=== PATIENT | male | born 1935 | race Caucasian/White ===

== ENCOUNTER → 2019-10-14 09:07 | Outpatient (BNVA) | payer MEDICARE, OTHER, SELFPAY | PROVIDERS: Family Provider Internal Medicine; PCP Internal Medicine; Visit Provider Urology | DX: R97.20 Elevated prostate specific antigen [PSA] (principal) | CPT/HCPCS: 84153 ==

== ENCOUNTER → 2020-02-15 11:38 | Outpatient (BNVA) | payer MEDICARE, OTHER, SELFPAY | PROVIDERS: Family Provider Internal Medicine; PCP Internal Medicine; Visit Provider Urology | DX: R97.20 Elevated prostate specific antigen [PSA] (principal) | CPT/HCPCS: 84153 ==

== ENCOUNTER → 2020-02-16 13:58 | Outpatient (BNVA) | payer MEDICARE, OTHER, SELFPAY | PROVIDERS: Family Provider Internal Medicine; PCP Internal Medicine; Visit Provider Urology | DX: N39.41 Urge incontinence (principal); N40.1 Benign prostatic hyperplasia with lower urinary tract symptoms; R97.20 Elevated prostate specific antigen [PSA]; R39.89 Other symptoms and signs involving the genitourinary system | CPT/HCPCS: 81001 ==

== ENCOUNTER → 2020-09-19 12:44 | Outpatient (BNVA) | payer MEDICARE, OTHER, SELFPAY | PROVIDERS: Family Provider Internal Medicine; PCP Internal Medicine; Visit Provider Urology | DX: R97.20 Elevated prostate specific antigen [PSA] (principal); R39.89 Other symptoms and signs involving the genitourinary system | CPT/HCPCS: 84153 ==

== ENCOUNTER → 2020-09-20 14:10 | Outpatient (BNVA) | payer MEDICARE, OTHER, SELFPAY | PROVIDERS: Family Provider Internal Medicine; PCP Family Medicine; Visit Provider Urology | DX: N39.41 Urge incontinence (principal); N40.1 Benign prostatic hyperplasia with lower urinary tract symptoms; R97.20 Elevated prostate specific antigen [PSA]; R39.9 Unspecified symptoms and signs involving the genitourinary system; R39.89 Other symptoms and signs involving the genitourinary system; C61 Malignant neoplasm of prostate | CPT/HCPCS: 81003 ==

== ENCOUNTER 2020-09-22 08:12 | Outpatient (CLI) | payer MEDICARE, OTHER, SELFPAY ==
--- NOTE | 2020-09-22 08:28 | CT_ITS ---
WS: [id number] CT ABDOMEN PELVIS TECHNIQUE: Noncontrast CT of the abdomen and contrast-enhanced CT of the abdomen and pelvis with buster nal and sagittal reformatted images. CLINICAL INFORMATION: PROSTATE CANCER COMPARISON: None. DLP: 2679.[address] scans at [facility] use at least one of these dose optimization techniques: automat ed exposure control; mA and/or kV adjustment per patient size (includes targeted exams where dose is matched to clinical indication); or iterative reconstruction. FINDINGS:Heterogeneously enhancing nodular prostate with left eccentric nodularity and indentation on the bladder. Prostate measures approximately 4.8 x 5.7 CM. Prostate calcification. Normal perirectal fat. Normal sigmoid colon. No evidence of small or large bowel obstruction. Tiny fat-containing umbi lical hernia. Left pelvic sidewall lymphadenopathy suspicious for metastatic disease with heterogeneous enhancement . Additional enlarged lymph node along the left distal iliac chain. Largest suspicious lymph node roberto sures approximately 2 cm in the left lower pelvis. No upper abdominal lymphadenopathy. No inguinal ly mphadenopathy. Mild diffuse fatty infiltration liver. Normal gallbladder. Normal GE junction. Chronic emphysematous changes in the lung bases. Pleural plaques left lower lobe. Normal spleen. Small splenule. Fatty atro phy of the pancreas. Normal portal vein and splenic vein. Adrenal glands are normal. Normal renal par enchymal enhancement. No hydronephrosis. Small left renal cysts. Bilateral renal cortical atrophy. No rmal caliber abdominal aorta. Moderate aortic calcification. Disc space narrowing L5-S1. CT/CT abdomen pelvis wo/w [id number] IMPRESSION: 1. Heterogeneous enhancing nodular prostate measuring 4.8 x 5.7 cm described a corey. 2. Left pelvic sidewall and left distal iliac lymphadenopathy suspicious for m etastatic disease measuring up to 2.0 CM. 3. No inguinal or periaortic lymphadenopathy. 4. Otherwise normal appearing perirectal fat.
--- NOTE | 2020-09-22 08:30 | NM_ITS ---
WS: [id number] NUCLEAR MEDICINE BONE SCAN Radiopharmaceutical: Tc-99m MDP mCi IV Injection site: Postinjection imaging delay: hr CLINICAL INFORMATION: PROSTATE CANCER COMPARISON: None. FINDINGS: Bone lesions: There are no osseous lesions suspicious for metastatic disease. Soft tissue contours: Normal. Kidneys: Normal. Other findings: Degenerative type uptake involving the left AC joint. Degenerative uptake involving t he left greater than right knees. Small amount of uptake in the upper left costovertebral junction ap proximately T3 likely degenerative or inflammatory. NM/NM bone scan whole body* [id number] IMPRESSION: No evidence of osseous metastatic disease.
[2020-09-22 09:34] LABS: Blood Urea Nitrogen 22 mg/dL (8-23)
[2020-09-22] MEDS: iohexol 300 mg/mL 100 mL Btl IV (09:40)
== END 2020-09-22 08:13 | disposition home or self-care (01) ==
LOC: RAD 08:19
PROVIDERS: PCP Family Medicine; Visit Provider Urology
DX: C61 Malignant neoplasm of prostate (principal)
CPT/HCPCS: 36415; 74178; 78306; 82565; 84520; A9561

== ENCOUNTER → 2020-09-26 15:44 | Outpatient (BNVA) | payer MEDICARE, OTHER, SELFPAY | PROVIDERS: PCP Family Medicine; Visit Provider Urology | DX: C61 Malignant neoplasm of prostate (principal); R97.20 Elevated prostate specific antigen [PSA]; N40.1 Benign prostatic hyperplasia with lower urinary tract symptoms | CPT/HCPCS: 85025 ==

== ENCOUNTER 2020-10-05 13:10 | Outpatient (CLI) | payer MEDICARE, OTHER, SELFPAY ==
--- NOTE | 2020-10-05 17:41 | ONC CON_ITS ---
Dr. Correia New Patient Note Patient: Tremaine Harding Unit #: [id number]: 1935 Dicatated By: Andrea Correia M.D.Date of Visit: Oct 05, 2020 Onc MED New Patient/Consult Referring Physician: Dr. Ko Hines M.D. Chief Complaint: Prostate cancer. History of Present Illness: This is an 85-year-old man with clinical evidence of advanced prostate cancer. He has multiple medical illnesses including hypertension, hyperlipidemia, coronary artery disease, carotid stenosis, peripheral arterial disease, COPD, and obstructive sleep apnea. Back in 2011 I treated him for iron deficiency anemia associated with GI blood loss. He has been followed by Dr. Hines for an elevated PSA level. On his follow-up visit in August 2020 the PSA had increased significantly, to 152.800 ng/mL compared to 47.280 ng/mL in January 2020. Prior to that it had been stable in the range of 20 ng/mL. He had staging evaluation with CT abdomen/pelvis and bone scan on 09/22/2020. The bone scan showed no evidence of metastatic disease. His CT abdomen/pelvis showed heterogeneous enhancing nodular prostate measuring 4.8 x 5.7 cm. There was noted to be left pelvic sidewall and left distal iliac lymphadenopathy measuring up to 2.0 cm, suspicious for metastatic disease. There were no other areas of metastatic involvement noted. At his follow-up visit with Dr. Hines he was noted to have grossly abnormal digital rectal exam. He had indicated that he wished to avoid prostate biopsy if at all possible. He is seen now for further management. He complains that he has been feeling tired a lot, and he thinks that it is getting worse. He has limited activity. His ECOG score is 3. He still has good appetite. He has no fever, night sweats, or hot flashes. He has had decline in vision and apparently has been diagnosed with macular degeneration. He has cough and he has shortness of breath. He is on continuous home oxygen. He does not complain of chest pain. He says he used to have acid reflux, but that is better now. He does complain of having a lot of constipation. He says his bladder function is not right. He reports having urinary frequency and urgency, and he has some associated incontinence. He has pain in his knees and in his right hand. He also reports that his legs are crampy and achy. He does not complain of headache. He does have difficulty with balance. He sometimes has numbness in his hands. Past Medical History: His medical history includes carotid artery stenosis, coronary artery disease, depression, history of iron deficiency anemia due to GI blood loss, history of mild cognitive impairment, hyperlipidemia, hypertension, obstructive sleep apnea, peripheral arterial disease, and prostatic hypertrophy with bladder outlet obstruction. Past Surgical History: His surgical/procedural history includes angioplasty/stent to left leg, cataract removal, coronay angioplasty/stent placement, endarterectomy, femoropopliteal bypass, right wrist surgery, rotator cuff repair, and coronary artery bypass in 2012. Medications: Albuterol Sulfate (sensor) 2 Puff(s) (of 108 (90 base) mcg/act) Aerosol Powder, Breath Activated Inhalation q 4 days, Aspirin 1 (325 mg) Tablet Oral daily, B Complex-C 1 Tablet Oral daily, B-12 1 (1000 mcg) Tablet Oral daily, B-6 1 (200 mg) Tablet Oral daily, Calcium + D 1 (500-1000-40 mg - Units - mcg) Tablet, chewable Oral daily, Co Q 10 1 (10 mg) Capsule Oral daily, Coconut Oil 1 (1000 mg) Capsule Oral daily, Ferrous Sulfate 1 (325 (65 fe) mg) Tablet Oral daily, Finasteride 1 (5 mg) Tablet Oral daily, Fish Oil 1 (1000 mg) Capsule Oral daily, Flax Seed Oil 1 (1000 mg) Capsule Oral daily, Folic Acid 1 (800 mcg) Tablet Oral daily, Ipratropium-Albuterol 1 Inhalation (of 20-100 mcg/act) Aerosol, solution Inhalation daily, Ipratropium-Albuterol 1 Inhalation (of 0.5-2.5 (3) mg/3mL) Solution Inhalation t.i.d., K-Tab 1 (10 meq) Tablet, controlled release Oral daily, Magnesium 1 (200 mg) Tablet, chewable Oral daily, Mucinex Fast-Max 1 (7-59-829-325 mg) Capsule Oral daily, Natural Vitamin E 1 (400 Units) Capsule Oral daily, Oxybutynin Chloride ER 1 (10 mg) Tablet SR 24 HR Oral daily, predniSONE 1 (10 mg) Tablet Oral daily, PreserVision AREDS 1 Tablet Oral daily, Symbicort 1 Inhalation (of 160-4.5 mcg/act) Aerosol Inhalation daily, Tamsulosin HCl 1 (0.4 mg) Capsule Oral daily, Vitamin A 1 (800 Units) Tablet Oral daily Allergies: No Known Allergies. Social History: Mr. Harding is and he is retired. He has a history of smoking up to 4 packs of cigarettes daily. He quit smoking in 2000. He had heavy alcohol use in the past. He quit drinking approximately 20 years ago. Family History: Father with cirrhosis of the liver. Mother lived to age 106. One brother with heart disease. Two brothers had dementia. His sister of meningitis at age 9. Review Of Symptoms: Constitutional - He has been feeling pretty fatigued, this has occurred for quite sometime but it has gradually worsened. He is able to do some very light housework, he is otherwise mainly sedentary. His appetite is good and his weight is stable. No fever, night sweats, or hot flashes. ECOG score is 3, Eyes - He has had a decrease in his vision. He is being evaluated by Dr. Ellis, and he apparently has been diagnosed with macular degeneration, ENMT - He has hearing loss and tinnitus. No sinus congestion/drainage. No mouth sores. No sore throat or difficulty swallowing, Hematologic/Lymphatic - He bruises easily, Respiratory - He gets short of breath with any activity. He wears 4 L continuous oxygen. No cough. No pleuritic pain or hemoptysis, Cardiovascular - No angina pain. No palpitations, Gastrointestinal - No nausea or vomiting. He used to have acid reflux. He has a lot of constipation. No blood in the stool or black stools, Genitourinary (M) - He says his bladder function is not right. He has urinary frequency and urgency and has some associated incontinence, Musculoskeletal - He has pain in his knees he also complains of pain in his right hand, Integumentary - No skin eruption, Neurologic - No headache. He has dizziness. He sometimes has numbness in his hands. No other focal neurologic symptoms, Psychiatric - No anxiety or depression. He does not sleep well. Vital Signs: Performed on Oct 05, 2020 14:06: 6, 28.59, 1.99 sq.m, 68.00 in, 90 % (LOW), 72 /min, 18 /min, 129/59 mm(hg), 98.2 F (LOW), 188 lbs (LOW), and Performed on Apr 10, 2012 13:45: 0. Physical Examination: Constitutional - He appears somewhat weak generally, Eyes - Sclerae nonicteric. Conjunctivae clear, ENMT - No lesions noted in the oral cavity, Hematologic/Lymphatic - No cervical, clavicular, or axillary adenopathy, Respiratory - Lungs sound clear with diminished air movement bilaterally, Cardiovascular - Heart rhythm appears irregular. There is no murmur, gallop, or rub noted, Abdomen - Moderately distended. Liver and spleen are not enlarged. There is no abdominal mass or ascites noted and there is no inguinal adenopathy, Extremities - No edema. There are multiple purpuric lesions on both arms, Integumentary - There are no suspicious skin lesions noted, Neurologic - No focal neurologic deficits noted. Lab/Imaging: His CBC from 09/26/2020 showed hemoglobin 13.8 g, white blood cell count 14,400, and platelet count 205,000. Problem List: 1. Patient with clinical evidence of prostate cancer including significantly elevated PSA level, grossly abnormal BHARAT, and CT evidence of left pelvic sidewall and left distal iliac lymphadenopathy. 2. He has associated symptoms of bladder outlet obstruction. 3. Hypertension. 4. Hyperlipidemia. 5. Coronary artery disease. 6. Carotid stenosis. 7. Peripheral arterial disease. 8. COPD. 9. Obstructive sleep apnea. 10. History of mild cognitive impairment. 11. History of iron deficiency anemia in association with GI blood loss. Problems Addressed with this Encounter and Plan: Patient with clinical evidence of prostate cancer including significantly elevated PSA level, grossly abnormal BHARAT, and CT evidence of left pelvic sidewall and left distal iliac lymphadenopathy. He has associated symptoms of bladder outlet obstruction. He is otherwise not overtly symptomatic, but he has been showing decline in performance status, and that potentially could be related. I reviewed the laboratory and CT findings. He is aware that this is all consistent with advanced prostate cancer. He is interested in pursuing treatment, but he prefers to avoid biopsy if at all possible. Given his underlying medical problems, I think it is reasonable to approach this in a more conservative manner, and I am giving him the option to proceed directly with androgen deprivation therapy. He will now begin bicalutamide 50 mg daily for 14 days, and he will return next week for an initial injection of Zoladex, 10.8 mg. I will then plan to continue Zoladex monotherapy at 3-month intervals. I discussed anticipated side effects which will likely include hot flashes and may also include fatigue, mood changes, among others. Signed By: Andrea Correia M.D. <<Signature on File>>
== END 2020-10-05 13:11 | disposition home or self-care (01) ==
LOC: ONCMED 13:14
PROVIDERS: PCP Family Medicine; Visit Provider Internal Medicine Medical Oncology
DX: C61 Malignant neoplasm of prostate (principal); R35.0 Frequency of micturition; R39.15 Urgency of urination; R59.0 Localized enlarged lymph nodes; N13.8 Other obstructive and reflux uropathy; I10 Essential (primary) hypertension; E78.5 Hyperlipidemia, unspecified; I25.10 Atherosclerotic heart disease of native coronary artery without angina pectoris
CPT/HCPCS: 99205

== ENCOUNTER 2020-10-12 06:23 | Outpatient (CLI) | payer MEDICARE, OTHER, SELFPAY ==
[2020-10-12] MEDS: goserelin acetate 10.8 mg Implant IM (10:30)
[2020-10-12] MEDS: lidocaine 1% INJ 20 mL INJECTION (10:30)
== END 2020-10-12 06:24 | disposition home or self-care (01) ==
PROVIDERS: PCP Family Medicine; Visit Provider Internal Medicine Medical Oncology
DX: C61 Malignant neoplasm of prostate (principal); Z79.818 Long term (current) use of other agents affecting estrogen receptors and estrogen levels
CPT/HCPCS: 96372; 96402; J9202

== ENCOUNTER 2020-10-18 13:21 | Outpatient (CLI) | payer MEDICARE, OTHER, SELFPAY ==
--- NOTE | 2020-10-18 13:30 | USCV_ITS ---
Tremaine Harding Age: 85 Gender: M : 1935 Exam Date: 10/18/2020 13:41 Ordering Phys: Hal Muñoz MD ([email or web address]) Technologist: Exam Location: [facility] [place] Indication: LT ICA OCCUSION Risk Factors: Previous Vascular Surgery: Right Brachial BP: / Left Brachial BP: / Right Left Velocity (cm/s) Spectral Plaque Velocity (cm/s) Spectral Plaque Syst/Diast Broadening Syst/Diast Broadening 54.70/ 12.80 Prox CCA 55.50 / 0.90 53.80/ 8.50 Mid CCA 64.10 / 5.10 61.50/ 7.70 Hetro Distal CCA 79.50 / 6.00 85.40/ 11.80 Hetro Prox ICA / 109.10/17.10 Hetro Mid ICA / 118.30/19.70 Distal ICA / 262.00 ECA 156.90 1.92 ICA/CCA Antegrade Vertebral Antegrade 59.20/ 7.90 cm/s 119.6/ 14.00 cm/s 0 Bi Subclavian Bi 105.2 275.4 0 0 FINDINGS Mild to moderate diffuse plaques in the common carotid arteries bilaterally Moderate heterogeneous plaques of the right bifurcation and internal carotid artery. No Doppler flow signals in the left internal carotid artery. Elevated velocity in the right external carotid artery and left subclavian artery High resistance doppler flow pattern in the right vertebral artery CONCLUSIONS 1. Features of chronic use of the left internal carotid artery. 2. Elevated velocity in the right external carotid and left subclavian arteries suggesting greater than 50% stenosis. 3. Moderate heterogeneous plaques at the right bifurcation and internal carotid artery with the Doppler characteristics suggestive of less than 50% stenosis. 4. Abnormal Doppler flow pattern in the right vertebral artery, may suggest distal occlusion. Compared to the study from 02/08/2019, the bidirectional flow in the left vertebral artery is not visualized at this time Consider CTA of the neck to better evaluate the arch vessels Dr Hal Muñoz MD [facility] (Electronically Signed) Final Date: 25 Oct 2020 07:40 S
== END 2020-10-18 13:22 | disposition home or self-care (01) ==
PROVIDERS: PCP Family Medicine; Visit Provider Internal Medicine Cardiovascular Disease
DX: I65.23 Occlusion and stenosis of bilateral carotid arteries (principal)
CPT/HCPCS: 93880

== ENCOUNTER 2020-11-22 13:57 | Outpatient (CLI) | payer MEDICARE, OTHER, SELFPAY ==
--- NOTE | 2020-11-22 14:07 | CT_ITS ---
WS: [id number] CT ANGIOGRAM CEREBRAL AND CAROTID ARTERIES HISTORY: I65.23 - Occlusion and stenosis of bilateral carotid arteries. TECHNIQUE: CT angiogram is performed of the carotid and cerebral arteries. During arterial injection imaging is obtained from the skull vertex to the aortic arch in 1.25 mm imaging. Coronal and sagittal reformats are submitted. Additional multi planar reformats of the carotid and cerebral arteries are submitted, MIP imaging also reviewed. NASCET criteria utilized. All CT scans at [facility] use at least one of these dose optimization techniques: automated exposure control; mA and/or kV ad justment per patient size (includes targeted exams where dose is matched to clinical indication); or iterative reconstruction. CONTRAST: Omnipaque 350; 95 mL IV. DLP: 2356.56 mGy-cm. COMPARISON: None available. No intracranial hemorrhage. Large MCA territory infarct with encephalomalacia and volume loss. Additi onal chronic microvascular ischemic changes throughout the white matter. Carotid Angiogram: Right carotid: Common carotid artery: Atherosclerotic plaque with no significant stenosis. Internal carotid artery: Multifocal short segment area of stenosis due to calcification and intimal t hickening. Stenosis near 50%. External carotid artery: Patent. Left carotid: Common carotid artery: Arises normally from the aorta. Moderate circumferential intimal plaque. Internal carotid artery: Intimal thickening calcified plaque at the bifurcation. There is complete oc clusion involving the proximal ICA. External carotid artery: Patent. Right vertebral artery: Unremarkable. Left vertebral artery: Unremarkable. Arises normally from the subclavian artery. Subclavian arteries: Mild atherosclerotic plaque. No stenosis identified. Portions of the RIGHT subcl huyen artery obscured by contrast bolus injection. Upper thorax: Severe centrilobular emphysema at the apices. Thyroid gland: Normal. Osseous structures: Advanced spondylitic changes. Sclerotic focus at T4. CEREBRAL ANGIOGRAM: Intracranial vertebral arteries: Normal with no significant atherosclerosis. Basilar artery: No significant stenosis or occlusion. No aneurysm. Intracranial Internal carotid arteries: Atherosclerotic plaque in the RIGHT intracranial carotid antonino ry. Multifocal areas of moderate stenosis approaching 50%. Patient has known occluded in the LEFT ICA . There is reconstitution through an intact diomede of Jones. Middle cerebral arteries: Normal RIGHT MCA. Small caliber LEFT MCA due to limited perfusion to the in tact diomede of Jones. Anterior cerebral arteries and ACOM: Normal. Posterior cerebral arteries and PCOM's: Normal. Dural venous sinuses are normally enhancing. Mastoid air cells: Normal. Paranasal sinuses: Normal. Calvarium: Prior LEFT parietal craniotomy. CT/CT angio headneck* [id number] IMPRESSION: 1. Complete occlusion extracranial LEFT ICA. 2. Multifocal areas of sclerotic plaque in the proximal RIGHT extracranial ICA with stenosis approaching 50%. 3. Reconstitution through an intact diomede of Jones to fill the LEFT MCA. LEF T MCA small caliber but is enhancing. 4. Moderate calcified plaque in the RIGHT intracranial carotid artery. 5. 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 6. Chronic emphysema at the lung apices.
[2020-11-22] MEDS: iohexol 350 mg/mL 100 mL Btl IV (14:50)
[2020-11-22 14:56] LABS: Blood Urea Nitrogen 20 mg/dL (8-23)
== END 2020-11-22 13:58 | disposition home or self-care (01) ==
PROVIDERS: PCP Family Medicine; Visit Provider Internal Medicine Cardiovascular Disease
DX: I65.23 Occlusion and stenosis of bilateral carotid arteries (principal); J43.9 Emphysema, unspecified; I63.9 Cerebral infarction, unspecified
CPT/HCPCS: 70496; 70498; 82565; 84520; Q9967

== ENCOUNTER 2021-01-11 12:33 | Outpatient (CLI) | payer MEDICARE, OTHER, SELFPAY ==
[2021-01-11 13:20] LABS: Basophils # 0.2 10^3/uL (0.0-0.1); Basophils % 1.1 %; Eosinophils # 0.3 10^3/uL (0.0-0.8); Eosinophils % 2.4 %; Hematocrit 42.7 % (42.0-52.0); Hemoglobin 13.3 g/dL (11.7-16.6); Lymphocytes # 1.7 10^3/uL (0.8-4.8); Lymphocytes % 12.2 %; Mean Corpuscular HGB Conc 31.1 g/dL (30.0-36.0); Mean Corpuscular Hemoglobin 30.3 pg (28.0-34.0); Mean Corpuscular Volume 97.3 fL (80-94); Mean Platelet Volume 10.3 fL (7.4-10.4); Monocytes # 1.4 10^3/uL (0.2-0.9); Monocytes % 10.2 %; Neutrophils # 10.22 10^3/uL (1.8-7.7); Neutrophils % 73.7 %; Nucleated Red Blood Cells % 0 %; Platelet Count 180 10^3/cmm (130-400); Red Blood Count 4.39 10^6/uL (4.1-5.3); Red Cell Distribution Width 15.4 % (12.1-15.1); White Blood Count 13.9 10^3/uL (4.0-10.0)
[2021-01-11 14:01] LABS: Testosterone Total 2.5 ng/dL (193-740)
[2021-01-11 14:12] LABS: Alanine Aminotransferase 12 U/L (0-41); Alkaline Phosphatase 66 IU/L (40-130); Anion Gap 13.8 (5-19); Aspartate Amino Transferase 17 U/L (0-40); Blood Urea Nitrogen 20 mg/dL (8-23); Calcium 9.2 mg/dL (8.5-10.5); Carbon Dioxide 30 mmol/L (22-29); Chloride 102 mmol/L (98-107); Globulin 2.8 g/dL (1.3-4.6); Glucose 96 mg/dL (65-115); Osmolality Calculated 294 mOsm/kg (285-295); Potassium 4.8 mmol/L (3.5-5.1); Sodium 141 mmol/L (136-145); Total Bilirubin 0.6 mg/dL (0.15-1.2); Total Protein 6.8 g/dL (6.6-8.7)
[2021-01-11] MEDS: lidocaine 1% INJ 20 mL INJECTION (14:33)
[2021-01-11] MEDS: goserelin acetate 10.8 mg Implant SUBCUT (14:44)
--- NOTE | 2021-01-15 07:03 | ONC FU_ITS ---
Dr. Correia Patient Follow-Up Note Patient: Tremaine Harding Unit #: [id number]: 1935 Dicatated By: Andrea Correia M.D.Date of Visit:Jan 11, 2021 Onc Med Follow-up/Prog Note Chief Complaint: Prostate cancer. History of Present Illness: This is an 85-year-old man with clinical evidence of advanced prostate cancer. He has multiple medical illnesses including hypertension, hyperlipidemia, coronary artery disease, carotid stenosis, peripheral arterial disease, COPD, and obstructive sleep apnea. Back in 2011 I treated him for iron deficiency anemia associated with GI blood loss. He has been followed by Dr. Hines for an elevated PSA level. On his follow-up visit in August 2020 the PSA had increased significantly, to 152.800 ng/mL compared to 47.280 ng/mL in January 2020. Prior to that it had been stable in the range of 20 ng/mL. He had staging evaluation with CT abdomen/pelvis and bone scan on 09/22/2020. The bone scan showed no evidence of metastatic disease. His CT abdomen/pelvis showed heterogeneous enhancing nodular prostate measuring 4.8 x 5.7 cm. There was noted to be left pelvic sidewall and left distal iliac lymphadenopathy measuring up to 2.0 cm, suspicious for metastatic disease. There were no other areas of metastatic involvement noted. At his follow-up visit with Dr. Hines he was noted to have grossly abnormal digital rectal exam. He had indicated that he wished to avoid prostate biopsy if at all possible. I had seen him initially on 10/05/2020. He was given the option to proceed with androgen deprivation therapy. He then began bicalutamide 50 mg daily for 14 days and he received his initial injection of Zoladex 10.8 mg on 10/12/2020. He is seen for a followup visit. He has been feeling pretty good generally. He has limited activity. His ECOG score is 1. He has good appetite. He has no fever, night sweats, or hot flashes. His breathing is OK on oxygen. He has cough, but not that much. He has chest pain at times, which he attributes to muscle spasm. He has no GI complaints other constipation, which is adequately managed. His bladder function is no better. He has joint pain in his hands and knees. He has no other bone pain. He very seldom has headache. He has orthostatic dizziness. He has some numbness in his right hand. Medications: Albuterol Sulfate (sensor) 2 Puff(s) (of 108 (90 base) mcg/act) Aerosol Powder, Breath Activated Inhalation q 4 days, Aspirin 1 (325 mg) Tablet Oral daily, B Complex-C 1 Tablet Oral daily, B-12 1 (1000 mcg) Tablet Oral daily, B-6 1 (200 mg) Tablet Oral daily, Calcium + D 1 (500-1000-40 mg - Units - mcg) Tablet, chewable Oral daily, Co Q 10 1 (10 mg) Capsule Oral daily, Coconut Oil 1 (1000 mg) Capsule Oral daily, Ferrous Sulfate 1 (325 (65 fe) mg) Tablet Oral daily, Finasteride 1 (5 mg) Tablet Oral daily, Fish Oil 1 (1000 mg) Capsule Oral daily, Flax Seed Oil 1 (1000 mg) Capsule Oral daily, Folic Acid 1 (800 mcg) Tablet Oral daily, Ipratropium-Albuterol 1 Inhalation (of 20-100 mcg/act) Aerosol, solution Inhalation daily, Ipratropium-Albuterol 1 Inhalation (of 0.5-2.5 (3) mg/3mL) Solution Inhalation t.i.d., K-Tab 1 (10 meq) Tablet, controlled release Oral daily, Magnesium 1 (200 mg) Tablet, chewable Oral daily, Mucinex Fast-Max 1 (3-71-324-325 mg) Capsule Oral daily, Natural Vitamin E 1 (400 Units) Capsule Oral daily, Oxybutynin Chloride ER 1 (10 mg) Tablet SR 24 HR Oral daily, predniSONE 1 (10 mg) Tablet Oral daily, PreserVision AREDS 1 Tablet Oral daily, Symbicort 1 Inhalation (of 160-4.5 mcg/act) Aerosol Inhalation daily, Tamsulosin HCl 1 (0.4 mg) Capsule Oral daily, Vitamin A 1 (800 Units) Tablet Oral daily Allergies: No Known Allergies. Vital Signs: Performed on Jan 11, 2021 16:07 Height - 68.00 in Weight - 182.8 lbs (LOW) BSA - 1.97 sq.m BMI - 27.79 Temperature - 98.9 F (HIGH) Pulse - 76 /min Respiration - 18 /min BP - 121/65 mm(hg) O2 Sat - 94 % (LOW) Pain - 0 Fatigue - 0 Physical Examination: Constitutional - He appears chronically ill, Eyes - Sclerae nonicteric. Conjunctivae clear, ENMT - No lesions noted in the oral cavity, Hematologic/Lymphatic - No cervical, clavicular, or axillary adenopathy, Respiratory - Lungs sound clear with diminished air movement bilaterally, Cardiovascular - Heart rhythm appears regular. There is no murmur, gallop, or rub noted, Abdomen - Moderately distended. Liver and spleen are not enlarged. There is no abdominal mass or ascites noted and there is no inguinal adenopathy, Extremities - No edema. He has extensive purpura, Neurologic - No focal neurologic deficits noted. Lab/Imaging: Test performed on Jan 11, 2021 12:47 WBC 13.9 10 3/uL RBC 4.39 10 6/uL HGB 13.3 g/dL HCT 42.7 % MCV 97.3 fL MCH 30.3 pg MCHC 31.1 g/dL RDW 15.4 % Platelet Count 180 10 3/cmm MPV 10.3 fL Neutrophils 10.22 10 3/uL Lymphocytes 1.7 10 3/uL Monocytes 1.4 10 3/uL Eosinophils 0.3 10 3/uL Basophils 0.2 10 3/uL Neutrophil % 73.7 % Lymphocyte % 12.2 % Monocyte % 10.2 % Eosinophil % 2.4 % Basophils % 1.1 % NRBC % 0 % Test performed on Jan 11, 2021 12:43 Sodium 141 mmol/L Testosterone, Total 2.5 ng/dL Potassium 4.8 mmol/L Chloride 102 mmol/L CO2 30 mmol/L Anion Gap 13.8 BUN 20 mg/dL Creatinine 0.9 mg/dL Cr Clearance (Est) 71.66 mL/min Glucose 96 mg/dL Osmolality - Calculated 294 mOsm/kg Calcium 9.2 mg/dL Protein, Total 6.8 g/dL Albumin 4.0 g/dL Globulin 2.8 g/dL Bilirubin, Total 0.6 mg/dL ALT (SGPT) 12 U/L AST (SGOT) 17 U/L Alkaline Phosphatase 66 IU/L PSA 30.160 ng/mL Problem List: 1. Patient with clinical evidence of prostate cancer including significantly elevated PSA level, grossly abnormal BHARAT, and CT evidence of left pelvic sidewall and left distal iliac lymphadenopathy. 2. He has associated symptoms of bladder outlet obstruction. 3. Hypertension. 4. Hyperlipidemia. 5. Coronary artery disease. 6. Carotid stenosis. 7. Peripheral arterial disease. 8. COPD. 9. Obstructive sleep apnea. 10. History of mild cognitive impairment. 11. History of iron deficiency anemia in association with GI blood loss. Problems Addressed with this Encounter and Plan: Patient with clinical evidence of prostate cancer including significantly elevated PSA level, grossly abnormal BHARAT, and CT evidence of left pelvic sidewall and left distal iliac lymphadenopathy. He has associated symptoms of bladder outlet obstruction. He was otherwise not overtly symptomatic, but he had been showing decline in performance status. In September 2020 he began androgen deprivation therapy with Zoladex together with bicalutamide 50 mg daily for 14 days. Thus far he has tolerated the treatment with no adverse effects. He does appear to be showing a good response by PSA level. His cilnical status appears stable. He continues treatment with Zoladex 10.8 mg. I will see him again in 3 months. Signed By: Andrae Correia M.D. <<Signature on File>>
== END 2021-01-11 12:34 | disposition home or self-care (01) ==
PROVIDERS: PCP Family Medicine; Visit Provider Internal Medicine Medical Oncology
DX: C61 Malignant neoplasm of prostate (principal); I10 Essential (primary) hypertension; E78.5 Hyperlipidemia, unspecified; I25.10 Atherosclerotic heart disease of native coronary artery without angina pectoris; I65.29 Occlusion and stenosis of unspecified carotid artery; I70.209 Unspecified atherosclerosis of native arteries of extremities, unspecified extremity; J44.9 Chronic obstructive pulmonary disease, unspecified; G47.33 Obstructive sleep apnea (adult) (pediatric); Z79.899 Other long term (current) drug therapy
CPT/HCPCS: 36415; 80053; 84153; 84403; 85025; 96372; 96402; 99214; J9202

== ENCOUNTER 2021-05-29 17:34 | Inpatient (IN) | payer MEDICARE, OTHER, SELFPAY ==
[2021-05-29] VITALS (8 sets, daily range): BP systolic 76–148; BP diastolic 52–72; PULSE 76–147; RESP 16–26; TEMP 36.4; O2SAT 88–100; BMI 27.8
--- NOTE | 2021-05-29 18:35 | CTR_ITS ---
PROCEDURE INFORMATION: Exam: CT Head Without Contrast Exam date and time: 05/29/2021 6:35 PM Age: 85 years old Clinical indication: Injury or trauma; Fall; Blunt trauma (contusions or hematomas); Prior surgery TECHNIQUE: Imaging protocol: Computed tomography of the head without contrast. Radiation optimization: All CT scans at this facility use at least one of these dose optimization techniques: automated exposure control; mA and/or kV adjustment per patient size (includes targeted exams where dose is matched to clinical indication); or iterative reconstruction. COMPARISON: CT angio headneck* [id number] 11/22/2020 2:36 PM RADIATION DOSE METRICS: Total DLP (mGy-cm): 882.91 FINDINGS: Brain: No hemorrhage. Moderate diffuse cerebral atrophy and sequela of chronic small vessel ischemic disease. Encephalomalacic changes in the left frontal lobe. No mass effect. Cerebral ventricles: No ventriculomegaly. Paranasal sinuses: Visualized sinuses are unremarkable. No fluid levels. Mastoid air cells: Visualized mastoid air cells are well aerated. Bones/joints: Left parietal temporal craniotomy changes. No acute fracture. Soft tissues: Unremarkable. CT/CT head wo con* [id number] IMPRESSION: 1. No acute intracranial abnormality. 2. Moderate diffuse cerebral atrophy and sequela of chronic small vessel ischemic disease. Encephalomalacic change in the left frontal lobe.
--- NOTE | 2021-05-29 18:35 | XRR_ITS ---
PROCEDURE INFORMATION: Exam: XR Right Elbow Exam date and time: 05/29/2021 6:35 PM Age: 85 years old Clinical indication: Injury or trauma; Fall; Blunt trauma (contusions or hematomas); Elbow; Right; Additional info: Fall/bruise TECHNIQUE: Imaging protocol: XR Right elbow. Views: 3 or more views. COMPARISON: NM bone scan whole body* [id number] 09/22/2020 8:30 AM FINDINGS: Bones/joints: Osseous structures are intact. No evidence of fracture. Soft tissues: Normal. XR/XR elbow RT min 3V* [id number] IMPRESSION: No acute findings.
--- NOTE | 2021-05-29 18:35 | XRR_ITS ---
PROCEDURE INFORMATION: Exam: XR Chest Exam date and time: 05/29/2021 6:35 PM Age: 85 years old Clinical indication: Shortness of breath; Prior surgery; Additional info: Dyspnea TECHNIQUE: Imaging protocol: XR of the chest. Views: 1 view. COMPARISON: NM bone scan whole body* [id number] 09/22/2020 8:30 AM FINDINGS: Lungs: Ill-defined opacity in the right mid and lower lung. Pleural spaces: Bilateral costophrenic blunting which may relate to trace pleural effusions. No pneumothorax. Heart/Mediastinum: Mild cardiomegaly. Bones/joints: Sternotomy wires noted. Partially visualized rotator cuff anchor in the right humeral head. XR/XR chest 1V portable [id number] IMPRESSION: Ill-defined opacity in the right mid and lower lung.
--- NOTE | 2021-05-29 18:35 | XRR_ITS ---
PROCEDURE INFORMATION: Exam: XR Right Forearm Exam date and time: 05/29/2021 6:35 PM Age: 85 years old Clinical indication: Injury or trauma; Fall; Blunt trauma (contusions or hematomas); Arm, lower; Right; Prior surgery TECHNIQUE: Imaging protocol: XR Right forearm. Views: 2 views. COMPARISON: NM bone scan whole body* [id number] 09/22/2020 8:30 AM FINDINGS: Bones/joints: ORIF hardware noted in the wrist. Radius and ulna appear intact without fracture. Soft tissues: Normal. XR/XR forearm RT 2V [id number] IMPRESSION: No acute findings.
--- NOTE | 2021-05-29 18:35 | XRR_ITS ---
PROCEDURE INFORMATION: Exam: XR Right Hip Exam date and time: 05/29/2021 6:35 PM Age: 85 years old Clinical indication: Injury or trauma; Fall; Blunt trauma (contusions or hematomas); Right; Hip; Additional info: R proximal lateral thigh bruise TECHNIQUE: Imaging protocol: XR Right hip. Views: 1 view hip with pelvis when performed. COMPARISON: CT abdomen pelvis wo/w [id number] 09/22/2020 9:54 AM FINDINGS: Bones/joints: No acute fracture. Moderate degenerative narrowing of the right hip. Soft tissues: Unremarkable. XR/XR hip RT 2-3V wo/w pel* [id number] IMPRESSION: No acute findings.
[2021-05-29 18:52] LABS: Basophils # 0.1 10^3/uL (0.0-0.1); Basophils % 0.8 %; Eosinophils # 0.1 10^3/uL (0.0-0.8); Eosinophils % 0.4 %; Hematocrit 26.7 % (42.0-52.0); Hemoglobin 8.1 g/dL (11.7-16.6); Lymphocytes % 6.4 %; Mean Corpuscular HGB Conc 30.3 g/dL (30.0-36.0); Mean Corpuscular Hemoglobin 27.7 pg (28.0-34.0); Mean Corpuscular Volume 91.4 fl (80-94); Mean Platelet Volume 9.7 fL (7.4-10.4); Monocytes # 1.3 10^3/uL (0.2-0.9); Monocytes % 8.2 %; Neutrophils # 12.68 10^3/uL (1.8-7.7); Neutrophils % 80.6 %; Nucleated Red Blood Cells % 0.1 %; Platelet Count 311 10^3/cmm (130-400); Red Blood Count 2.92 10^6/uL (4.1-5.3); Red Cell Distribution Width 16.5 % (12.1-15.1); White Blood Count 15.7 10^3/uL (4.0-10.0)
--- NOTE | 2021-05-29 18:52 | ED_ITS ---
HPI - General Adult General: Chief complaint: Altered Mental Status Stated complaint: UTI COMPLICATIONS/AMS/FREQUENT FALLS Time Seen by Provider: 05/29/21 18:20 History of Present Illness: HPI narrative: CC: AMS HPI: [85]yo patient w/ hx of CVA x 9, CAD s/p stent x 3, COPD presenting for altered mental status. Per patient's , patient has become increasingly more confused over the last 3 weeks. The last 3 days, patient has had multiple episodes of recurrent fall. At baseline, prior to 3 weeks, patient is able to take care of himself and have conversant conversation. Since 3 weeks ago, patient has been deteriorating gradually. Patient is AAO x1 moderately confused. is concerned that patient may be having urinary tract infection at this time. Patient has no fever, diarrhea, abdominal pain, chest pain, shortness breath, ear pain, focal weakness, any new concerning complaints Onset: Unknown Duration: ongoing, unclear duration Location: home Severity: severe Review of Systems Narrative: REVIEW OF SYSTEMS unable to obtain due to current cognitive status PFSH ED PFSH: Medical History Abnormal prostate exam Abnormal PSA ASHD (arteriosclerotic heart disease) Benign non-nodular prostatic hyperplasia with lower urinary tract symptoms CAD (coronary artery disease) Carotid artery stenosis Chest pain History of hypertension Hx of coronary atherosclerosis Hx of hyperlipidemia Prostate cancer PVD (peripheral vascular disease) SOB (shortness of breath) Urgency incontinence Surgical History H/O wrist surgery RIGHT - History of endarterectomy History of femoropopliteal bypass Hx of coronary artery bypass graft Hx of rotator cuff surgery Family History Father , AT AGE 60 Cirrhosis of liver Mother , AT AGE 106 No problems noted. Family/Other CAD (coronary artery disease) Diabetes Hypertension Social History Smoking and tobacco status: former smoker Alcohol intake: current Alcohol intake frequency: holidays/special occasions only Adopted: No Caregiver/support person: No Lives independently: No Household members: spouse Marital status: Current occupational status: retired History of recent travel: No Current gender identity: Male Physical Exam Narrative: EXAM NARRATIVE: Head: Atraumatic Eyes: PERRL, conjunctiva without injection ENT: Mucous membrane moist NECK: Supple without lymphadenopathy LUNGS: LCTAB CV: RRR ABDOMEN: Soft, nontender EXTREMITY: Normal ROM, no focal areas to palpation over the extremities, unable to assess neurological exam following given altered mental status. SKIN: +bruises of the R elbow/forearm, R glute, and R proximal thigh NEURO: Somnolent but arousable, moving all extremities, GCS of 14 PSYCH: Somnolent unable to fully assess at this time Course Vital Signs: Vital signs: Vital Signs Temperature 97.6 F 05/29/21 17:54 Pulse Rate 76 05/29/21 18:18 Respiratory Rate 16 05/29/21 18:18 Blood Pressure 142/72 05/29/21 18:18 Pulse Oximetry 95 05/29/21 18:18 MDM - General Adult MDM Narrative: Medical decision making narrative: [85]yo patient w/ hx of CAD s/p stents, multiple CVAs in the past presenting for worsening AMS and falls. HDS. + bruises over the R forearm/elbow, R glute and R proximal femur. No tenderness to palpation over the bruise sites. Toxidrome Findings: Negative. No rigidity or clonus of LE ankle/knee reflexes, no diaphoresis, pupils mid-ranged equal and reactive to light, no signs of track leung/body patches, normal bowel sounds, and bladder non-palpable/ non- distended. EKG: EKG: Normal Sinus Rhythm. No overt ischemic findings and no prolongation of QTc or QRS intervals. No signs of hyperkalemia (peaked T waves, QRS widening, and FL prolongation) Workup: CBC, CMP, acetaminophen level, salicylate level, VBG, CK, UA, ECG, UA/UDS, CT brain, XR Chest On reassessment, patient was found to have a white count 15.7 consistent with baseline. Troponin of 201. Patient status post aspirin and Lovenox in the ED. Patient showed possible pneumonia. Patient status post ceftriaxone and azithromycin. CT brain negative for any acute finding. UA negative for any signs of UTI. Hemolgobin of 8.1 consistent with baseline. Disposition: Admission for AMS workup, NSTEMI and PNA Lab Data: Labs: Lab Results 05/29/21 05/29/21 05/29/21 18:40 18:40 18:50 WBC 15.7 10^3/uL H 10 ^3/uL (4.0-10.0) RBC 2.92 10^6/uL L 10 ^6/uL (4.1-5.3) Hgb 8.1 g/dL L g/dL (11.7-16.6) Hct 26.7 % L % (42.0-52.0) MCV 91.4 fl fl (80-94) MCH 27.7 pg L pg (28.0-34.0) MCHC 30.3 g/dL g/dL (30.0-36.0) RDW 16.5 % H % (12.1-15.1) Plt Count 311 10^3/cmm 10^3 /cmm (130-400) MPV 9.7 fL fL (7.4-10.4) Neut % (Auto) 80.6 % % Lymph % (Auto) 6.4 % % Florence % (Auto) 8.2 % % Eos % (Auto) 0.4 % % Baso % (Auto) 0.8 % % Neut # (Auto) 12.68 10^3/uL H 1 0^3/uL (1.8-7.7) Lymph # (Auto) 1.0 10^3/uL 10^3/ uL (0.8-4.8) [place] # (Auto) 1.3 10^3/uL H 10^ 3/uL (0.2-0.9) Eos # (Auto) 0.1 10^3/uL 10^3/ uL (0.0-0.8) Baso # (Auto) 0.1 10^3/uL 10^3/ uL (0.0-0.1) Nucleated RBC % (a uto) 0.1 % % Nucleated RBCs # 0.0 /100WBC /100W BC Sodium 139 mmol/L mmol/L (136-145) Potassium 4.8 mmol/L mmol/L (3.5-5.1) Chloride 98 mmol/L mmol/L (98-107) Carbon Dioxide 30 mmol/L H mmol/ L (22-29) Anion Gap 15.8 (5-19) BUN 20 mg/dL mg/dL (8-23) Creatinine 0.9 mg/dL mg/dL (0.7-1.2) GFR Calculation Not Reportable Glucose 123 mg/dL H mg/dL (65-115) Calculated Osmolal ity 292 mOsm/kg mOsm/ kg (285-295) Calcium 8.8 mg/dL mg/dL (8.5-10.5) Total Bilirubin 0.5 mg/dL mg/dL (0.15-1.2) AST 26 U/L U/L (0-40) ALT 24 U/L U/L (0-41) Alkaline Phosphata se 60 IU/L IU/L (40-130) Troponin T Baselin e 201 ng/L H* ng/L (0-15) Total Protein 6.4 g/dL L g/dL (6.6-8.7) Albumin 3.4 g/dL L g/dL (3.5-5.2) Globulin 3.0 g/dL g/dL (1.3-4.6) Urine Color Urine Appearance Urine pH Ur Specific Gravit y Urine Protein Urine Glucose (UA) Urine Ketones Urine Blood Urine Nitrate Urine Bilirubin Urine Urobilinogen Ur Leukocyte Catherine ase Urine RBC Urine WBC Ur Squamous Epith Cells Amorphous Sediment Urine Bacteria Hyaline Casts Urine Mucus Salicylates 1.2 mg/dL L mg/dL (3-10) Acetaminophen < 5.0 ug/mL L ug/ mL (10-30) 05/29/21 19:10 WBC RBC Hgb Hct MCV MCH MCHC RDW Plt Count MPV Neut % (Auto) Lymph % (Auto) Florence % (Auto) Eos % (Auto) Baso % (Auto) Neut # (Auto) Lymph # (Auto) Florence # (Auto) Eos # (Auto) Baso # (Auto) Nucleated RBC % (a uto) Nucleated RBCs # Sodium Potassium Chloride Carbon Dioxide Anion Gap BUN Creatinine GFR Calculation Glucose Calculated Osmolal ity Calcium Total Bilirubin AST ALT Alkaline Phosphata se Troponin T Baselin e Total Protein Albumin Globulin Urine Color Yellow (Yellow) Urine Appearance Clear (CLEAR) Urine pH 5 (5-7) Ur Specific Gravit y 1.020 (1.005-1.030) Urine Protein Trace (Negative) Urine Glucose (UA) Norm (Normal) Urine Ketones Negative (Negative) Urine Blood Neg (Negative) Urine Nitrate Negative (Negative) Urine Bilirubin Neg (Negative) Urine Urobilinogen 1 mg/dL H mg/dL (Negative) Ur Leukocyte Catherine ase Negative (Negative) Urine RBC 0-4 /hpf H /hpf (0-2) Urine WBC 0-4 /hpf H /hpf (0-5) Ur Squamous Epith Cells 0-4 /hpf H /hpf (0-5) Amorphous Sediment Not Reportable Urine Bacteria Trace /hpf /hpf (NONE) Hyaline Casts 0-4 /lpf H /lpf Urine Mucus Trace /hpf /hpf Salicylates Acetaminophen Imaging Data^: Other Imaging: Radiologist's impression: [employer] [address]EO Scan ReportSigned Patient: Tremaine Harding #: [id number]: 1935cct#:[id number]/Sex: 85 / MADM Date: 05/29/21Loc: ERRoom/Bed:Attending Dr: Ordering Provider/Ordering MD: Tana Gaffney MD Date of Service: 05/29/21 Procedure(s): CT head wo [facility]* [id number] Accession Number(s): [id number] Report Number: [id number] PROCEDURE INFORMATION: Exam: CT Head Without Contrast Exam date and time: 05/29/2021 6:35 PM Age: 85 years old Clinical indication: Injury or trauma; Fall; Blunt trauma (contusions or hematomas); Prior surgery TECHNIQUE: Imaging protocol: Computed tomography of the head without contrast. Radiation optimization: All CT scans at this facility use at least one of these dose optimization techniques: automated exposure control; mA and/or kV adjustment per patient size (includes targeted exams where dose is matched to clinical indication); or iterative reconstruction. COMPARISON: CT angio headneck* [id number] 11/22/2020 2:36 PM RADIATION DOSE METRICS: Total DLP (mGy-cm): 882.91 FINDINGS: Brain: No hemorrhage. Moderate diffuse cerebral atrophy and sequela of chronic small vessel ischemic disease. Encephalomalacic changes in the left frontal lobe. No mass effect. Cerebral ventricles: No ventriculomegaly. Paranasal sinuses: Visualized sinuses are unremarkable. No fluid levels. Mastoid air cells: Visualized mastoid air cells are well aerated. Bones/joints: Left parietal temporal craniotomy changes. No acute fracture. Soft tissues: Unremarkable. CT/CT head wo con* [id number] IMPRESSION: 1. No acute intracranial abnormality. 2. Moderate diffuse cerebral atrophy and sequela of chronic small vessel ischemic disease. Encephalomalacic change in the left frontal lobe. Dictated By:Emmanuel Potts DOSigned By:Emmanuel Potts DOSigned Date/Time:05/29/21/ [address], [place] [address]KRnc ReportSigned Patient: Tremaine Harding #: [id number]: 1935cct#:[id number]/Sex: 85 / MADM Date: 05/29/21Loc: ERRoom/Bed:Attending Dr: Ordering Provider/Ordering MD: Tana Gaffney MD Date of Service: 05/29/21 Procedure(s): XR hip RT 2-3V wo/w pel* [id number] Accession Number(s): [id number] Report Number: [id number] PROCEDURE INFORMATION: Exam: XR Right Hip Exam date and time: 05/29/2021 6:35 PM Age: 85 years old Clinical indication: Injury or trauma; Fall; Blunt trauma (contusions or hematomas); Right; Hip; Additional info: R proximal lateral thigh bruise TECHNIQUE: Imaging protocol: XR Right hip. Views: 1 view hip with pelvis when performed. COMPARISON: CT abdomen pelvis wo/w [id number] 09/22/2020 9:54 AM FINDINGS: Bones/joints: No acute fracture. Moderate degenerative narrowing of the right hip. Soft tissues: Unremarkable. XR/XR hip RT 2-3V wo/w pel* [id number] IMPRESSION: No acute findings. Dictated By:Emmanuel Potts DOSigned By:Emmanuel Potts DOSnat Date/Time:05/29/21/ [address], [place] [address]BKqp ReportSigned Patient: Tremaine Harding #: [id number]: 1935cct#:[id number]/Sex: 85 / MADM Date: 05/29/21Loc: ERRoom/Bed:Attending Dr: Ordering Provider/Ordering MD: Tana Gaffney MD Date of Service: 05/29/21 Procedure(s): XR forearm RT 2V [id number] Accession Number(s): [id number] Report Number: [id number] PROCEDURE INFORMATION: Exam: XR Right Forearm Exam date and time: 05/29/2021 6:35 PM Age: 85 years old Clinical indication: Injury or trauma; Fall; Blunt trauma (contusions or hematomas); Arm, lower; Right; Prior surgery TECHNIQUE: Imaging protocol: XR Right forearm. Views: 2 views. COMPARISON: NM bone scan whole body* [id number] 09/22/2020 8:30 AM FINDINGS: Bones/joints: ORIF hardware noted in the wrist. Radius and ulna appear intact without fracture. Soft tissues: Normal. XR/XR forearm RT 2V [id number] IMPRESSION: No acute findings. Dictated By:Emmanuel Potts DOSigned By:Emmanuel Potts DOSigned Date/Time:05/29/211929DD/ 34 Tremaine Harding 85 M [address] [address]KEds ReportSigned Patient: Tremaine Harding #: [id number]: 1935cct#:[id number]/Sex: MAD Date: 05/29/21Loc: ERRoom/Bed:Attending Dr: Ordering Provider/Ordering MD: Tana Gaffney MD Date of Service: 05/29/21 Procedure(s): XR elbow RT min 3V* [id number] Accession Number(s): [id number] Report Number: [id number] PROCEDURE INFORMATION: Exam: XR Right Elbow Exam date and time: 05/29/2021 6:35 PM Age: 85 years old Clinical indication: Injury or trauma; Fall; Blunt trauma (contusions or hematomas); Elbow; Right; Additional info: Fall/bruise TECHNIQUE: Imaging protocol: XR Right elbow. Views: 3 or more views. COMPARISON: NM bone scan whole body* [id number] 09/22/2020 8:30 AM FINDINGS: Bones/joints: Osseous structures are intact. No evidence of fracture. Soft tissues: Normal. XR/XR elbow RT min 3V* [id number] IMPRESSION: No acute findings. Dictated By:Emmanuel Potts DOSigned By:Emmanuel Potts DOSnat Date/Time:05/29/21/ [address] [address]YGip ReportSigned Patient: Tremaine Harding #: [id number]: 1935cct#:[id number]/Sex: 85 / MADM Date: 05/29/21Loc: ERRoom/Bed:Attending Dr: Ordering Provider/Ordering MD: Tana Gaffney MD Date of Service: 05/29/21 Procedure(s): XR chest 1V portable [id number] Accession Number(s): [id number] Report Number: [id number] PROCEDURE INFORMATION: Exam: XR Chest Exam date and time: 05/29/2021 6:35 PM Age: 85 years old Clinical indication: Shortness of breath; Prior surgery; Additional info: Dyspnea TECHNIQUE: Imaging protocol: XR of the chest. Views: 1 view. COMPARISON: NM bone scan whole body* [id number] 09/22/2020 8:30 AM FINDINGS: Lungs: Ill-defined opacity in the right mid and lower lung. Pleural spaces: Bilateral costophrenic blunting which may relate to trace pleural effusions. No pneumothorax. Heart/Mediastinum: Mild cardiomegaly. Bones/joints: Sternotomy wires noted. Partially visualized rotator cuff anchor in the right humeral head. XR/XR chest 1V portable [id number] IMPRESSION: Ill-defined opacity in the right mid and lower lung. Dictated By:Emmanuel Potts DOSigned By:Emmanuel Potts DOSnat Date/Time:05/29/21/ 34 Discharge Plan Discharge Patient Disposition: Admitted As Inpatient Clinical Impression: Altered mental status, Recurrent falls, Non-ST elevation NE (NSTEMI), Pneumonia Condition: Stable Coding Level of Care Code ED Adapted Physical Education Aide for Sunita Martínez
--- NOTE | 2021-05-29 18:56 | ECG_ITS ---
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 Measurements Intervals [place] Rate: 77 P: 34 OK: 149 QRS: 98 QRSD: 87 T: 81 QT: 360 QTc: 409 Interpretive Statements SINUS RHYTHM BORDERLINE RIGHT AXIS DEVIATION [QRS AXIS > 90] SEPTAL MYOCARDIAL INFARCTION , OF INDETERMINATE AGE [40+ ms Q WAVE IN V1/V2] No previous ECG available for comparison Electronically Signed On 05-30-2021 16:40:42 CARDIAC CATH LAB MANAGER by Manuela Jones M.D. [id number]
[2021-05-29 19:10] LABS: Alanine Aminotransferase 24 U/L (0-41); Albumin Level 3.4 g/dL (3.5-5.2); Alkaline Phosphatase 60 IU/L (40-130); Anion Gap 15.8 (5-19); Aspartate Amino Transferase 26 U/L (0-40); Blood Urea Nitrogen 20 mg/dL (8-23); Calcium 8.8 mg/dL (8.5-10.5); Carbon Dioxide 30 mmol/L (22-29); Chloride 98 mmol/L (98-107); Glucose 123 mg/dL (65-115); Osmolality Calculated 292 mOsm/kg (285-295); Potassium 4.8 mmol/L (3.5-5.1); Salicylate 1.2 mg/dL (3-10); Sodium 139 mmol/L (136-145); Total Bilirubin 0.5 mg/dL (0.15-1.2); Total Protein 6.4 g/dL (6.6-8.7)
[2021-05-29 19:12] LABS: Acetaminophen < 5.0 ug/mL (10-30)
[2021-05-29 19:35] LABS: Troponin(5th) Baseline 201 ng/L (0-15)
[2021-05-29 19:47] LABS: Add Urine Microscopic? YES; Bacteria Urine TRACE /hpf; Bilirubin Urine Neg (Negative); Blood Urine Neg (Negative); Glucose Urine UA Norm (Normal); Hyaline Casts Urine 0-4 /lpf; Ketones Urine Negative (Negative); Leukocyte Esterase Urine Negative (Negative); Mucus Urine TRACE /hpf; Nitrate Urine Negative (Negative); Protein Urine Trace (Negative); RBC Urine 0-4 /hpf (0-2); Squamous Epithelial Cell Urine 0-4 /hpf (0-5); Urine Appearance Clear (CLEAR); Urine Color Yellow (Yellow); Urobilinogen Urine 1 mg/dL (Negative); WBC Urine 0-4 /hpf (0-5); pH Urine 5 (5-7)
[2021-05-29 19:48] LABS: Add Urine Culture? No
--- NOTE | 2021-05-29 20:03 | PC.NURSE ---
pt moved to rm 5 five for continous cardiac monitoring after elevated baseline trop
[2021-05-29] MEDS: cefTRIAXone 1,000 MG in sodium chloride 0.9% (plus) 50 ML 100 MG IV (20:08)
[2021-05-29] MEDS: azithromycin 250 mg Tablet 500 MG PO (20:10)
[2021-05-29] MEDS: enoxaparin 80 mg/0.8 mL Syringe SUBCUT (20:11)
--- NOTE | 2021-05-29 20:56 | ECG_ITS ---
[facility] Test Date: 2021-05-29 Pat Name: Tremaine Harding Department: Room: Gender: Male International Account Executive: : 1935 Requested By: Tana Gaffney Order Number: [id number] Omayra MD: Manuela Jones M.D. Measurements Intervals [place] Rate: 129 P: CA: QRS: 108 QRSD: 97 T: 85 QT: 256 QTc: 376 Interpretive Statements ATRIAL FIBRILLATION WITH RAPID VENTRICULAR RESPONSE RIGHT AXIS DEVIATION [QRS AXIS > 100] ANTEROSEPTAL MYOCARDIAL INFARCTION , OF INDETERMINATE AGE [40+ ms Q WAVE IN V1-V4] ST DEPRESSION, CONSIDER SUBENDOCARDIAL INJURY [0.1+ mV ST DEPRESSION] Compared to ECG 05/29/2021 19:22:40 ST (T wave) deviation now present Sinus rhythm no longer present Myocardial infarct finding still present Electronically Signed On 05-30-2021 16:44:13 POSTAGE MACHINE OPERATOR by Manuela Jones M.D. [id number]
--- NOTE | 2021-05-29 21:09 | P.HP_ITS ---
Providers/Chief Complaint Admitting Physician: Bethanie Macias MD Primary Care Provider: Chanelle Anthony MD Chief Complaint: Trouble breathing/frequent falling History of Present Illness Tremaine Harding is a 85 year old male who presented to the emergency room with chief complaint of gradually worsening difficulty breathing and frequent falls the last few days. He says he has not been feeling well for about a week although at the same time describes a gradual decline over period of months. He has been having increasing shortness of breath with decreasing amounts of exertion. He describes orthopnea. He has had a little bit of swelling but not too much. Is not sure if he has had any weight gain. He has had cough predominantly nonproductive, occasionally productive of yellowish-brown sputum, no blood has been noted. He has a history of COPD for which he is on 5 L of oxygen by nasal cannula at baseline. He also has a history of sleep apnea but has not utilize CPAP at night for about a year or so due to inability to tolerate it and discussion with provider. He reports recent runny nose but no sore throat. Intermittently has had some loss of taste and smell but not pers istently. He is not COVID vaccinated. Denies any history of COVID. Has no known sick contacts. Lives with his who is not ill. Over the last few days has been having intermittent episodes of what he describes as chest pain pointing more to the epigastric area or what he says is the end of his CABG incision scar. Pain is moderate in severity, comes and goes, not necessarily worse with exertion. Occasionally with some palpitations and lightheadedness but has not had any stephanie syncope. He says that he has had some weakness on his right side for about 6 months or so and that at times his right side just gives out on him leading to the falls. He has sustained significant skin tear to the right upper extremity and has lots of bruising on his right arm and scattered along his right flank and right hip. He also hit his face at 1 point in time with some bruising on his nose and cheek. Denies any loss of consciousness in the last 24 to 48 hours but has had at least one episode that he thinks he may have lost consciousness. He has not had any fevers that he can recall. He does have intermittent confusion and some chronic mild memory problems but is able to provide history and answers questions appropriately. He does report increasing urine output particularly nocturia but no dysuria. He is chronically constipated, worsened if he does not take stool softeners. It should be noted that Mr. Harding has a history of prostate cancer for which he follows with Dr. Correia and Dr. Hines. He has been on antiandrogen therapy although in talking with him he missed a scheduled follow-up and associated treatment due to delays after a vacation this fall and does not see Dr. Correia again until June. He also follows chronically with Dr. Muñoz for coronary artery disease, peripheral vascular disease including carotid artery. He has had prior bypass surgery, carotid endarterectomy and femoropopliteal. Unsure when his last cardiac evaluation was. He denies any history of abnormal heart rhythms. In the emergency room patient was felt to have pneumonia and received Rocephin as well as azithromycin. White count was noted to be elevated. At the time of my evaluation, clinically patient had evidence of pulmonary edema and subsequently developed atrial fibrillation with rapid ventricular response while I was in the room examining him and very transient associated hypotension. He received some IV diuresis and was placed on BiPAP therapy with good response fro m blood pressure and oxygenation standpoint though remained in atrial fibrillation which is new for him. Initial EKG demonstrated sinus rhythm. He denies current chest pain. Blood cultures have been ordered. He did have elevated troponin and was given a dose of treatment dose Lovenox by the ER anel ramirez. Hemoglobin back in December of this year was 13. On presentation today hemoglobin is 8.1. Other than the bruising from falls, patient denies any bleeding including no epistaxis, hematemesis, gross hematuria, hematochezia, or melena. Denies being on chronic anticoagulation. Not complaining of abdominal pain apart from the discomfort he has at the lower end of his CABG scar near the epigastric region. He is being admitted for further evaluation and treatment. Review of Systems Const: Reports: fatigue and malaise; Denies: fever(s), chills or body aches Eyes: Denies: change in vision ENMT: Reports: nasal congestion and other (Intermittent change in taste and smell, not persistent); Denies: throat pain Card: Reports: chest pain, palpitations, edema, lightheadedness, dyspnea on exertion and orthopnea; Denies: acrocyanosis Resp: Reports: dyspnea, productive cough and non-productive cough; Denies: hemoptysis GI: Reports: nausea and constipation; Denies: abdominal pain, vomiting, diarrhea, hematochezia or melena : Reports: urinary frequency and nocturia; Denies: hematuria Musc: Reports: extremity pain (Primarily right upper extremity); Denies: back pain Skin/Breast: Reports: other (Skin tear and extensive bruising to the RUE posteriorly, down R side); Denies: rash or pruritus Neuro: Reports: weakness in extremities (Right side more than left present for maybe 6 months), difficulty walking, frequent falls and confusion (Sometimes); Denies: headache(s), numbness in extremities, Slurred speech present or involuntary movements Psych: Reports: memory loss; Denies: anxiety or depression Riccardo/Lymph: Reports: easy bruising; Denies: easy bleeding Medications/Allergies Home Medications Medication Instructions Recorded Confirmed Last Taken Type albuterol sulfate 90 mcg/actuation 2 puff INHALATION Q6H PRN 10/18/19 05/30/21 05/29/21 History aerosol inhaler calcium carbonate-vitamin D3 600 1 tab PO DAILY 10/18/19 05/30/21 05/29/21 History mg(1,500 mg)-400 unit chewable tablet ferrous sulfate 325 mg (65 mg 325 mg PO DAILY 10/18/19 05/30/21 05/29/21 History iron) tablet finasteride 5 mg tablet 5 mg PO DAILY 10/18/19 05/30/21 05/29/21 History magnesium 200 mg tablet 400 mg PO DAILY 10/18/19 05/30/21 05/29/21 History omega-3 fatty acids 1,000 mg 1,000 mg PO DAILY 10/18/19 05/30/21 05/29/21 History capsule polyethylene glycol 3350 17 17 gm PO DAILY 10/18/19 05/30/21 05/29/21 History gram/dose oral powder potassium citrate 10 mEq (1,080 2,160 mg PO BID 10/18/19 05/30/21 05/29/21 History mg) tablet,extended release prednisone 10 mg tablet 10 mg PO DAILY 10/18/19 05/30/21 05/29/21 History vitamin B complex 1 tab PO DAILY 10/18/19 05/30/21 05/29/21 History vitamin E (dl, acetate) 180 mg 400 unit PO DAILY 10/18/19 05/30/21 05/29/21 History (400 unit) capsule tamsulosin 0.4 mg capsule 0.4 mg PO DAILY 02/16/20 05/30/21 05/29/21 History vit 1 cap PO DAILY cap 02/16/20 05/30/21 05/29/21 History C,E,zinc,Es-psjca-0-lutein-zeaxanthin 250 mg-2.5 mg-0.5 mg capsule cholecalciferol (vitamin D3) 1 tab PO DAILY 05/30/21 05/30/21 05/29/21 History docusate sodium 100 mg PO BID 05/30/21 05/30/21 05/29/21 History fluticasone propion-salmeterol 1 puff INHALATION BID 05/30/21 05/30/21 05/29/21 History fluticasone propionate 1 dose NOSTRIL-B DAILY 05/30/21 05/30/21 05/29/21 History pyridoxine (vitamin B6) 1 tab PO DAILY 05/30/21 05/30/21 05/29/21 History sertraline 150 mg PO DAILY 05/30/21 05/30/21 05/29/21 History tiotropium bromide 2 puff INHALATION DAILY 05/30/21 05/30/21 05/29/21 History Allergies Allergy/AdvReac Type Severity Reaction Status Date / Time No Known Allergies Allergy Verified 10/30/20 08:03 Additional Medication Information Gets medications filled through [facility] Acute PFSH: Medical History (Updated 05/30/21 @ 04:40 by Bethanie Macias MD) Abnormal PSA ASHD (arteriosclerotic heart disease) Benign non-nodular prostatic hyperplasia with lower urinary tract symptoms Carotid artery stenosis COPD (chronic obstructive pulmonary disease) Former smoker History of hypertension History of iron deficiency anemia from GI losses History of ischemic left MCA stroke Apparent on imaging studies History of skin cancer Hx of hyperlipidemia Mild cognitive impairment with memory loss Prostate cancer has been treated with androgen deprivation therapy with Zolodex and bicalutamide, follows with Drs. Hines and Masood PVD (peripheral vascular disease) Sleep apnea Not chronically using CPAP anymore Urgency incontinence Surgical History (Updated 05/29/21 @ 21:17 by Bethanie Macias MD) H/O wrist surgery right History of cataract surgery History of endarterectomy History of femoropopliteal bypass History of PTCA Hx of coronary artery bypass graft (~2011) Hx of removal of cyst Hx of rotator cuff surgery Family History (Updated 05/29/21 @ 21:20 by Bethanie Macias MD) Father , at age 60 Cirrhosis of liver Mother , at age 106 No problems noted. Family/Other CAD (coronary artery disease) Diabetes Hypertension Brother Dementia two brothers Social History (Updated 05/29/21 @ 21:18 by Bethanie Macias MD) Smoking and tobacco status: former smoker Alcohol intake: current Alcohol intake frequency: holidays/special occasions only Adopted: No Lives independently: No Household members: spouse Marital status: Current occupational status: retired Current gender identity: Male Vitals/I&O/Wt Last Vital Signs Temp 97.6 F 05/29/21 17:54 Pulse 76 05/29/21 18:18 Resp 16 05/29/21 18:18 BP 142/72 05/29/21 18:18 Pulse Ox 95 05/29/21 18:18 05/29/21 05/29/21 05/29/21 06:59 14:59 22:59 Intake Total 50 / 50 Balance 50 / 50 Weight last 48 hrs Weight 83.007 kg Physical Exam Narrative: EXAM NARRATIVE: Constitutional: Awake and alert, acutely and chronically ill-appearing, oriented to person, place and situation, well able to provide good history, unable to recall some details HEENT: Patient has some bruising noted to his nasal tip primarily but is otherwise normocephalic, left pupil is slightly larger in diameter than right pupil but both are reactive, extraocular movements are intact, nasopharynx with some clear rhinorrhea, oropharynx with moist mucous membranes, dentures noted Neck: Supple, JVD to the angle of the jaw Respiratory: Scattered wheezes and crackles, nonproductive cough with paroxysms of coughing intermittently that are significant, supraclavicular retractions and mild nasal flaring when not coughing, unable to lie flat without increased shortness of breath. Initially able to talk in full sentences and subsequently only able to speak a few words Cardiovascular: Initially regular rhythm and converted to tachycardic irregularly irregular rhythm during the course of my examination at the time of a significant proximal-isms of coughing and has remained irregular since then, 2+ dorsalis pedis pulse bilaterally, 1+ pitting edema bilaterally at the ankles Abdomen: Soft, mild epigastric tenderness that does coincide with the end of CABG scar no rebound or guarding, rotund but not tympanic, small area of soft ti ssue prominence at the site of recent injection in the left side of the abdomen Extremities: Some swelling in the right upper extremity posteriorly in the area of most significant bruising associated with some tenderness, no areas of fluctuance. Lesser degree of tenderness at the right hip and right lower extremity where there are varying degrees of bruising. No calf tenderness Skin: Large area of ecchymoses to the right upper extremity associated with skin tear that is currently dressed, dressing noted to have dried blood. There is ecchymoses in the right flank as high as underneath armpit extending down the right side intermittently, none are to the degree of the bruising of the right upper arm. Bruising extends to the right hip. At the flank and right hip areas of bruising ranged from 3 to 5 inches in diameter. On the right lower extremity both upper and lower areas of bruising are about an inch in diameter and not as prominent. Overall skin is dry. Neuro: Speech clear, face symmetric, handgrip is equal bilaterally, strength of foot pumps is equal bilaterally but gait is not currently assessed, toes are equivocal Psych: Normal affect Data : 05/29/21 18:40 05/29/21 18:40 Other Labs: Laboratory Results WBC 15.7 10^3/uL (4.0-10.0) H 05/29/21 18:40 RBC 2.92 10^6/uL (4.1-5.3) L 05/29/21 18:40 Hgb 8.1 g/dL (11.7-16.6) L 05/29/21 18:40 Hct 26.7 % (42.0-52.0) L 05/29/21 18:40 MCV 91.4 fl (80-94) 05/29/21 18:40 MCH 27.7 pg (28.0-34.0) L 05/29/21 18:40 MCHC 30.3 g/dL (30.0-36.0) 05/29/21 18:40 RDW 16.5 % (12.1-15.1) H 05/29/21 18:40 Plt Count 311 10^3/cmm (130-400) 05/29/21 18:40 MPV 9.7 fL (7.4-10.4) 05/29/21 18:40 Neut % (Auto) 80.6 % 05/29/21 18:40 Lymph % (Auto) 6.4 % 05/29/21 18:40 Mcminn % (Auto) 8.2 % 05/29/21 18:40 Eos % (Auto) 0.4 % 05/29/21 18:40 Baso % (Auto) 0.8 % 05/29/21 18:40 Neut # (Auto) 12.68 10^3/uL (1.8-7.7) H 05/29/21 18:40 Lymph # (Auto) 1.0 10^3/uL (0.8-4.8) 05/29/21 18:40 Mcminn # (Auto) 1.3 10^3/uL (0.2-0.9) H 05/29/21 18:40 Eos # (Auto) 0.1 10^3/uL (0.0-0.8) 05/29/21 18:40 Baso # (Auto) 0.1 10^3/uL (0.0-0.1) 05/29/21 18:40 Nucleated RBC % (auto) 0.1 % 05/29/21 18:40 Nucleated RBCs # 0.0 /100WBC 05/29/21 18:40 Specimen Type Arterial 05/29/21 19:07 Sample Site Radial, right 05/29/21 19:07 ABG pH 7.40 (7.35-7.45) 05/29/21 19:07 ABG pCO2 60.8 mmHg (35-45) H* 05/29/21 19:07 ABG pO2 63.2 mmHg (80.0-100.0) L 05/29/21 19:07 ABG HCO3 37.5 mmol/L (22-26) H 05/29/21 19:07 ABG Base Excess 11.3 mmol/L (-2.0-2.0) H 05/29/21 19:07 Miguel Angel Test Pos 05/29/21 19:07 Hematocrit 24.2 % (42-52) L 05/29/21 19:07 O2 Delivery Device Nc 05/29/21 19:07 O2 Liters/Min 5.0 % 05/29/21 19:07 Edger Operator ID Harini 05/29/21 19:07 Sodium 139 mmol/L (136-145) 05/29/21 18:40 Potassium 4.8 mmol/L (3.5-5.1) 05/29/21 18:40 Chloride 98 mmol/L (98-107) 05/29/21 18:40 Carbon Dioxide 30 mmol/L (22-29) H 05/29/21 18:40 Anion Gap 15.8 (5-19) 05/29/21 18:40 BUN 20 mg/dL (8-23) 05/29/21 18:40 Creatinine 0.9 mg/dL (0.7-1.2) 05/29/21 18:40 GFR Calculation Not Reportable 05/29/21 18:40 Glucose 123 mg/dL (65-115) H 05/29/21 18:40 Calculated Osmolality 292 mOsm/kg (285-295) 05/29/21 18:40 Calcium 8.8 mg/dL (8.5-10.5) 05/29/21 18:40 Total Bilirubin 0.5 mg/dL (0.15-1.2) 05/29/21 18:40 AST 26 U/L (0-40) 05/29/21 18:40 ALT 24 U/L (0-41) 05/29/21 18:40 Alkaline Phosphatase 60 IU/L (40-130) 05/29/21 18:40 Troponin T Baseline 201 ng/L (0-15) H* 05/29/21 18:50 Total Protein 6.4 g/dL (6.6-8.7) L 05/29/21 18:40 Albumin 3.4 g/dL (3.5-5.2) L 05/29/21 18:40 Globulin 3.0 g/dL (1.3-4.6) 05/29/21 18:40 Urine Color Yellow (Yellow) 05/29/21 19:10 Urine Appearance Clear (CLEAR) 05/29/21 19:10 Urine pH 5 (5-7) 05/29/21 19:10 Ur Specific [place] 1.020 (1.005-1.030) 05/29/21 19:10 Urine Protein Trace (Negative) 05/29/21 19:10 Urine Glucose (UA) Norm (Normal) 05/29/21 19:10 Urine Ketones Negative (Negative) 05/29/21 19:10 Urine Blood Neg (Negative) 05/29/21 19:10 Urine Nitrate Negative (Negative) 05/29/21 19:10 Urine Bilirubin Neg (Negative) 05/29/21 19:10 Urine Urobilinogen 1 mg/dL (Negative) H 05/29/21 19:10 Ur Leukocyte Esterase Negative (Negative) 05/29/21 19:10 Urine RBC 0-4 /hpf (0-2) H 05/29/21 19:10 Urine WBC 0-4 /hpf (0-5) H 05/29/21 19:10 Ur Squamous Epith Cells 0-4 /hpf (0-5) H 05/29/21 19:10 Amorphous Sediment Not Reportable 05/29/21 19:10 Urine Bacteria Trace /hpf (NONE) 05/29/21 19:10 Hyaline Casts 0-4 /lpf H 05/29/21 19:10 Urine Mucus Trace /hpf 05/29/21 19:10 Salicylates 1.2 mg/dL (3-10) L 05/29/21 18:40 Acetaminophen < 5.0 ug/mL (10-30) L 05/29/21 18:40 Impressions Chest X-Ray 05/29/21 18:35 IMPRESSION: Ill-defined opacity in the right mid and lower lung. Elbow X-Ray 05/29/21 18:35 IMPRESSION: No acute findings. Forearm X-Ray 05/29/21 18:35 IMPRESSION: No acute findings. Head CT 05/29/21 18:35 IMPRESSION: 1. No acute intracranial abnormality. 2. Moderate diffuse cerebral atrophy and sequela of chronic small vessel ischemic disease. Encephalomalacic change in the left frontal lobe. Hip/Pelvis X-Ray 05/29/21 18:35 IMPRESSION: No acute findings. A&P Assessment and plan (1) CHF (congestive heart failure): Acute exacerbation, type unknown presently as no prior history or recent echocardiogram currently available. Imaging studies show significant cardiomegaly development since last available comparative films from some years ago. Has a known history of coronary artery disease with prior CABG and percutaneous intervention as well as known peripheral vascular disease and carotid disease both requiring intervention. Suspicion is that this may be systolic in nature secondary to this history although with untreated sleep apnea for the last year, COPD on chronic oxygen therapy at 5 L by nasal cannula could also have diastolic component. Status: Acute Qualifiers: Heart failure type: unspecified Heart failure chronicity: acute Qualified Code(s): I50.9 - Heart failure, unspecified (2) Atrial fibrillation with RVR: In a patient without a known history of atrial fibrillation. Most likely secondary to acute pulmonary issues from CHF and COPD plus or minus acute in fection. Also within the differential is acute coronary syndrome, thromboembolic event, metabolic abnormalities among others. Status: Acute (3) Non-ST elevation OR (NSTEMI): Most likely type II process from demand ischemia related to hypoxemia, anemia and possibly other episodes of tachycardia arrhythmia like we have seen this evening. Has been sometime since he has had cardiac evaluation and he does have risk factors for recurrent disease so unable to presently rule out type I process. Status: Acute (4) Pneumonia: Empirically being treated at the time of admission. Has associated leukocytosis, but no report of any fever. Status: Acute Qualifiers: Pneumonia type: due to unspecified organism Laterality: right Lung location: middle lobe of lung Qualified Code(s): J18.9 - Pneumonia, unspecified organism (5) COPD (chronic obstructive pulmonary disease): Chronically on 5 L of oxygen by nasal cannula as well as on chronic steroid therapy, former smoker, acutely exacerbated secondary to above. Looking at ABG her has chronic hypercapnia and hypoxemia. Status: Chronic Qualifiers: COPD type: emphysema Emphysema type: unspecified Qualified Code(s): J43.9 - Emphysema, unspecified (6) Anemia: Given degree of bruising and recurrent falls, suspect blood loss anemia component acutely on chronic anemia from chronic inflammation/chronic illness. That being said, patient is on chronic steroid therapy so chronic blood loss from GI source is also within the differential. Status: Acute Qualifiers: Anemia type: iron deficiency Iron deficiency anemia type: other iron deficiency Qualified Code(s): D50.8 - Other iron deficiency anemias (7) Recurrent falls: Patient reports right-sided weakness with ambulation of approximately 6 months duration. He has had falls intermittently since then that have been more prominent lately. 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 Examination today did not reveal gross abnormality but respiratory status limited extent of exam. Status: Acute (8) Prostate cancer: Following with Dr. Masood Hines, has been on antiandrogen therapy with initial good response from PSA standpoint on review of records although missed treatment at least once this fall Status: Chronic (9) ASHD (arteriosclerotic heart disease): With prior bypass and percutaneous intervention. Status: Chronic Additional A&P Information Inpatient admission Diuretic therapy BiPAP therapy Telemetry monitoring Monitor blood pressure and heart rate for continued improvement post initiation of above Continue serial cardiac enzymes Add aspirin, beta-blockade If blood pressures improve we will add some nitro paste or other form of nitroglycerin Statin therapy, check lipid panel Echocardiogram has been ordered Check TSH Check BNP Check procalcitonin Blood cultures have been ordered Presently we will continue Rocephin and azithromycin Breathing treatments including inhaled steroids Covid testing Continue usual dose of prednisone 10 mg daily; have not increased dose due to epigastric discomfort and GI blood losses though will need to monitor for indication to stress dose steroids PPI Hemoccult of stool Check TIBC Home ferrous sulfate Check PT & INR Monitor for signs of bleeding Hold further anticoagulation until we can repeat H&H and further monitoring for bleeding Check PSA Continue home flomax and finasteride Continue home Sertraline Hold home vitamins presently PT evaluation when medically stable SCDs for DVT prophylaxis currently; re-evaluate for pharmacological DVT prophylaxis in am Supportive care otherwise Findings, concerns and plans were discussed with patient. Able to answer yes that he was agreeable with plan of care as described. Anticipate discharge home with , potentially with some home health follow-up depending on clinical course CODE STATUS was discussed with Mr. Harding and he expressed a desire to be intubated if necessary and have CPR and defibrillation. Full code orders have been written. Attestations Medical Necessity Statement*: Anticipated stay greater than two midnights in gentleman presenting with issues as described above. Plans are as indicated. At high risk of rapid clinical decline up to and including the possibility of without emergent intervention and treatment/monitoring in the inpatient setting. Coding Level of Care Code Acute Parts Counter Sales Person for Sunita Martínez Diagnoses CHF (congestive heart failure) I50.9 Heart failure type: unspecified Heart failure chronicity: acute Atrial fibrillation with RVR I48.91 Non-ST elevation OR (NSTEMI) I21.4 Pneumonia J18.9 Pneumonia type: due to unspecified organism Laterality: right Lung location: middle lobe of lung COPD (chronic obstructive pulmonary disease) J43.9 COPD type: emphysema Emphysema type: unspecified Anemia D50.8 Anemia type: iron deficiency Iron deficiency anemia type: other iron deficiency Recurrent falls R29.6 Prostate cancer C61 ASHD (arteriosclerotic heart disease) I25.10
[2021-05-29 21:11] LABS: Arterial Blood Gas Hematocrit 24.2 % (42-52); Base Excess ABG 11.3 mmol/L (-2.0-2.0); Blood Gas Allen Test Pos; Blood Gas Sample Site Radial, right; Blood Gas Sample Type Arterial; HCO3 ABG 37.5 mmol/L (22-26); Oxygen Device NC; PO2 ABG 63.2 mmHg (80.0-100.0)
[2021-05-29 21:12] LABS: ABG PCO2 60.8 mmHg (35-45)
[2021-05-29 21:35] LABS: Troponin 5 2HR 216.6 ng/L (0-15); Troponin 5 2HR Delta 15.6 ABS# (0-10)
[2021-05-29] MEDS: ipratropium-albuterol 3 mL Neb INHALATION ×3 (21:45)
[2021-05-29 23:06] LABS: NT Pro B Type Natriuretic Pept 13024 pg/mL (0-450); Procalcitonin 0.06 ng/mL (0-0.5)
[2021-05-29] MEDS: FUROsemide 10 mg/mL SDV 2mL 20 MG IVP (23:15)
[2021-05-30] VITALS (15 sets, daily range): BP systolic 95–169; BP diastolic 36–71; PULSE 64–123; RESP 11–24; TEMP 36.4–36.7; O2SAT 88–100
[2021-05-30 00:49] LABS: Hematocrit 26.7 % (42.0-52.0); Hemoglobin 7.9 g/dL (11.7-16.6)
[2021-05-30 00:54] LABS: SARS Covid-2 Antigen Negative (Negative)
--- NOTE | 2021-05-30 00:56 | ECG_ITS ---
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 Measurements Intervals [place] Rate: 86 P: 69 HI: 161 QRS: 99 QRSD: 92 T: 80 QT: 340 QTc: 407 Interpretive Statements SINUS RHYTHM BORDERLINE RIGHT AXIS DEVIATION [QRS AXIS > 90] SEPTAL MYOCARDIAL INFARCTION , OF INDETERMINATE AGE [40+ ms Q WAVE IN V1/V2] Compared to ECG 05/29/2021 19:22:40 No significant changes Electronically Signed On 05-30-2021 16:44:19 SALOON KEEPER by Manuela Jones M.D. [id number]
[2021-05-30 01:12] LABS: Troponin 5 6HR 272.4 ng/L (0-15); Troponin 5 6HR Delta 71.4 ng/L (0-12)
[2021-05-30 01:17] LABS: Iron 21 ug/dL (59-158); Percent Saturation 7.8 % (20-50); Total Iron Binding Capacity 268 mcg/dl; Unsaturated Iron Binding 247 ug/dL (112-347)
[2021-05-30] MEDS: ipratropium-albuterol 3 mL Neb INHALATION ×3 (01:56→20:46)
[2021-05-30] MEDS: iron sucrose 200 MG in sodium chloride 0.9% (100 ml) 100 ML 220 MG IV (04:06)
[2021-05-30 07:25] LABS: INR 1.19 (0.8-1.2)
[2021-05-30 07:26] LABS: Partial Thromboplastin Time 42.2 SECONDS (23.9-36.7)
[2021-05-30 07:32] LABS: Basophils # 0.1 10^3/uL (0.0-0.1); Basophils % 0.9 %; Eosinophils # 0.2 10^3/uL (0.0-0.8); Eosinophils % 1.5 %; Hematocrit 25.3 % (42.0-52.0); Hemoglobin 7.5 g/dL (11.7-16.6); Lymphocytes # 1.4 10^3/uL (0.8-4.8); Lymphocytes % 10.8 %; Mean Corpuscular HGB Conc 29.6 g/dL (30.0-36.0); Mean Corpuscular Hemoglobin 27.7 pg (28.0-34.0); Mean Corpuscular Volume 93.4 fl (80-94); Mean Platelet Volume 9.4 fL (7.4-10.4); Monocytes # 1.3 10^3/uL (0.2-0.9); Neutrophils # 9.85 10^3/uL (1.8-7.7); Neutrophils % 73.8 %; Nucleated Red Blood Cells % 0.1 %; Platelet Count 292 10^3/cmm (130-400); Red Blood Count 2.71 10^6/uL (4.1-5.3); Red Cell Distribution Width 16.8 % (12.1-15.1); White Blood Count 13.3 10^3/uL (4.0-10.0)
[2021-05-30 07:37] LABS: Alanine Aminotransferase 21 U/L (0-41); Albumin Level 3.2 g/dL (3.5-5.2); Alkaline Phosphatase 51 IU/L (40-130); Anion Gap 13.8 (5-19); Aspartate Amino Transferase 23 U/L (0-40); Blood Urea Nitrogen 18 mg/dL (8-23); Calcium 8.2 mg/dL (8.5-10.5); Carbon Dioxide 32 mmol/L (22-29); Chloride 99 mmol/L (98-107); Globulin 2.4 g/dL (1.3-4.6); Glucose 103 mg/dL (65-115); Osmolality Calculated 294 mOsm/kg (285-295); Phosphorus 3.1 mg/dL (2.5-4.5); Potassium 3.8 mmol/L (3.5-5.1); Sodium 141 mmol/L (136-145); Total Bilirubin 0.3 mg/dL (0.15-1.2); Total Protein 5.6 g/dL (6.6-8.7)
[2021-05-30 07:42] LABS: Chol HDL Ratio 2.67 mg/dL (1.0-5.00); Cholesterol 123 mg/dL (0-200); HDL Cholesterol 46 mg/dL (60-100); LDL Cholesterol Calculated 59 mg/dL (50-129); LDL HDL Ratio 1.28 RATIO (0.00-3.22); Thyroid Stimulating Hormone 2.25 uIU/mL (0.27-4.20); Triglycerides 89 mg/dL (0-150)
--- NOTE | 2021-05-30 08:16 | PC.NURSE ---
Recieved report from [employer], rounded on pt and attempted to introduce self, pt appeared to be resting quietly, no needs at this time
[2021-05-30] MEDS: cefTRIAXone 1,000 MG in sodium chloride 0.9% (plus) 50 ML 100 MG IV (08:26)
--- NOTE | 2021-05-30 08:36 | PC.NURSE ---
PT REFUSING TO TAKE ANY ORAL MEDICATION AT THIS TIME, STATES HE DOES NOT WANT IT
--- NOTE | 2021-05-30 08:56 | PC.NURSE ---
Admitting hospitalist advised, no further orders. Pts VS: HR 67, R 17, SATs 92% on BiPap, BP 137/73
[2021-05-30] MEDS: budesonide 0.5 mg/2 mL Neb INHALATION ×2 (09:17→20:46)
--- NOTE | 2021-05-30 10:00 | ECG_ITS ---
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 Measurements Intervals [place] Rate: 83 P: 54 WA: 152 QRS: 97 QRSD: 91 T: 89 QT: 369 QTc: 435 Interpretive Statements SINUS RHYTHM WITH SINUS ARRHYTHMIA BORDERLINE RIGHT AXIS DEVIATION [QRS AXIS > 90] SEPTAL MYOCARDIAL INFARCTION , OF INDETERMINATE AGE [40+ ms Q WAVE IN V1/V2] Compared to ECG 05/29/2021 23:04:17 Atrial fibrillation no longer present ST (T wave) deviation no longer present Myocardial infarct finding still present Electronically Signed On 05-30-2021 16:42:41 CASINO BEVERAGE SERVER by Manuela Jones M.D. [id number]
[2021-05-30] MEDS: aspirin 325 mg EC Tablet PO (11:05)
[2021-05-30] MEDS: sertraline 50 mg Tablet 150 MG PO ×2 (11:07→11:23)
[2021-05-30] MEDS: ferrous sulfate EC 325 mg Tablet PO ×2 (11:21→18:07)
[2021-05-30] MEDS: potassium chloride ER 20 mEq Tablet PO ×2 (11:22→15:07)
[2021-05-30] MEDS: docusate sodium 100 mg Capsule PO ×2 (11:22→18:07)
[2021-05-30] MEDS: pantoprazole DR 40 mg Tablet PO (11:22)
[2021-05-30] MEDS: tamsulosin 0.4 mg Capsule PO (11:23)
[2021-05-30] MEDS: predniSONE 10 mg Tablet PO (11:23)
[2021-05-30] MEDS: metoprolol tartrate 25 mg Tablet PO (11:23)
[2021-05-30] MEDS: finasteride 5 mg Tablet PO (11:23)
[2021-05-30] MEDS: FUROsemide 10 mg/mL SDV 4mL 40 MG IVP ×2 (11:24→15:06)
[2021-05-30] MEDS: azithromycin 500 MG in sodium chloride 0.9% 250 ML 250 MG IV (11:24)
--- NOTE | 2021-05-30 11:32 | P.PN_ITS ---
Subjective Subjective: Interval history: He reports he is feeling better. He is tolerating BiPAP well. Reports he has a BiPAP at home but does not use it. Denies chest pain or pressure. Vitals/I&O/Wt Last Vital Signs Temp 97.6 F 05/29/21 17:54 Pulse 67 05/30/21 09:23 Resp 16 05/30/21 09:23 BP 140/57 05/30/21 02:48 Pulse Ox 94 05/30/21 09:23 05/29/21 05/30/21 05/30/21 22:59 06:59 14:59 Intake Total 50 / 50 110 / 160 50 / 50 Balance 50 / 50 110 / 160 50 / 50 Weight last 48 hrs Weight 83.007 kg Physical Exam Narrative: EXAM NARRATIVE: On BiPAP Const: COMMON NORMALS: no acute distress and patient oriented x3 HENMT: COMMON NORMALS: oropharynx normal Neck/C-Spine: COMMON NORMALS: no JVD Resp: COMMON NORMALS: normal respiratory effort OTHER: Coarse breathing sounds. Cardio: COMMON NORMALS: no JVD, regular rhythm, S1 normal heart sound present, S2 normal heart sound present and No murmurs present (Cardio) RHYTHM: regular rhythm HEART SOUNDS: S1 normal heart sound present and S2 normal heart sound present GI: COMMON NORMALS: Normal to inspection, nondistended, normoactive bowel sounds present, Soft to palpation and non-tender PALPATION: Yes Soft to palp ation Extremity: COMMON NORMALS: no joint enlargement GENERAL: Yes edema (trace) Neuro: COMMON NORMALS: patient oriented x3 and moves all extremities Skin: COMMON NORMALS: no rashes or lesions noted GENERAL SKIN EXAM: no rashes or lesions noted Data : 05/30/21 06:48 05/30/21 06:48 Micro: Microbiology 05/29/21 00:39 Blood Culture - Preliminary Blood SPECIMEN COLLECTED 05/29/21 00:41 Blood Culture - Preliminary Blood SPECIMEN COLLECTED A&P Assessment and plan (1) CHF (congestive heart failure): Reports he is feeling better. Continue Lasix. Follow-up TTE. Denies chest pain or pressure. Troponins are normal, but also with episode of A. fib with RVR. Would benefit from additional risk stratification once respiratory status a bit more optimized. Wean down BiPAP as tolerating. Usually 5 L nasal cannula oxygen. Has a known history of coronary artery disease with prior CABG and percutaneous intervention as well as known peripheral vascular disease and carotid disease both requiring intervention. Status: Acute Qualifiers: Heart failure chronicity: acute Heart failure type: unspecified Qualified Code(s): I50.9 - Heart failure, unspecified (2) Atrial fibrillation with RVR: So far without recurrence. Rate controlled. Continue metoprolol. Aspirin, but monitor blood counts due to anemia, iron deficiency. Not yet candidate for anticoagulation due to worsening anemia. In a patient without a known history of atrial fibrillation. Most likely secondary to acute pulmonary issues from CHF and COPD plus or minus acute infection. Also within the differential is acute coronary syndrome, thromboembolic event, metabolic abnormalities among others. Status: Acute (3) Non-ST elevation ND (NSTEMI): Suspected demand ischemia secondary atrial fibrillation with RVR, hypoxia, although cannot rule out type I event. He does not have any chest pain or pressure. Possible Q waves in V1, V2. Most likely type II process from demand ischemia related to hypoxemia, anemia and possibly other episodes of tachycardia arrhythmia like we have seen this evening. Has been sometime since he has had cardiac evaluation and he does have risk factors for recurrent disease so unable to presently rule out type I process. Currently not a candidate for anticoagulation given acute on chronic iron deficiency. Status: Acute (4) Pneumonia: Continue ceftriaxone, azithromycin. Follow-up COVID-19 PCR. Request sputum culture, urine bacterial antigens. Status: Acute Qualifiers: Laterality: right Lung location: middle lobe of lung Pneumonia type: due to unspecified organism Qualified Code(s): J18.9 - Pneumonia, unspecified organism (5) COPD (chronic obstructive pulmonary disease): Chronically on 5 L of oxygen by nasal cannula as well as on chronic steroid therapy, former smoker, acutely exacerbated secondary to above. Looking at ABG her has chronic hypercapnia and hypoxemia. Status: Chronic Qualifiers: COPD type: emphysema Emphysema type: unspecified Qualified Code(s): J43.9 - Emphysema, unspecified (6) Anemia: Iron deficiency anemia. He has never had colonoscopy or upper endoscopy. Hemoccult requested, follow-up. Atrial fibrillation, but for now only aspirin given acute anemia. However, if further declining hemoglobin, may have to hold aspirin as well. Discussed with him would benefit from endoscopic evaluation once his overall condition improves. Also anemia of chronic disease. Status: Acute Qualifiers: Anemia type: iron deficiency Iron deficiency anemia type: other iron deficiency Qualified Code(s): D50.8 - Other iron deficiency anemias (7) Recurrent falls: Patient reports right-sided weakness with ambulation of approximately 6 months duration. He has had falls intermittently since then that have been more prominent lately. 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 Status: Acute (8) Prostate cancer: Following with Dr. Masood Hines, has been on antiandrogen therapy with initial good response from PSA standpoint on review of records although mis sed treatment at least once this fall Status: Chronic (9) ASHD (arteriosclerotic heart disease): With prior bypass and percutaneous intervention. Status: Chronic Attestations Medical Necessity Statement*: Continue admission for assessment management of CHF, pneumonia, troponin elevation gentleman with underlying CAD, continue diuresis, follow-up on diagnostic studies including TTE. Coding Level of Care Code Acute Baggage Inspector for [facility] Fwd Exam Comprehensive Diagnoses CHF (congestive heart failure) I50.9 Heart failure chronicity: acute Heart failure type: unspecified Atrial fibrillation with RVR I48.91 Non-ST elevation ND (NSTEMI) I21.4 Pneumonia J18.9 Laterality: right Lung location: middle lobe of lung Pneumonia type: due to unspecified organism COPD (chronic obstructive pulmonary disease) J43.9 COPD type: emphysema Emphysema type: unspecified Anemia D50.8 Anemia type: iron deficiency Iron deficiency anemia type: other iron deficiency Recurrent falls R29.6 Prostate cancer C61 ASHD (arteriosclerotic heart disease) I25.10
--- NOTE | 2021-05-30 11:47 | PC.NURSE ---
Pts family calling for update; Son Alvarez [phone]. Neyda, pts ; home [phone]; cell [phone]
--- NOTE | 2021-05-30 12:28 | PC.NURSE ---
Report called to floor, given to CARLA Palma. Will call family to update pts room assignment and advise he is moving to room now.
--- NOTE | 2021-05-30 12:31 | PC.NURSE ---
Neyda called, advised pts room number and who th RN will be on the floor. VS: P 65, R 22, SATs 94% on BiPap, BP 166/70
[2021-05-30 15:04] LABS: Coronavirus Test Green County Not Detected
--- NOTE | 2021-05-30 23:12 | USCV_ITS ---
Tremaine Harding Age: 85 Gender: M : 1935 Exam Date: 05/30/2021 06:28 Ordering Phys: Bethanie Macias MD Technologist: Exam Location: [facility] [place] Indication: NEW CHF BP: 150 / 61 HR: 63 Rhythm: Sinus Technical Quality: Adequate MEASUREMENTS (Male / Female) Normal Values 2D ECHO LV Diastolic Diameter PLAX 6.1 cm 4.2 - 5.9 / 3.9 - 5.3 cm LV Systolic Diameter PLAX 4.1 cm IVS Diastolic Thickness 0.9 cm 0.6 - 1.0 / 0.6 - 0.9 cm IVS Systolic Thickness 1.2 cm LVPW Diastolic Thickness 1.0 cm 0.6 - 1.0 / 0.6 - 0.9 cm LVPW Systolic Thickness 1.1 cm LVOT Diameter 2.0 cm LV Ejection Fraction 2D Teich 56.0 % LV Ejection Fraction MOD 2C 62.0 % LV Ejection Fraction 2C AL 63.6 % LA Diameter 3.3 cm LA Width 5.0 cm LA Height 5.4 cm RA Width 4.3 cm RA Height 5.5 cm Aorta at Sinotubular Diameter 2.6 cm M-MODE MV E Point Septal Separation 2.4 cm DOPPLER AV Peak Velocity 268.5 cm/s LVOT Peak Velocity 88.0 cm/s AV Area Cont Eq vti 1.0 cm squared AV Area Cont Eq pk 1.1 cm squared MV Area PHT 5.0 cm squared Mitral E to A Ratio 1.3 MV E' Velocity 58.5 cm/s Mitral E to MV E' Ratio 9.4 Mitral E to LV E' Lateral Ratio 7.3 Mitral E to LV E' Septal Ratio 13.2 TR Peak Velocity 241.7 cm/s TR Peak Gradient 23.4 mmHg TV Peak E Velocity 106.0 cm/s FINDINGS Left Ventricle Moderately increased left ventricular cavity size. Mild to moderately decreased left ventricular systolic function. Global left ventricular hypokinesis. Left ventricular ejection fraction is estimated at 45 to50 %. Grade II/IV diastolic dysfunction, moderately elevated filling pressures. Right Ventricle The right ventricle is normal in size and function. RVSP could not be calculated due to incomplete tricuspid regurgitation velocity profile. Right Atrium The right atrium is normal in size. Left Atrium Moderately increased left atrial size. Mitral Valve Moderately thickened mitral valve. Moderate mitral annular calcification. No mitral valve stenosis. Mild-moderate mitral valve regurgitation. Aortic Valve Severe aortic valve calcification. Moderate aortic valve stenosis, mean gradient 14.4 mmHg, RENY 1 cm squared.mild aortic valve regurgitation. Tricuspid Valve Structurally normal tricuspid valve without significant stenosis or regurgitation. Pulmonary artery systolic pressure is normal. Pulmonic Valve Structurally normal pulmonic valve without significant stenosis. There is no pulmonic regurgitation. Pericardium Normal pericardium without effusion. Aorta Normal ascending aorta dimension. CONCLUSIONS 1-Moderately increased left ventricular cavity size. Mild to modeately decreased left ventricular systolic function. Global left ventricular hypokinesis. Left ventricular ejection fraction is estimated at 45 to50 %. Grade II/IV diastolic dysfunction, moderately elevated filling pressures. 2-Moderately increased left atrial size. 3-Moderately thickened mitral valve. Moderate mitral annular calcification. No mitral valve stenosis. Mild-moderate mitral valve regurgitation. 4-Severe aortic valve calcification. Moderate aortic valve stenosis, mean gradient 14.4 mmHg, RENY 1 cm squared.mild aortic valve regurgitation. 5-The right ventricle is normal in size and function. RVSP could not be calculated due to incomplete tricuspid regurgitation velocity profile. 6-There is no pericardial effusion. 7-When compared to the prior echocardiogram dated July 05, 2016 there appeared to be moderate to severe aortic valve stenosis now Ting Ruff MD (Electronically Signed) Final Date: 30 May 2021 22:34 S
[2021-05-31] VITALS (13 sets, daily range): BP systolic 101–122; BP diastolic 46–64; PULSE 56–77; RESP 14–24; TEMP 36.4–36.8; O2SAT 90–96
[2021-05-31] MEDS: ipratropium-albuterol 3 mL Neb INHALATION ×3 (03:36→19:51)
[2021-05-31 05:45] LABS: Basophils # 0.1 10^3/uL (0.0-0.1); Basophils % 0.6 %; Eosinophils # 0.3 10^3/uL (0.0-0.8); Eosinophils % 1.9 %; Hematocrit 26.2 % (42.0-52.0); Hemoglobin 7.8 g/dL (11.7-16.6); Lymphocytes # 1.4 10^3/uL (0.8-4.8); Mean Corpuscular HGB Conc 29.8 g/dL (30.0-36.0); Mean Corpuscular Hemoglobin 27.5 pg (28.0-34.0); Mean Corpuscular Volume 92.3 fl (80-94); Mean Platelet Volume 9.7 fL (7.4-10.4); Monocytes # 1.8 10^3/uL (0.2-0.9); Monocytes % 10.1 %; Neutrophils % 75.9 %; Nucleated Red Blood Cells % 0.2 %; Platelet Count 312 10^3/cmm (130-400); Red Blood Count 2.84 10^6/uL (4.1-5.3); Red Cell Distribution Width 17.1 % (12.1-15.1); White Blood Count 17.6 10^3/uL (4.0-10.0)
[2021-05-31 06:12] LABS: Blood Urea Nitrogen 21 mg/dL (8-23); Calcium 8.3 mg/dL (8.5-10.5); Carbon Dioxide 36 mmol/L (22-29); Chloride 99 mmol/L (98-107); Glucose 104 mg/dL (65-115); Osmolality Calculated 295 mOsm/kg (285-295); Sodium 141 mmol/L (136-145)
[2021-05-31] MEDS: ferrous sulfate EC 325 mg Tablet PO ×3 (06:18→17:37)
[2021-05-31] MEDS: cefTRIAXone 1,000 MG in sodium chloride 0.9% (plus) 50 ML 100 MG IV (06:18)
[2021-05-31] MEDS: azithromycin 500 MG in sodium chloride 0.9% 250 ML 250 MG IV (08:39)
[2021-05-31] MEDS: FUROsemide 10 mg/mL SDV 4mL 40 MG IVP ×2 (08:40→12:48)
[2021-05-31] MEDS: potassium chloride ER 20 mEq Tablet PO ×2 (08:40→12:49)
[2021-05-31] MEDS: pantoprazole DR 40 mg Tablet PO (08:40)
[2021-05-31] MEDS: aspirin 325 mg EC Tablet PO (08:40)
[2021-05-31] MEDS: docusate sodium 100 mg Capsule PO ×2 (08:40→17:37)
[2021-05-31] MEDS: finasteride 5 mg Tablet PO (08:40)
[2021-05-31] MEDS: tamsulosin 0.4 mg Capsule PO (08:40)
[2021-05-31] MEDS: sertraline 50 mg Tablet 150 MG PO (08:40)
[2021-05-31] MEDS: metoprolol tartrate 25 mg Tablet PO (08:40)
[2021-05-31] MEDS: predniSONE 10 mg Tablet PO (08:41)
[2021-05-31] MEDS: budesonide 0.5 mg/2 mL Neb INHALATION ×2 (10:26→19:51)
--- NOTE | 2021-05-31 10:37 | PC.CHAP ---
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 [] Patient/Family/Request visit [] Outpatient visit [] Follow-up visit [] Physician referral [] Code/Alert [x] Routine visit [] Staff referral [] Actively dying [] Patient sleeping [] Family support [] [] Out of room [] Palliative care [] [x] Receiving care in room [] Pre-surgical visit [] Trauma [x] Long length of stay [] ICU visit [] Other: Relational/Emotional Strength [] Patient feels connected with others/family/visitors/staff [x] Distress [] Loneliness/isolation [] Abandonment Spirituality of Patient [x] Person of Salome [] Attends Mu-Ism of their Salome [x] Believes in Prayer [] Reads Bible or Hinduism materials [] There are Spiritual issues to be addressed Automotive Technology Instructor Interventions [x] Prayer [x] Active listening [x] Non-anxious presence [x] Spiritual/emotional support [] Crisis/trauma care [x] Spiritual counseling [] Bereavement support [] Provided bereavement packet [] Provided Bible/devotional materials [] Provided toy/stuffed animal, coloring book to patient or family member [] Provided Communion [] Anointing/[place] [] Salvation [x] Completed spiritual assessment [] Other: Impact on Illness or Injury [] Angry [x] Fearful [] Anxious [] Often cries [] Exhaustion [x] Unable to work [] Unable to attend sikh [] Unable to walk/stand [] Unable to read [] Unable to drive [] Unable to eat/drink [] Unable to sleep [] Unable to be with family [] Patient intubated [] Other: Summary has a good attituse lots of health problem Heart / lungs / blood / long time for recover and to what exstent + to help in the decions about his health doesn't when he able to to go home Time spent with patient 10 mins
--- NOTE | 2021-05-31 10:49 | P.PN_ITS ---
Subjective Subjective: Interval history: He is feeling slightly better. He is coughing. Wheezing. Denies chest pain or pressure. Rash in the gluteal cleft. Vitals/I&O/Wt Last Vital Signs Temp 97.5 F L 05/31/21 07:54 Pulse 63 05/31/21 07:54 Resp 14 05/31/21 07:54 BP 122/63 05/31/21 07:54 Pulse Ox 94 05/31/21 07:54 05/30/21 05/31/21 05/31/21 22:59 06:59 14:59 Intake Total 490 / 540 480 / 1020 410 / 410 Output Total 1450 / 1450 400 / 1850 900 / 900 Balance -960 / -910 80 / -830 -490 / -490 Weight last 48 hrs Weight 83.007 kg Physical Exam Narrative: EXAM NARRATIVE: [facility] Const: COMMON NORMALS: no acute distress and patient oriented x3 HENMT: COMMON NORMALS: oropharynx normal Neck/C-Spine: COMMON NORMALS: no JVD Resp: COMMON NORMALS: normal respiratory effort AUSCULTATION: wheezes and diminished lung sounds Cardio: COMMON NORMALS: no JVD, regular rhythm, S1 normal heart sound present, S2 normal heart sound present and No murmurs present (Cardio) RHYTHM: regular rhythm HEART SOUNDS: S1 normal heart sound present and S2 normal heart sound present GI: COMMON NORMALS: Normal to inspection, nondistended, normoactive bowel sounds present, Soft to palpation and non-tender PALPATION: Yes Soft to palpation Extremity: COMMON NORMALS: no joint enlargement GENERAL: Yes edema (trace) Neuro: COMMON NORMALS: patient oriented x3 and moves all extremities Skin: COMMON NORMALS: no rashes or lesions noted GENERAL SKIN EXAM: no rashes or lesions noted Urinary Catheter Management^: Skinner: Cath Placed During This Visit: yes Reason for Continuing Indwelling Catheter: Other Urinary Catheter Date of Insertion: 05/30/21 Urinary Catheter Time of Insertion: 13:50 Data : 05/31/21 04:52 05/31/21 04:52 Micro: Microbiology 05/30/21 14:02 Bacterial Antigens - Final Urine Kidney 05/29/21 00:39 Blood Culture - Preliminary Blood NEGATIVE TO DATE 05/29/21 00:41 Blood Culture - Preliminary Blood NEGATIVE TO DATE 05/30/21 14:02 Legionella Urinary Antigen - Final Urine Catheterized A&P Assessment and plan (1) Pneumonia: Hypoxic respiratory failure, requiring BiPAP support, high flow cannula support, coughing, wheezing, right lower lobe pneumonia on x-ray. Discussed with him and his . She reports that he does cough with food and drink intermittently. Will request speech therapy evaluation, MBS. Change Rocephin to Zosyn, continue azithromycin. Negative COVID-19 PCR. Requested sputum culture, urine bacterial antigens. Status: Acute Qualifiers: Laterality: right Lung location: middle lobe of lung Pneumonia type: due to unspecified organism Qualified Code(s): J18.9 - Pneumonia, unspecified organism (2) CHF (congestive heart failure): Continue Lasix. Discussed findings of echocardiogram with him and his including valvular heart disease. They requested Dr. Muñoz who is his doctor see him, discussed with him, he is not on-call, but may see if possible in consultation. Appreciate recommendations with regards to CHF, valvular heart disease, possible NSTEMI, atrial fibrillation. TTE with global of ventricular hypokinesis, with moderately decreased left irma tricular systolic function, EF 45-50%, grade 2 diastolic dysfunction, moderately increased left atrial size, moderately thickened mitral valve, mild-moderate MVR, severe aortic valve calcification, moderate aortic valve stenosis, mean gradient 14.4, RENY 1 cm, mild AVR. Right ventricle normal size and function. No pericardial effusion. Compared to prior study moderate to severe aortic valve stenosis new. Denies chest pain or pressure. Troponins abnormal, but also with episode of A. fib with RVR. Would benefit from additional risk stratification once respiratory status a bit more optimized. Wean down BiPAP as tolerating. Usually 5 L nasal cannula oxygen. Has a known history of coronary artery disease with prior CABG and percutaneous intervention as well as known peripheral vascular disease and carotid disease both requiring intervention. Status: Acute Qualifiers: Heart failure type: unspecified Heart failure chronicity: acute Qualified Code(s): I50.9 - Heart failure, unspecified (3) Atrial fibrillation with RVR: New A. fib. A. fib with RVR presentation. So far rates have stayed good. Continue metoprolol. Aspirin, but monitor blood counts due to anemia, iron deficiency. Not yet candidate for anticoagulation due to worsening anemia. In a patient without a known history of atrial fibrillation. Most likely secondary to acute pulmonary issues from CHF and COPD plus or minus acute infection. Also within the differential is acute coronary syndrome, thromboembolic event, metabolic abnormalities among others. Status: Acute (4) Non-ST elevation [place] (NSTEMI): Suspected demand ischemia secondary atrial fibrillation with RVR, hypoxia, although cannot rule out type I event. He does not have any chest pain or pressure. Possible Q waves in V1, V2. Discussed with him and his . With worsening echo chronic anemia, hemoglobin 7.8, iron deficiency, unclear when last colonoscopy was, reports recurrent anemia without identified source, risk of bleeding with anticoagulation. Continues on aspirin which she is tolerating so far. Continue beta-ghislaine, sta tin. Appreciate cardiology recommendations regarding additional risk stratification. Cannot entirely rule out type I process, but most likely type II process from demand ischemia related to hypoxemia, anemia and possibly other episodes of tachycardia arrhythmia like we have seen this evening. Has been sometime since he has had cardiac evaluation and he does have risk factors for recurrent disea se so unable to presently rule out type I process. Status: Acute (5) COPD (chronic obstructive pulmonary disease): Chronically on 5 L of oxygen by nasal cannula as well as on chronic steroid therapy, former smoker, acutely exacerbated secondary to above. Looking at ABG her has chronic hypercapnia and hypoxemia. Possible COPD exacerbation now also, with wheezing, decreased air entry. Cough. Dyspnea. Hypoxia. Continue to biotics as above. Collect urine cultures. Continue breathing treatments. Is on low-dose prednisone currently, is concerned regarding any increases in dose, continue for now if possible. Monitor condition. Status: Chronic Qualifiers: COPD type: emphysema Emphysema type: unspecified Qualified Code(s): J43.9 - Emphysema, unspecified (6) Anemia: Iron deficiency anemia. states he has had upper and lower endoscopy previously. Recurrent episodes of anemia, without finding of the cause. Discussed consideration of referral for repeat endoscopy once he is more stable, and if no bleeding source identified, consideration of referral for capsule endoscopy, then possibly deep enteroscopy. Hemoccult requested, follow-up. Atrial fibrillation, but for now only aspirin given acute anemia. However, if further declining hemoglobin, may have to hold aspirin as well. Discussed with him would benefit from endoscopic evaluation once his overall condition improves. Also anemia of chronic disease. Status: Acute Qualifiers: Anemia type: iron deficiency Iron deficiency anemia type: other iron deficiency Qualified Code(s): D50.8 - Other iron deficiency anemias (7) Recurrent falls: Patient reports right-sided weakness with ambulation of approximately 6 months duration. He has had falls intermittently since then that have been more prominent lately. 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 Status: Acute (8) Prostate cancer: Following with Dr. Masood Hines, has been on antiandrogen therapy with initial good response from PSA standpoint on review of records although missed treatment at least once this fall Status: Chronic (9) ASHD (arteriosclerotic heart disease): With prior bypass and percutaneous intervention. Status: Chronic Attestations Medical Necessity Statement*: Continue admission for assessment management of hypoxic respiratory failure, pneumonia, possible CV exacerbation, CHF, possible NSTEMI. Coding Level [facility] Care Code [facility] Pneumonia J18.9 Laterality: right Lung location: middle lobe of lung Pneumonia type: due to unspecified organism CHF (congestive heart failure) I50.9 Heart failure type: unspecified Heart failure chronicity: acute Atrial fibrillation with RVR I48.91 Non-ST elevation [place] (NSTEMI) I21.4 COPD (chronic obstructive pulmonary disease) J43.9 COPD type: emphysema Emphysema type: unspecified Anemia D50.8 Anemia type: iron deficiency Iron deficiency anemia type: other iron deficiency Recurrent falls R29.6 Prostate cancer C61 ASHD (arteriosclerotic heart disease) I25.10
[2021-05-31] MEDS: piperacillin-tazobactam 3.375 GM in sodium chloride 0.9% (plus) 50 ML IV ×2 (12:32→21:04)
--- NOTE | 2021-05-31 17:28 | PM.CONSULT ---
Providers/Reason For Consult Consulting Physician/Specialty*: MARTI Muñoz MD/cardiology Reason for Consult*: Patient with elevated troponin T/hypoxia/congestive heart failure/history of ASHD Attending Physician: Mitch Gipson Primary Care Provider: Chanelle Anthony MD History of Present Illness History of Present Illness Tremaine Harding is a 85 year old male with a history of atherosclerotic heart disease, status post multiple PCI's, severe peripheral artery disease, status post peripheral artery revascularization, is presenting with progressive shortness of breath. Patient was found to be hypoxic and in congestive heart failure. Chest x-ray showed evidence of pneumonia. His troponin was elevated with a significant delta at 2 hours and 6 hours. He also was found to be anemic with hemoglobin around 7. His telemetry shows intermittent atrial fibrillation with a controlled ventricular response rate. His hypoxia is improving. He did not have any significant chest pain. No palpitations or dizziness. He has been having frequent falls lately. Also is complaining of generalized weakness. No fever, chills. Had a dry cough. He has been having upper respiratory tract infection symptoms for 2 to 3 days prior to the hospital admission. He was tested negative for COVID-19. Denies any fever or chills. No abdominal pain or dysuria. It is known to have chronic atypical chest symptoms. Had a myocardial perfusion imaging in 2018 which was unremarkable. Had PCI of the LAD and diagonal artery in 2013 here at [address] [facility]. Has chronic intermittent atrial fibrillation. Not on any oral anticoagulant because of the history of anemia, GI bleed and frequent falls. Has a history of severe peripheral artery disease. Had a percutaneous interventions followed by bypass surgery bilaterally. History of hypertension dyslipidemia. Review of Systems Narrative: CONSTITUTIONAL: No fever or chills. History of generalized weakness/fatigue EYES: No blurring of vision or other visual disturbances lately. ENT: No hoarseness of voice, auditory disturbances or sore throat. CARDIOVASCULAR: As mentioned above. RESPIRATORY: Dry cough and shortness of breath GASTROINTESTINAL: No hematemesis or melena. GENITOURINARY: No dysuria or hematuria. INTEGUMENTARY: No skin rashes or history of skin cancer. NEURO: History of CVA PSYCHIATRIC: No history of psychosis or major depression. HEMATOLOGIC: Chronic anemia ENDOCRINE: No history of polyuria or polydipsia. MUSCULOSKELETAL: No recent joint pain or swelling. ALLERGY/IMMUNOLOGY: As mentioned above. Meds/Allergies Home Medications and Allergies Home Medications Medication Instructions Recorded Confirmed Last Taken Type albuterol sulfate 90 mcg/actuation 2 puff INHALATION Q6H PRN 10/18/19 05/30/21 05/29/21 History aerosol inhaler calcium carbonate-vitamin D3 600 1 tab PO DAILY 10/18/19 05/30/21 05/29/21 History mg(1,500 mg)-400 unit chewable tablet ferrous sulfate 325 mg (65 mg 325 mg PO DAILY 10/18/19 05/30/21 05/29/21 History iron) tablet finasteride 5 mg tablet 5 mg PO DAILY 10/18/19 05/30/21 05/29/21 History magnesium 200 mg tablet 400 mg PO DAILY 10/18/19 05/30/21 05/29/21 History omega-3 fatty acids 1,000 mg 1,000 mg PO DAILY 10/18/19 05/30/21 05/29/21 History capsule polyethylene glycol 3350 17 17 gm PO DAILY 10/18/19 05/30/21 05/29/21 History gram/dose oral powder potassium citrate 10 mEq (1,080 2,160 mg PO BID 10/18/19 05/30/21 05/29/21 History mg) tablet,extended release prednisone 10 mg tablet 10 mg PO DAILY 10/18/19 05/30/21 05/29/21 History vitamin B complex 1 tab PO DAILY 10/18/19 05/30/21 05/29/21 History vitamin E (dl, acetate) 180 mg 400 unit PO DAILY 10/18/19 05/30/21 05/29/21 History (400 unit) capsule tamsulosin 0.4 mg capsule 0.4 mg PO DAILY 02/16/20 05/30/21 05/29/21 History vit 1 cap PO DAILY cap 02/16/20 05/30/21 05/29/21 History C,E,zinc,Wn-uxery-4-lutein-zeaxanthin 250 mg-2.5 mg-0.5 mg capsule cholecalciferol (vitamin D3) 1 tab PO DAILY 05/30/21 05/30/21 05/29/21 History docusate sodium 100 mg PO BID 05/30/21 05/30/21 05/29/21 History fluticasone propion-salmeterol 1 puff INHALATION BID 05/30/21 05/30/21 05/29/21 History fluticasone propionate 1 dose NOSTRIL-B DAILY 05/30/21 05/30/21 05/29/21 History pyridoxine (vitamin B6) 1 tab PO DAILY 05/30/21 05/30/21 05/29/21 History sertraline 150 mg PO DAILY 05/30/21 05/30/21 05/29/21 History tiotropium bromide 2 puff INHALATION DAILY 05/30/21 05/30/21 05/29/21 History Allergies Allergy/AdvReac Type Severity Reaction Status Date / Time No Known Allergies Allergy Verified 10/30/20 08:03 Current Medications Current Medications Generic Name Dose Route Start Last Admin Trade Name Freq PRN Reason Stop Dose Admin Albuterol/Ipratropium 3 ml 05/30/21 03:00 05/31/21 10:27 Ipratropium-Albuterol 3 Ml Neb INHALATION 3 ml Q6H.RESPIRATORY JO Administration Aspirin 325 mg 05/30/21 09:00 05/31/21 08:40 Aspirin 325 Mg Ec Tablet PO 325 mg DAILY JO Administration Atorvastatin Calcium 40 mg 05/30/21 21:00 05/30/21 20:05 Atorvastatin 40 Mg Tablet PO Not Given BEDTIME JO Budesonide 0.5 mg 05/30/21 08:00 05/31/21 10:26 Budesonide 0.5 Mg/2 Ml Neb INHALATION 0.5 mg BID.RESPIRATORY JO Administration Docusate Sodium 100 mg 05/30/21 09:00 05/31/21 08:40 Docusate Sodium 100 Mg Capsule PO 100 mg BID JO Administration Ferrous Sulfate 325 mg 05/30/21 07:00 05/31/21 12:32 Ferrous Sulfate Ec 325 Mg Tablet PO 325 mg TIDAC JO Administration Finasteride 5 mg 05/30/21 09:00 05/31/21 08:40 Finasteride 5 Mg Tablet PO 5 mg DAILY JO Administration Furosemide 40 mg 05/30/21 08:00 05/31/21 12:48 Furosemide 10 Mg/Ml Sdv 4ml IVP 40 mg BID@08,14 JO Administration Azithromycin 500 mg/ Sodium 250 mls @ 250 mls/hr 05/30/21 08:00 05/31/21 09:39 Chloride IV Infused Q24H JO Infusion Protocol Piperacillin Sod/Tazobactam 50 mls @ 12.5 mls/hr 05/31/21 11:00 05/31/21 16:32 Sod 3.375 gm/ Sodium Chloride IV Infused Q8H JO Infusion Protocol Methylprednisolone Sodium Succinate 40 mg 05/31/21 12:00 05/31/21 12:34 Methylprednisolone Sod Succ 40 Mg/Ml Inj IVP 40 mg Q6H JO Administration Metoprolol Tartrate 25 mg 05/30/21 09:00 05/31/21 08:40 Metoprolol Tartrate 25 Mg Tablet PO 25 mg BID@0900,2100 JO Administration Pantoprazole Sodium 40 mg 05/30/21 09:00 05/31/21 08:[address] 40 Mg Tablet PO 40 mg DAILY JO Administration Potassium Chloride 20 meq 05/30/21 08:00 05/31/21 12:49 Potassium Chloride Er 20 Meq Tablet PO 20 meq BID@08,14 JO Administration Prednisone 10 mg 05/30/21 09:00 05/31/21 08:41 Prednisone 10 Mg Tablet PO 10 mg DAILY JO Administration Sertraline HCl 150 mg 05/30/21 10:30 05/31/21 08:40 Sertraline 50 Mg Tablet PO 150 mg DAILY JO Administration Tamsulosin HCl 0.4 mg 05/30/21 09:00 05/31/21 08:40 Tamsulosin 0.4 Mg Capsule PO 0.4 mg DAILY JO Administration PFSH Acute PFSH: Medical History Abnormal PSA ASHD (arteriosclerotic heart disease) Benign non-nodular prostatic hyperplasia with lower urinary tract symptoms Carotid artery stenosis COPD (chronic obstructive pulmonary disease) Former smoker History of hypertension History of iron deficiency anemia from GI losses History of ischemic left MCA stroke Apparent on imaging studies History of skin cancer Hx of hyperlipidemia Mild cognitive impairment with memory loss Prostate cancer has been treated with androgen deprivation therapy with Zolodex and bicalutamide, follows with Drs. Hines and Masood PVD (peripheral vascular disease) Sleep apnea Not chronically using CPAP anymore Urgency incontinence Surgical History H/O wrist surgery right History of cataract surgery History of endarterectomy History of femoropopliteal bypass History of PTCA Hx of coronary artery bypass graft (~2011) Hx of removal of cyst Hx of rotator cuff surgery Family History Father , at age 60 Cirrhosis of liver Mother , at age 106 No problems noted. Family/Other CAD (coronary artery disease) Diabetes Hypertension Brother Dementia two brothers Social History Smoking and tobacco status: former smoker Alcohol intake: current Alcohol intake frequency: holidays/special occasions only Adopted: No Lives independently: No Household members: spouse Marital status: Current occupational status: retired Current gender identity: Male Vitals/I&O/Wt Last Vital Signs Temp 98.2 F 05/31/21 15:36 Pulse 56 L 05/31/21 15:36 Resp 16 05/31/21 15:36 BP 101/46 05/31/21 15:36 Pulse Ox 90 05/31/21 15:36 05/31/21 05/31/21 05/31/21 06:59 14:59 22:59 Intake Total 480 / 1020 660 / 660 50 / 710 Output Total 400 / 1850 900 / 900 Balance 80 / -830 -240 / -240 50 / -190 Weight last 48 hrs Weight 183 lb Physical Exam Narrative: EXAM NARRATIVE: GENERAL: The patient is alert and oriented times three. Not in any acute distress. [] HEENT: No significant pallor, icterus or lymphadenopathy.Oral cavity: There are no mucous membrane lesions. NECK: Trachea appears to be central. No masses noted. No JVD or thyromegaly appreciated. Carotid bruit on the right side. RESPIRATORY: Chest is symmetrical. No intercostals muscle retraction or any accessory muscle activation. There is no chest wall tenderness. Breath sounds are heard bilaterally. No rales or rhonchi heard. No evidence of any consolidation. [] BREASTS: Deferred. [] HEART: The heart sounds are normal. No S3 or S4. Short systolic murmur in the left sternal border. No diastolic murmurs. No pericardial rub ABDOMEN: No vessel pulsations or distention. No tenderness. No organomegaly appreciated. Bowel sounds are normally heard. [] : Deferred. [] RECTAL: Deferred. [] LYMPHATIC: No lymphadenopathy noted in the neck or groin. [] EXTREMITIES: Trace edema with no cyanosis. Peripheral pulses are extremely weak bilaterally MUSCULOSKELETAL: No acute joint deformities or swelling SKIN: There are no significant rashes or ecchymosis NEUROPSYCHIATRIC: The patient is alert and oriented x3. Appears to be in a good mood. No tremors or rigidity noted. [] Urinary Catheter Management^: Skinner: Cath Placed During This Visit: yes Reason for Continuing Indwelling Catheter: Other Urinary Catheter Date of Insertion: 05/30/21 Urinary Catheter Time of Insertion: 13:50 Data Labs: Other Labs: Laboratory Last Values WBC 17.6 10^3/uL (4.0 -10.0) H 05/31/21 04:52 RBC 2.84 10^6/uL (4.1 -5.3) L 05/31/21 04:52 Hgb 7.8 g/dL (11.7-16 .6) L 05/31/21 04:52 Hct 26.2 % (42.0-52.0 ) L 05/31/21 04:52 MCV 92.3 fl (80-94) 05/31/21 04:52 MCH 27.5 pg (28.0-34. 0) L 05/31/21 04:52 MCHC 29.8 g/dL (30.0-3 6.0) L 05/31/21 04:52 RDW 17.1 % (12.1-15.1 ) H 05/31/21 04:52 Plt Count 312 10^3/cmm (130 -400) 05/31/21 04:52 MPV 9.7 fL (7.4-10.4) 05/31/21 04:52 Neut % (Auto) 75.9 % 05/31/21 04:52 Lymph % (Auto) 8.0 % 05/31/21 04:52 [place] % (Auto) 10.1 % 05/31/21 04:52 Eos % (Auto) 1.9 % 05/31/21 04:52 Baso % (Auto) 0.6 % 05/31/21 04:52 Neut # (Auto) 13.40 10^3/uL (1. 8-7.7) H 05/31/21 04:52 Lymph # (Auto) 1.4 10^3/uL (0.8- 4.8) 05/31/21 04:52 [place] # (Auto) 1.8 10^3/uL (0.2- 0.9) H 05/31/21 04:52 Eos # (Auto) 0.3 10^3/uL (0.0- 0.8) 05/31/21 04:52 Baso # (Auto) 0.1 10^3/uL (0.0- 0.1) 05/31/21 04:52 Nucleated RBC % (a uto) 0.2 % 05/31/21 04:52 Nucleated RBCs # 0.0 /100WBC 05/31/21 04:52 PT 15.40 SECONDS (12 .1-14.9) H 05/30/21 06:48 INR 1.19 (0.8-1.2) 05/30/21 06:48 APTT 42.2 SECONDS (23. 9-36.7) H 05/30/21 06:48 Specimen Type Arterial 05/29/21 19:07 Sample Site Radial, right 05/29/21 19:07 ABG pH 7.40 (7.35-7.45) 05/29/21 19:07 ABG pCO2 60.8 mmHg (35-45) H* 05/29/21 19:07 ABG pO2 63.2 mmHg (80.0-1 00.0) L 05/29/21 19:07 ABG HCO3 37.5 mmol/L (22-2 6) H 05/29/21 19:07 ABG Base Excess 11.3 mmol/L (-2.0 -2.0) H 05/29/21 19:07 Miguel Angel Test Pos 05/29/21 19:07 Hematocrit 24.2 % (42-52) L 05/29/21 19:07 O2 Delivery Device Nc 05/29/21 19:07 O2 Liters/Min 5.0 % 05/29/21 19:07 Sound Effects Person ID [email or web address] 05/29/21 19:07 Sodium 141 mmol/L (136-1 45) 05/31/21 04:52 Potassium 4.0 mmol/L (3.5-5 .1) 05/31/21 04:52 Chloride 99 mmol/L (98-107 ) 05/31/21 04:52 Carbon Dioxide 36 mmol/L (22-29) H 05/31/21 04:52 Anion Gap 10.0 (5-19) 05/31/21 04:52 BUN 21 mg/dL (8-23) 05/31/21 04:52 Creatinine 0.8 mg/dL (0.7-1. 2) 05/31/21 04:52 GFR Calculation Not Reportable 05/31/21 04:52 Glucose 104 mg/dL (65-115 ) 05/31/21 04:52 Calculated Osmolal ity 295 mOsm/kg (285- 295) 05/31/21 04:52 Calcium 8.3 mg/dL (8.5-10 .5) L 05/31/21 04:52 Phosphorus 3.1 mg/dL (2.5-4. 5) 05/30/21 06:48 Magnesium 2.0 mg/dL (1.7-2. 3) 05/30/21 06:48 Iron 21 ug/dL (59-158) L 05/30/21 00:41 TIBC 268 mcg/dl 05/30/21 00:41 % Saturation 7.8 % (20-50) L 05/30/21 00:41 Unsat Iron Binding 247 ug/dL (112-34 7) 05/30/21 00:41 Total Bilirubin 0.3 mg/dL (0.15-1 .2) 05/30/21 06:48 AST 23 U/L (0-40) 05/30/21 06:48 ALT 21 U/L (0-41) 05/30/21 06:48 Alkaline Phosphata se 51 IU/L (40-130) 05/30/21 06:48 Troponin T Baselin e 201 ng/L (0-15) H* 05/29/21 18:50 Troponin T 120 Min yajaira 216.6 ng/L (0-15) H 05/29/21 20:46 Delta Troponin T 15.6 ABS# (0-10) H* 05/29/21 20:46 Troponin T Hi Sens 6Hr 272.4 ng/L (0-15) H 05/30/21 00:41 Troponin T Hi Sens 6Hr Delta 71.4 ng/L (0-12) H* 05/30/21 00:41 NT-Pro-B Natriuret Pep 12576 pg/mL (0-45 0) H 05/29/21 20:46 Total Protein 5.6 g/dL (6.6-8.7 ) L 05/30/21 06:48 Albumin 3.2 g/dL (3.5-5.2 ) L 05/30/21 06:48 Globulin 2.4 g/dL (1.3-4.6 ) 05/30/21 06:48 Triglycerides 89 mg/dL (0-150) 05/30/21 06:48 Cholesterol 123 mg/dL (0-200) 05/30/21 06:48 LDL Cholesterol, C alc 59 mg/dL (50-129) 05/30/21 06:48 HDL Cholesterol 46 mg/dL (60-100) L 05/30/21 06:48 LDL/HDL Ratio 1.28 RATIO (0.00- 3.22) 05/30/21 06:48 Cholesterol/HDL Ra jesus 2.67 mg/dL (1.0-5 .00) 05/30/21 06:48 Prostate Specific Ag 67.710 ng/mL (0-4 ) H 05/30/21 00:41 Procalcitonin 0.06 ng/mL (0-0.5 ) 05/29/21 20:46 TSH 2.25 uIU/mL (0.27 -4.20) 05/30/21 06:48 Urine Color Yellow (Yellow) 05/29/21 19:10 Urine Appearance Clear (CLEAR) 05/29/21 19:10 Urine pH 5 (5-7) 05/29/21 19:10 Ur Specific Gravit y 1.020 (1.005-1.0 30) 05/29/21 19:10 Urine Protein Trace (Negative) 05/29/21 19:10 Urine Glucose (UA) Norm (Normal) 05/29/21 19:10 Urine Ketones Negative (Negati ve) 05/29/21 19:10 Urine Blood Neg (Negative) 05/29/21 19:10 Urine Nitrate Negative (Negati ve) 05/29/21 19:10 Urine Bilirubin Neg (Negative) 05/29/21 19:10 Urine Urobilinogen 1 mg/dL (Negative ) H 05/29/21 19:10 Ur Leukocyte Catherine ase Negative (Negati ve) 05/29/21 19:10 Urine RBC 0-4 /hpf (0-2) H 05/29/21 19:10 Urine WBC 0-4 /hpf (0-5) H 05/29/21 19:10 Ur Squamous Epith Cells 0-4 /hpf (0-5) H 05/29/21 19:10 Amorphous Sediment Not Reportable 05/29/21 19:10 Urine Bacteria Trace /hpf (NONE) 05/29/21 19:10 Hyaline Casts 0-4 /lpf H 05/29/21 19:10 Urine Mucus Trace /hpf 05/29/21 19:10 Salicylates 1.2 mg/dL (3-10) L 05/29/21 18:40 Acetaminophen < 5.0 ug/mL (10-3 0) L 05/29/21 18:40 Nasal/Oral COVID-1 9 PCR Not detected 05/30/21 00:10 SARS-CoV-2 Ag (Rap id) Negative (Negati ve) 05/30/21 00:15 Micro: Micro: Microbiology 05/30/21 14:02 Bacterial Antigens - Final Urine Kidney 05/29/21 00:39 Blood Culture - Pr eliminary Blood NEGATIVE TO YOMAIRA E 05/29/21 00:41 Blood Culture - Pr eliminary Blood NEGATIVE TO YOMAIRA E 05/30/21 14:02 Legionella Urinary Antigen - Final Urine Catheterize d Imaging^: Echo: My impression: Echocardiogram on 05/30/2021 revealed 1-Moderately increased left ventricular cavity size. Mild to modeately decreased left ventricular systolic function. Global left ventricular hypokinesis. Left ventricular ejection fraction is estimated at 45 to50 %. Grade II/IV diastolic dysfunction, moderately elevated filling pressures. 2-Moderately increased left atrial size. 3-Moderately thickened mitral valve. Moderate mitral annular calcification. No mitral valve stenosis. Mild-moderate mitral valve regurgitation. 4-Severe aortic valve calcification. Moderate aortic valve stenosis, mean gradient 14.4 mmHg, RENY 1 cm squared.mild aortic valve regurgitation. 5-The right ventricle is normal in size and function. RVSP could not be calculated due to incomplete tricuspid regurgitation velocity profile. 6-There is no pericardial effusion. 7-When compared to the prior echocardiogram dated July 05, 2016 there appeared to be moderate to severe aortic valve stenosis now CTA of the neck: Radiologist's impression: 1. Complete occlusion extracranial LEFT ICA. 2. Multifocal areas of sclerotic plaque in the proximal RIGHT extracranial ICA with stenosis approaching 50%. 3. Reconstitution through an intact [place] of [place] to fill the LEFT MCA. LEFT MCA small caliber but is enhancing. 4. Moderate calcified plaque in the RIGHT intracranial carotid artery. 5. 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 6. Chronic emphysema at the lung apices. EKG^: EKG 1: My Interpretation: The EKG showed a sinus rhythm with poor R wave progression. Possible old septal AK. Some nonspecific T wave changes. Nonspecific ST changes in the lateral leads. A&P Assessment and plan (1) Elevated troponin: The elevated troponin T with a significant delta at the 2 and 6-hour timeframe could be related to type I myocardial infarction. However in view of the atrial fibrillation, severe anemia, heart failure and pneumonia, a type II AK also is a consideration. Hemodynamically seems to be stable. He is currently asymptomatic. For further evaluation of the coronary status, a myocardial perfusion imaging would be appropriate. However there is no urgency on this. The patient is not able to make a decision on this. I will be discussing this with his and then decide on further work-up. Status: Acute (2) Atrial fibrillation with RVR: Currently the heart rate is under control. Patient may continue on the current medications. Because of the anemia and the frequent fall, patient is not on any oral anticoagulation. Status: Acute (3) CHF (congestive heart failure): The heart failure seems to be getting compensated. Careful diuresis would be appropriate. Status: Acute Qualifiers: Heart failure chronicity: acute Heart failure type: unspecified Qualified Code(s): I50.9 - Heart failure, unspecified (4) Anemia: The etiology is not clear. Patient has history of GI bleed. Advanced Ca of the prostate could be a contributing factor. Patient may benefit from blood transfusion to keep the hemoglobin between 9 and 10. Status: Acute Qualifiers: Anemia type: iron deficiency Iron deficiency anemia type: other iron deficiency Qualified Code(s): D50.8 - Other iron deficiency anemias (5) PVD (peripheral vascular disease): The patient currently has no specific symptoms. May continue on the current measures. Status: Chronic (6) Carotid artery stenosis: Patient has chronic occlusion of the left ICA. No significant stenosis in the right side. 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 Correia Status: Acute (8) Atherosclerosis of coronary artery of [place] heart without angina pectoris: Patient is currently status seems to be stable. He is not complaining of any significant chest pain. Work-up as mentioned above Status: Acute Consult Attestations Medical Necessity Statement: Based on the patient's clinical progress, further recommendations will be made. 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
--- NOTE | 2021-05-31 18:55 | PC.NURSE ---
Report To Jenni Tolentino LPN at this time.
[2021-05-31] MEDS: atorvastatin 40 mg Tablet PO (21:05)
[2021-06-01] VITALS (14 sets, daily range): BP systolic 103–138; BP diastolic 49–76; PULSE 54–73; RESP 14–26; TEMP 36.3–37; O2SAT 89–98
[2021-06-01] MEDS: ipratropium-albuterol 3 mL Neb INHALATION ×5 (02:29→19:54)
[2021-06-01 03:50] LABS: Basophils # 0.1 10^3/uL (0.0-0.1); Basophils % 0.3 %; Hematocrit 27.2 % (42.0-52.0); Lymphocytes # 0.7 10^3/uL (0.8-4.8); Lymphocytes % 4.1 %; Mean Corpuscular HGB Conc 29.4 g/dL (30.0-36.0); Mean Corpuscular Volume 91.9 fl (80-94); Mean Platelet Volume 9.8 fL (7.4-10.4); Monocytes # 0.7 10^3/uL (0.2-0.9); Neutrophils # 15.91 10^3/uL (1.8-7.7); Neutrophils % 88.6 %; Nucleated Red Blood Cells % 0.1 %; Platelet Count 345 10^3/cmm (130-400); Red Blood Count 2.96 10^6/uL (4.1-5.3)
[2021-06-01] MEDS: piperacillin-tazobactam 3.375 GM in sodium chloride 0.9% (plus) 50 ML IV ×3 (03:58→20:41)
[2021-06-01 04:11] LABS: Anion Gap 8.1 (5-19); Blood Urea Nitrogen 24 mg/dL (8-23); Calcium 8.6 mg/dL (8.5-10.5); Carbon Dioxide 38 mmol/L (22-29); Chloride 97 mmol/L (98-107); Glucose 152 mg/dL (65-115); Osmolality Calculated 295 mOsm/kg (285-295); Potassium 4.1 mmol/L (3.5-5.1); Sodium 139 mmol/L (136-145)
[2021-06-01] MEDS: ferrous sulfate EC 325 mg Tablet PO ×3 (06:00→17:50)
[2021-06-01] MEDS: FUROsemide 10 mg/mL SDV 4mL 40 MG IVP ×2 (09:13→13:00)
[2021-06-01] MEDS: budesonide 0.5 mg/2 mL Neb INHALATION ×2 (10:04→19:52)
[2021-06-01] MEDS: azithromycin 500 MG in sodium chloride 0.9% 250 ML 250 MG IV (10:18)
[2021-06-01] MEDS: sertraline 50 mg Tablet 150 MG PO (10:19)
[2021-06-01] MEDS: metoprolol tartrate 25 mg Tablet PO (10:19)
[2021-06-01] MEDS: potassium chloride ER 20 mEq Tablet PO ×2 (10:19→15:52)
[2021-06-01] MEDS: pantoprazole DR 40 mg Tablet PO (10:19)
[2021-06-01] MEDS: finasteride 5 mg Tablet PO (10:19)
[2021-06-01] MEDS: tamsulosin 0.4 mg Capsule PO (10:19)
[2021-06-01] MEDS: aspirin 325 mg EC Tablet PO (10:19)
[2021-06-01] MEDS: docusate sodium 100 mg Capsule PO ×2 (10:20→17:50)
--- NOTE | 2021-06-01 12:06 | PM.PN ---
Subjective Subjective: Interval history: Patient had an episode of respiratory distress this morning. After coughing up some sputum, the oxygenation seems to be improving. Denies any chest pain or chest tightness. No fever or chills. No other specific complaints. Medications: Reviewed: Yes Medication Review Details: Current Medications Acetaminophen (Acetaminophen 325 Mg Tablet) 650 mg PO Q6H PRN PRN Reason: Mild/Mod Pain Or Temp >/= 101 Albuterol/Ipratropium (Ipratropium-Albuterol 3 Ml Neb) 3 ml INHALATION Q6H.RESPIRATORY JO Last Admin: 06/01/21 10:04 Dose: 3 ml Documented by: Albuterol/Ipratropium (Ipratropium-Albuterol 3 Ml Neb) 3 ml INHALATION Q4H PRN PRN Reason: SHORTNESS OF BREATH Last Admin: 06/01/21 07:54 Dose: 3 ml Documented by: Aspirin (Aspirin 325 Mg Ec Tablet) 325 mg PO DAILY JO Last Admin: 06/01/21 10:19 Dose: 325 mg Documented by: Atorvastatin Calcium (Atorvastatin 40 Mg Tablet) 40 mg PO BEDTIME JO Last Admin: 05/31/21 21:05 Dose: 40 mg Documented by: Bisacodyl (Bisacodyl 5 Mg Tablet) 10 mg PO DAILY PRN; Protocol PRN Reason: Constipation (see protocol) Budesonide (Budesonide 0.5 Mg/2 Ml Neb) 0.5 mg INHALATION BID.RESPIRATORY JO Last Admin: 06/01/21 10:04 Dose: 0.5 mg Documented by: Docusate Sodium (Docusate Sodium 100 Mg Capsule) 100 mg PO BID JO Last Admin: 06/01/21 10:20 Dose: 100 mg Documented by: Ferrous Sulfate (Ferrous Sulfate Ec 325 Mg Tablet) 325 mg PO TIDAC JO Last Admin: 06/01/21 12:00 Dose: 325 mg Documented by: Finasteride (Finasteride 5 Mg Tablet) 5 mg PO DAILY JO Last Admin: 06/01/21 10:19 Dose: 5 mg Documented by: Furosemide (Furosemide 10 Mg/Ml Sdv 4ml) 40 mg IVP BID@08,14 JO Last Admin: 06/01/21 09:13 Dose: 40 mg Documented by: Azithromycin 500 mg/ Sodium (Chloride) 250 mls @ 250 mls/hr IV Q24H JO; Protocol Last Admin: 06/01/21 10:18 Dose: 250 mls/hr Documented by: Piperacillin Sod/Tazobactam (Sod 3.375 gm/ Sodium Chloride) 50 mls @ 12.5 mls/hr IV Q8H [facility]; Protocol Last Admin: 06/01/21 12:00 Dose: 12.5 mls/hr Documented by: Methylprednisolone Sodium Succinate (Methylprednisolone Sod Succ 40 Mg/Ml Inj) 40 mg IVP Q6H [facility] Last Admin: 06/01/21 07:07 Dose: 40 mg Documented by: Metoprolol Tartrate (Metoprolol Tartrate 25 Mg Tablet) 25 mg PO BID@0900,2100 [facility] Last Admin: 06/01/21 10:19 Dose: 25 mg Documented by: Nystatin (Nystatin Cream 30 Gm) 1 applic TOPICAL BID [facility] Last Admin: 06/01/21 10:21 Dose: Not Given Documented by: Ondansetron HCl (Ondansetron 2 Mg/Ml Sdv 2 Ml) 4 mg IVP Q8H PRN PRN Reason: vomiting, or N/V if npo Pantoprazole Sodium (Pantoprazole Dr 40 Mg Tablet) 40 mg PO DAILY [facility] Last Admin: 06/01/21 10:19 Dose: 40 mg Documented by: Potassium Chloride (Potassium Chloride Er 20 Meq Tablet) 20 meq PO BID@08,14 [facility] Last Admin: 06/01/21 10:19 Dose: 20 meq Documented by: Prednisone (Prednisone 10 Mg Tablet) 10 mg PO DAILY [facility] Last Admin: 05/31/21 08:41 Dose: 10 mg Documented by: Sertraline HCl (Sertraline 50 Mg Tablet) 150 mg PO DAILY [facility] Last Admin: 06/01/21 10:19 Dose: 150 mg Documented by: Tamsulosin HCl (Tamsulosin 0.4 Mg Capsule) 0.4 mg PO DAILY [facility] Last Admin: 06/01/21 10:19 Dose: 0.4 mg Documented by: Vitals/I&O/Wt Last Vital Signs Temp 97.4 F L 06/01/21 11:31 Pulse 65 06/01/21 11:31 Resp 18 06/01/21 11:31 BP 138/57 06/01/21 11:31 Pulse Ox 91 06/01/21 11:31 12/09/21 12/10/21 12/10/21 22:59 06:59 14:59 Intake Total 470 / 1130 250 / 1380 50 / 50 Output Total 900 / 1800 400 / 2200 Balance -430 / -670 -150 / -820 50 / 50 Weight last 48 hrs Weight 179 lb 3.2 oz Physical Exam Narrative: EXAM NARRATIVE: GENERAL: The patient is alert and oriented times three. Not in any acute distress. HEENT: Moderate pallor. No icterus or lymphadenopathy.Oral cavity: There are no mucous membrane lesions. NECK: Trachea appears to be central. No masses noted. No JVD or thyromegaly appreciated. Carotid bruit on the right side. RESPIRATORY: Chest is symmetrical. No intercostals muscle retraction or any accessory muscle activation. There is no chest wall tenderness. Breath sounds are heard bilaterally. Occasional coarse crackles. No evidence of any consolidation. The breath sounds are diminished in the bases BREASTS: Deferred. HEART: The heart sounds are normal. No S3 or S4. Short systolic murmur in the left sternal border. No diastolic murmurs. No pericardial rub ABDOMEN: No vessel pulsations or distention. No tenderness. No organomegaly appreciated. Bowel sounds are normally heard. : Deferred. RECTAL: Deferred. LYMPHATIC: No lymphadenopathy noted in the neck or groin. EXTREMITIES: Trace edema with no cyanosis. MUSCULOSKELETAL: No acute joint deformities or swelling SKIN: There are no significant rashes or ecchymosis NEUROPSYCHIATRIC: The patient is alert and oriented x3. Appears to be in a good mood. No tremors or rigidity noted. Urinary Catheter Management^: Skinner: Cath Placed During This Visit: yes Reason for Continuing Indwelling Catheter: Other Urinary Catheter Date of Insertion: 05/30/21 Urinary Catheter Time of Insertion: 13:50 Data : 06/01/21 02:40 06/01/21 02:40 Other Labs: Laboratory Last Values WBC 18.0 10^3/uL (4.0-10.0) H 06/01/21 02:40 RBC 2.96 10^6/uL (4.1-5.3) L 06/01/21 02:40 Hgb 8.0 g/dL (11.7-16.6) L 06/01/21 02:40 Hct 27.2 % (42.0-52.0) L 06/01/21 02:40 MCV 91.9 fl (80-94) 06/01/21 02:40 MCH 27.0 pg (28.0-34.0) L 06/01/21 02:40 MCHC 29.4 g/dL (30.0-36.0) L 06/01/21 02:40 RDW 17.0 % (12.1-15.1) H 06/01/21 02:40 Plt Count 345 10^3/cmm (130-400) 06/01/21 02:40 MPV 9.8 fL (7.4-10.4) 06/01/21 02:40 Neut % (Auto) 88.6 % 06/01/21 02:40 Lymph % (Auto) 4.1 % 06/01/21 02:40 [place] % (Auto) 4.0 % 06/01/21 02:40 Eos % (Auto) 0.0 % 06/01/21 02:40 Baso % (Auto) 0.3 % 06/01/21 02:40 Neut # (Auto) 15.91 10^3/uL (1.8-7.7) H 06/01/21 02:40 Lymph # (Auto) 0.7 10^3/uL (0.8-4.8) L 06/01/21 02:40 [place] # (Auto) 0.7 10^3/uL (0.2-0.9) 06/01/21 02:40 Eos # (Auto) 0.0 10^3/uL (0.0-0.8) 06/01/21 02:40 Baso # (Auto) 0.1 10^3/uL (0.0-0.1) 06/01/21 02:40 Nucleated RBC % (auto) 0.1 % 06/01/21 02:40 Nucleated RBCs # 0.0 /100WBC 06/01/21 02:40 PT 15.40 SECONDS (12.1-14.9) H 05/30/21 06:48 INR 1.19 (0.8-1.2) 05/30/21 06:48 APTT 42.2 SECONDS (23.9-36.7) H 05/30/21 06:48 Specimen Type Arterial 05/29/21 19:07 Sample Site Radial, right 05/29/21 19:07 ABG pH 7.40 (7.35-7.45) 05/29/21 19:07 ABG pCO2 60.8 mmHg (35-45) H* 05/29/21 19:07 ABG pO2 63.2 mmHg (80.0-100.0) L 05/29/21 19:07 ABG HCO3 37.5 mmol/L (22-26) H 05/29/21 19:07 ABG Base Excess 11.3 mmol/L (-2.0-2.0) H 05/29/21 19:07 Miguel Angel Test Pos 05/29/21 19:07 Hematocrit 24.2 % (42-52) L 05/29/21 19:07 O2 Delivery Device Nc 05/29/21 19:07 O2 Liters/Min 5.0 % 05/29/21 19:07 Supervisor Tumblers ID [email or web address] 05/29/21 19:07 Sodium 139 mmol/L (136-145) 06/01/21 02:40 Potassium 4.1 mmol/L (3.5-5.1) 06/01/21 02:40 Chloride 97 mmol/L (98-107) L 06/01/21 02:40 Carbon Dioxide 38 mmol/L (22-29) H 06/01/21 02:40 Anion Gap 8.1 (5-19) 06/01/21 02:40 BUN 24 mg/dL (8-23) H 06/01/21 02:40 Creatinine 0.9 mg/dL (0.7-1.2) 06/01/21 02:40 GFR Calculation Not Reportable 06/01/21 02:40 Glucose 152 mg/dL (65-115) H 06/01/21 02:40 Calculated Osmolality 295 mOsm/kg (285-295) 06/01/21 02:40 Calcium 8.6 mg/dL (8.5-10.5) 06/01/21 02:40 Phosphorus 3.1 mg/dL (2.5-4.5) 05/30/21 06:48 Magnesium 2.0 mg/dL (1.7-2.3) 05/30/21 06:48 Iron 21 ug/dL (59-158) L 05/30/21 00:41 TIBC 268 mcg/dl 05/30/21 00:41 % Saturation 7.8 % (20-50) L 05/30/21 00:41 Unsat Iron Binding 247 ug/dL (112-347) 05/30/21 00:41 Total Bilirubin 0.3 mg/dL (0.15-1.2) 05/30/21 06:48 AST 23 U/L (0-40) 05/30/21 06:48 ALT 21 U/L (0-41) 05/30/21 06:48 Alkaline Phosphatase 51 IU/L (40-130) 05/30/21 06:48 Troponin T Baseline 201 ng/L (0-15) H* 05/29/21 18:50 Troponin T 120 Minute 216.6 ng/L (0-15) H 05/29/21 20:46 Delta Troponin T 15.6 ABS# (0-10) H* 05/29/21 20:46 Troponin T Hi Sens 6Hr 272.4 ng/L (0-15) H 05/30/21 00:41 Troponin T Hi Sens 6Hr Delta 71.4 ng/L (0-12) H* 05/30/21 00:41 NT-Pro-B Natriuret Pep 69820 pg/mL (0-450) H 05/29/21 20:46 Total Protein 5.6 g/dL (6.6-8.7) L 05/30/21 06:48 Albumin 3.2 g/dL (3.5-5.2) L 05/30/21 06:48 Globulin 2.4 g/dL (1.3-4.6) 05/30/21 06:48 Triglycerides 89 mg/dL (0-150) 05/30/21 06:48 Cholesterol 123 mg/dL (0-200) 05/30/21 06:48 LDL Cholesterol, Calc 59 mg/dL (50-129) 05/30/21 06:48 HDL Cholesterol 46 mg/dL (60-100) L 05/30/21 06:48 LDL/HDL Ratio 1.28 RATIO (0.00-3.22) 05/30/21 06:48 Cholesterol/HDL Ratio 2.67 mg/dL (1.0-5.00) 05/30/21 06:48 Prostate Specific Ag 67.710 ng/mL (0-4) H 05/30/21 00:41 Procalcitonin 0.06 ng/mL (0-0.5) 05/29/21 20:46 TSH 2.25 uIU/mL (0.27-4.20) 05/30/21 06:48 Urine Color Yellow (Yellow) 05/29/21 19:10 Urine Appearance Clear (CLEAR) 05/29/21 19:10 Urine pH 5 (5-7) 05/29/21 19:10 Ur Specific [place] 1.020 (1.005-1.030) 05/29/21 19:10 Urine Protein Trace (Negative) 05/29/21 19:10 Urine Glucose (UA) Norm (Normal) 05/29/21 19:10 Urine Ketones Negative (Negative) 05/29/21 19:10 Urine Blood Neg (Negative) 05/29/21 19:10 Urine Nitrate Negative (Negative) 05/29/21 19:10 Urine Bilirubin Neg (Negative) 05/29/21 19:10 Urine Urobilinogen 1 mg/dL (Negative) H 05/29/21 19:10 Ur Leukocyte Esterase Negative (Negative) 05/29/21 19:10 Urine RBC 0-4 /hpf (0-2) H 05/29/21 19:10 Urine WBC 0-4 /hpf (0-5) H 05/29/21 19:10 Ur Squamous Epith Cells 0-4 /hpf (0-5) H 05/29/21 19:10 Amorphous Sediment Not Reportable 05/29/21 19:10 Urine Bacteria Trace /hpf (NONE) 05/29/21 19:10 Hyaline Casts 0-4 /lpf H 05/29/21 19:10 Urine Mucus Trace /hpf 05/29/21 19:10 Salicylates 1.2 mg/dL (3-10) L 05/29/21 18:40 Acetaminophen < 5.0 ug/mL (10-30) L 05/29/21 18:40 Nasal/Oral COVID-19 PCR Not detected 05/30/21 00:10 SARS-CoV-2 Ag (Rapid) Negative (Negative) 05/30/21 00:15 Micro: Microbiology 05/30/21 14:02 Bacterial Antigens - Final Urine Kidney A&P Assessment and plan (1) Elevated troponin: The elevated troponin T with a significant delta at the 2 and 6-hour timeframe could be related to type I myocardial infarction. However in view of the atrial fibrillation, severe anemia, heart failure and pneumonia, a type II SC also is a consideration. Hemodynamically seems to be stable. He is currently asymptomatic. For further evaluation of the coronary status, a myocardial perfusion imaging would be appropriate. However there is no urgency on this. I discussed with the patient's about his cardiovascular status and treatment options. Since the patient's respiratory status and the overall status is still somewhat unstable, it was decided to hold off on the stress testing for the time being. If the patient is still going to be in the hospital, we might consider this next week. In the meanwhile, he may continue on the current medications. 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 He is not complaining of any significant chest pain. Work-up as mentioned above Status: Acute Qualifiers: Coronary Disease-Associated Artery/Lesion type: marshall artery Qualified Code(s): I25.10 - Atherosclerotic heart disease of marshall coronary artery without angina pectoris (3) Atrial fibrillation with RVR: Currently the heart rate is under control. Patient may continue on the current medications. Because of the anemia and the frequent fall, patient is not on any oral anticoagulation. May continue on the aspirin. Status: Acute (4) CHF (congestive heart failure): The heart failure seems to be getting compensated. Careful diuresis would be appropriate. Patient is still on IV Lasix. It may be changed to p.o. Lasix 40 mg twice daily Status: Acute Qualifiers: Heart failure type: unspecified Heart failure chronicity: acute Qualified Code(s): I50.9 - Heart failure, unspecified (5) Anemia: The etiology is not clear. Patient has history of GI bleed. Advanced Ca of the prostate could be a contributing factor. Patient may benefit from blood transfusion to keep the hemoglobin between 9 and 10. Discussed with the Dr. Gipson on this. Also may need a work-up for the anemia Status: Acute Qualifiers: Anemia type: iron deficiency Iron deficiency anemia type: other iron deficiency Qualified Code(s): D50.8 - Other iron deficiency anemias (6) PVD (peripheral vascular disease): The patient currently has no specific symptoms. May continue on the current measures. 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 No significant stenosis in the right side. 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
--- NOTE | 2021-06-01 16:46 | PM.PN ---
Subjective Subjective: Interval history: This morning hypoxia, was able to cough up some phlegm with flutter valve working with RT. Subsequently not so successful with flutter valve again, had to be placed on BiPAP support. Overall feels a little better. Denies pain or discomfort. Vitals/I&O/Wt Last Vital Signs Temp 98.6 F 06/01/21 16:00 Pulse 67 06/01/21 16:00 Resp 18 06/01/21 16:00 BP 114/64 06/01/21 16:00 Pulse Ox 90 06/01/21 16:00 06/01/21 06/01/21 06/01/21 06:59 14:59 22:59 Intake Total 250 / 1380 300 / 300 50 / 350 Output Total 400 / 2200 1300 / 1300 750 / 2050 Balance -150 / -820 -1000 / -1000 -700 / -1700 Weight last 48 hrs Weight 81.284 kg Physical Exam Const: COMMON NORMALS: no acute distress, patient oriented x3 and alert GENERAL APPEARANCE: cooperative ORIENTATION/CONSCIOUSNESS: Yes awake HENMT: COMMON NORMALS: oropharynx normal Neck/C-Spine: COMMON NORMALS: no JVD Resp: COMMON NORMALS: normal respiratory effort AUSCULTATION: diminished lung sounds OTHER: Coarse breathing sounds. Cardio: COMMON NORMALS: no JVD, regular rhythm, S1 normal heart sound present, S2 normal heart sound present and No murmurs present (Cardio) RHYTHM: regular rhythm HEART SOUNDS: S1 normal heart sound present and S2 normal heart sound present GI: COMMON NORMALS: Normal to inspection, nondistended, normoactive bowel sounds present, Soft to palpation and non-tender PALPATION: Yes Soft to palpation Extremity: COMMON NORMALS: no joint enlargement GENERAL: Yes edema (trace) Neuro: COMMON NORMALS: patient oriented x3 and moves all extremities SENSORIUM/ORIENTATION: Yes alert Skin: COMMON NORMALS: no rashes or lesions noted GENERAL SKIN EXAM: no rashes or lesions noted Urinary Catheter Management^: Skinner: Cath Placed During This Visit: yes Reason for Continuing Indwelling Catheter: Other Urinary Catheter Date of Insertion: 05/30/21 Urinary Catheter Time of Insertion: 13:50 Data : 06/01/21 02:40 06/01/21 02:40 A&P Assessment and plan (1) Acute respiratory failure with hypoxia: Acute on chronic hypoxic respiratory failure. Multifactorial secondary to pneumonia, COPD exacerbation, CHF, valvular heart disease. Oxygen support, BiPAP as needed. Continue Zosyn, azithromycin. Will broaden with vancomycin. Check MRSA PCR. Possible microaspiration with reported cough with food and drink. N.p.o. for now until can be more reliably assessed by speech therapy, MBS. Repeat chest x-ray. Continue flutter valve. Continue Lasix. RV normal size and function. Would not doubt hemodynamically significant PE. Check D-dimer, although this may also be elevated secondary to atrial fibrillation. Status: Acute (2) Pneumonia: As above. Pending additional assessment for possible aspiration. Negative COVID-19 PCR. Requested sputum culture, urine bacterial antigens. Status: Acute Qualifiers: Laterality: right Lung location: middle lobe of lung Pneumonia type: due to unspecified organism Qualified Code(s): J18.9 - Pneumonia, unspecified organism (3) CHF (congestive heart failure): Continue Lasix. TTE with global of ventricular hypokinesis, with moderately decreased left ventricular systolic function, EF 45-50%, grade 2 diastolic dysfunction, moderately increased left atrial size, moderately thickened mitral valve, mild-moderate MVR, severe aortic valve calcification, moderate aortic valve stenosis, mean gradient 14.4, RENY 1 cm, mild AVR. Right ventricle normal size and function. No pericardial effusion. Compared to prior study moderate to severe aortic valve stenosis new. Denies chest pain or pressure. Troponins abnormal, but also with episode of A. fib with RVR. Stress test when respiratory condition improves. Has a known history of coronary artery disease with prior CABG and percutaneous intervention as well as known peripheral vascular disease and carotid disease both requiring intervention. Status: Acute Qualifiers: Heart failure chronicity: acute Heart failure type: unspecified Qualified Code(s): I50.9 - Heart failure, unspecified (4) Atrial fibrillation with RVR: New A. fib. A. fib with RVR presentation. So far rates have stayed good. Continue metoprolol. Aspirin, but monitor blood counts due to anemia, iron deficiency. Not yet candidate for anticoagulation due to worsening anemia. In a patient without a known history of atrial fibrillation. Most likely secondary to acute pulmonary issues from CHF and COPD plus or minus acute infection. Also within the differential is acute coronary syndrome, thromboembolic event, metabolic abnormalities among others. Status: Acute (5) Non-ST elevation [place] (NSTEMI): Suspected demand ischemia secondary atrial fibrillation with RVR, hypoxia, although cannot rule out type I event. He does not have any chest pain or pressure. Possible Q waves in V1, V2. We will benefit from stress test once respiratory status improves. Discussed with him and his . With worsening echo chronic anemia, hemoglobin 7.8, iron deficiency, unclear when last colonoscopy was, reports recurrent anemia without identified source, risk of bleeding with anticoagulation. Continues on aspirin which she is tolerating so far. Continue beta-ghislaine, statin. Appreciate cardiology recommendations regarding additional risk stratification. Cannot entirely rule out type I process, but most likely type II process from demand ischemia related to hypoxemia, anemia and possibly other episodes of tachycardia arrhythmia like we have seen this evening. Has been sometime since he has had cardiac evaluation and he does have risk factors for recurrent disease so unable to presently rule out type I process. Status: Acute (6) COPD (chronic obstructive pulmonary disease): COPD exacerbation: Diminished air entry on exam. Antibiotics as above compounded by vancomycin. Was transitioned to IV steroids, continue. Breathing treatments. Collect cultures if possible. Chronically on 5 L of oxygen by nasal cannula as well as on chronic steroid therapy, former smoker, acutely exacerbated secondary to above. Looking at ABG her has chronic hypercapnia and hypoxemia. Possible COPD exacerbation now also, with wheezing, decreased air entry. Cough. Dyspnea. Hypoxia. Continue to biotics as above. Collect urine cultures. Continue breathing treatments. Is on low-dose prednisone currently, is concerned regarding any increases in dose, continue for now if possible. Monitor condition. Status: Chronic Qualifiers: COPD type: emphysema Emphysema type: unspecified Qualified Code(s): J43.9 - Emphysema, unspecified (7) Anemia: Iron deficiency anemia. states he has had upper and lower endoscopy previously. Recurrent episodes of anemia, without finding of the cause. Discussed consideration of referral for repeat endoscopy once he is more stable, and if no bleeding source identified, consideration of referral for capsule endoscopy, then possibly deep enteroscopy. Hemoccult requested, follow-up. Atrial fibrillation, but for now only aspirin given acute anemia. However, if further declining hemoglobin, may have to hold aspirin as well. Discussed with him would benefit from endoscopic evaluation once his overall condition improves. Also anemia of chronic disease. Status: Acute Qualifiers: Anemia type: iron deficiency Iron deficiency anemia type: other iron deficiency Qualified Code(s): D50.8 - Other iron deficiency anemias (8) Recurrent falls: Patient reports right-sided weakness with ambulation of approximately 6 months duration. He has had falls intermittently since then that have been more prominent lately. 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 Status: Acute (9) Prostate cancer: Following with Dr. Masood Hines, has been on antiandrogen therapy with initial good response from PSA standpoint on review of records although missed treatment at least once this fall Status: Chronic (10) ASHD (arteriosclerotic heart disease): With prior bypass and percutaneous intervention. Status: Chronic Attestations Medical Necessity Statement*: Continue admission for assessment management of multifactorial multifactorial acute on chronic hypoxic respiratory failure. 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 [facility] Fwd Exam Comprehensive Diagnoses Acute respiratory failure with hypoxia J96.01 Pneumonia J18.9 Laterality: right Lung location: middle lobe of lung Pneumonia type: due to unspecified organism CHF (congestive heart failure) I50.9 Heart failure chronicity: acute Heart failure type: unspecified Atrial fibrillation with RVR I48.91 Non-ST elevation FL (NSTEMI) I21.4 COPD (chronic obstructive pulmonary disease) J43.9 COPD type: emphysema Emphysema type: unspecified Anemia D50.8 Anemia type: iron deficiency Iron deficiency anemia type: other iron deficiency Recurrent falls R29.6 Prostate cancer C61 ASHD (arteriosclerotic heart disease) I25.10
[2021-06-01] MEDS: vancomycin 500 MG in sodium chloride 0.9% (plus) 100 ML 200 MG IV (18:19)
[2021-06-01 18:20] LABS: D Dimer 0.91 ug/mIFEU (0-0.59)
[2021-06-01] MEDS: nystatin cream 30 gm 1 APPLIC TOPICAL (18:22)
[2021-06-01] MEDS: atorvastatin 40 mg Tablet PO (20:40)
[2021-06-02] VITALS (18 sets, daily range): BP systolic 125–156; BP diastolic 54–68; PULSE 62–78; RESP 16–20; TEMP 36.6–36.9; O2SAT 90–98
[2021-06-02] MEDS: ipratropium-albuterol 3 mL Neb INHALATION ×4 (02:29→20:18)
[2021-06-02 03:36] LABS: Basophils % 0.2 %; Hemoglobin 8.5 g/dL (11.7-16.6); Lymphocytes # 0.8 10^3/uL (0.8-4.8); Lymphocytes % 3.3 %; Mean Corpuscular HGB Conc 29.3 g/dL (30.0-36.0); Mean Corpuscular Hemoglobin 27.2 pg (28.0-34.0); Mean Corpuscular Volume 92.9 fl (80-94); Mean Platelet Volume 9.6 fL (7.4-10.4); Monocytes # 1.2 10^3/uL (0.2-0.9); Monocytes % 4.9 %; Neutrophils # 20.73 10^3/uL (1.8-7.7); Neutrophils % 88.6 %; Nucleated Red Blood Cells % 0.1 %; Platelet Count 375 10^3/cmm (130-400); Red Blood Count 3.12 10^6/uL (4.1-5.3); Red Cell Distribution Width 17.4 % (12.1-15.1); White Blood Count 23.4 10^3/uL (4.0-10.0)
[2021-06-02] MEDS: piperacillin-tazobactam 3.375 GM in sodium chloride 0.9% (plus) 50 ML IV ×3 (03:47→22:21)
[2021-06-02 03:57] LABS: Anion Gap 17.3 (5-19); Blood Urea Nitrogen 30 mg/dL (8-23); Calcium 8.9 mg/dL (8.5-10.5); Carbon Dioxide 31 mmol/L (22-29); Chloride 94 mmol/L (98-107); Glucose 145 mg/dL (65-115); Osmolality Calculated 295 mOsm/kg (285-295); Potassium 4.3 mmol/L (3.5-5.1); Sodium 138 mmol/L (136-145)
--- NOTE | 2021-06-02 06:00 | XRR_ITS ---
PROCEDURE INFORMATION: Exam: XR Chest Exam date and time: 06/02/2021 6:00 AM Age: 85 years old Clinical indication: Shortness of breath; Prior surgery; Additional info: Hypoxia TECHNIQUE: Imaging protocol: XR of the chest. Views: 1 view. COMPARISON: CR (CHEST, ) 05/29/2021 6:40 PM FINDINGS: Lungs/pleural spaces: Moderate layering right pleural effusion, probably similar to prior when accounting for differences in positioning. This limits evaluation of the right lung base. Mild hazy left basilar opacity may reflect small effusion. No consolidation appreciated. No visible pneumothorax. Underlying emphysema. Heart/Mediastinum: Mild cardiomegaly. Evidence of CABG. Bones/joints: Median sternotomy wires. Right humeral head tendon anchor. XR/XR chest 1V portable [id number] IMPRESSION: Moderate layering right pleural effusion probably unchanged from prior. Suspect small left effusion. Emphysema and basilar atelectasis. No focal consolidation appreciated.
[2021-06-02] MEDS: ferrous sulfate EC 325 mg Tablet PO ×3 (06:19→17:07)
[2021-06-02] MEDS: vancomycin 500 MG in sodium chloride 0.9% (plus) 100 ML 200 MG IV ×2 (06:20→17:07)
--- NOTE | 2021-06-02 08:59 | PC.SOCIAL ---
IMM update IMM updated with patient. Verbalized understanding. Copy Pg 2 provided. Initialled, dated, timed, and placed in chart.
[2021-06-02] MEDS: FUROsemide 10 mg/mL SDV 4mL 40 MG IVP ×2 (09:03→15:46)
[2021-06-02] MEDS: finasteride 5 mg Tablet PO (09:03)
[2021-06-02] MEDS: aspirin 325 mg EC Tablet PO (09:03)
[2021-06-02] MEDS: docusate sodium 100 mg Capsule PO ×2 (09:03→17:07)
[2021-06-02] MEDS: sertraline 50 mg Tablet 150 MG PO (09:03)
[2021-06-02] MEDS: pantoprazole DR 40 mg Tablet PO (09:04)
[2021-06-02] MEDS: potassium chloride ER 20 mEq Tablet PO ×2 (09:04→15:46)
[2021-06-02] MEDS: tamsulosin 0.4 mg Capsule PO (09:04)
[2021-06-02] MEDS: metoprolol tartrate 25 mg Tablet PO ×2 (09:07→22:22)
[2021-06-02] MEDS: azithromycin 500 MG in sodium chloride 0.9% 250 ML 250 MG IV (09:09)
[2021-06-02] MEDS: nystatin cream 30 gm 1 APPLIC TOPICAL ×2 (09:19→22:23)
[2021-06-02] MEDS: budesonide 0.5 mg/2 mL Neb INHALATION ×2 (09:42→20:18)
--- NOTE | 2021-06-02 13:47 | P.PN_ITS ---
Subjective Subjective: Interval history: The patient is feeling okay. His oxygenation is much better. Currently the oxygen saturations 94% on 10 L of oxygen. No fever or chills. No significant cough. Medications: Reviewed: Yes Medication Review Details: Current Medications Acetaminophen (Acetaminophen 325 Mg Tablet) 650 mg PO Q6H PRN PRN Reason: Mild/Mod Pain Or Temp >/= 101 Albuterol/Ipratropium (Ipratropium-Albuterol 3 Ml Neb) 3 ml INHALATION Q6H.RESPIRATORY JO Last Admin: 06/02/21 09:41 Dose: 3 ml Documented by: Albuterol/Ipratropium (Ipratropium-Albuterol 3 Ml Neb) 3 ml INHALATION Q4H PRN PRN Reason: SHORTNESS OF BREATH Last Admin: 06/01/21 19:54 Dose: 3 ml Documented by: Aspirin (Aspirin 325 Mg Ec Tablet) 325 mg PO DAILY JO Last Admin: 06/02/21 09:03 Dose: 325 mg Documented by: Atorvastatin Calcium (Atorvastatin 40 Mg Tablet) 40 mg PO BEDTIME JO Last Admin: 06/01/21 20:40 Dose: 40 mg Documented by: Bisacodyl (Bisacodyl 5 Mg Tablet) 10 mg PO DAILY PRN; Protocol PRN Reason: Constipation (see protocol) Budesonide (Budesonide 0.5 Mg/2 Ml Neb) 0.5 mg INHALATION BID.RESPIRATORY JO Last Admin: 06/02/21 09:42 Dose: 0.5 mg Documented by: Docusate Sodium (Docusate Sodium 100 Mg Capsule) 100 mg PO BID JO Last Admin: 06/02/21 09:03 Dose: 100 mg Documented by: Ferrous Sulfate (Ferrous Sulfate Ec 325 Mg Tablet) 325 mg PO TIDAC JO Last Admin: 06/02/21 12:27 Dose: 325 mg Documented by: Finasteride (Finasteride 5 Mg Tablet) 5 mg PO DAILY JO Last Admin: 06/02/21 09:03 Dose: 5 mg Documented by: Furosemide (Furosemide 10 Mg/Ml Sdv 4ml) 40 mg IVP BID@08,14 JO Last Admin: 06/02/21 09:03 Dose: 40 mg Documented by: Azithromycin 500 mg/ Sodium (Chloride) 250 mls @ 250 mls/hr IV Q24H JO; Protocol Last Infusion: 06/02/21 11:34 Dose: Infused Documented by: Piperacillin Sod/Tazobactam (Sod 3.375 gm/ Sodium Chloride) 50 mls @ 12.5 mls/hr IV Q8H [facility]; Protocol Last Admin: 06/02/21 12:27 Dose: 12.5 mls/hr Documented by: Vancomycin HCl 500 mg/ Sodium (Chloride) 100 mls @ 200 mls/hr IV Q12H [facility] Last Infusion: 06/02/21 07:34 Dose: Infused Documented by: Methylprednisolone Sodium Succinate (Methylprednisolone Sod Succ 40 Mg/Ml Inj) 40 mg IVP Q6H [facility] Last Admin: 06/02/21 12:27 Dose: 40 mg Documented by: Metoprolol Tartrate (Metoprolol Tartrate 25 Mg Tablet) 25 mg PO BID@0900,2100 [facility] Last Admin: 06/02/21 09:07 Dose: 25 mg Documented by: Nystatin (Nystatin Cream 30 Gm) 1 applic TOPICAL BID [facility] Last Admin: 06/02/21 09:19 Dose: 1 applic Documented by: Ondansetron HCl (Ondansetron 2 Mg/Ml Sdv 2 Ml) 4 mg IVP Q8H PRN PRN Reason: vomiting, or N/V if npo Pantoprazole Sodium (Pantoprazole Dr 40 Mg Tablet) 40 mg PO DAILY [facility] Last Admin: 06/02/21 09:04 Dose: 40 mg Documented by: Potassium Chloride (Potassium Chloride Er 20 Meq Tablet) 20 meq PO BID@08,14 [facility] Last Admin: 06/02/21 09:04 Dose: 20 meq Documented by: Prednisone (Prednisone 10 Mg Tablet) 10 mg PO DAILY [facility] Last Admin: 05/31/21 08:41 Dose: 10 mg Documented by: Sertraline HCl (Sertraline 50 Mg Tablet) 150 mg PO DAILY [facility] Last Admin: 06/02/21 09:03 Dose: 150 mg Documented by: Tamsulosin HCl (Tamsulosin 0.4 Mg Capsule) 0.4 mg PO DAILY [facility] Last Admin: 06/02/21 09:04 Dose: 0.4 mg Documented by: Vitals/I&O/Wt Last Vital Signs Temp 97.8 F 06/02/21 11:36 Pulse 78 06/02/21 11:36 Resp 18 06/02/21 11:36 BP 143/62 06/02/21 11:36 Pulse Ox 90 06/02/21 11:36 06/01/21 06/02/21 06/02/21 22:59 06:59 14:59 Intake Total 870 / 1170 580 / 1750 830 / 830 Output Total 750 / 2050 800 / 2850 1750 / 1750 Balance 120 / -880 -220 / -1100 -920 / -920 Weight last 48 hrs Weight 179 lb 3.2 oz Physical Exam Narrative: EXAM NARRATIVE: GENERAL: The patient is alert and oriented times three. Not in any acute distress. HEENT: Moderate pallor. No icterus or lymphadenopathy.Oral cavity: There are no mucous membrane lesions. NECK: Trachea appears to be central. No masses noted. No JVD or thyromegaly appreciated. Carotid bruit on the right side. RESPIRATORY: Chest is symmetrical. No intercostals muscle retraction or any accessory muscle activation. There is no chest wall tenderness. Breath sounds are heard bilaterally. No rales or rhonchi. The intensity of the breath sounds are somewhat diminished in the bases BREASTS: Deferred. HEART: The heart sounds are normal. No S3 or S4. Short systolic murmur in the left sternal border. No diastolic murmurs. No pericardial rub ABDOMEN: No vessel pulsations or distention. No tenderness. No organomegaly appreciated. Bowel sounds are normally heard. : Deferred. RECTAL: Deferred. LYMPHATIC: No lymphadenopathy noted in the neck or groin. EXTREMITIES: Trace edema with no cyanosis. MUSCULOSKELETAL: No acute joint deformities or swelling SKIN: There are no significant rashes or ecchymosis NEUROPSYCHIATRIC: The patient is alert and oriented x3. Appears to be in a good mood. No tremors or rigidity noted. Urinary Catheter Management^: Skinner: Cath Placed During This Visit: yes Reason for Continuing Indwelling Catheter: Other Urinary Catheter Date of Insertion: 05/30/21 Urinary Catheter Time of Insertion: 13:50 Data : 06/03/21 04:20 06/03/21 04:20 Other Labs: Laboratory Last Values WBC 23.4 10^3/uL (4.0-10.0) H 06/02/21 02:52 RBC 3.12 10^6/uL (4.1-5.3) L 06/02/21 02:52 Hgb 8.5 g/dL (11.7-16.6) L 06/02/21 02:52 Hct 29.0 % (42.0-52.0) L 06/02/21 02:52 MCV 92.9 fl (80-94) 06/02/21 02:52 MCH 27.2 pg (28.0-34.0) L 06/02/21 02:52 MCHC 29.3 g/dL (30.0-36.0) L 06/02/21 02:52 RDW 17.4 % (12.1-15.1) H 06/02/21 02:52 Plt Count 375 10^3/cmm (130-400) 06/02/21 02:52 MPV 9.6 fL (7.4-10.4) 06/02/21 02:52 Neut % (Auto) 88.6 % 06/02/21 02:52 Lymph % (Auto) 3.3 % 06/02/21 02:52 [place] % (Auto) 4.9 % 06/02/21 02:52 Eos % (Auto) 0.0 % 06/02/21 02:52 Baso % (Auto) 0.2 % 06/02/21 02:52 Neut # (Auto) 20.73 10^3/uL (1.8-7.7) H 06/02/21 02:52 Lymph # (Auto) 0.8 10^3/uL (0.8-4.8) 06/02/21 02:52 [place] # (Auto) 1.2 10^3/uL (0.2-0.9) H 06/02/21 02:52 Eos # (Auto) 0.0 10^3/uL (0.0-0.8) 06/02/21 02:52 Baso # (Auto) 0.0 10^3/uL (0.0-0.1) 06/02/21 02:52 Nucleated RBC % (auto) 0.1 % 06/02/21 02:52 Nucleated RBCs # 0.0 /100WBC 06/02/21 02:52 PT 15.40 SECONDS (12.1-14.9) H 05/30/21 06:48 INR 1.19 (0.8-1.2) 05/30/21 06:48 APTT 42.2 SECONDS (23.9-36.7) H 05/30/21 06:48 D-Dimer 0.91 ug/mIFEU (0-0.59) H 06/01/21 18:00 Specimen Type Arterial 05/29/21 19:07 Sample Site Radial, right 05/29/21 19:07 ABG pH 7.40 (7.35-7.45) 05/29/21 19:07 ABG pCO2 60.8 mmHg (35-45) H* 05/29/21 19:07 ABG pO2 63.2 mmHg (80.0-100.0) L 05/29/21 19:07 ABG HCO3 37.5 mmol/L (22-26) H 05/29/21 19:07 ABG Base Excess 11.3 mmol/L (-2.0-2.0) H 05/29/21 19:07 Miguel Angel Test Pos 05/29/21 19:07 Hematocrit 24.2 % (42-52) L 05/29/21 19:07 O2 Delivery Device Nc 05/29/21 19:07 O2 Liters/Min 5.0 % 05/29/21 19:07 Tongue Trimmer ID [email or web address] 05/29/21 19:07 Sodium 138 mmol/L (136-145) 06/02/21 02:52 Potassium 4.3 mmol/L (3.5-5.1) 06/02/21 02:52 Chloride 94 mmol/L (98-107) L 06/02/21 02:52 Carbon Dioxide 31 mmol/L (22-29) H 06/02/21 02:52 Anion Gap 17.3 (5-19) 06/02/21 02:52 BUN 30 mg/dL (8-23) H 06/02/21 02:52 Creatinine 0.8 mg/dL (0.7-1.2) 06/02/21 02:52 GFR Calculation Not Reportable 06/02/21 02:52 Glucose 145 mg/dL (65-115) H 06/02/21 02:52 Calculated Osmolality 295 mOsm/kg (285-295) 06/02/21 02:52 Calcium 8.9 mg/dL (8.5-10.5) 06/02/21 02:52 Phosphorus 3.1 mg/dL (2.5-4.5) 05/30/21 06:48 Magnesium 2.0 mg/dL (1.7-2.3) 05/30/21 06:48 Iron 21 ug/dL (59-158) L 05/30/21 00:41 TIBC 268 mcg/dl 05/30/21 00:41 % Saturation 7.8 % (20-50) L 05/30/21 00:41 Unsat Iron Binding 247 ug/dL (112-347) 05/30/21 00:41 Total Bilirubin 0.3 mg/dL (0.15-1.2) 05/30/21 06:48 AST 23 U/L (0-40) 05/30/21 06:48 ALT 21 U/L (0-41) 05/30/21 06:48 Alkaline Phosphatase 51 IU/L (40-130) 05/30/21 06:48 Troponin T Baseline 201 ng/L (0-15) H* 05/29/21 18:50 Troponin T 120 Minute 216.6 ng/L (0-15) H 05/29/21 20:46 Delta Troponin T 15.6 ABS# (0-10) H* 05/29/21 20:46 Troponin T Hi Sens 6Hr 272.4 ng/L (0-15) H 05/30/21 00:41 Troponin T Hi Sens 6Hr Delta 71.4 ng/L (0-12) H* 05/30/21 00:41 NT-Pro-B Natriuret Pep 58357 pg/mL (0-450) H 05/29/21 20:46 Total Protein 5.6 g/dL (6.6-8.7) L 05/30/21 06:48 Albumin 3.2 g/dL (3.5-5.2) L 05/30/21 06:48 Globulin 2.4 g/dL (1.3-4.6) 05/30/21 06:48 Triglycerides 89 mg/dL (0-150) 05/30/21 06:48 Cholesterol 123 mg/dL (0-200) 05/30/21 06:48 LDL Cholesterol, Calc 59 mg/dL (50-129) 05/30/21 06:48 HDL Cholesterol 46 mg/dL (60-100) L 05/30/21 06:48 LDL/HDL Ratio 1.28 RATIO (0.00-3.22) 05/30/21 06:48 Cholesterol/HDL Ratio 2.67 mg/dL (1.0-5.00) 05/30/21 06:48 Prostate Specific Ag 67.710 ng/mL (0-4) H 05/30/21 00:41 Procalcitonin 0.06 ng/mL (0-0.5) 05/29/21 20:46 TSH 2.25 uIU/mL (0.27-4.20) 05/30/21 06:48 Urine Color Yellow (Yellow) 05/29/21 19:10 Urine Appearance Clear (CLEAR) 05/29/21 19:10 Urine pH 5 (5-7) 05/29/21 19:10 Ur Specific [place] 1.020 (1.005-1.030) 05/29/21 19:10 Urine Protein Trace (Negative) 05/29/21 19:10 Urine Glucose (UA) Norm (Normal) 05/29/21 19:10 Urine Ketones Negative (Negative) 05/29/21 19:10 Urine Blood Neg (Negative) 05/29/21 19:10 Urine Nitrate Negative (Negative) 05/29/21 19:10 Urine Bilirubin Neg (Negative) 05/29/21 19:10 Urine Urobilinogen 1 mg/dL (Negative) H 05/29/21 19:10 Ur Leukocyte Esterase Negative (Negative) 05/29/21 19:10 Urine RBC 0-4 /hpf (0-2) H 05/29/21 19:10 Urine WBC 0-4 /hpf (0-5) H 05/29/21 19:10 Ur Squamous Epith Cells 0-4 /hpf (0-5) H 05/29/21 19:10 Amorphous Sediment Not Reportable 05/29/21 19:10 Urine Bacteria Trace /hpf (NONE) 05/29/21 19:10 Hyaline Casts 0-4 /lpf H 05/29/21 19:10 Urine Mucus Trace /hpf 05/29/21 19:10 Salicylates 1.2 mg/dL (3-10) L 05/29/21 18:40 Acetaminophen < 5.0 ug/mL (10-30) L 05/29/21 18:40 Nasal/Oral COVID-19 PCR Not detected 05/30/21 00:10 SARS-CoV-2 Ag (Rapid) Negative (Negative) 05/30/21 00:15 Blood Type A Positive 06/01/21 12:39 Rho(D) Type Positive 06/01/21 12:39 Antibody Screen Negative 06/01/21 12:39 Crossmatch See Detail 06/01/21 12:39 Micro: Microbiology 06/01/21 18:47 MRSA Culture - Final Nose A&P Assessment and plan (1) Elevated troponin: No discharges during the respiratory status is better stabilized. Te elevated troponin T with a significant delta at the 2 and 6-hour timeframe could be related to type I myocardial infarction. However in view of the atrial fibrillation, severe anemia, heart failure and pneumonia, a type II NH also is a consideration. Hemodynamically seems to be stable. He is currently asymptom atic. For further evaluation of the coronary status, a myocardial perfusion imaging would be appropriate. Discussed with the patient and his . It was decided to wait till his respiratory status is little more stabilized. Status: Acute (2) Atherosclerosis of coronary artery of [place] heart without angina pectoris: Patient is currently status seems to be stable. He is not complaining of any significant chest pain. Work-up as mentioned above Status: Acute Qualifiers: Coronary Disease-Associated Artery/Lesion type: [place] artery Qualified Code(s): I25.10 - Atherosclerotic heart disease of [place] coronary artery without angina pectoris (3) Atrial fibrillation with RVR: Currently the heart rate is under control. Patient may continue on the current medications. Because of the anemia and the frequent fall, patient is not on any oral anticoagulation. Status: Acute (4) CHF (congestive heart failure): The heart failure seems to be getting compensated. Careful diuresis would be appropriate. Status: Acute Qualifiers: Heart failure chronicity: acute Heart failure type: unspecified Qualified Code(s): I50.9 - Heart failure, unspecified (5) Anemia: The etiology is not clear. Patient has history of GI bleed. Advanced Ca of the prostate could be a contributing factor. Patient may benefit from blood transfusion to keep the hemoglobin between 9 and 10. Status: Acute Qualifiers: Anemia type: iron deficiency Iron deficiency anemia type: other iron deficiency Qualified Code(s): D50.8 - Other iron deficiency anemias (6) PVD (peripheral vascular disease): The patient currently has no specific symptoms. May continue on the current measures. 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 No significant stenosis in the right side. 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 Correia Status: Acute Additional A&P Information We may consider doing the myocardial perfusion imaging on Friday. May continue on the current medication for the time being Attestations Medical Necessity Statement*: Disposition as per the primary care provider. Coding Level of Care Code Acute Laboratory Operations Coordinator for [facility] Fwd History Detailed Exam Detailed Medical Decision Making Moderate Complexity Diagnoses Elevated troponin R77.8 Atherosclerosis of coronary artery of [place] heart without angina pectoris I25.10 Coronary Disease-Associated Artery/Lesion type: [place] artery Atrial fibrillation with RVR I48.91 CHF (congestive heart failure) I50.9 Heart failure chronicity: acute Heart failure type: unspecified Anemia D50.8 Anemia type: iron deficiency Iron deficiency anemia type: other iron deficiency PVD (peripheral vascular disease) I73.9 Carotid artery stenosis I65.21 Laterality: right 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
--- NOTE | 2021-06-02 17:24 | PM.PN ---
Subjective Subjective: Interval history: He states he feels little bit better. Denies chest pain or pressure. Transition to high flow cannula. Comfortable. Vitals/I&O/Wt Last Vital Signs Temp 97.9 F 06/02/21 16:00 Pulse 63 06/02/21 16:00 Resp 18 06/02/21 16:00 BP 125/54 06/02/21 16:00 Pulse Ox 97 06/02/21 16:00 06/02/21 06/02/21 06/02/21 06:59 14:59 22:59 Intake Total 580 / 1750 830 / 830 50 / 880 Output Total 800 / 2850 1750 / 1750 Balance -220 / -1100 -920 / -920 50 / -870 Weight last 48 hrs Weight 81.284 kg Physical Exam Narrative: EXAM NARRATIVE: [facility] Const: COMMON NORMALS: no acute distress, patient oriented x3 and alert GENERAL APPEARANCE: cooperative ORIENTATION/CONSCIOUSNESS: Yes awake HENMT: COMMON NORMALS: oropharynx normal Neck/C-Spine: COMMON NORMALS: no JVD Resp: COMMON NORMALS: normal respiratory effort AUSCULTATION: diminished lung sounds (Improving) Cardio: COMMON NORMALS: no JVD, regular rhythm, S1 normal heart sound present, S2 normal heart sound present and No murmurs present (Cardio) RHYTHM: regular rhythm HEART SOUNDS: S1 normal heart sound present and S2 normal heart sound present GI: COMMON NORMALS: Normal to inspection, nondistended, normoactive bowel sounds present, Soft to palpation and non-tender PALPATION: Yes Soft to palpation Extremity: COMMON NORMALS: no joint enlargement and no pedal edema Neuro: COMMON NORMALS: patient oriented x3 and moves all extremities SENSORIUM/ORIENTATION: Yes alert Skin: COMMON NORMALS: no rashes or lesions noted GENERAL SKIN EXAM: no rashes or lesions noted Urinary Catheter Management^: Skinner: Cath Placed During This Visit: yes Reason for Continuing Indwelling Catheter: Accurate Measurement of Urinary Output in Critically Ill Patients Urinary Catheter Date of Insertion: 05/30/21 Urinary Catheter Time of Insertion: 13:50 Data : 06/02/21 02:52 06/02/21 02:52 Micro: Microbiology 06/01/21 18:47 MRSA Culture - Final Nose A&P Assessment and plan (1) Acute respiratory failure with hypoxia: Little bit better today. Weaned off NIV to high flow cannula. Feels more comfortable. Will start dysphagia diet for now. Re-request speech therapy evaluation. Continue empiric antibiotics at this time with Zosyn, vancomycin, azithromycin. MRSA PCR negative. Acute on chronic hypoxic respiratory failure. Multifactorial secondary to pneumonia, COPD exacerbation, CHF, valvular heart disease. Oxygen support, BiPAP as needed. Possible microaspiration with reported cough with food and drink. N.p.o. for now until can be more reliably assessed by speech therapy, MBS. Continue flutter valve. Continue Lasix. RV normal size and function. Would not doubt hemodynamically significant PE. Check D-dimer, although this may also be elevated secondary to atrial fibrillation. D-dimer minimally abnormal at 0.91. Suspect likely due to A. fib. Status: Acute (2) Pneumonia: As above. Pending additional assessment for possible aspiration. Negative COVID-19 PCR. Requested sputum culture, urine bacterial antigens. Status: Acute Qualifiers: Laterality: right Lung location: middle lobe of lung Pneumonia type: due to unspecified organism Qualified Code(s): J18.9 - Pneumonia, unspecified organism (3) CHF (congestive heart failure): Continue IV Lasix. Monitor I&O. TTE with global of ventricular hypokinesis, with moderately decreased left ventricular systolic function, EF 45-50%, grade 2 diastolic dysfunction, moderately increased left atrial size, moderately thickened mitral valve, mild-moderate MVR, severe aortic valve calcification, moderate aortic valve stenosis, mean gradient 14.4, RENY 1 cm, mild AVR. Right ventricle normal size and function. No pericardial effusion. Compared to prior study moderate to severe aortic valve stenosis new. Denies chest pain or pressure. Troponins abnormal, but also with episode of A. fib with RVR. Stress test when respiratory condition improves. Has a known history of coronary artery disease with prior CABG and percutaneous intervention as well as known peripheral vascular disease and carotid disease both requiring intervention. Status: Acute Qualifiers: Heart failure chronicity: acute Heart failure type: unspecified Qualified Code(s): I50.9 - Heart failure, unspecified (4) Atrial fibrillation with RVR: New A. fib. A. fib with RVR presentation. So far rates have stayed good. Continue metoprolol. Aspirin, but monitor blood counts due to anemia, iron deficiency. Not yet candidate for anticoagulation due to worsening anemia. In a patient without a known history of atrial fibrillation. Most likely secondary to acute pulmonary issues from CHF and COPD plus or minus acute infection. Also within the differential is acute coronary syndrome, thromboembolic event, metabolic abnormalities among others. Status: Acute (5) Non-ST elevation [place] (NSTEMI): Suspected demand ischemia secondary atrial fibrillation with RVR, hypoxia, although cannot rule out type I event. He does not have any chest pain or pressure. Possible Q waves in V1, V2. We will benefit from stress test once respiratory status improves. Discussed with him and his . With worsening echo chronic anemia, hemoglobin 7.8, iron deficiency, unclear when last colonoscopy was, reports recurrent anemia without identified source, risk of bleeding with anticoagulation. Continues on aspirin which she is tolerating so far. Continue beta-ghislaine, statin. Appreciate cardiology recommendations regarding additional risk stratification. Cannot entirely rule out type I process, but most likely type II process from demand ischemia related to hypoxemia, anemia and possibly other episodes of tachycardia arrhythmia like we have seen this evening. Has been sometime since he has had cardiac evaluation and he does have risk factors for recurrent disease so unable to presently rule out type I process. Status: Acute (6) COPD (chronic obstructive pulmonary disease): COPD exacerbation: Improving. Slightly better air entry. No wheezing. Weaned off NIV. Antibiotics as above. At this time continue IV steroid. Breathing treatments. Sputum cultures if possible. Chronically on 5 L of oxygen by nasal cannula as well as on chronic steroid therapy, former smoker, acutely exacerbated secondary to above. Looking at ABG her has chronic hypercapnia and hypoxemia. Status: Chronic Qualifiers: COPD type: emphysema Emphysema type: unspecified Qualified Code(s): J43.9 - Emphysema, unspecified (7) Anemia: Iron deficiency anemia. Discussed with cardiology yesterday, given 1 unit PBC transfusion given concern for underlying cardiac disease and anemia. states he has had upper and lower endoscopy previously. Recurrent episodes of anemia, without finding of the cause. Discussed consideration of referral for repeat endoscopy once he is more stable, and if no bleeding source identified, consideration of referral for capsule endoscopy, then possibly deep enteroscopy. Hemoccult requested, follow-up. Atrial fibrillation, but for now only aspirin given acute anemia. However, if further declining hemoglobin, may have to hold aspirin as well. Discussed with him would benefit from endoscopic evaluation once his overall condition improves. Also anemia of chronic disease. Status: Acute Qualifiers: Anemia type: iron deficiency Iron deficiency anemia type: other iron deficiency Qualified Code(s): D50.8 - Other iron deficiency anemias (8) Recurrent falls: Patient reports right-sided weakness with ambulation of approximately 6 months duration. He has had falls intermittently since then that have been more prominent lately. 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 Status: Acute (9) Prostate cancer: Following with Dr. Masood Hines, has been on antiandrogen therapy with initial good response from PSA standpoint on review of records although missed treatment at least once this fall Status: Chronic (10) ASHD (arteriosclerotic heart disease): With prior bypass and percutaneous intervention. Status: Chronic Attestations Medical Necessity Statement*: Continue admission for assessment management of hypoxic respiratory failure. Coding Level of Care Code Acute Pattern Filer for [facility] Fwd Exam Comprehensive Diagnoses Acute respiratory failure with hypoxia J96.01 Pneumonia J18.9 Laterality: right Lung location: middle lobe of lung Pneumonia type: due to unspecified organism CHF (congestive heart failure) I50.9 Heart failure chronicity: acute Heart failure type: unspecified Atrial fibrillation with RVR I48.91 Non-ST elevation [place] (NSTEMI) I21.4 COPD (chronic obstructive pulmonary disease) J43.9 COPD type: emphysema Emphysema type: unspecified Anemia D50.8 Anemia type: iron deficiency Iron deficiency anemia type: other iron deficiency Recurrent falls R29.6 Prostate cancer C61 ASHD (arteriosclerotic heart disease) I25.10
[2021-06-02] MEDS: atorvastatin 40 mg Tablet PO (22:22)
[2021-06-03] VITALS (19 sets, daily range): BP systolic 103–126; BP diastolic 52–78; PULSE 55–68; RESP 14–22; TEMP 36.3–36.6; O2SAT 90–98
[2021-06-03] MEDS: ipratropium-albuterol 3 mL Neb INHALATION ×4 (02:16→20:08)
[2021-06-03 04:55] LABS: Basophils % 0.2 %; Eosinophils % 0.2 %; Hematocrit 29.2 % (42.0-52.0); Hemoglobin 8.6 g/dL (11.7-16.6); Lymphocytes # 0.7 10^3/uL (0.8-4.8); Lymphocytes % 3.5 %; Mean Corpuscular HGB Conc 29.5 g/dL (30.0-36.0); Mean Corpuscular Hemoglobin 27.2 pg (28.0-34.0); Mean Corpuscular Volume 92.4 fl (80-94); Mean Platelet Volume 9.6 fL (7.4-10.4); Monocytes % 4.6 %; Neutrophils # 18.49 10^3/uL (1.8-7.7); Neutrophils % 88.3 %; Nucleated Red Blood Cells % 0 %; Platelet Count 371 10^3/cmm (130-400); Red Blood Count 3.16 10^6/uL (4.1-5.3); Red Cell Distribution Width 17.4 % (12.1-15.1); White Blood Count 20.9 10^3/uL (4.0-10.0)
[2021-06-03 05:09] LABS: Anion Gap 12.2 (5-19); Blood Urea Nitrogen 35 mg/dL (8-23); Calcium 8.7 mg/dL (8.5-10.5); Carbon Dioxide 38 mmol/L (22-29); Chloride 91 mmol/L (98-107); Glucose 137 mg/dL (65-115); Osmolality Calculated 294 mOsm/kg (285-295); Potassium 4.2 mmol/L (3.5-5.1); Sodium 137 mmol/L (136-145)
[2021-06-03 05:11] LABS: Vancomycin Trough 8.5 ug/mL (10-15)
[2021-06-03] MEDS: vancomycin 750 MG in sodium chloride 0.9% 250 ML 250 MG IV ×2 (05:30→17:22)
--- NOTE | 2021-06-03 05:33 | PC.PHAR ---
Vancomycin trough level on dosage of 500mg IVPB every 12 hours is 8.5. Dosage is increased to 750mg IVPB every 12 hours with another trough to be obtained before the fourth dose at this regime.
[2021-06-03] MEDS: piperacillin-tazobactam 3.375 GM in sodium chloride 0.9% (plus) 50 ML IV ×3 (07:01→23:47)
[2021-06-03] MEDS: ferrous sulfate EC 325 mg Tablet PO ×3 (07:01→17:22)
[2021-06-03] MEDS: budesonide 0.5 mg/2 mL Neb INHALATION ×2 (08:24→20:08)
[2021-06-03] MEDS: finasteride 5 mg Tablet PO (09:47)
[2021-06-03] MEDS: FUROsemide 10 mg/mL SDV 4mL 40 MG IVP ×2 (09:47→15:30)
[2021-06-03] MEDS: docusate sodium 100 mg Capsule PO ×2 (09:47→17:22)
[2021-06-03] MEDS: tamsulosin 0.4 mg Capsule PO (09:47)
[2021-06-03] MEDS: potassium chloride ER 20 mEq Tablet PO ×2 (09:47→15:30)
[2021-06-03] MEDS: pantoprazole DR 40 mg Tablet PO (09:47)
[2021-06-03] MEDS: sertraline 50 mg Tablet 150 MG PO (09:47)
[2021-06-03] MEDS: metoprolol tartrate 25 mg Tablet PO ×2 (09:50→20:39)
[2021-06-03] MEDS: azithromycin 500 MG in sodium chloride 0.9% 250 ML 250 MG IV (11:54)
[2021-06-03] MEDS: nystatin cream 30 gm 1 APPLIC TOPICAL ×2 (13:37→17:36)
--- NOTE | 2021-06-03 13:47 | PM.PN ---
Subjective Subjective: Interval history: She is doing slightly better today. Coughing, coughing up some sputum occasionally. No chest pain. Weaned off BiPAP, doing okay on high flow cannula. Spending time with his daughter who is a nurse. Vitals/I&O/Wt Last Vital Signs Temp 97.4 F L 06/03/21 12:00 Pulse 64 06/03/21 12:00 Resp 20 H 06/03/21 12:00 BP 125/55 06/03/21 12:00 Pulse Ox 92 06/03/21 12:00 06/02/21 06/03/21 06/03/21 22:59 06:59 14:59 Intake Total 390 / 1220 300 / 1520 410 / 410 Output Total 1400 / 3150 250 / 3400 650 / 650 Balance -1010 / -1930 50 / -1880 -240 / -240 Physical Exam Narrative: EXAM NARRATIVE: [facility] Const: COMMON NORMALS: no acute distress, patient oriented x3 and alert GENERAL APPEARANCE: cooperative ORIENTATION/CONSCIOUSNESS: Yes awake HENMT: COMMON NORMALS: oropharynx normal Neck/C-Spine: COMMON NORMALS: no JVD Resp: COMMON NORMALS: normal respiratory effort AUSCULTATION: diminished lung sounds (Improving) OTHER: Coarse breathing sounds. Cardio: COMMON NORMALS: no JVD, regular rhythm, S1 normal heart sound present, S2 normal heart sound present and No murmurs present (Cardio) RHYTHM: regular rhythm HEART SOUNDS: S1 normal heart sound present and S2 normal heart sound present GI: COMMON NORMALS: Normal to inspection, nondistended, normoactive bowel sounds present, Soft to palpation and non-tender PALPATION: Yes Soft to palpation Extremity: COMMON NORMALS: no joint enlargement and no pedal edema GENERAL: Yes edema (trace) Neuro: COMMON NORMALS: patient oriented x3 and moves all extremities SENSORIUM/ORIENTATION: Yes alert Skin: COMMON NORMALS: no rashes or lesions noted GENERAL SKIN EXAM: no rashes or lesions noted Urinary Catheter Management^: Skinner: Cath Placed During This Visit: yes Reason for Continuing Indwelling Catheter: Other Urinary Catheter Date of Insertion: 05/30/21 Urinary Catheter Time of Insertion: 13:50 Data : 06/03/21 04:20 06/03/21 04:20 Micro: Microbiology 06/01/21 18:47 MRSA Culture - Final Nose A&P Assessment and plan (1) Acute respiratory failure with hypoxia: Reviewed images with pulmonology, appreciate input. Atelectatic collapse of right lower lobe. Concern possibly aspiration related. Initiate chest PT. 3.5% saline nebulization. Chest vest. Flutter valve. If not improving, consideration may need to be given to bronchoscopy. Continue empiric antibiotics at this time with Zosyn, vancomycin, stop azithromycin. MRSA PCR negative. Acute on chronic hypoxic respiratory failure. Multifactorial secondary to pneumonia, COPD exacerbation, CHF, valvular heart disease. Oxygen support, BiPAP as needed. Possible microaspiration with reported cough with food and drink. Speech therapy, MBS. RV normal size and function. Would not doubt hemodynamically significant PE. Check D-dimer, although this may also be elevated secondary to atrial fibrillation. D-dimer minimally abnormal at 0.91. Suspect likely due to A. fib. Status: Acute (2) Pneumonia: As above. Pending additional assessment for aspiration. Negative COVID-19 PCR. Requested sputum culture, negative urine bacterial antigens. Status: Acute Qualifiers: Laterality: right Lung location: middle lobe of lung Pneumonia type: due to unspecified organism Qualified Code(s): J18.9 - Pneumonia, unspecified organism (3) CHF (congestive heart failure): Continue IV Lasix. Monitor I&O. In negative balance. TTE with global of ventricular hypokinesis, with moderately decreased left ventricular systolic function, EF 45-50%, grade 2 diastolic dysfunction, moderately increased left atrial size, moderately thickened mitral valve, mild-moderate MVR, severe aortic valve calcification, moderate aortic valve stenosis, mean gradient 14.4, RENY 1 cm, mild AVR. Right ventricle normal size and function. No pericardial effusion. Compared to prior study moderate to severe aortic valve stenosis new. Denies chest pain or pressure. Troponins abnormal, but also with episode of A. fib with RVR. Stress test when respiratory condition improves. Has a known history of coronary artery disease with prior CABG and percutaneous intervention as well as known peripheral vascular disease and carotid disease both requiring intervention. Status: Acute Qualifiers: Heart failure chronicity: acute Heart failure type: unspecified Qualified Code(s): I50.9 - Heart failure, unspecified (4) Atrial fibrillation with RVR: New A. fib. A. fib with RVR presentation. So far rates have stayed good. Continue metoprolol. Aspirin, but monitor blood counts due to anemia, iron deficiency. Not yet candidate for anticoagulation due to worsening anemia. In a patient without a known history of atrial fibrillation. Most likely secondary to acute pulmonary issues from CHF and COPD plus or minus acute infection. Also within the differential is acute coronary syndrome, thromboembolic event, metabolic abnormalities among others. Status: Acute (5) Non-ST elevation [place] (NSTEMI): Suspected demand ischemia secondary atrial fibrillation with RVR, hypoxia, although cannot rule out type I event. He does not have any chest pain or pressure. Possible Q waves in V1, V2. We will benefit from stress test once respiratory status improves. Discussed with him and his . With worsening echo chronic anemia, hemoglobin 7.8, iron deficiency, unclear when last colonoscopy was, reports recurrent anemia without identified source, risk of bleeding with anticoagulation. Continues on aspirin which she is tolerating so far. Continue beta-ghislaine, statin. Appreciate cardiology recommendations regarding additional risk stratification. Cannot entirely rule out type I process, but most likely type II process from demand ischemia related to hypoxemia, anemia and possibly other episodes of tachycardia arrhythmia like we have seen this evening. Has been sometime since he has had cardiac evaluation and he does have risk factors for recurrent disease so unable to presently rule out type I process. Status: Acute (6) COPD (chronic obstructive pulmonary disease): COPD exacerbation: Improving. Decrease IV steroid dose. Slightly better air entry. No wheezing. Weaned off NIV. Antibiotics as above. Breathing treatments. Sputum cultures if possible. Chronically on 5 L of oxygen by nasal cannula as well as on chronic steroid therapy, former smoker, acutely exacerbated secondary to above. Looking at ABG her has chronic hypercapnia and hypoxemia. Status: Chronic Qualifiers: COPD type: emphysema Emphysema type: unspecified Qualified Code(s): J43.9 - Emphysema, unspecified (7) Anemia: Iron deficiency anemia. Received 1 unit PBC transfusion given concern for underlying cardiac disease and anemia. states he has had upper and lower endoscopy previously. Recurrent episodes of anemia, without finding of the cause. Discussed consideration of referral for repeat endoscopy once he is more stable, and if no bleeding source identified, consideration of referral for capsule endoscopy, then possibly deep enteroscopy. Hemoccult requested, follow-up. Atrial fibrillation, but for now only aspirin given acute anemia. However, if further declining hemoglobin, may have to hold aspirin as well. Discussed with him would benefit from endoscopic evaluation once his overall condition improves. Also anemia of chronic disease. Status: Acute Qualifiers: Anemia type: iron deficiency Iron deficiency anemia type: other iron deficiency Qualified Code(s): D50.8 - Other iron deficiency anemias (8) Recurrent falls: Patient reports right-sided weakness with ambulation of approximately 6 months duration. He has had falls intermittently since then that have been more prominent lately. 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 Status: Acute (9) Prostate cancer: Following with Dr. Masood Hines, has been on antiandrogen therapy with initial good response from PSA standpoint on review of records although missed treatment at least once this fall Status: Chronic (10) ASHD (arteriosclerotic heart disease): With prior bypass and percutaneous intervention. Status: Chronic Additional A&P Information Attestations Medical Necessity Statement*: Continue admission for assessment management of acute on chronic hypoxic respiratory failure, pneumonia, aspiration, CHF with valvular heart disease, atrial fibrillation. Coding Level of Care Code Acute [employer] Repairer Supervisor for [facility] Fwd Exam Comprehensive Diagnoses Acute respiratory failure with hypoxia J96.01 Pneumonia J18.9 Laterality: right Lung location: middle lobe of lung Pneumonia type: due to unspecified organism CHF (congestive heart failure) I50.9 Heart failure chronicity: acute Heart failure type: unspecified Atrial fibrillation with RVR I48.91 Non-ST elevation [place] (NSTEMI) I21.4 COPD (chronic obstructive pulmonary disease) J43.9 COPD type: emphysema Emphysema type: unspecified Anemia D50.8 Anemia type: iron deficiency Iron deficiency anemia type: other iron deficiency Recurrent falls R29.6 Prostate cancer C61 ASHD (arteriosclerotic heart disease) I25.10
[2021-06-03] MEDS: sodium chloride 3.5% neb 4 mL Neb INHALATION (15:08)
--- NOTE | 2021-06-03 18:44 | PM.PN ---
Subjective Subjective: Interval history: Patient is feeling okay. His oxygen requirement is coming down. Currently he is on 8 L of oxygen by nasal cannula. Denies any chest pain or chest tightness. No shortness of breath. Vital signs are stable. No new symptoms Medications: Reviewed: Yes Medication Review Details: Current Medications Acetaminophen (Acetaminophen 325 Mg Tablet) 650 mg PO Q6H PRN PRN Reason: Mild/Mod Pain Or Temp >/= 101 Albuterol/Ipratropium (Ipratropium-Albuterol 3 Ml Neb) 3 ml INHALATION Q6H.RESPIRATORY JO Last Admin: 06/03/21 15:08 Dose: 3 ml Documented by: Albuterol/Ipratropium (Ipratropium-Albuterol 3 Ml Neb) 3 ml INHALATION Q4H PRN PRN Reason: SHORTNESS OF BREATH Last Admin: 06/01/21 19:54 Dose: 3 ml Documented by: Aspirin (Aspirin 325 Mg Ec Tablet) 325 mg PO DAILY JO Last Admin: 06/02/21 09:03 Dose: 325 mg Documented by: Atorvastatin Calcium (Atorvastatin 40 Mg Tablet) 40 mg PO BEDTIME JO Last Admin: 06/02/21 22:22 Dose: 40 mg Documented by: Bisacodyl (Bisacodyl 5 Mg Tablet) 10 mg PO DAILY PRN; Protocol PRN Reason: Constipation (see protocol) Budesonide (Budesonide 0.5 Mg/2 Ml Neb) 0.5 mg INHALATION BID.RESPIRATORY JO Last Admin: 06/03/21 08:24 Dose: 0.5 mg Documented by: Docusate Sodium (Docusate Sodium 100 Mg Capsule) 100 mg PO BID JO Last Admin: 06/03/21 17:22 Dose: 100 mg Documented by: Ferrous Sulfate (Ferrous Sulfate Ec 325 Mg Tablet) 325 mg PO TIDAC JO Last Admin: 06/03/21 17:22 Dose: 325 mg Documented by: Finasteride (Finasteride 5 Mg Tablet) 5 mg PO DAILY JO Last Admin: 06/03/21 09:47 Dose: 5 mg Documented by: Furosemide (Furosemide 10 Mg/Ml Sdv 4ml) 40 mg IVP BID@08,14 JO Last Admin: 06/03/21 15:30 Dose: 40 mg Documented by: Piperacillin Sod/Tazobactam (Sod 3.375 gm/ Sodium Chloride) 50 mls @ 12.5 mls/hr IV Q8H [facility]; Protocol Last Admin: 06/03/21 15:27 Dose: 12.5 mls/hr Documented by: Vancomycin HCl 750 mg/ Sodium (Chloride) 250 mls @ 250 mls/hr IV Q12H [facility] Last Infusion: 06/03/21 18:43 Dose: Infused Documented by: Methylprednisolone Sodium Succinate (Methylprednisolone Sod Succ 40 Mg/Ml Inj) 20 mg IVP Q6H [facility] Last Admin: 06/03/21 17:22 Dose: 20 mg Documented by: Metoprolol Tartrate (Metoprolol Tartrate 25 Mg Tablet) 25 mg PO BID@0900,2100 [facility] Last Admin: 06/03/21 09:50 Dose: 25 mg Documented by: Nystatin (Nystatin Cream 30 Gm) 1 applic TOPICAL BID [facility] Last Admin: 06/03/21 17:36 Dose: 1 applic Documented by: Ondansetron HCl (Ondansetron 2 Mg/Ml Sdv 2 Ml) 4 mg IVP Q8H PRN PRN Reason: vomiting, or N/V if npo Pantoprazole Sodium (Pantoprazole Dr 40 Mg Tablet) 40 mg PO DAILY [facility] Last Admin: 06/03/21 09:47 Dose: 40 mg Documented by: Potassium Chloride (Potassium Chloride Er 20 Meq Tablet) 20 meq PO BID@08,14 [facility] Last Admin: 06/03/21 15:30 Dose: 20 meq Documented by: Prednisone (Prednisone 10 Mg Tablet) 10 mg PO DAILY [facility] Last Admin: 05/31/21 08:41 Dose: 10 mg Documented by: Sertraline HCl (Sertraline 50 Mg Tablet) 150 mg PO DAILY [facility] Last Admin: 06/03/21 09:47 Dose: 150 mg Documented by: Sodium Chloride (Sodium Chloride 3.5% Neb 4 Ml Neb) 4 ml INHALATION BID.RESPIRATORY [facility] Last Admin: 06/03/21 15:08 Dose: 4 ml Documented by: Tamsulosin HCl (Tamsulosin 0.4 Mg Capsule) 0.4 mg PO DAILY [facility] Last Admin: 06/03/21 09:47 Dose: 0.4 mg Documented by: Vitals/I&O/Wt Last Vital Signs Temp 97.5 F L 06/03/21 16:00 Pulse 62 06/03/21 16:00 Resp 18 06/03/21 16:00 BP 123/69 06/03/21 16:00 Pulse Ox 90 06/03/21 16:00 06/03/21 06/03/21 06/03/21 06:59 14:59 22:59 Intake Total 300 / 1520 660 / 660 490 / 1150 Output Total 250 / 3400 650 / 650 Balance 50 / -1880 490 / 500 Physical Exam Narrative: EXAM NARRATIVE: GENERAL: The patient is alert and oriented times three. Not in any acute distress. HEENT: Moderate pallor. No icterus or lymphadenopathy.Oral cavity: There are no mucous membrane lesions. NECK: Trachea appears to be central. No masses noted. No JVD or thyromegaly appreciated. Carotid bruit on the right side. RESPIRATORY: Chest is symmetrical. No intercostals muscle retraction or any accessory muscle activation. There is no chest wall tenderness. Breath sounds are heard bilaterally. No rales or rhonchi. The intensity of the breath sounds are somewhat diminished in the bases BREASTS: Deferred. HEART: The heart sounds are normal. No S3 or S4. Short systolic murmur in the left sternal border. No diastolic murmurs. No pericardial rub ABDOMEN: No vessel pulsations or distention. No tenderness. No organomegaly appreciated. Bowel sounds are normally heard. : Deferred. RECTAL: Deferred. LYMPHATIC: No lymphadenopathy noted in the neck or groin. EXTREMITIES: Trace edema with no cyanosis. MUSCULOSKELETAL: No acute joint deformities or swelling SKIN: There are no significant rashes or ecchymosis NEUROPSYCHIATRIC: The patient is alert and oriented x3. Appears to be in a good mood. No tremors or rigidity noted. Urinary Catheter Management^: Skinner: Cath Placed During This Visit: yes Reason for Continuing Indwelling Catheter: Other Urinary Catheter Date of Insertion: 05/30/21 Urinary Catheter Time of Insertion: 13:50 Data : 06/03/21 04:20 06/03/21 04:20 A&P Assessment and plan (1) Elevated troponin: No discharges during the respiratory status is better stabilized. Te elevated troponin T with a significant delta at the 2 and 6-hour timeframe could be related to type I myocardial infarction. However in view of the atrial fibrillation, severe anemia, heart failure and pneumonia, a type II HI also is a consideration. Hemodynamically seems to be stable. He is currently asymptomatic. For further evaluation of the coronary status, a myocardial perfusion imaging would be appropriate. Discussed with the patient and his . It was decided to wait till his respiratory status is little more stabilized. Status: Acute (2) Atherosclerosis of coronary artery of [place] heart without angina pectoris: Patient is currently status seems to be stable. He is not complaining of any significant chest pain. Work-up as mentioned above Status: Acute Qualifiers: Coronary Disease-Associated Artery/Lesion type: [place] artery Qualified Code(s): I25.10 - Atherosclerotic heart disease of [place] coronary artery without angina pectoris (3) Atrial fibrillation with RVR: Currently the heart rate is under control. Patient may continue on the current medications. Because of the anemia and the frequent fall, patient is not on any oral anticoagulation. Status: Acute (4) CHF (congestive heart failure): The heart failure seems to be getting compensated. Careful diuresis would be appropriate. Status: Acute Qualifiers: Heart failure type: unspecified Heart failure chronicity: acute Qualified Code(s): I50.9 - Heart failure, unspecified (5) Anemia: The etiology is not clear. Patient has history of GI bleed. Advanced Ca of the prostate could be a contributing factor. Patient may benefit from blood transfusion to keep the hemoglobin between 9 and 10. Status: Acute Qualifiers: Anemia type: iron deficiency Iron deficiency anemia type: other iron deficiency Qualified Code(s): D50.8 - Other iron deficiency anemias (6) PVD (peripheral vascular disease): The patient currently has no specific symptoms. May continue on the current measures. 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 No significant stenosis in the right side. 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 Correia Status: Acute Additional A&P Information Since that he is still hypoxic, we may hold off on the stress test for the time being Attestations Medical Necessity Statement*: Patient requires continued hospital stay for close monitoring and further management Coding Level of Care Code Acute Telemedicine Physician for Chg Fwd History Detailed Exam Detailed Medical Decision Making Moderate Complexity Diagnoses Elevated troponin R77.8 Atherosclerosis of coronary artery of [place] heart without angina pectoris I25.10 Coronary Disease-Associated Artery/Lesion type: [place] artery Atrial fibrillation with RVR I48.91 CHF (congestive heart failure) I50.9 Heart failure type: unspecified Heart failure chronicity: acute Anemia D50.8 Anemia type: iron deficiency Iron deficiency anemia type: other iron deficiency PVD (peripheral vascular disease) I73.9 Carotid artery stenosis I65.21 Laterality: right 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
[2021-06-03] MEDS: atorvastatin 40 mg Tablet PO (20:39)
[2021-06-04] VITALS (17 sets, daily range): BP systolic 108–128; BP diastolic 49–68; PULSE 60–81; RESP 14–20; TEMP 36.5–36.9; O2SAT 9–94
[2021-06-04] MEDS: ipratropium-albuterol 3 mL Neb INHALATION ×4 (02:17→20:28)
[2021-06-04 04:27] LABS: Basophils % 0.2 %; Hematocrit 29.5 % (42.0-52.0); Hemoglobin 8.7 g/dL (11.7-16.6); Lymphocytes % 4.8 %; Mean Corpuscular HGB Conc 29.5 g/dL (30.0-36.0); Mean Corpuscular Hemoglobin 27.2 pg (28.0-34.0); Mean Corpuscular Volume 92.2 fl (80-94); Mean Platelet Volume 9.5 fL (7.4-10.4); Monocytes # 1.4 10^3/uL (0.2-0.9); Monocytes % 6.8 %; Neutrophils # 17.72 10^3/uL (1.8-7.7); Nucleated Red Blood Cells % 0 %; Platelet Count 346 10^3/cmm (130-400); Red Cell Distribution Width 17.3 % (12.1-15.1); White Blood Count 21.1 10^3/uL (4.0-10.0)
[2021-06-04] MEDS: vancomycin 750 MG in sodium chloride 0.9% 250 ML 250 MG IV (04:37)
[2021-06-04 04:45] LABS: Anion Gap 11.2 (5-19); Blood Urea Nitrogen 34 mg/dL (8-23); Calcium 8.6 mg/dL (8.5-10.5); Carbon Dioxide 39 mmol/L (22-29); Chloride 93 mmol/L (98-107); Glucose 141 mg/dL (65-115); Osmolality Calculated 298 mOsm/kg (285-295); Potassium 4.2 mmol/L (3.5-5.1); Sodium 139 mmol/L (136-145)
[2021-06-04] MEDS: ferrous sulfate EC 325 mg Tablet PO ×3 (06:43→17:13)
[2021-06-04] MEDS: piperacillin-tazobactam 3.375 GM in sodium chloride 0.9% (plus) 50 ML IV (06:44)
[2021-06-04] MEDS: docusate sodium 100 mg Capsule PO ×2 (07:50→17:13)
[2021-06-04] MEDS: sertraline 50 mg Tablet 150 MG PO (07:50)
[2021-06-04] MEDS: finasteride 5 mg Tablet PO (07:50)
[2021-06-04] MEDS: metoprolol tartrate 25 mg Tablet PO ×2 (07:51→20:59)
[2021-06-04] MEDS: pantoprazole DR 40 mg Tablet PO (07:51)
[2021-06-04] MEDS: potassium chloride ER 20 mEq Tablet PO ×2 (07:51→16:32)
[2021-06-04] MEDS: tamsulosin 0.4 mg Capsule PO (07:51)
[2021-06-04] MEDS: budesonide 0.5 mg/2 mL Neb INHALATION ×2 (08:04→20:28)
[2021-06-04] MEDS: FUROsemide 10 mg/mL SDV 4mL 40 MG IVP ×2 (08:36→16:44)
--- NOTE | 2021-06-04 08:49 | XR_ITS ---
WS: [id number] XR chest 1V portable [id number] REASON FOR EXAM: Right lower lobe atelectasis FINDINGS: Previous coronary artery bypass surgery and coronary stents. No significant cardiomegaly for age. Increased opacity in the lower right hemithorax which appears to be due to atelectasis of the right l ower lung and probable effusion. Relatively unchanged compared to 06/02/2021. Infiltrative density in the left lower lung with some improvement in the atelectasis in the left lowe r lung compared to previous examination 06/02/2021. Interval development of distended bowel in the right upper abdomen. No other significant interval change or new finding. XR/XR chest 1V portable [id number] IMPRESSION: Improved atelectasis in the left lower lung. Increasing bowel distention in the right upper abdomen.
--- NOTE | 2021-06-04 09:14 | PM.PN ---
Subjective Subjective: Interval history: Patient apparently had an episode of seizure this morning. The oxygen saturation around 93% on 9 L of oxygen by nasal cannula. Denies any chest pain or chest tightness. No new arrhythmias on the monitor. Medications: Reviewed: Yes Medication Review Details: Current Medications Acetaminophen (Acetaminophen 325 Mg Tablet) 650 mg PO Q6H PRN PRN Reason: Mild/Mod Pain Or Temp >/= 101 Albuterol/Ipratropium (Ipratropium-Albuterol 3 Ml Neb) 3 ml INHALATION Q6H.RESPIRATORY JO Last Admin: 06/04/21 08:04 Dose: 3 ml Documented by: Albuterol/Ipratropium (Ipratropium-Albuterol 3 Ml Neb) 3 ml INHALATION Q4H PRN PRN Reason: SHORTNESS OF BREATH Last Admin: 06/01/21 19:54 Dose: 3 ml Documented by: Aspirin (Aspirin 325 Mg Ec Tablet) 325 mg PO DAILY JO Last Admin: 06/02/21 09:03 Dose: 325 mg Documented by: Atorvastatin Calcium (Atorvastatin 40 Mg Tablet) 40 mg PO BEDTIME JO Last Admin: 06/03/21 20:39 Dose: 40 mg Documented by: Bisacodyl (Bisacodyl 5 Mg Tablet) 10 mg PO DAILY PRN; Protocol PRN Reason: Constipation (see protocol) Budesonide (Budesonide 0.5 Mg/2 Ml Neb) 0.5 mg INHALATION BID.RESPIRATORY JO Last Admin: 06/04/21 08:04 Dose: 0.5 mg Documented by: Docusate Sodium (Docusate Sodium 100 Mg Capsule) 100 mg PO BID JO Last Admin: 06/04/21 07:50 Dose: 100 mg Documented by: Ferrous Sulfate (Ferrous Sulfate Ec 325 Mg Tablet) 325 mg PO TIDAC JO Last Admin: 06/04/21 06:43 Dose: 325 mg Documented by: Finasteride (Finasteride 5 Mg Tablet) 5 mg PO DAILY JO Last Admin: 06/04/21 07:50 Dose: 5 mg Documented by: Furosemide (Furosemide 10 Mg/Ml Sdv 4ml) 40 mg IVP BID@08,14 JO Last Admin: 06/04/21 08:36 Dose: 40 mg Documented by: Piperacillin Sod/Tazobactam (Sod 3.375 gm/ Sodium Chloride) 50 mls @ 12.5 mls/hr IV Q8H JO; Protocol Last Admin: 06/04/21 06:44 Dose: 12.5 mls/hr Documented by: Vancomycin HCl 750 mg/ Sodium (Chloride) 250 mls @ 250 mls/hr IV Q12H [facility] Last Infusion: 06/04/21 06:06 Dose: Infused Documented by: Methylprednisolone Sodium Succinate (Methylprednisolone Sod Succ 40 Mg/Ml Inj) 20 mg IVP Q6H JO Last Admin: 06/04/21 06:43 Dose: 20 mg Documented by: Metoprolol Tartrate (Metoprolol Tartrate 25 Mg Tablet) 25 mg PO BID@0900,2100 [facility] Last Admin: 06/04/21 07:51 Dose: 25 mg Documented by: Nystatin (Nystatin Cream 30 Gm) 1 applic TOPICAL BID [facility] Last Admin: 06/03/21 17:36 Dose: 1 applic Documented by: Ondansetron HCl (Ondansetron 2 Mg/Ml Sdv 2 Ml) 4 mg IVP Q8H PRN PRN Reason: vomiting, or N/V if npo Pantoprazole Sodium (Pantoprazole Dr 40 Mg Tablet) 40 mg PO DAILY [facility] Last Admin: 06/04/21 07:51 Dose: 40 mg Documented by: Potassium Chloride (Potassium Chloride Er 20 Meq Tablet) 20 meq PO BID@08,14 [facility] Last Admin: 06/04/21 07:51 Dose: 20 meq Documented by: Prednisone (Prednisone 10 Mg Tablet) 10 mg PO DAILY [facility] Last Admin: 05/31/21 08:41 Dose: 10 mg Documented by: Sertraline HCl (Sertraline 50 Mg Tablet) 150 mg PO DAILY [facility] Last Admin: 06/04/21 07:50 Dose: 150 mg Documented by: Sodium Chloride (Sodium Chloride 3.5% Neb 4 Ml Neb) 4 ml INHALATION BID.RESPIRATORY [facility] Last Admin: 06/03/21 15:08 Dose: 4 ml Documented by: Tamsulosin HCl (Tamsulosin 0.4 Mg Capsule) 0.4 mg PO DAILY [facility] Last Admin: 06/04/21 07:51 Dose: 0.4 mg Documented by: Vitals/I&O/Wt Last Vital Signs Temp 97.7 F 06/04/21 07:46 Pulse 64 06/04/21 08:12 Resp 18 06/04/21 08:08 BP 108/49 06/04/21 07:46 Pulse Ox 91 06/04/21 08:08 06/03/21 06/04/21 06/04/21 22:59 06:59 14:59 Intake Total 1020 / 1680 300 / 1980 Output Total 1545 / 2195 Balance 1020 / 1030 -1245 / -215 Physical Exam Narrative: EXAM NARRATIVE: GENERAL: The patient is alert and oriented times three. Not in any acute distress. HEENT: Moderate pallor. No icterus or lymphadenopathy.Oral cavity: There are no mucous membrane lesions. NECK: Trachea appears to be central. No masses noted. No JVD or thyromegaly appreciated. Carotid bruit on the right side. RESPIRATORY: Chest is symmetrical. No intercostals muscle retraction or any accessory muscle activation. There is no chest wall tenderness. Breath sounds are heard bilaterally. No rales or rhonchi. The intensity of the breath sounds are somewhat diminished in the bases BREASTS: Deferred. HEART: The heart sounds are normal. No S3 or S4. Short systolic murmur in the left sternal border. No diastolic murmurs. No pericardial rub ABDOMEN: No vessel pulsations or distention. No tenderness. No organomegaly appreciated. Bowel sounds are normally heard. : Deferred. RECTAL: Deferred. LYMPHATIC: No lymphadenopathy noted in the neck or groin. EXTREMITIES: Trace edema with no cyanosis. MUSCULOSKELETAL: No acute joint deformities or swelling SKIN: There are no significant rashes or ecchymosis NEUROPSYCHIATRIC: The patient is alert and oriented x3. Appears to be in a good mood. No tremors or rigidity noted. Urinary Catheter Management^: Skinner: Cath Placed During This Visit: yes Reason for Continuing Indwelling Catheter: Acute Urinary Retention or Obstruction Urinary Catheter Date of Insertion: 05/30/21 Urinary Catheter Time of Insertion: 13:50 Data : 06/04/21 04:12 06/04/21 04:12 Micro: Microbiology 05/29/21 00:41 Blood Culture - Final Blood NO GROWTH AFTER 5 DAYS 05/29/21 00:39 Blood Culture - Final Blood NO GROWTH AFTER 5 DAYS A&P Assessment and plan (1) Elevated troponin: No discharges during the respiratory status is better stabilized. Te elevated troponin T with a significant delta at the 2 and 6-hour timeframe could be related to type I myocardial infarction. However in view of the atrial fibrillation, severe anemia, heart failure and pneumonia, a type II ID also is a consideration. Hemodynamically seems to be stable. He is currently asymptomatic. For further evaluation of the coronary status, a myocardial perfusion imaging would be appropriate. Because of his oxygenation status, we may hold off on this for a while. Status: Acute (2) Atherosclerosis of coronary artery of [place] heart without angina pectoris: Patient is currently status seems to be stable. He is not complaining of any significant chest pain. Work-up as mentioned above. Status: Acute Qualifiers: Coronary Disease-Associated Artery/Lesion type: [place] artery Qualified Code(s): I25.10 - Atherosclerotic heart disease of [place] coronary artery without angina pectoris (3) Atrial fibrillation with RVR: Currently the heart rate is under control. Patient may continue on the current medications. Because of the anemia and the frequent fall, patient is not on any oral anticoagulation. Status: Acute (4) CHF (congestive heart failure): The heart failure seems to be getting compensated. Careful diuresis would be appropriate. Status: Acute Qualifiers: Heart failure chronicity: acute Heart failure type: unspecified Qualified Code(s): I50.9 - Heart failure, unspecified (5) Anemia: The etiology is not clear. Patient has history of GI bleed. Advanced Ca of the prostate could be a contributing factor. Patient may benefit from blood transfusion to keep the hemoglobin between 9 and 10. Status: Acute Qualifiers: Anemia type: iron deficiency Iron deficiency anemia type: other iron deficiency Qualified Code(s): D50.8 - Other iron deficiency anemias (6) PVD (peripheral vascular disease): The patient currently has no specific symptoms. May continue on the current measures. 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 No significant stenosis in the right side. 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 [facility] Diagnoses Elevated troponin R77.8 Atherosclerosis of coronary artery of [place] heart without angina pectoris I25.10 Coronary Disease-Associated Artery/Lesion type: [place] artery Atrial fibrillation with RVR I48.91 CHF (congestive heart failure) I50.9 Heart failure chronicity: acute Heart failure type: unspecified Anemia D50.8 Anemia type: iron deficiency Iron deficiency anemia type: other iron deficiency PVD (peripheral vascular disease) I73.9 Carotid artery stenosis I65.21 Laterality: right 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
--- NOTE | 2021-06-04 11:25 | PC.NURSE ---
At around 10 am, nurse heard family screaming for help. Nurses and aids went in to find the family holding the patient up. Nurses helped lower him to the floor and then helped get him back to bed. During this time, patient was unable to speak or follow commands. Once patient got back in bed, he was able to speak and follow commands. Notified Dr. Dewey. He states to keep patient on bed rest for now.
[2021-06-04] MEDS: nystatin cream 30 gm 1 APPLIC TOPICAL ×2 (11:39→17:13)
[2021-06-04] MEDS: aspirin 325 mg EC Tablet PO (11:46)
--- NOTE | 2021-06-04 11:46 | PC.SOCIAL ---
IMM Update pg 2 of IMM updated and reviewed w/ patient and patients family. Copy provided.
[2021-06-04 12:56] LABS: NT Pro B Type Natriuretic Pept 2018 pg/mL (0-450); Procalcitonin 0.04 ng/mL (0-0.5)
--- NOTE | 2021-06-04 12:56 | MR_ITS ---
WS: [id number] MRI HEAD WITH CONTRAST TECHNIQUE: Sagittal T1, T2 axial, T2 axial FLAIR, axial susceptibility weighted imaging, axial diffus ion weighted images, and coronal T2 images were obtained. Pre and post-T1 axial and post T1 coronal i mages. ADC and FSPGR images. CLINICAL INFORMATION: Possible stroke COMPARISON: CT May 29, 2021 and CTA 11/22/2020 FINDINGS: No evidence of restricted diffusion to suggest acute ischemia. Small amount of T2 shine through in th e right periventricular frontal white matter with a small incidental benign venous angioma in this ar ea. No evidence of acute ischemia. Advanced small vessel changes with moderate parenchymal volume loss. Chronic infarct in the left fron padmini and parietal lobes with encephalomalacia and gliosis. Normal posterior fossa. Poorly visualized l eft ICA flow void. Normal right ICA flow void. Mild mucosal thickening right mastoid air cells. Mild mucosal thickening in the paranasal sinuses. No hemosiderin on susceptibly weighted images. Normal optic chiasm and pituitary infundibulum. Modera te to advanced symmetric atrophy temporal lobes and hippocampal formations. No abnormal gadolinium en hancement. Normal visualized dural venous sinuses. MR/MR head wo/w con [id number] IMPRESSION: 1. No evidence of restricted diffusion to suggest acute ischemia. 2. Poor left ICA flow void at the skull base with history of left ICA occlusio n 3. Moderate to advanced small vessel changes with moderate parenchymal volume loss. 4. Chronic infarct with encephalomalacia and gliosis in the left frontal and p arietal lobes MCA territory. 5. Incidental venous angioma in the right periventricular frontal white matter . 6. Evidence of prior left frontoparietal craniotomy.
--- NOTE | 2021-06-04 12:56 | MR_ITS ---
WS: [id number] MRA CAROTID WITHOUT AND WITH GADOLINIUM ENHANCEMENT TECHNIQUE: Axial 2-D TOF and gadolinium bolus images obtained with axial images and axial, sagittal, and coronal 2-D reformatted images. CLINICAL INFORMATION: Possible stroke COMPARISON: CTA November 22, 2020 FINDINGS: Right: Right common carotid artery is patent. Mild right ICA stenosis measuring approximately 40-45%. ICA is patent to the skull base. Left: Left common carotid artery is patent. Left ICA is occluded at the origin and remains occluded t o the skull base unchanged since the prior CTA neck. Codominant and patent vertebral arteries bilaterally. Normal branching aortic arch anatomy. Proximal visualized iliamna of [place] appears normal. MR/MR angio neck w con* [id number] IMPRESSION: 1. Chronic occlusion of the left ICA unchanged since the prior CTA 12/11. 2. Mild right ICA stenosis measuring approximately 40-45%. Right ICA is patent to the skull base. 3. Codominant and patent vertebral arteries bilaterally.
[2021-06-04 13:07] LABS: Iron 36 ug/dL (59-158); Percent Saturation 11.6 % (20-50); Total Iron Binding Capacity 310 mcg/dl; Unsaturated Iron Binding 274 ug/dL (112-347)
[2021-06-04 13:56] LABS: ABG PCO2 52.5 mmHg (35-45); Arterial Blood Gas Hematocrit 29.6 % (42-52); Base Excess ABG 15.6 mmol/L (-2.0-2.0); Blood Gas Allen Test Pos; Blood Gas Operator Identificat BROMA; Blood Gas Sample Site Radial, left; Blood Gas Sample Type Arterial; Carboxyhemoglobin 1.3 %THgb (0.4-20.1); HCO3 ABG 40.8 mmol/L (22-26); HGB O2 Sat 93.3 % (95-100); Ionized Calcium Level - ABG 1.2 mmol/L (1.1-1.4); Methemoglobin 0.1 % (0.4-1.5); Oxygen Device NC; Oxygen Saturation ABG 94.6; PO2 ABG 63.6 mmHg (80.0-100.0); Potassium Level - ABG 3.8 mmol/L (3.5-5.0); Total Hemoglobin 9.7 g/dL (14-18)
--- NOTE | 2021-06-04 16:25 | PC.NURSE ---
Patient left room at 1415 for MRI
[2021-06-04] MEDS: gadobenate dimeglumine 20 mL vial IV (16:27)
[2021-06-04] MEDS: levoFLOXacin 500 mg Tablet PO (16:32)
--- NOTE | 2021-06-04 17:02 | P.PN_ITS ---
Subjective Subjective: Interval history: Hospital course, labs appreciated. Family at bedside. Today morning as per the family patient had jerky movement of right arm. Just after that when he stood up he had an episode of collapsing to the floor. Patient did not hit his head. After that patient was transferred back to the bed. Examination patient lying comfortably in bed, AO x3, denies any nausea, vomiting, diarrhea. States breathing is better. Requiring up to 9 L of high flow nasal cannula saturating 92%. States at baseline he requires 4 L oxygen supplementation. Vitals/I&O/Wt Last Vital Signs Temp 98.4 F 06/04/21 11:05 Pulse 64 06/04/21 14:14 Resp 20 H 06/04/21 14:09 BP 116/59 06/04/21 14:19 Pulse Ox 92 06/04/21 14:09 06/04/21 06/04/21 06/04/21 06:59 14:59 22:59 Intake Total 300 / 1980 550 / 550 Output Total 1545 / 2195 Balance -1245 / -215 550 / 550 Weight last 48 hrs Weight 81.284 kg Physical Exam Narrative: EXAM NARRATIVE: [facility] Const: COMMON NORMALS: no acute distress, patient oriented x3 and alert GENERAL APPEARANCE: cooperative ORIENTATION/CONSCIOUSNESS: Yes awake HENMT: COMMON NORMALS: oropharynx normal Neck/C-Spine: COMMON NORMALS: no JVD Resp: COMMON NORMALS: normal respiratory effort AUSCULTATION: diminished lung sounds (Improving) OTHER: Coarse breathing sounds. Cardio: COMMON NORMALS: no JVD, regular rhythm, S1 normal heart sound present, S2 normal heart sound present and No murmurs present (Cardio) RHYTHM: regular rhythm HEART SOUNDS: S1 normal heart sound present and S2 normal heart sound present GI: COMMON NORMALS: Normal to inspection, nondistended, normoactive bowel sounds present, Soft to palpation and non-tender PALPATION: Yes Soft to palpation Extremity: COMMON NORMALS: no joint enlargement and no pedal edema GENERAL: Yes edema (trace) Neuro: COMMON NORMALS: patient oriented x3 and moves all extremities SENSORIUM/ORIENTATION: Yes alert Skin: COMMON NORMALS: no rashes or lesions noted GENERAL SKIN EXAM: no rashes or lesions noted Urinary Catheter Management^: Skinner: Cath Placed During This Visit: yes Reason for Continuing Indwelling Catheter: Acute Urinary Retention or Obstruction Urinary Catheter Date of Insertion: 05/30/21 Urinary Catheter Time of Insertion: 13:50 Data : 06/04/21 04:12 06/04/21 04:12 Micro: Microbiology 05/29/21 00:41 Blood Culture - Final Blood NO GROWTH AFTER 5 DAYS 05/29/21 00:39 Blood Culture - Final Blood NO GROWTH AFTER 5 DAYS A&P Assessment and plan (1) Acute respiratory failure with hypoxia: Most likely a combination of congestive heart failure along with right lower lobe pneumonia causing COPD exacerbation. Chronically on 4 L oxygen supplementation Cannot rule out chronic aspiration. Incentive spirometry, flutter valve, chest PT. Aggressive pulmonary toilet. If not improving will consider consulting pulmonology for possible bronchoscopy. Check procalcitonin. Check sputum culture. Check ABG. Check proBNP. Oxygen supplementation keeping saturation over 88%. MRSA swab negative, urine Legionella, bacterial antigen negative. Stop vancomycin, Zosyn. Given persistent leukocytosis, high oxygen requirement for now switch to imipenem. For 5-day course. Modified barium swallow, swallow evaluation. Will change diet accordingly. Status: Acute (2) Pneumonia: As above. Pending additional assessment for aspiration. Negative COVID-19 PCR. Requested sputum culture, negative urine bacterial antigens. Status: Acute Qualifiers: Laterality: right Lung location: middle lobe of lung Pneumonia type: due to unspecified organism Qualified Code(s): J18.9 - Pneumonia, unspecified organism (3) CHF (congestive heart failure): Continue IV Lasix. Monitor I&O. Fluid restriction up to 1500 cc. Echocardiogram results appreciated with global of ventricular hypokinesis, with moderately decreased left ventricular systolic function, EF 45-50%, grade 2 diastolic dysfunction, moderately increased left atrial size, moderately thickened mitral valve, mild-moderate MVR, severe aortic valve calcification, moderate aortic valve stenosis, mean gradient 14.4, RENY 1 cm, mild AVR. Right ventricle normal size and function. No pericardial effusion. Compared to prior study moderate to severe aortic valve stenosis new. Denies chest pain or pressure. Troponins abnormal, but also with episode of A. fib with RVR. Stress test when respiratory condition improves. Has a known history of coronary artery disease with prior CABG and percutaneous intervention as well as known peripheral vascular disease and carotid disease both requiring intervention. Status: Acute Qualifiers: Heart failure type: unspecified Heart failure chronicity: acute Qualified Code(s): I50.9 - Heart failure, unspecified (4) Atrial fibrillation with RVR: New A. fib. A. fib with RVR presentation. So far rates have stayed good. Continue metoprolol. Aspirin, but monitor blood counts due to anemia, iron deficiency. Not yet candidate for anticoagulation due to worsening anemia. In a patient without a known history of atrial fibrillation. Most likely secondary to acute pulmonary issues from CHF and COPD plus or minus acute infection. Also within the differential is acute coronary syndrome, thromboembolic event, metabolic abnormalities among others. Status: Acute (5) COPD (chronic obstructive pulmonary disease): COPD exacerbation: Improving. Decrease IV steroid dose. Slightly better air entry. No wheezing. Weaned off NIV. Antibiotics as above. Breathing treatments. Sputum cultures if possible. Chronically on 5 L of oxygen by nasal cannula as well as on chronic steroid therapy, former smoker, acutely exacerbated secondary to above. Looking at ABG her has chronic hypercapnia and hypoxemia. Status: Chronic Qualifiers: COPD type: emphysema Emphysema type: unspecified Qualified Code(s): J43.9 - Emphysema, unspecified (6) Fall: Most likely vasovagal. Given jerking movements cannot rule out seizure. Patient does have history of seizures in the past along with strokes. Check MRI head and neck with and without contrast. We will monitor for seizure if needed will load with [employer]. For now monitor. Status: Acute (7) Recurrent falls: Patient reports right-sided weakness with ambulation of approximately 6 months duration. He has had falls intermittently since then that have been more prominent lately. 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 Status: Acute (8) Prostate cancer: Following with Dr. Masood Hines, has been on antiandrogen therapy with initial good response from PSA standpoint on review of records although missed treatment at least once this fall Status: Chronic (9) ASHD (arteriosclerotic heart disease): With prior bypass and percutaneous intervention. Status: Chronic (10) Non-ST elevation CT (NSTEMI): Suspected demand ischemia secondary atrial fibrillation with RVR, hypoxia, although cannot rule out type I event. He does not have any chest pain or pressure. Possible Q waves in V1, V2. We will benefit from stress test once respiratory status improves. Discussed with him and his . With worsening echo chronic anemia, hemoglobin 7.8, iron deficiency, unclear when last colonoscopy was, reports recurrent anemia without identified source, risk of bleeding with anticoagulation. Continues on aspirin which she is tolerating so far. Continue beta-ghislaine, statin. Appreciate cardiology recommendations regarding additional risk stratification. Cannot entirely rule out type I process, but most likely type II process from demand ischemia related to hypoxemia, anemia and possibly other episodes of tachycardia arrhythmia like we have seen this evening. Has been sometime since he has had cardiac evaluation and he does have risk factors for recurrent disease so unable to presently rule out type I process. Status: Acute (11) Anemia: Iron deficiency anemia. Received 1 unit PBC transfusion given concern for underlying cardiac disease and anemia. states he has had upper and lower endoscopy previously. Recurrent episodes of anemia, without finding of the cause. Discussed consideration of referral for repeat endoscopy once he is more stable, and if no bleeding source id entified, consideration of referral for capsule endoscopy, then possibly deep enteroscopy. Hemoccult requested, follow-up. Atrial fibrillation, but for now only aspirin given acute anemia. However, if further declining hemoglobin, may have to hold aspirin as well. Discussed with him would benefit from endoscopic evaluation once his overall condition improves. Also anemia of chronic disease. Status: Acute Qualifiers: Anemia type: iron deficiency Iron deficiency anemia type: other iron deficiency Qualified Code(s): D50.8 - Other iron deficiency anemias Additional A&P Information Plan for day: Switch antibiotics to imipenem. Stop vancomycin. Start Levaquin. Oxygen supplementation keeping saturation over 88%. Check MRI head and neck given fall today, history of recurrent strokes in the past. Swallow evaluation. Continue with aggressive chest PT. Continue with IV Lasix. Wean steroids to 20 mg twice daily. Full code. Protonix for PUD prophylaxis. Heparin for DVT prophylaxis. Attestations Medical Necessity Statement*: Requires further hospitalization for hypoxic respiratory failure secondary to COPD exacerbation, pneumonia, congestive heart failure Time Spent in Patient Care: Greater than 35 minutes (>than 50% of time spent in counselling and/or direct pt care on unit) . 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 [employer] Diagnoses Acute respiratory failure with hypoxia J96.01 Pneumonia J18.9 Laterality: right Lung location: middle lobe of lung Pneumonia type: due to unspecified organism CHF (congestive heart failure) I50.9 Heart failure type: unspecified Heart failure chronicity: acute Atrial fibrillation with RVR I48.91 COPD (chronic obstructive pulmonary disease) J43.9 COPD type: emphysema Emphysema type: unspecified Fall W19.XXXA Recurrent falls R29.6 Prostate cancer C61 ASHD (arteriosclerotic heart disease) I25.10 Non-ST elevation CT (NSTEMI) I21.4 Anemia D50.8 Anemia type: iron deficiency Iron deficiency anemia type: other iron deficiency
[2021-06-04] MEDS: heparin 5,000 unit/mL INJ 1 mL 5000 UNIT SUBCUT (17:58)
[2021-06-04] MEDS: atorvastatin 40 mg Tablet PO (21:00)
[2021-06-05] VITALS (17 sets, daily range): BP systolic 94–131; BP diastolic 46–65; PULSE 60–73; RESP 16–28; TEMP 36.7–36.8; O2SAT 84–96
[2021-06-05] MEDS: ipratropium-albuterol 3 mL Neb INHALATION ×4 (03:02→20:28)
[2021-06-05] MEDS: levoFLOXacin 500 mg Tablet PO (06:11)
[2021-06-05] MEDS: heparin 5,000 unit/mL INJ 1 mL 5000 UNIT SUBCUT ×2 (06:12→18:21)
[2021-06-05] MEDS: ferrous sulfate EC 325 mg Tablet PO ×3 (06:14→18:21)
[2021-06-05 06:50] LABS: Basophils # 0.1 10^3/uL (0.0-0.1); Basophils % 0.4 %; Eosinophils # 0.3 10^3/uL (0.0-0.8); Eosinophils % 1.3 %; Hematocrit 33.9 % (42.0-52.0); Hemoglobin 9.7 g/dL (11.7-16.6); Lymphocytes # 1.7 10^3/uL (0.8-4.8); Lymphocytes % 8.1 %; Mean Corpuscular HGB Conc 28.6 g/dL (30.0-36.0); Mean Corpuscular Hemoglobin 26.7 pg (28.0-34.0); Mean Corpuscular Volume 93.4 fl (80-94); Mean Platelet Volume 9.8 fL (7.4-10.4); Monocytes # 1.5 10^3/uL (0.2-0.9); Monocytes % 7.1 %; Neutrophils # 16.49 10^3/uL (1.8-7.7); Neutrophils % 78.3 %; Nucleated Red Blood Cells % 0 %; Platelet Count 373 10^3/cmm (130-400); Red Blood Count 3.63 10^6/uL (4.1-5.3); Red Cell Distribution Width 17.3 % (12.1-15.1); White Blood Count 21.1 10^3/uL (4.0-10.0)
[2021-06-05 07:06] LABS: Alanine Aminotransferase 19 U/L (0-41); Albumin Level 3.6 g/dL (3.5-5.2); Alkaline Phosphatase 63 IU/L (40-130); Anion Gap 14.7 (5-19); Aspartate Amino Transferase 14 U/L (0-40); Blood Urea Nitrogen 35 mg/dL (8-23); Carbon Dioxide 35 mmol/L (22-29); Chloride 94 mmol/L (98-107); Globulin 2.9 g/dL (1.3-4.6); Glucose 84 mg/dL (65-115); Osmolality Calculated 297 mOsm/kg (285-295); Potassium 3.7 mmol/L (3.5-5.1); Sodium 140 mmol/L (136-145); Total Bilirubin 0.3 mg/dL (0.15-1.2); Total Protein 6.5 g/dL (6.6-8.7)
[2021-06-05] MEDS: finasteride 5 mg Tablet PO (08:31)
[2021-06-05] MEDS: tamsulosin 0.4 mg Capsule PO (08:31)
[2021-06-05] MEDS: metoprolol tartrate 25 mg Tablet PO (08:31)
[2021-06-05] MEDS: pantoprazole DR 40 mg Tablet PO (08:31)
[2021-06-05] MEDS: sertraline 50 mg Tablet 150 MG PO (08:31)
[2021-06-05] MEDS: potassium chloride ER 20 mEq Tablet PO ×2 (08:31→16:11)
[2021-06-05] MEDS: docusate sodium 100 mg Capsule PO ×2 (08:31→18:21)
[2021-06-05] MEDS: aspirin 325 mg EC Tablet PO (08:31)
[2021-06-05] MEDS: nystatin cream 30 gm 1 APPLIC TOPICAL ×2 (08:32→18:22)
--- NOTE | 2021-06-05 08:45 | PC.NURSE ---
Nurse and CAP MACHINE OPERATOR walked into patient's room. CAP MACHINE OPERATOR was taking vitals and reported that patient's O2 was 54%. Nurse notified RT, Oumou. Noticed that patient's nasal cannula was not plugged into the wall and the oxygen was not turned on. Nurse turned on the oxygen and the patient's O2 got up to 90%. RT came and checked on him. Reported incident to Charge nurse and to nurse manager meeting.
[2021-06-05] MEDS: FUROsemide 10 mg/mL SDV 4mL 40 MG IVP ×2 (09:21→15:41)
--- NOTE | 2021-06-05 09:35 | PC.CHAP ---
Pastoral Care Encounter/Spiritual Assessment Type of Contact [] Declined church communications administrator visit [] Patient/Family/Request visit [] Outpatient visit [] Follow-up visit [] Physician referral [] Code/Alert [x] Routine visit [] Staff referral [] Actively dying [] Patient sleeping [] Family support [] [] Out of room [] Palliative care [] [] Receiving care in room [] Pre-surgical visit [] Trauma [] Long length of stay [] ICU visit [] Other: Relational/Emotional Strength [x] Patient feels connected with others/family/visitors/staff [] Distress [] Loneliness/isolation [] Abandonment Spirituality of Patient [x] Person of Salome [] Attends Methodist of their Salome [x] Believes in Prayer [] Reads Bible or Confucianism materials [] There are Spiritual issues to be addressed Electronics Processing Supervisor Interventions [x] Prayer [x] Active listening [x] Non-anxious presence [x] Spiritual/emotional support [] Crisis/trauma care [] Spiritual counseling [] Bereavement support [] Provided bereavement packet [] Provided Bible/devotional materials [] Provided toy/stuffed animal, coloring book to patient or family member [] Provided Communion [] Anointing/[place] [] Salvation [x] Completed spiritual assessment [] Other: Impact on Illness or Injury [] Angry [] Fearful [] Anxious [] Often cries [] Exhaustion [] Unable to work [] Unable to attend pentecostalism [] Unable to walk/stand [] Unable to read [] Unable to drive [] Unable to eat/drink [] Unable to sleep [] Unable to be with family [] Patient intubated [] Other: Summary Pt looking good and stated he feels pretty well. He is expecting his to arrive soon. She has been with him daily from 9 to 7:30 coming from outside the replaced by [facility]. He has a total of 8 children from two marriages and many grand children and great grandchildren. Some live close and others live out of state. He is retired from the [employer] spending 32 years in the [place]. He attends a small judaism in his community and welcomed the shane of prayer. Time spent with patient
[2021-06-05] MEDS: budesonide 0.5 mg/2 mL Neb INHALATION ×2 (09:44→20:28)
[2021-06-05] MEDS: sodium chloride 3.5% neb 4 mL Neb INHALATION ×2 (09:44→20:29)
--- NOTE | 2021-06-05 09:56 | FL_ITS ---
WS: [id number] MODIFIED BARIUM SWALLOW TECHNIQUE: Modified barium swallow with speech therapy using multiple consistencies. FLUOROSCOPY TIME: 2.6 minutes. CLINICAL INFORMATION: Oropharyngeal dysphagia COMPARISON: None. FINDINGS: Multiple consistencies utilized. No difficulties with barium tablet. Small amount of penetration and aspiration with thin liquids. Delayed oropharyngeal phase. FL/FL barium swallow modifd 60988 IMPRESSION: Small amount of penetration and aspiration with thin liquids with cup drinking.
[2021-06-05] MEDS: magnesium hydroxide 30 mL UDC PO (16:11)
--- NOTE | 2021-06-05 16:35 | P.PN_ITS ---
Subjective Subjective: Interval history: No events overnight. Today morning patient was found to be having a saturation of 60% but was found to be not hooked to oxygen. On putting back on appropriate oxygen level recovered within a few minutes to high 80s. Patient was asymptomatic. While working with physical therapy once his saturations were better later in the day he did have an episode of jerky movements of all four limbs. As per the nursing staff and physical therapist present during the event patient did not lose consciousness or did not have any bowel or bladder incontinence or confusion post episode along with no frothing from the mouth. Patient has remained hemodynamically stable and afebrile. Medications: Reviewed: Yes Vitals/I&O/Wt Last Vital Signs Temp 98.3 F 06/05/21 12:00 Pulse 71 06/05/21 15:45 Resp 18 06/05/21 15:45 BP 131/61 06/05/21 13:38 Pulse Ox 88 L 06/05/21 15:45 06/05/21 06/05/21 06/05/21 06:59 14:59 22:59 Intake Total 580 / 1450 750 / 750 Output Total 1500 / 1500 Balance -920 / -50 750 / 750 Weight last 48 hrs Weight 81.284 kg Physical Exam Narrative: EXAM NARRATIVE: [facility] Const: COMMON NORMALS: no acute distress, patient oriented x3 and alert GENERAL APPEARANCE: cooperative ORIENTATION/CONSCIOUSNESS: Yes awake HENMT: COMMON NORMALS: oropharynx normal Neck/C-Spine: COMMON NORMALS: no JVD Resp: COMMON NORMALS: normal respiratory effort AUSCULTATION: diminished lung sounds (Improving) OTHER: Coarse breathing sounds. Cardio: COMMON NORMALS: no JVD, regular rhythm, S1 normal heart sound present, S2 normal heart sound present and No murmurs present (Cardio) RHYTHM: regular rhythm HEART SOUNDS: S1 normal heart sound present and S2 normal heart sound present GI: COMMON NORMALS: Normal to inspection, nondistended, normoactive bowel sounds present, Soft to palpation and non-tender PALPATION: Yes Soft to palpation Extremity: COMMON NORMALS: no joint enlargement and no pedal edema GENERAL: Yes edema (trace) Neuro: COMMON NORMALS: patient oriented x3 and moves all extremities SENS ORIUM/ORIENTATION: Yes alert Skin: COMMON NORMALS: no rashes or lesions noted GENERAL SKIN EXAM: no rashes or lesions noted Urinary Catheter Management^: Skinner: Cath Placed During This Visit: yes Reason for Continuing Indwelling Catheter: Other Urinary Catheter Date of Insertion: 05/30/21 Urinary Catheter Time of Insertion: 13:50 Data : 06/05/21 05:36 06/05/21 05:36 A&P Assessment and plan (1) Acute respiratory failure with hypoxia: Most likely a combination of congestive heart failure along with right lower lobe pneumonia causing COPD exacerbation. Chronically on 4 L oxygen supplementation Cannot rule out chronic aspiration. Incentive spirometry, flutter valve, chest PT. Aggressive pulmonary toilet. If not improving will consider consulting pulmonology for possible bronchoscopy. Continue Levaquin and imipenem. Last dose of Levaquin on 06/09. Last dose of imipenem on 06/06. Patient has been on broad-spectrum antibiotic coverage since admission for last 6 days now. Check modified barium swallow. Concerns for aspiration on bedside swallow evaluation. For now continue with mechanical soft diet. Will change diet accordingly. Status: Acute (2) Pneumonia: As above. Pending additional assessment for aspiration. Negative COVID-19 PCR. Requested sputum culture, negative urine bacterial antigens. Status: Acute Qualifiers: Laterality: right Lung location: middle lobe of lung Pneumonia type: due to unspecified organism Qualified Code(s): J18.9 - Pneumonia, unspecified organism (3) CHF (congestive heart failure): Continue IV Lasix 40 mg 3 times daily. Monitor I&O. Fluid restriction up to 1500 cc. Add one dose of metolazone 5 mg once. Echocardiogram results appreciated with global of ventricular hypokinesis, with moderately decreased left ventricular systolic function, EF 45-50%, grade 2 diastolic dysfunction, moderately increased left atrial size, moderately thickened mitral valve, mild-moderate MVR, severe aortic valve calcification, moderate aortic valve stenosis, mean gradient 14.4, RENY 1 cm, mild AVR. Right ventricle normal size and function. No pericardial effusion. Compared to prior study moderate to severe aortic valve stenosis new. Denies chest pain or pressure. Troponins abnormal, but also with episode of A. fib with RVR. Stress test when respiratory condition improves. Has a known history of coronary artery disease with prior CABG and percutaneous intervention as well as known peripheral vascular disease and carotid disease both requiring intervention. Status: Acute Qualifiers: Heart failure type: unspecified Heart failure chronicity: acute Qualified Code(s): I50.9 - Heart failure, unspecified (4) Atrial fibrillation with RVR: New A. fib. A. fib with RVR presentation. So far rates have stayed good. Continue metoprolol. Aspirin, but monitor blood counts due to anemia, iron deficiency. Not yet candidate for anticoagulation due to worsening anemia. In a patient without a known history of atrial fibrillation. Most likely s econdary to acute pulmonary issues from CHF and COPD plus or minus acute infection. Also within the differential is acute coronary syndrome, thromboembolic event, metabolic abnormalities among others. Status: Acute (5) COPD (chronic obstructive pulmonary disease): COPD exacerbation: Improving. Decrease IV steroid dose. Slightly better air entry. No wheezing. Weaned off NIV. Antibiotics as above. Breathing treatments. Sputum cultures if possible. Chronically on 5 L of oxygen by nasal cannula as well as on chronic steroid therapy, former smoker, acutely exacerbated secondary to above. Looking at ABG her has chronic hypercapnia and hypoxemia. Status: Chronic Qualifiers: COPD type: emphysema Emphysema type: unspecified Qualified Code(s): J43.9 - Emphysema, unspecified (6) Fall: Event less likely seizures. 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 Check orthostatics. Compression stockings. Physical therapy evaluation. Status: Acute (7) Recurrent falls: Patient reports right-sided weakness with ambulation of approximately 6 months duration. He has had falls intermittently since then that have been more prominent lately. 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 Status: Acute (8) Prostate cancer: Following with Dr. Masood Hines, has been on antiandrogen therapy with initial good response from PSA standpoint on review of records although missed treatment at least once this fall Status: Chronic (9) ASHD (arteriosclerotic heart disease): With prior bypass and percutaneous intervention. Status: Chronic (10) Non-ST elevation PA (NSTEMI): Suspected demand ischemia secondary atrial fibrillation with RVR, hypoxia, although cannot rule out type I event. He does not have any chest pain or pressure. Possible Q waves in V1, V2. We will benefit from stress test once respiratory status improves. Discussed with him and his . With worsening echo chronic anemia, hemoglobin 7.8, iron deficiency, unclear when last colonoscopy was, reports recurrent anemia without identified source, risk of bleeding with anticoagulation. Continues on aspirin which she is tolerating so far. Continue beta-ghislaine, statin. Appreciate cardiology recommendations regarding additional risk stratification. Cannot entirely rule out type I process, but most likely type II process from demand ischemia related to hypoxemia, anemia and possibly other episodes of tachycardia arrhythmia like we have seen this evening. Has been sometime since he has had cardiac evaluation and he does have risk factors for recurrent disease so unable to presently rule out type I process. Status: Acute (11) Anemia: Iron deficiency anemia. Received 1 unit PBC transfusion given concern for underlying cardiac disease and anemia. states he has had upper and lower endoscopy previously. Recurrent episodes of anemia, without finding of the cause. Discussed consideration of referral for repeat endoscopy once he is more stable, and if no bleeding source identified, consideration of referral for capsule endoscopy, then possibly deep enteroscopy. Hemoccult requested, follow-up. Atrial fibrillation, but for now only aspirin given acute anemia. However, if further declining hemoglobin, may have to hold aspirin as well. Discussed with him would benefit from endoscopic evaluation once his overall condition improves. Also anemia of chronic disease. Status: Acute Qualifiers: Anemia type: iron deficiency Iron deficiency anemia type: other iron deficiency Qualified Code(s): D50.8 - Other iron deficiency anemias Additional A&P Information Plan for day: Continue with imipenem and Levaquin. Last dose of meropenem tomorrow. Check orthostatics. Modified barium swallow. Change diet accordingly. Continue with IV Lasix. One dose of metolazone. Target 1 L neg ative. Oxygen supplementation keeping saturation in high 80s. Continue with aggressive chest PT. Continue with Solu-Medrol 20 mg twice daily. Out of bed to chair. . Full code. Protonix for PUD prophylaxis. Heparin for DVT prophylaxis. Attestations Medical Necessity Statement*: Requires further hospitalization for management of severe hypoxia secondary to a combination of congestive heart failure and COPD exacerbation in setting of aspiration pneumonia, recurrent falls in setting of history of stroke Time Spent in Patient Care: Greater than 35 minutes (>than 50% of time spent in counselling and/or direct pt care on unit) . Coding Level of Care Code Acute Card Hand for Sunita Martínez Diagnoses Acute respiratory failure with hypoxia J96.01 Pneumonia J18.9 Laterality: right Lung location: middle lobe of lung Pneumonia type: due to unspecified organism CHF (congestive heart failure) I50.9 Heart failure type: unspecified Heart failure chronicity: acute Atrial fibrillation with RVR I48.91 COPD (chronic obstructive pulmonary disease) J43.9 COPD type: emphysema Emphysema type: unspecified Fall W19.XXXA Recurrent falls R29.6 Prostate cancer C61 ASHD (arteriosclerotic heart disease) I25.10 Non-ST elevation PA (NSTEMI) I21.4 Anemia D50.8 Anemia type: iron deficiency Iron deficiency anemia type: other iron deficiency
[2021-06-05] MEDS: metOLazone 5 MG Tablet PO (18:21)
--- NOTE | 2021-06-05 18:58 | P.PN_ITS ---
Subjective Subjective: Interval history: Patient had another episode of seizure-like activity today as he was getting up to do the physical therapy. The oxygen saturation is around 86% on 6-1/2 L of oxygen by nasal cannula. He has some sharp chest pains lasting for few seconds on the right side of the chest. He has been having similar pains off and on. Medications: Reviewed: Yes Medication Review Details: Current Medications Acetaminophen (Acetaminophen 325 Mg Tablet) 650 mg PO Q6H PRN PRN Reason: Mild/Mod Pain Or Temp >/= 101 Albuterol/Ipratropium (Ipratropium-Albuterol 3 Ml Neb) 3 ml INHALATION Q6H.RESPIRATORY JO Last Admin: 06/05/21 15:53 Dose: 3 ml Documented by: Albuterol/Ipratropium (Ipratropium-Albuterol 3 Ml Neb) 3 ml INHALATION Q4H PRN PRN Reason: SHORTNESS OF BREATH Last Admin: 06/01/21 19:54 Dose: 3 ml Documented by: Aspirin (Aspirin 325 Mg Ec Tablet) 325 mg PO DAILY JO Last Admin: 06/05/21 08:31 Dose: 325 mg Documented by: Atorvastatin Calcium (Atorvastatin 40 Mg Tablet) 40 mg PO BEDTIME JO Last Admin: 06/04/21 21:00 Dose: 40 mg Documented by: Bisacodyl (Bisacodyl 5 Mg Tablet) 10 mg PO DAILY PRN; Protocol PRN Reason: Constipation (see protocol) Budesonide (Budesonide 0.5 Mg/2 Ml Neb) 0.5 mg INHALATION BID.RESPIRATORY JO Last Admin: 06/05/21 09:44 Dose: 0.5 mg Documented by: Docusate Sodium (Docusate Sodium 100 Mg Capsule) 100 mg PO BID JO Last Admin: 06/05/21 18:21 Dose: 100 mg Documented by: Ferrous Sulfate (Ferrous Sulfate Ec 325 Mg Tablet) 325 mg PO TIDAC JO Last Admin: 06/05/21 18:21 Dose: 325 mg Documented by: Finasteride (Finasteride 5 Mg Tablet) 5 mg PO DAILY JO Last Admin: 06/05/21 08:31 Dose: 5 mg Documented by: Furosemide (Furosemide 10 Mg/Ml Sdv 4ml) 40 mg IVP BID@ JO Last Admin: 06/05/21 15:41 Dose: 40 mg Documented by: Heparin Sodium (Porcine) (Heparin 5,000 Unit/Ml Inj 1 Ml) 5,000 unit SUBCUT Q12H [facility] Last Admin: 06/05/21 18:21 Dose: 5,000 unit Documented by: Imipenem/Cilastatin Sodium 500 (mg/ Sodium Chloride) 100 mls @ 200 mls/hr IV Q8H [facility]; Protocol Stop: 06/06/21 23:59 Last Infusion: 06/05/21 18:31 Dose: Infused Documented by: Levofloxacin (Levofloxacin 500 Mg Tablet) 500 mg PO DAILY@0600 [facility]; Protocol Stop: 06/09/21 12:09 Last Admin: 06/05/21 06:11 Dose: 500 mg Documented by: Methylprednisolone Sodium Succinate (Methylprednisolone Sod Succ 40 Mg/Ml Inj) 20 mg IVP Q12H [facility] Last Admin: 06/05/21 18:37 Dose: 20 mg Documented by: Metoprolol Tartrate (Metoprolol Tartrate 25 Mg Tablet) 25 mg PO BID@0900,2100 [facility] Last Admin: 06/05/21 08:31 Dose: 25 mg Documented by: Nystatin (Nystatin Cream 30 Gm) 1 applic TOPICAL BID [facility] Last Admin: 06/05/21 18:22 Dose: 1 applic Documented by: Ondansetron HCl (Ondansetron 2 Mg/Ml Sdv 2 Ml) 4 mg IVP Q8H PRN PRN Reason: vomiting, or N/V if npo Pantoprazole Sodium (Pantoprazole Dr 40 Mg Tablet) 40 mg PO DAILY [facility] Last Admin: 06/05/21 08:31 Dose: 40 mg Documented by: Potassium Chloride (Potassium Chloride Er 20 Meq Tablet) 20 meq PO BID@14 [facility] Last Admin: 06/05/21 16:11 Dose: 20 meq Documented by: Sertraline HCl (Sertraline 50 Mg Tablet) 150 mg PO DAILY [facility] Last Admin: 06/05/21 08:31 Dose: 150 mg Documented by: Sodium Chloride (Sodium Chloride 3.5% Neb 4 Ml Neb) 4 ml INHALATION BID.RESPIRATORY [facility] Last Admin: 06/05/21 09:44 Dose: 4 ml Documented by: Tamsulosin HCl (Tamsulosin 0.4 Mg Capsule) 0.4 mg PO DAILY [facility] Last Admin: 06/05/21 08:31 Dose: 0.4 mg Documented by: Vitals/I&O/Wt Last Vital Signs Temp 98.1 F 06/05/21 16:00 Pulse 65 06/05/21 16:00 Resp 28 H 06/05/21 16:00 BP 118/64 06/05/21 16:00 Pulse Ox 84 L 06/05/21 16:00 06/05/21 06/05/21 06/05/21 06:59 14:59 22:59 Intake Total 580 / 1450 750 / 750 100 / 850 Output Total 1500 / 1500 300 / 300 Balance -920 / -50 750 / 750 -200 / 550 Weight last 48 hrs Weight 179 lb 3.2 oz Physical Exam Narrative: EXAM NARRATIVE: GENERAL: The patient is alert and oriented times three. Not in any acute distress. HEENT: Moderate pallor. No icterus or lymphadenopathy.Oral cavity: There are no mucous membrane lesions. NECK: Trachea appears to be central. No masses noted. No JVD or thyromegaly appreciated. Carotid bruit on the right side. RESPIRATORY: Chest is symmetrical. No intercostals muscle retraction or any accessory muscle activation. There is no chest wall tenderness. Breath sounds are heard bilaterally. No rales or rhonchi. The intensity of the breath sounds are somewhat diminished in the bases BREASTS: Deferred. HEART: The heart sounds are normal. No S3 or S4. Short systolic murmur in the left sternal border. No diastolic murmurs. No pericardial rub ABDOMEN: No vessel pulsations or distention. No tenderness. No organomegaly appreciated. Bowel sounds are normally heard. : Deferred. RECTAL: Deferred. LYMPHATIC: No lymphadenopathy noted in the neck or groin. EXTREMITIES: Trace edema with no cyanosis. MUSCULOSKELETAL: No acute joint deformities or swelling SKIN: There are no significant rashes or ecchymosis NEUROPSYCHIATRIC: The patient is alert and oriented x3. Appears to be in a good mood. No tremors or rigidity noted. Urinary Catheter Management^: [place]: Cath Placed During This Visit: yes, but has since been removed by the nurse Reason for Continuing Indwelling Catheter: Acute Urinary Retention or Obstruction Urinary Catheter Date of Insertion: 05/30/21 Urinary Catheter Time of Insertion: 13:50 Date Urinary Catheter Removed: 06/05/21 Time Urinary Catheter Discontinued: 18:16 Data : 06/05/21 05:36 06/05/21 05:36 Other Labs: Laboratory Last Values WBC 21.1 10^3/uL (4.0-10.0) H 06/05/21 05:36 RBC 3.63 10^6/uL (4.1-5.3) L 06/05/21 05:36 Hgb 9.7 g/dL (11.7-16.6) L 06/05/21 05:36 Hct 33.9 % (42.0-52.0) L 06/05/21 05:36 MCV 93.4 fl (80-94) 06/05/21 05:36 MCH 26.7 pg (28.0-34.0) L 06/05/21 05:36 MCHC 28.6 g/dL (30.0-36.0) L 06/05/21 05:36 RDW 17.3 % (12.1-15.1) H 06/05/21 05:36 Plt Count 373 10^3/cmm (130-400) 06/05/21 05:36 MPV 9.8 fL (7.4-10.4) 06/05/21 05:36 Neut % (Auto) 78.3 % 06/05/21 05:36 Lymph % (Auto) 8.1 % 06/05/21 05:36 [place] % (Auto) 7.1 % 06/05/21 05:36 Eos % (Auto) 1.3 % 06/05/21 05:36 Baso % (Auto) 0.4 % 06/05/21 05:36 Neut # (Auto) 16.49 10^3/uL (1.8-7.7) H 06/05/21 05:36 Lymph # (Auto) 1.7 10^3/uL (0.8-4.8) 06/05/21 05:36 [place] # (Auto) 1.5 10^3/uL (0.2-0.9) H 06/05/21 05:36 Eos # (Auto) 0.3 10^3/uL (0.0-0.8) 06/05/21 05:36 Baso # (Auto) 0.1 10^3/uL (0.0-0.1) 06/05/21 05:36 Nucleated RBC % (auto) 0 % 06/05/21 05:36 Nucleated RBCs # 0.0 /100WBC 06/05/21 05:36 PT 15.40 SECONDS (12.1-14.9) H 05/30/21 06:48 INR 1.19 (0.8-1.2) 05/30/21 06:48 APTT 42.2 SECONDS (23.9-36.7) H 05/30/21 06:48 D-Dimer 0.91 ug/mIFEU (0-0.59) H 06/01/21 18:00 Specimen Type Arterial 06/04/21 13:35 Sample Site Radial, left 06/04/21 13:35 ABG pH 7.50 (7.35-7.45) H 06/04/21 13:35 ABG pCO2 52.5 mmHg (35-45) H 06/04/21 13:35 ABG pO2 63.6 mmHg (80.0-100.0) L 06/04/21 13:35 ABG HCO3 40.8 mmol/L (22-26) H 06/04/21 13:35 ABG O2 Saturation 94.6 06/04/21 13:35 ABG Base Excess 15.6 mmol/L (-2.0-2.0) H 06/04/21 13:35 Miguel Angel Test Pos 06/04/21 13:35 A-a O2 Gradient 3.0 mmHg (5-10) L 06/04/21 13:35 Hematocrit 29.6 % (42-52) L 06/04/21 13:35 Hgb O2 Saturation 93.3 % (95-100) L 06/04/21 13:35 Carboxyhemoglobin 1.3 %THgb (0.4-20.1) 06/04/21 13:35 Methemoglobin 0.1 % (0.4-1.5) L 06/04/21 13:35 Total Hemoglobin 9.7 g/dL (14-18) L 06/04/21 13:35 Sodium 142.0 mmol/L (131-143) 06/04/21 13:35 Potassium 3.8 mmol/L (3.5-5.0) 06/04/21 13:35 Glucose 120.0 mg/dL (70-115) H 06/04/21 13:35 Ionized Calcium 1.2 mmol/L (1.1-1.4) 06/04/21 13:35 O2 Delivery Device Nc 06/04/21 13:35 O2 Liters/Min 9.0 % 06/04/21 13:35 Industrial Welder ID Kelly 06/04/21 13:35 Sodium 140 mmol/L (136-145) 06/05/21 05:36 Potassium 3.7 mmol/L (3.5-5.1) 06/05/21 05:36 Chloride 94 mmol/L (98-107) L 06/05/21 05:36 Carbon Dioxide 35 mmol/L (22-29) H 06/05/21 05:36 Anion Gap 14.7 (5-19) 06/05/21 05:36 BUN 35 mg/dL (8-23) H 06/05/21 05:36 Creatinine 0.9 mg/dL (0.7-1.2) 06/05/21 05:36 GFR Calculation Not Reportable 06/05/21 05:36 Glucose 84 mg/dL (65-115) 06/05/21 05:36 Calculated Osmolality 297 mOsm/kg (285-295) H 06/05/21 05:36 Calcium 9.0 mg/dL (8.5-10.5) 06/05/21 05:36 Phosphorus 3.1 mg/dL (2.5-4.5) 05/30/21 06:48 Magnesium 2.0 mg/dL (1.7-2.3) 05/30/21 06:48 Iron 36 ug/dL (59-158) L 06/04/21 04:12 TIBC 310 mcg/dl 06/04/21 04:12 % Saturation 11.6 % (20-50) L 06/04/21 04:12 Unsat Iron Binding 274 ug/dL (112-347) 06/04/21 04:12 Total Bilirubin 0.3 mg/dL (0.15-1.2) 06/05/21 05:36 AST 14 U/L (0-40) 06/05/21 05:36 ALT 19 U/L (0-41) 06/05/21 05:36 Alkaline Phosphatase 63 IU/L (40-130) 06/05/21 05:36 Troponin T Baseline 201 ng/L (0-15) H* 05/29/21 18:50 Troponin T 120 Minute 216.6 ng/L (0-15) H 05/29/21 20:46 Delta Troponin T 15.6 ABS# (0-10) H* 05/29/21 20:46 Troponin T Hi Sens 6Hr 272.4 ng/L (0-15) H 05/30/21 00:41 Troponin T Hi Sens 6Hr Delta 71.4 ng/L (0-12) H* 05/30/21 00:41 NT-Pro-B Natriuret Pep 2018 pg/mL (0-450) H 06/04/21 04:12 Total Protein 6.5 g/dL (6.6-8.7) L 06/05/21 05:36 Albumin 3.6 g/dL (3.5-5.2) 06/05/21 05:36 Globulin 2.9 g/dL (1.3-4.6) 06/05/21 05:36 Triglycerides 89 mg/dL (0-150) 05/30/21 06:48 Cholesterol 123 mg/dL (0-200) 05/30/21 06:48 LDL Cholesterol, Calc 59 mg/dL (50-129) 05/30/21 06:48 HDL Cholesterol 46 mg/dL (60-100) L 05/30/21 06:48 LDL/HDL Ratio 1.28 RATIO (0.00-3.22) 05/30/21 06:48 Cholesterol/HDL Ratio 2.67 mg/dL (1.0-5.00) 05/30/21 06:48 Prostate Specific Ag 67.710 ng/mL (0-4) H 05/30/21 00:41 Procalcitonin 0.04 ng/mL (0-0.5) 06/04/21 04:12 TSH 2.25 uIU/mL (0.27-4.20) 05/30/21 06:48 Urine Color Yellow (Yellow) 05/29/21 19:10 Urine Appearance Clear (CLEAR) 05/29/21 19:10 Urine pH 5 (5-7) 05/29/21 19:10 Ur Specific [place] 1.020 (1.005-1.030) 05/29/21 19:10 Urine Protein Trace (Negative) 05/29/21 19:10 Urine Glucose (UA) Norm (Normal) 05/29/21 19:10 Urine Ketones Negative (Negative) 05/29/21 19:10 Urine Blood Neg (Negative) 05/29/21 19:10 Urine Nitrate Negative (Negative) 05/29/21 19:10 Urine Bilirubin Neg (Negative) 05/29/21 19:10 Urine Urobilinogen 1 mg/dL (Negative) H 05/29/21 19:10 Ur Leukocyte Esterase Negative (Negative) 05/29/21 19:10 Urine RBC 0-4 /hpf (0-2) H 05/29/21 19:10 Urine WBC 0-4 /hpf (0-5) H 05/29/21 19:10 Ur Squamous Epith Cells 0-4 /hpf (0-5) H 05/29/21 19:10 Amorphous Sediment Not Reportable 05/29/21 19:10 Urine Bacteria Trace /hpf (NONE) 05/29/21 19:10 Hyaline Casts 0-4 /lpf H 05/29/21 19:10 Urine Mucus Trace /hpf 05/29/21 19:10 Vancomycin Trough 8.5 ug/mL (10-15) L 06/03/21 04:20 Salicylates 1.2 mg/dL (3-10) L 05/29/21 18:40 Acetaminophen < 5.0 ug/mL (10-30) L 05/29/21 18:40 Nasal/Oral COVID-19 PCR Not detected 05/30/21 00:10 SARS-CoV-2 Ag (Rapid) Negative (Negative) 05/30/21 00:15 Blood Type A Positive 06/01/21 12:39 Rho(D) Type Positive 06/01/21 12:39 Antibody Screen Negative 06/01/21 12:39 Crossmatch See Detail 06/01/21 12:39 A&P Assessment and plan (1) Elevated troponin: No discharges during the respiratory status is better stabilized. Te elevated troponin T with a significant delta at the 2 and 6-hour timeframe could be related to type I myocardial infarction. However in view of the atrial fibrillation, severe anemia, heart failure and pneumonia, a type II ID also is a consideration. Hemodynamically seems to be stable. He is currently asymptomatic. For further evaluation of the coronary status, a myocardial perfusion imaging would be appropriate. Because of his oxygenation status, we may hold off on this for a while. Status: Acute (2) Atherosclerosis of coronary artery of [place] heart without angina pectoris: Patient is currently status seems to be stable. He is not complaining of any significant chest pain. Work-up as mentioned above. I will be discussing with the Dr. Otero, about the timing of the stress test Status: Acute Qualifiers: Coronary Disease-Associated Artery/Lesion type: [place] artery Qualified Code(s): I25.10 - Atherosclerotic heart disease of [place] coronary artery without angina pectoris (3) Atrial fibrillation with RVR: Currently the heart rate is under control. Patient may continue on the current medications. Because of the anemia and the frequent fall, patient is not on any oral anticoagulation. Status: Acute (4) CHF (congestive heart failure): The heart failure seems to be getting compensated. Careful diuresis would be appropriate. Status: Acute Qualifiers: Heart failure chronicity: acute Heart failure type: unspecified Qualified Code(s): I50.9 - Heart failure, unspecified (5) Anemia: The etiology is not clear. Patient has history of GI bleed. Advanced Ca of the prostate could be a contributing factor. Patient may benefit from blood transfusion to keep the hemoglobin between 9 and 10. Status: Acute Qualifiers: Anemia type: iron deficiency Iron deficiency anemia type: other iron deficiency Qualified Code(s): D50.8 - Other iron deficiency anemias (6) PVD (peripheral vascular disease): The patient currently has no specific symptoms. May continue on the current measures. 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 No significant stenosis in the right side. 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 Correia Status: Acute (9) Acute respiratory failure with hypoxia: The hypoxia is slowly improving Status: Acute Additional A&P Information Other problems are Seizure disorder Dementia Pneumonia Attestations Medical Necessity Statement*: Disposition as per the primary Coding Level of Care Code Acute Delivery Manager for g Fwd Diagnoses Elevated troponin R77.8 Atherosclerosis of coronary artery of [place] heart without angina pectoris I25.10 Coronary Disease-Associated Artery/Lesion type: [place] artery Atrial fibrillation with RVR I48.91 CHF (congestive heart failure) I50.9 Heart failure chronicity: acute Heart failure type: unspecified Anemia D50.8 Anemia type: iron deficiency Iron deficiency anemia type: other iron deficiency PVD (peripheral vascular disease) I73.9 Carotid artery stenosis I65.21 Laterality: right 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
--- NOTE | 2021-06-05 19:58 | PC.NURSE ---
i reported low o2 85 to nurse she said doctor was ok with it
[2021-06-05] MEDS: atorvastatin 40 mg Tablet PO (20:35)
[2021-06-06] VITALS (16 sets, daily range): BP systolic 105–131; BP diastolic 47–80; PULSE 62–80; RESP 16–23; TEMP 36.6–37.1; O2SAT 85–95
--- NOTE | 2021-06-06 01:08 | PC.NURSE ---
i reported low 02 to nurse 87
[2021-06-06] MEDS: ipratropium-albuterol 3 mL Neb INHALATION ×3 (02:54→20:28)
--- NOTE | 2021-06-06 04:31 | PC.NURSE ---
i reported to nurse low o2 88
[2021-06-06] MEDS: heparin 5,000 unit/mL INJ 1 mL 5000 UNIT SUBCUT ×2 (06:06→17:35)
[2021-06-06] MEDS: ferrous sulfate EC 325 mg Tablet PO ×3 (06:06→17:35)
[2021-06-06] MEDS: levoFLOXacin 500 mg Tablet PO (06:06)
[2021-06-06 06:08] LABS: Hematocrit 31.7 % (42.0-52.0); Hemoglobin 9.3 g/dL (11.7-16.6); Mean Corpuscular HGB Conc 29.3 g/dL (30.0-36.0); Mean Corpuscular Hemoglobin 26.7 pg (28.0-34.0); Mean Corpuscular Volume 91.1 fl (80-94); Mean Platelet Volume 9.2 fL (7.4-10.4); Platelet Count 302 10^3/cmm (130-400); Red Blood Count 3.48 10^6/uL (4.1-5.3); Red Cell Distribution Width 17.2 % (12.1-15.1); White Blood Count 19.7 10^3/uL (4.0-10.0)
[2021-06-06 06:32] LABS: Alanine Aminotransferase 16 U/L (0-41); Albumin Level 3.4 g/dL (3.5-5.2); Alkaline Phosphatase 54 IU/L (40-130); Anion Gap 17.7 (5-19); Aspartate Amino Transferase 13 U/L (0-40); Blood Urea Nitrogen 31 mg/dL (8-23); Calcium 8.4 mg/dL (8.5-10.5); Carbon Dioxide 33 mmol/L (22-29); Chloride 91 mmol/L (98-107); Globulin 2.6 g/dL (1.3-4.6); Glucose 90 mg/dL (65-115); Osmolality Calculated 292 mOsm/kg (285-295); Potassium 3.7 mmol/L (3.5-5.1); Sodium 138 mmol/L (136-145); Total Bilirubin 0.3 mg/dL (0.15-1.2)
[2021-06-06 07:23] LABS: Slide Review Slide Review Perform
[2021-06-06 07:26] LABS: Absolute Eosinophils 0.3 10^3/cmm (0.0-0.7); Absolute Segmented Neutrophil 9.7 10/cmm (1.6-7.1); Band Neutrophils Absolute 5.1 10^3/cmm (0.0-1.2); Eosinophils 2 %; Lymphocytes 14 %; Monocytes Absolute 0.2 10^3/cmm (0.1-0.6); Segmented Neutrophils 49 %; Total Cells Counted 100 (0-100)
[2021-06-06 07:27] LABS: Absolute Neutrophil 14.8 10^3/cmm (1.4-6.5); Platelet Estimate Normal (Normal)
--- NOTE | 2021-06-06 08:33 | PM.PN ---
Subjective Subjective: Interval history: Patient denies any chest pain. Vital signs remained stable. Currently is on 9 L of oxygen by nasal cannula. No fever or chills. Medications: Reviewed: Yes Medication Review Details: Current Medications Acetaminophen (Acetaminophen 325 Mg Tablet) 650 mg PO Q6H PRN PRN Reason: Mild/Mod Pain Or Temp >/= 101 Albuterol/Ipratropium (Ipratropium-Albuterol 3 Ml Neb) 3 ml INHALATION Q6H.RESPIRATORY JO Last Admin: 06/06/21 02:54 Dose: 3 ml Documented by: Albuterol/Ipratropium (Ipratropium-Albuterol 3 Ml Neb) 3 ml INHALATION Q4H PRN PRN Reason: SHORTNESS OF BREATH Last Admin: 06/01/21 19:54 Dose: 3 ml Documented by: Aspirin (Aspirin 325 Mg Ec Tablet) 325 mg PO DAILY JO Last Admin: 06/05/21 08:31 Dose: 325 mg Documented by: Atorvastatin Calcium (Atorvastatin 40 Mg Tablet) 40 mg PO BEDTIME JO Last Admin: 06/05/21 20:35 Dose: 40 mg Documented by: Bisacodyl (Bisacodyl 5 Mg Tablet) 10 mg PO DAILY PRN; Protocol PRN Reason: Constipation (see protocol) Budesonide (Budesonide 0.5 Mg/2 Ml Neb) 0.5 mg INHALATION BID.RESPIRATORY JO Last Admin: 06/05/21 20:28 Dose: 0.5 mg Documented by: Docusate Sodium (Docusate Sodium 100 Mg Capsule) 100 mg PO BID JO Last Admin: 06/05/21 18:21 Dose: 100 mg Documented by: Ferrous Sulfate (Ferrous Sulfate Ec 325 Mg Tablet) 325 mg PO TIDAC JO Last Admin: 06/06/21 06:06 Dose: 325 mg Documented by: Finasteride (Finasteride 5 Mg Tablet) 5 mg PO DAILY JO Last Admin: 06/05/21 08:31 Dose: 5 mg Documented by: Furosemide (Furosemide 10 Mg/Ml Sdv 4ml) 40 mg IVP BID@14 [facility] Last Admin: 06/06/21 07:48 Dose: Not Given Documented by: Heparin Sodium (Porcine) (Heparin 5,000 Unit/Ml Inj 1 Ml) 5,000 unit SUBCUT Q12H JO Last Admin: 06/06/21 06:06 Dose: 5,000 unit Documented by: Imipenem/Cilastatin Sodium 500 (mg/ Sodium Chloride) 100 mls @ 200 mls/hr IV Q8H [facility]; Protocol Stop: 06/06/21 23:59 Last Infusion: 06/06/21 00:15 Dose: Infused Documented by: Levofloxacin (Levofloxacin 500 Mg Tablet) 500 mg PO DAILY@0600 [facility]; Protocol Stop: 06/09/21 12:09 Last Admin: 06/06/21 06:06 Dose: 500 mg Documented by: Methylprednisolone Sodium Succinate (Methylprednisolone Sod Succ 40 Mg/Ml Inj) 20 mg IVP Q12H [facility] Last Admin: 06/06/21 05:45 Dose: 20 mg Documented by: Metoprolol Tartrate (Metoprolol Tartrate 25 Mg Tablet) 25 mg PO BID@0900,2100 [facility] Last Admin: 06/05/21 20:35 Dose: Not Given Documented by: Nystatin (Nystatin Cream 30 Gm) 1 applic TOPICAL BID [facility] Last Admin: 06/05/21 18:22 Dose: 1 applic Documented by: Ondansetron HCl (Ondansetron 2 Mg/Ml Sdv 2 Ml) 4 mg IVP Q8H PRN PRN Reason: vomiting, or N/V if npo Pantoprazole Sodium (Pantoprazole Dr 40 Mg Tablet) 40 mg PO DAILY [facility] Last Admin: 06/05/21 08:31 Dose: 40 mg Documented by: Potassium Chloride (Potassium Chloride Er 20 Meq Tablet) 20 meq PO BID@08,14 [facility] Last Admin: 06/05/21 16:11 Dose: 20 meq Documented by: Sertraline HCl (Sertraline 50 Mg Tablet) 150 mg PO DAILY [facility] Last Admin: 06/05/21 08:31 Dose: 150 mg Documented by: Sodium Chloride (Sodium Chloride 3.5% Neb 4 Ml Neb) 4 ml INHALATION BID.RESPIRATORY [facility] Last Admin: 06/05/21 20:29 Dose: 4 ml Documented by: Tamsulosin HCl (Tamsulosin 0.4 Mg Capsule) 0.4 mg PO DAILY [facility] Last Admin: 06/05/21 08:31 Dose: 0.4 mg Documented by: Vitals/I&O/Wt Last Vital Signs Temp 98.6 F 06/06/21 07:34 Pulse 80 06/06/21 07:34 Resp 16 06/06/21 07:34 BP 114/55 06/06/21 07:34 Pulse Ox 91 06/06/21 07:34 06/05/21 06/06/21 06/06/21 22:59 06:59 14:59 Intake Total 250 / 1000 580 / 1580 Output Total 620 / 620 1065 / 1685 Balance -370 / 380 -485 / -105 Weight last 48 hrs Weight 179 lb 3.2 oz Physical Exam Narrative: EXAM NARRATIVE: GENERAL: The patient is alert and oriented times three. Not in any acute distress. HEENT: Moderate pallor. No icterus or lymphadenopathy.Oral cavity: There are no mucous membrane lesions. NECK: Trachea appears to be central. No masses noted. No JVD or thyromegaly appreciated. Carotid bruit on the right side. RESPIRATORY: Chest is symmetrical. No intercostals muscle retraction or any accessory muscle activation. There is no chest wall tenderness. Breath sounds are heard bilaterally. Scattered coarse crackles the intensity of the breath sounds are somewhat diminished in the bases BREASTS: Deferred. HEART: The heart sounds are normal. No S3 or S4. Short systolic murmur in the left sternal border. No diastolic murmurs. No pericardial rub ABDOMEN: No vessel pulsations or distention. No tenderness. No organomegaly appreciated. Bowel sounds are normally heard. : Deferred. RECTAL: Deferred. LYMPHATIC: No lymphadenopathy noted in the neck or groin. EXTREMITIES: Trace edema with no cyanosis. MUSCULOSKELETAL: No acute joint deformities or swelling SKIN: There are no significant rashes or ecchymosis NEUROPSYCHIATRIC: The patient is alert and oriented x3. Appears to be in a good mood. No tremors or rigidity noted. Urinary Catheter Management^: Skinner: Cath Placed During This Visit: yes, but has since been removed by the nurse Reason for Continuing Indwelling Catheter: Acute Urinary Retention or Obstruction Urinary Catheter Date of Insertion: 05/30/21 Urinary Catheter Time of Insertion: 13:50 Date Urinary Catheter Removed: 06/05/21 Time Urinary Catheter Discontinued: 18:16 Data : 06/06/21 05:44 06/06/21 05:44 Other Labs: Laboratory Last Values WBC 19.7 10^3/uL (4.0-10.0) H 06/06/21 05:44 RBC 3.48 10^6/uL (4.1-5.3) L 06/06/21 05:44 Hgb 9.3 g/dL (11.7-16.6) L 06/06/21 05:44 Hct 31.7 % (42.0-52.0) L 06/06/21 05:44 MCV 91.1 fl (80-94) 06/06/21 05:44 MCH 26.7 pg (28.0-34.0) L 06/06/21 05:44 MCHC 29.3 g/dL (30.0-36.0) L 06/06/21 05:44 RDW 17.2 % (12.1-15.1) H 06/06/21 05:44 Plt Count 302 10^3/cmm (130-400) 06/06/21 05:44 MPV 9.2 fL (7.4-10.4) 06/06/21 05:44 Neut % (Auto) 78.3 % 06/05/21 05:36 Lymph % (Auto) Not Reportable 06/06/21 05:44 [place] % (Auto) Not Reportable 06/06/21 05:44 Eos % (Auto) 1.3 % 06/05/21 05:36 Baso % (Auto) 0.4 % 06/05/21 05:36 Neut # (Auto) 16.49 10^3/uL (1.8-7.7) H 06/05/21 05:36 Lymph # (Auto) Not Reportable 06/06/21 05:44 [place] # (Auto) Not Reportable 06/06/21 05:44 Eos # (Auto) 0.3 10^3/uL (0.0-0.8) 06/05/21 05:36 Baso # (Auto) 0.1 10^3/uL (0.0-0.1) 06/05/21 05:36 Nucleated RBC % (auto) 0 % 06/05/21 05:36 Total Counted 100 (0-100) 06/06/21 05:44 Atypical Lymphs % 1.0 % (0-5) 06/06/21 05:44 Absolute Neutrophils 14.8 10^3/cmm (1.4-6.5) H 06/06/21 05:44 Segmented Neutrophils 49 % 06/06/21 05:44 Abs Segm Neuts (Man) 9.7 10/cmm (1.6-7.1) H 06/06/21 05:44 Band Neutrophils 26.0 % 06/06/21 05:44 Abs Band Neuts (Man) 5.1 10^3/cmm (0.0-1.2) H 06/06/21 05:44 Absolute Lymphocytes 3.0 10^3/cmm (1.2-3.4) 06/06/21 05:44 Lymphocytes (Manual) 14 % 06/06/21 05:44 Monocytes (Manual) 1.0 % 06/06/21 05:44 Absolute Monocytes 0.2 10^3/cmm (0.1-0.6) 06/06/21 05:44 Eosinophils (Manual) 2 % 06/06/21 05:44 Absolute Eosinophils 0.3 10^3/cmm (0.0-0.7) 06/06/21 05:44 Basophils (Manual) 0.0 % 06/06/21 05:44 Absolute Basophils 0.0 10^3/cmm (0.0-0.2) 06/06/21 05:44 Metamyelocytes 2.0 % 06/06/21 05:44 Myelocytes 5.0 % 06/06/21 05:44 Nucleated RBCs # 0.0 /100WBC 06/05/21 05:36 Platelet Estimate Normal (Normal) 06/06/21 05:44 PT 15.40 SECONDS (12.1-14.9) H 05/30/21 06:48 INR 1.19 (0.8-1.2) 05/30/21 06:48 APTT 42.2 SECONDS (23.9-36.7) H 05/30/21 06:48 D-Dimer 0.91 ug/mIFEU (0-0.59) H 06/01/21 18:00 Specimen Type Arterial 06/04/21 13:35 Sample Site Radial, left 06/04/21 13:35 ABG pH 7.50 (7.35-7.45) H 06/04/21 13:35 ABG pCO2 52.5 mmHg (35-45) H 06/04/21 13:35 ABG pO2 63.6 mmHg (80.0-100.0) L 06/04/21 13:35 ABG HCO3 40.8 mmol/L (22-26) H 06/04/21 13:35 ABG O2 Saturation 94.6 06/04/21 13:35 ABG Base Excess 15.6 mmol/L (-2.0-2.0) H 06/04/21 13:35 Miguel Angel Test Pos 06/04/21 13:35 A-a O2 Gradient 3.0 mmHg (5-10) L 06/04/21 13:35 Hematocrit 29.6 % (42-52) L 06/04/21 13:35 Hgb O2 Saturation 93.3 % (95-100) L 06/04/21 13:35 Carboxyhemoglobin 1.3 %THgb (0.4-20.1) 06/04/21 13:35 Methemoglobin 0.1 % (0.4-1.5) L 06/04/21 13:35 Total Hemoglobin 9.7 g/dL (14-18) L 06/04/21 13:35 Sodium 142.0 mmol/L (131-143) 06/04/21 13:35 Potassium 3.8 mmol/L (3.5-5.0) 06/04/21 13:35 Glucose 120.0 mg/dL (70-115) H 06/04/21 13:35 Ionized Calcium 1.2 mmol/L (1.1-1.4) 06/04/21 13:35 O2 Delivery Device Nc 06/04/21 13:35 O2 Liters/Min 9.0 % 06/04/21 13:35 Corporate Legal Manager ID [place] 06/04/21 13:35 Sodium 138 mmol/L (136-145) 06/06/21 05:44 Potassium 3.7 mmol/L (3.5-5.1) 06/06/21 05:44 Chloride 91 mmol/L (98-107) L 06/06/21 05:44 Carbon Dioxide 33 mmol/L (22-29) H 06/06/21 05:44 Anion Gap 17.7 (5-19) 06/06/21 05:44 BUN 31 mg/dL (8-23) H 06/06/21 05:44 Creatinine 0.9 mg/dL (0.7-1.2) 06/06/21 05:44 GFR Calculation Not Reportable 06/06/21 05:44 Glucose 90 mg/dL (65-115) 06/06/21 05:44 Calculated Osmolality 292 mOsm/kg (285-295) 06/06/21 05:44 Calcium 8.4 mg/dL (8.5-10.5) L 06/06/21 05:44 Phosphorus 3.1 mg/dL (2.5-4.5) 05/30/21 06:48 Magnesium 2.0 mg/dL (1.7-2.3) 05/30/21 06:48 Iron 36 ug/dL (59-158) L 06/04/21 04:12 TIBC 310 mcg/dl 06/04/21 04:12 % Saturation 11.6 % (20-50) L 06/04/21 04:12 Unsat Iron Binding 274 ug/dL (112-347) 06/04/21 04:12 Total Bilirubin 0.3 mg/dL (0.15-1.2) 06/06/21 05:44 AST 13 U/L (0-40) 06/06/21 05:44 ALT 16 U/L (0-41) 06/06/21 05:44 Alkaline Phosphatase 54 IU/L (40-130) 06/06/21 05:44 Troponin T Baseline 201 ng/L (0-15) H* 05/29/21 18:50 Troponin T 120 Minute 216.6 ng/L (0-15) H 05/29/21 20:46 Delta Troponin T 15.6 ABS# (0-10) H* 05/29/21 20:46 Troponin T Hi Sens 6Hr 272.4 ng/L (0-15) H 05/30/21 00:41 Troponin T Hi Sens 6Hr Delta 71.4 ng/L (0-12) H* 05/30/21 00:41 NT-Pro-B Natriuret Pep 2018 pg/mL (0-450) H 06/04/21 04:12 Total Protein 6.0 g/dL (6.6-8.7) L 06/06/21 05:44 Albumin 3.4 g/dL (3.5-5.2) L 06/06/21 05:44 Globulin 2.6 g/dL (1.3-4.6) 06/06/21 05:44 Triglycerides 89 mg/dL (0-150) 05/30/21 06:48 Cholesterol 123 mg/dL (0-200) 05/30/21 06:48 LDL Cholesterol, Calc 59 mg/dL (50-129) 05/30/21 06:48 HDL Cholesterol 46 mg/dL (60-100) L 05/30/21 06:48 LDL/HDL Ratio 1.28 RATIO (0.00-3.22) 05/30/21 06:48 Cholesterol/HDL Ratio 2.67 mg/dL (1.0-5.00) 05/30/21 06:48 Prostate Specific Ag 67.710 ng/mL (0-4) H 05/30/21 00:41 Procalcitonin 0.04 ng/mL (0-0.5) 06/04/21 04:12 TSH 2.25 uIU/mL (0.27-4.20) 05/30/21 06:48 Urine Color Yellow (Yellow) 05/29/21 19:10 Urine Appearance Clear (CLEAR) 05/29/21 19:10 Urine pH 5 (5-7) 05/29/21 19:10 Ur Specific [place] 1.020 (1.005-1.030) 05/29/21 19:10 Urine Protein Trace (Negative) 05/29/21 19:10 Urine Glucose (UA) Norm (Normal) 05/29/21 19:10 Urine Ketones Negative (Negative) 05/29/21 19:10 Urine Blood Neg (Negative) 05/29/21 19:10 Urine Nitrate Negative (Negative) 05/29/21 19:10 Urine Bilirubin Neg (Negative) 05/29/21 19:10 Urine Urobilinogen 1 mg/dL (Negative) H 05/29/21 19:10 Ur Leukocyte Esterase Negative (Negative) 05/29/21 19:10 Urine RBC 0-4 /hpf (0-2) H 05/29/21 19:10 Urine WBC 0-4 /hpf (0-5) H 05/29/21 19:10 Ur Squamous Epith Cells 0-4 /hpf (0-5) H 05/29/21 19:10 Amorphous Sediment Not Reportable 05/29/21 19:10 Urine Bacteria Trace /hpf (NONE) 05/29/21 19:10 Hyaline Casts 0-4 /lpf H 05/29/21 19:10 Urine Mucus Trace /hpf 05/29/21 19:10 Vancomycin Trough 8.5 ug/mL (10-15) L 06/03/21 04:20 Salicylates 1.2 mg/dL (3-10) L 05/29/21 18:40 Acetaminophen < 5.0 ug/mL (10-30) L 05/29/21 18:40 Nasal/Oral COVID-19 PCR Not detected 05/30/21 00:10 SARS-CoV-2 Ag (Rapid) Negative (Negative) 05/30/21 00:15 Blood Type A Positive 06/01/21 12:39 Rho(D) Type Positive 06/01/21 12:39 Antibody Screen Negative 06/01/21 12:39 Crossmatch See Detail 06/01/21 12:39 A&P Assessment and plan (1) Elevated troponin: No discharges during the respiratory status is better stabilized. Te elevated troponin T with a significant delta at the 2 and 6-hour timeframe could be related to type I myocardial infarction. However in view of the atrial fibrillation, severe anemia, heart failure and pneumonia, a type II [place] also is a consideration. Hemodynamically seems to be stable. He is currently asymptomatic. For further evaluation of the coronary status, a myocardial perfusion imaging would be appropriate. Because of his oxygenation status, we may hold off on this for a while. Status: Acute (2) Atherosclerosis of coronary artery of [place] heart without angina pectoris: Patient is currently status seems to be stable. He is not complaining of any significant chest pain. Work-up as mentioned above. I will be discussing with the Dr. Otero, about the timing of the stress test Status: Acute Qualifiers: Coronary Disease-Associated Artery/Lesion type: [place] artery Qualified Code(s): I25.10 - Atherosclerotic heart disease of [place] coronary artery without angina pectoris (3) Atrial fibrillation with RVR: Currently the heart rate is under control. Patient may continue on the current medications. Because of the anemia and the frequent fall, patient is not on any oral anticoagulation. Status: Acute (4) CHF (congestive heart failure): The heart failure seems to be getting compensated. I may switch the IV Lasix to p.o. Lasix 40 mg twice daily Status: Acute Qualifiers: Heart failure chronicity: acute Heart failure type: unspecified Qualified Code(s): I50.9 - Heart failure, unspecified (5) Anemia: The etiology is not clear. Patient has history of GI bleed. Advanced Ca of the prostate could be a contributing factor. Hemoglobin is 9.3 today. Status: Acute Qualifiers: Anemia type: iron deficiency Iron deficiency anemia type: other iron deficiency Qualified Code(s): D50.8 - Other iron deficiency anemias (6) PVD (peripheral vascular disease): The patient currently has no specific symptoms. May continue on the current measures. 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 No significant stenosis in the right side. 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 Correia Status: Acute (9) Acute respiratory failure with hypoxia: The oxygenation status seems to be fluctuating. 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
[2021-06-06] MEDS: sodium chloride 3.5% neb 4 mL Neb INHALATION ×2 (08:42→20:28)
[2021-06-06] MEDS: budesonide 0.5 mg/2 mL Neb INHALATION ×2 (08:43→20:28)
[2021-06-06] MEDS: finasteride 5 mg Tablet PO (09:05)
[2021-06-06] MEDS: sertraline 50 mg Tablet 150 MG PO (09:05)
[2021-06-06] MEDS: potassium chloride ER 20 mEq Tablet PO ×2 (09:05→15:26)
[2021-06-06] MEDS: aspirin 325 mg EC Tablet PO (09:06)
[2021-06-06] MEDS: metoprolol tartrate 25 mg Tablet PO ×2 (09:06→21:46)
[2021-06-06] MEDS: docusate sodium 100 mg Capsule PO ×2 (09:06→17:35)
[2021-06-06] MEDS: pantoprazole DR 40 mg Tablet PO (09:06)
[2021-06-06] MEDS: tamsulosin 0.4 mg Capsule PO (09:06)
[2021-06-06] MEDS: nystatin cream 30 gm 1 APPLIC TOPICAL ×2 (09:10→17:36)
--- NOTE | 2021-06-06 12:04 | PC.SOCIAL ---
IMM Update pg 2 of IMM updated and reviewed w/ patient and his . Copy provided.
[2021-06-06] MEDS: FUROsemide 40 mg Tablet PO (15:28)
--- NOTE | 2021-06-06 16:15 | PM.CONSULT ---
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 Post admission patient developed A. fib RVR with pulmonary edema. He was treated with diuretics and placed on BiPAP. Echocardiogram 05/30/2021 showed mild to moderately decreased LV systolic function with global LV hypokinesis and ejection fraction 45 to 50%. Grade 2/4 diastolic dysfunction. There is severe aortic valve calcification with moderate aortic valve stenosis 14.4 RENY 1 cm?. There was also significant of elevated troponin suggestive of type I myocardial infarction. But with atrial fibrillation, severe anemia, history of heart failure and possible pneumonia type II DE was also considered. reported that patient coughs with food and drink intermittently. Covid PCR 19 -. Currently patient is requiring 9 L oxygen and his baseline was 4 L. Patient has low procalcitonin, MRSA swab negative, urine Legionella, bacterial antigen negative, vancomycin discontinued and switched to Zosyn to imipenem and started Levaquin as patient has persistent leukocytosis and high oxygen requirement. He also has a history of sleep apnea but has not utilize CPAP at night for about a year or so due to inability to tolerate it . Pulmonary consulted for increasing requirement of supplemental oxygen in patient with baseline oxygen 5 L. Review of Systems General: Reports: 10 or more systems reviewed and unremarkable except in HPI and below Meds/Allergies Home Medications and Allergies Home Medications Medication Instructions Recorded Confirmed Last Taken Type albuterol sulfate 90 mcg/actuation 2 puff INHALATION Q6H PRN 10/18/19 05/30/21 05/29/21 History aerosol inhaler calcium carbonate-vitamin D3 600 1 tab PO DAILY 10/18/19 05/30/21 05/29/21 History mg(1,500 mg)-400 unit chewable tablet ferrous sulfate 325 mg (65 mg 325 mg PO DAILY 0405/30/21 05/29/21 History iron) tablet finasteride 5 mg tablet 5 mg PO DAILY 10/18/19 05/30/21 05/29/21 History magnesium 200 mg tablet 400 mg PO DAILY 10/18/19 05/30/21 05/29/21 History omega-3 fatty acids 1,000 mg 1,000 mg PO DAILY 10/18/19 05/30/21 05/29/21 History capsule polyethylene glycol 3350 17 17 gm PO DAILY 10/18/19 05/30/21 05/29/21 History gram/dose oral powder potassium citrate 10 mEq (1,080 2,160 mg PO BID 10/18/19 05/30/21 05/29/21 History mg) tablet,extended release prednisone 10 mg tablet 10 mg PO DAILY 10/18/19 05/30/21 05/29/21 History vitamin B complex 1 tab PO DAILY 10/18/19 05/30/21 05/29/21 History vitamin E (dl, acetate) 180 mg 400 unit PO DAILY 10/18/19 05/30/21 05/29/21 History (400 unit) capsule tamsulosin 0.4 mg capsule 0.4 mg PO DAILY 02/16/20 05/30/21 05/29/21 History vit 1 cap PO DAILY cap 02/16/20 05/30/21 05/29/21 History C,E,zinc,Qg-duuzt-8-lutein-zeaxanthin 250 mg-2.5 mg-0.5 mg capsule cholecalciferol (vitamin D3) 1 tab PO DAILY 05/30/21 05/30/21 05/29/21 History docusate sodium 100 mg PO BID 05/30/21 05/30/21 05/29/21 History fluticasone propion-salmeterol 1 puff INHALATION BID 05/30/21 05/30/21 05/29/21 History fluticasone propionate 1 dose NOSTRIL-B DAILY 05/30/21 05/30/21 05/29/21 History pyridoxine (vitamin B6) 1 tab PO DAILY 05/30/21 05/30/21 05/29/21 History sertraline 150 mg PO DAILY 05/30/21 05/30/21 05/29/21 History tiotropium bromide 2 puff INHALATION DAILY 05/30/21 05/30/21 05/29/21 History prednisone PRN 06/05/21 06/05/21 Unknown History Allergies Allergy/AdvReac Type Severity Reaction Status Date / Time No Known Allergies Allergy Verified 10/30/20 08:03 Current Medications Current Medications Generic Name Dose Route Start Last Admin Trade Name Freq PRN Reason Stop Dose Admin Albuterol/Ipratropium 3 ml 05/30/21 03:00 06/06/21 08:43 Ipratropium-Albuterol 3 Ml Neb INHALATION 3 ml Q6H.RESPIRATORY JO Administration Albuterol/Ipratropium 3 ml 05/29/21 23:10 06/01/21 19:54 Ipratropium-Albuterol 3 Ml Neb INHALATION 3 ml Q4H PRN Administration SHORTNESS OF BREATH Aspirin 325 mg 05/30/21 09:00 06/06/21 09:06 Aspirin 325 Mg Ec Tablet PO 325 mg DAILY JO Administration Atorvastatin Calcium 40 mg 05/30/21 21:00 06/05/21 20:35 Atorvastatin 40 Mg Tablet PO 40 mg BEDTIME JO Administration Budesonide 0.5 mg 05/30/21 08:00 06/06/21 08:43 Budesonide 0.5 Mg/2 Ml Neb INHALATION 0.5 mg BID.RESPIRATORY JO Administration Docusate Sodium 100 mg 05/30/21 09:00 06/06/21 09:06 Docusate Sodium 100 Mg Capsule PO 100 mg BID JO Administration Ferrous Sulfate 325 mg 05/30/21 07:00 06/06/21 12:53 Ferrous Sulfate Ec 325 Mg Tablet PO 325 mg TIDAC JO Administration Finasteride 5 mg 05/30/21 09:00 06/06/21 09:05 Finasteride 5 Mg Tablet PO 5 mg DAILY JO Administration Furosemide 40 mg 06/06/21 16:00 06/06/21 15:28 Furosemide 40 Mg Tablet PO 40 mg BID@08,16 JO Administration Heparin Sodium (Porcine) 5,000 unit 06/04/21 17:30 06/06/21 06:06 Heparin 5,000 Unit/Ml Inj 1 Ml SUBCUT 5,000 unit Q12H JO Administration Imipenem/Cilastatin Sodium 500 100 mls @ 200 mls/hr 06/04/21 13:00 06/06/21 15:28 mg/ Sodium Chloride IV 06/06/21 23:59 200 mls/hr Q8H JO Administration Protocol Levofloxacin 500 mg 06/04/21 12:10 06/06/21 06:06 Levofloxacin 500 Mg Tablet PO 06/09/21 12:09 500 mg DAILY@0600 JO Administration Protocol Methylprednisolone Sodium Succinate 20 mg 06/04/21 18:00 06/06/21 05:45 Methylprednisolone Sod Succ 40 Mg/Ml Inj IVP 20 mg Q12H JO Administration Metoprolol Tartrate 25 mg 05/30/21 09:00 06/06/21 09:06 Metoprolol Tartrate 25 Mg Tablet PO 25 mg BID@0900,2100 JO Administration Nystatin 1 applic 05/31/21 18:00 06/06/21 09:10 Nystatin Cream 30 Gm TOPICAL 1 applic BID JO Administration Pantoprazole Sodium 40 mg 05/30/21 09:00 06/06/21 09:[address] 40 Mg Tablet PO 40 mg DAILY JO Administration Potassium Chloride 20 meq 05/30/21 08:00 06/06/21 15:26 Potassium Chloride Er 20 Meq Tablet PO 20 meq BID@08,14 JO Administration Sertraline HCl 150 mg 05/30/21 10:30 06/06/21 09:05 Sertraline 50 Mg Tablet PO 150 mg DAILY JO Administration Sodium Chloride 4 ml 06/03/21 13:46 06/06/21 08:42 Sodium Chloride 3.5% Neb 4 Ml Neb INHALATION 4 ml BID.RESPIRATORY JO Administration Tamsulosin HCl 0.4 mg 05/30/21 09:00 06/06/21 09:06 Tamsulosin 0.4 Mg Capsule PO 0.4 mg DAILY JO Administration PFSH Acute PFSH: Medical History Abnormal PSA ASHD (arteriosclerotic heart disease) Benign non-nodular prostatic hyperplasia with lower urinary tract symptoms Carotid artery stenosis COPD (chronic obstructive pulmonary disease) Former smoker History of hypertension History of iron deficiency anemia from GI losses History of ischemic left MCA stroke Apparent on imaging studies History of skin cancer Hx of hyperlipidemia Mild cognitive impairment with memory loss Prostate cancer has been treated with androgen deprivation therapy with Zolodex and bicalutamide, follows with Drs. Hines and Masood PVD (peripheral vascular disease) Sleep apnea Not chronically using CPAP anymore Urgency incontinence Surgical History H/O wrist surgery right History of cataract surgery History of endarterectomy History of femoropopliteal bypass History of PTCA Hx of coronary artery bypass graft (~2011) Hx of removal of cyst Hx of rotator cuff surgery Family History Father , at age 60 Cirrhosis of liver Mother , at age 106 No problems noted. Family/Other CAD (coronary artery disease) Diabetes Hypertension Brother Dementia two brothers Social History Smoking and tobacco status: former smoker Alcohol intake: current Alcohol intake frequency: holidays/special occasions only Adopted: No Lives independently: No Household members: spouse Marital status: Current occupational status: retired Current gender identity: Male Vitals/I&O/Wt Last Vital Signs Temp 97.9 F 06/06/21 15:40 Pulse 69 06/06/21 15:40 Resp 16 06/06/21 15:40 BP 106/47 06/06/21 15:40 Pulse Ox 89 L 06/06/21 15:48 06/06/21 06/06/21 06/06/21 06:59 14:59 22:59 Intake Total 580 / 1580 460 / 460 Output Total 1065 / 1685 125 / 125 150 / 275 Balance -485 / -105 335 / 335 -150 / 185 Physical Exam Narrative: EXAM NARRATIVE: General: alert, NAD HEENT: conj clear, EOMI, PERRL, mmm, Neck: supple, no meningismus Heme: no cervical LAP Pulmonary: CTAB, no wheezing, rhonchi, crackles Cardiovascular: rrr, nl s1s2, no mrg Abdomen: soft, nt, nd, no r/g, bs+ Extremities: pulses +, no edema, no c/c : no CVA tenderness Skin: intact, no rash MSK: no back or neck pain Neurologic: grossly intact Urinary Catheter Management^: Skinner: Cath Placed During This Visit: yes, but has since been removed by the nurse Reason for Continuing Indwelling Catheter: Acute Urinary Retention or Obstruction Urinary Catheter Date of Insertion: 05/30/21 Urinary Catheter Time of Insertion: 13:50 Date Urinary Catheter Removed: 06/05/21 Time Urinary Catheter Discontinued: 18:16 Data Labs: Other Labs: Laboratory Results WBC 19.7 10^3/uL (4.0 -10.0) H 06/06/21 05:44 RBC 3.48 10^6/uL (4.1 -5.3) L 06/06/21 05:44 Hgb 9.3 g/dL (11.7-16 .6) L 06/06/21 05:44 Hct 31.7 % (42.0-52.0 ) L 06/06/21 05:44 MCV 91.1 fl (80-94) 06/06/21 05:44 MCH 26.7 pg (28.0-34. 0) L 06/06/21 05:44 MCHC 29.3 g/dL (30.0-3 6.0) L 06/06/21 05:44 RDW 17.2 % (12.1-15.1 ) H 06/06/21 05:44 Plt Count 302 10^3/cmm (130 -400) 06/06/21 05:44 MPV 9.2 fL (7.4-10.4) 06/06/21 05:44 Neut % (Auto) 78.3 % 06/05/21 05:36 Lymph % (Auto) Not Reportable 06/06/21 05:44 Vance % (Auto) Not Reportable 06/06/21 05:44 Eos % (Auto) 1.3 % 06/05/21 05:36 Baso % (Auto) 0.4 % 06/05/21 05:36 Neut # (Auto) 16.49 10^3/uL (1. 8-7.7) H 06/05/21 05:36 Lymph # (Auto) Not Reportable 06/06/21 05:44 Vance # (Auto) Not Reportable 06/06/21 05:44 Eos # (Auto) 0.3 10^3/uL (0.0- 0.8) 06/05/21 05:36 Baso # (Auto) 0.1 10^3/uL (0.0- 0.1) 06/05/21 05:36 Nucleated RBC % (a uto) 0 % 06/05/21 05:36 Total Counted 100 (0-100) 06/06/21 05:44 Atypical Lymphs % 1.0 % (0-5) 06/06/21 05:44 Absolute Neutrophi ls 14.8 10^3/cmm (1. 4-6.5) H 06/06/21 05:44 Segmented Neutroph ils 49 % 06/06/21 05:44 Abs Segm Neuts (Ma n) 9.7 10/cmm (1.6-7 .1) H 06/06/21 05:44 Band Neutrophils 26.0 % 06/06/21 05:44 Abs Band Neuts (Ma n) 5.1 10^3/cmm (0.0 -1.2) H 06/06/21 05:44 Absolute Lymphocyt es 3.0 10^3/cmm (1.2 -3.4) 06/06/21 05:44 Lymphocytes (Manua l) 14 % 06/06/21 05:44 Monocytes (Manual) 1.0 % 06/06/21 05:44 Absolute Monocytes 0.2 10^3/cmm (0.1 -0.6) 06/06/21 05:44 Eosinophils (Manua l) 2 % 06/06/21 05:44 Absolute Eosinophi ls 0.3 10^3/cmm (0.0 -0.7) 06/06/21 05:44 Basophils (Manual) 0.0 % 06/06/21 05:44 Absolute Basophils 0.0 10^3/cmm (0.0 -0.2) 06/06/21 05:44 Metamyelocytes 2.0 % 06/06/21 05:44 Myelocytes 5.0 % 06/06/21 05:44 Nucleated RBCs # 0.0 /100WBC 06/05/21 05:36 Platelet Estimate Normal (Normal) 06/06/21 05:44 PT 15.40 SECONDS (12 .1-14.9) H 05/30/21 06:48 INR 1.19 (0.8-1.2) 05/30/21 06:48 APTT 42.2 SECONDS (23. 9-36.7) H 05/30/21 06:48 D-Dimer 0.91 ug/mIFEU (0- 0.59) H 06/01/21 18:00 Specimen Type Arterial 06/04/21 13:35 Sample Site Radial, left 06/04/21 13:35 ABG pH 7.50 (7.35-7.45) H 06/04/21 13:35 ABG pCO2 52.5 mmHg (35-45) H 06/04/21 13:35 ABG pO2 63.6 mmHg (80.0-1 00.0) L 06/04/21 13:35 ABG HCO3 40.8 mmol/L (22-2 6) H 06/04/21 13:35 ABG O2 Saturation 94.6 06/04/21 13:35 ABG Base Excess 15.6 mmol/L (-2.0 -2.0) H 06/04/21 13:35 Miguel Angel Test Pos 06/04/21 13:35 A-a O2 Gradient 3.0 mmHg (5-10) L 06/04/21 13:35 Hematocrit 29.6 % (42-52) L 06/04/21 13:35 Hgb O2 Saturation 93.3 % (95-100) L 06/04/21 13:35 Carboxyhemoglobin 1.3 %THgb (0.4-20 .1) 06/04/21 13:35 Methemoglobin 0.1 % (0.4-1.5) L 06/04/21 13:35 Total Hemoglobin 9.7 g/dL (14-18) L 06/04/21 13:35 Sodium 142.0 mmol/L (131 -143) 06/04/21 13:35 Potassium 3.8 mmol/L (3.5-5 .0) 06/04/21 13:35 Glucose 120.0 mg/dL (70-1 15) H 06/04/21 13:35 Ionized Calcium 1.2 mmol/L (1.1-1 .4) 06/04/21 13:35 O2 Delivery Device Nc 06/04/21 13:35 O2 Liters/Min 9.0 % 06/04/21 13:35 [employer] Broma 06/04/21 13:35 Sodium 138 mmol/L (136-1 45) 06/06/21 05:44 Potassium 3.7 mmol/L (3.5-5 .1) 06/06/21 05:44 Chloride 91 mmol/L (98-107 ) L 06/06/21 05:44 Carbon Dioxide 33 mmol/L (22-29) H 06/06/21 05:44 Anion Gap 17.7 (5-19) 06/06/21 05:44 BUN 31 mg/dL (8-23) H 06/06/21 05:44 Creatinine 0.9 mg/dL (0.7-1. 2) 06/06/21 05:44 GFR Calculation Not Reportable 06/06/21 05:44 Glucose 90 mg/dL (65-115) 06/06/21 05:44 Calculated Osmolal ity 292 mOsm/kg (285- 295) 06/06/21 05:44 Calcium 8.4 mg/dL (8.5-10 .5) L 06/06/21 05:44 Phosphorus 3.1 mg/dL (2.5-4. 5) 05/30/21 06:48 Magnesium 2.0 mg/dL (1.7-2. 3) 05/30/21 06:48 Iron 36 ug/dL (59-158) L 06/04/21 04:12 TIBC 310 mcg/dl 06/04/21 04:12 % Saturation 11.6 % (20-50) L 06/04/21 04:12 Unsat Iron Binding 274 ug/dL (112-34 7) 06/04/21 04:12 Total Bilirubin 0.3 mg/dL (0.15-1 .2) 06/06/21 05:44 AST 13 U/L (0-40) 06/06/21 05:44 ALT 16 U/L (0-41) 06/06/21 05:44 Alkaline Phosphata se 54 IU/L (40-130) 06/06/21 05:44 Troponin T Baselin e 201 ng/L (0-15) H* 05/29/21 18:50 Troponin T 120 Min nez perce 216.6 ng/L (0-15) H 05/29/21 20:46 Delta Troponin T 15.6 ABS# (0-10) H* 05/29/21 20:46 Troponin T Hi Sens 6Hr 272.4 ng/L (0-15) H 05/30/21 00:41 Troponin T Hi Sens 6Hr Delta 71.4 ng/L (0-12) H* 05/30/21 00:41 NT-Pro-B Natriuret Pep 2018 pg/mL (0-450 ) H 06/04/21 04:12 Total Protein 6.0 g/dL (6.6-8.7 ) L 06/06/21 05:44 Albumin 3.4 g/dL (3.5-5.2 ) L 06/06/21 05:44 Globulin 2.6 g/dL (1.3-4.6 ) 06/06/21 05:44 Triglycerides 89 mg/dL (0-150) 05/30/21 06:48 Cholesterol 123 mg/dL (0-200) 05/30/21 06:48 LDL Cholesterol, C alc 59 mg/dL (50-129) 05/30/21 06:48 HDL Cholesterol 46 mg/dL (60-100) L 05/30/21 06:48 LDL/HDL Ratio 1.28 RATIO (0.00- 3.22) 05/30/21 06:48 Cholesterol/HDL Ra jseus 2.67 mg/dL (1.0-5 .00) 05/30/21 06:48 Prostate Specific Ag 67.710 ng/mL (0-4 ) H 05/30/21 00:41 Procalcitonin 0.04 ng/mL (0-0.5 ) 06/04/21 04:12 TSH 2.25 uIU/mL (0.27 -4.20) 05/30/21 06:48 Urine Color Yellow (Yellow) 05/29/21 19:10 Urine Appearance Clear (CLEAR) 05/29/21 19:10 Urine pH 5 (5-7) 05/29/21 19:10 Ur Specific Gravit y 1.020 (1.005-1.0 30) 05/29/21 19:10 Urine Protein Trace (Negative) 05/29/21 19:10 Urine Glucose (UA) Norm (Normal) 05/29/21 19:10 Urine Ketones Negative (Negati ve) 05/29/21 19:10 Urine Blood Neg (Negative) 05/29/21 19:10 Urine Nitrate Negative (Negati ve) 05/29/21 19:10 Urine Bilirubin Neg (Negative) 05/29/21 19:10 Urine Urobilinogen 1 mg/dL (Negative ) H 05/29/21 19:10 Ur Leukocyte Catherine ase Negative (Negati ve) 05/29/21 19:10 Urine RBC 0-4 /hpf (0-2) H 05/29/21 19:10 Urine WBC 0-4 /hpf (0-5) H 05/29/21 19:10 Ur Squamous Epith Cells 0-4 /hpf (0-5) H 05/29/21 19:10 Amorphous Sediment Not Reportable 05/29/21 19:10 Urine Bacteria Trace /hpf (NONE) 05/29/21 19:10 Hyaline Casts 0-4 /lpf H 05/29/21 19:10 Urine Mucus Trace /hpf 05/29/21 19:10 Vancomycin Trough 8.5 ug/mL (10-15) L 06/03/21 04:20 Salicylates 1.2 mg/dL (3-10) L 05/29/21 18:40 Acetaminophen < 5.0 ug/mL (10-3 0) L 05/29/21 18:40 Nasal/Oral COVID-1 9 PCR Not detected 05/30/21 00:10 SARS-CoV-2 Ag (Rap id) Negative (Negati ve) 05/30/21 00:15 Blood Type A Positive 06/01/21 12:39 Rho(D) Type Positive 06/01/21 12:39 Antibody Screen Negative 06/01/21 12:39 Crossmatch See Detail 06/01/21 12:39 Impressions Elbow X-Ray 05/29/21 18:35 IMPRESSION: No acute findings. Forearm X-Ray 05/29/21 18:35 IMPRESSION: No acute findings. Head CT 05/29/21 18:35 IMPRESSION: 1. No acute intracranial abnormality. 2. Moderate diffuse cerebral atrophy and sequela of chronic small vessel ischemic disease. Encephalomalacic change in the left frontal lobe. Hip/Pelvis X-Ray 05/29/21 18:35 IMPRESSION: No acute findings. Chest X-Ray 06/04/21 08:49 IMPRESSION: Improved atelectasis in the left lower lung. Increasing bowel distention in the right upper abdomen. Head MRI 06/04/21 12:56 IMPRESSION: 1. No evidence of restricted diffusion to suggest acute ischemia. 2. Poor left ICA flow void at the skull base with history of left ICA occlusion 3. Moderate to advanced small vessel changes with moderate parenchymal volume loss. 4. Chronic infarct with encephalomalacia and gliosis in the left frontal and parietal lobes MCA territory. 5. Incidental venous angioma in the right periventricular frontal white matter. 6. Evidence of prior left frontoparietal craniotomy. Neck MRA 06/04/21 12:56 IMPRESSION: 1. Chronic occlusion of the left ICA unchanged since the prior CTA 12/11. 2. Mild right ICA stenosis measuring approximately 40-45%. Right ICA is patent to the skull base. 3. Codominant and patent vertebral arteries bilaterally. Modified Barium Swallow 06/05/21 09:56 IMPRESSION: Small amount of penetration and aspiration with thin liquids with cup drinking. A&P Assessment and plan (1) Acute respiratory failure with hypoxia: Status: Acute (2) Atherosclerosis of coronary artery of [place] heart without angina pectoris: Status: Acute Qualifiers: Coronary Disease-Associated Artery/Lesion type: [place] artery Qualified Code(s): I25.10 - Atherosclerotic heart disease of [place] coronary artery without angina pectoris (3) COPD (chronic obstructive pulmonary disease): Status: Chronic Qualifiers: COPD type: emphysema Emphysema type: unspecified Qualified Code(s): J43.9 - Emphysema, unspecified (4) Atrial fibrillation with RVR: Status: Acute (5) CHF (congestive heart failure): Status: Acute Qualifiers: Heart failure type: unspecified Heart failure chronicity: acute Qualified Code(s): I50.9 - Heart failure, unspecified (6) On home oxygen therapy: Status: Acute (7) Recurrent falls: Status: Acute (8) Prostate cancer: Status: Chronic (9) SOB (shortness of breath): Status: Chronic (10) Anemia: Status: Acute Qualifiers: Anemia type: iron deficiency Iron deficiency anemia type: other iron deficiency Qualified Code(s): D50.8 - Other iron deficiency anemias #Acute hypoxic respiratory failure in patient with history of COPD/CHF/A. fib RVR/anemia-possible COPD exacerbation with new baseline requiring 7 L oxygen -Baseline home oxygen 5 L-currently requiring 7 L nasal cannula -On admission had an episode of A. fib RVR with pulmonary edema-currently managed with Lasix, rate controlled with metoprolol -Patient has history of COPD currently scheduled nebulizations with DuoNeb and Pulmicort and IV Solu-Medrol 20 mg every 12 -Cardiology planning to do cardiac stress test -Patient was treated with vancomycin for 6 days, MRSA negative-discontinue -Patient had microaspiration with thin liquids on barium swallow-at risk for recurrent aspiration pneumonia-initially treated with Zosyn-later changed to imipenem -can discontinue after completing total 7 days of treatment -For atypical coverage he was initially on azithromycin-later changed to Levaquin-complete 5 days -So far work-up for infection has been negative including urine Legionella, bacterial antigens, sputum culture -Although it is prudent to do CTA/lower extremity Doppler to rule out PE/DVT (in this patient with all the risk factors for immobilization and prostate cancer) as possible cause of worsening hypoxia-however given his history of anemia requiring blood transfusions and frequent falls-he is considered a high risk for bleeding and thus anticoagulation is considered contraindication-which is the same reason he is not on AC for A. fib; patient and his understands the rationale for holding further investigations to rule out PE/DVT at this point of time as we are not going to treat even if it is positive and understands the risks of anticoagulation in this patient with high risk of bleeding. As patient O2 requirement came down from 9 L to 7 L today-there is no urgency to do CTA/venous Doppler at this point of time. -During admission patient has right middle lobe and lower lobe atelectasis secondary to mucous plugging-encourage physical therapy/pulmonary toileting with hypertonic saline nebulization/incentive spirometry and flutter valve to clear secretions - Patient would benefit from pulmonary rehabilitation after discharge -He will benefit from oxygen pendulum -Discharge patient with ICS/LABA/LAMA-Trelegy 1 puff daily and follow-up in pulmonary clinic for PFTs and pulmonary rehabilitation referral Medical condition, labs, investigations, medications, counseling regarding medication compliance, side effects, importance of follow-up appointments, and plan of care-everything explained in detail to the patient and his at bedside. They verbalized understanding and agreed with the plan of care. \ Reviewed old medical records and summarized as above Reviewed medications in detail and reconciled as necessary Reviewed the labs in detail with the patient Recommendations conveyed to hospitalist taking care of the patient Consult Attestations Medical Necessity Statement: defer to hospitalist Time Spent in Patient Care: Greater than 35 minutes (>than 50% of time spent in counselling and/or direct pt care on unit). Critical Care Time: Critical Care Time (min): 45 Coding Level of Care Code Established Pt Acute Bulk Fluids Handler for Reannag Fwd Patient Type Established History Comprehensive Exam Comprehensive Medical Decision Making High Complexity Diagnoses Acute respiratory failure with hypoxia J96.01 Atherosclerosis of coronary artery of [place] heart without angina pectoris I25.10 Coronary Disease-Associated Artery/Lesion type: [place] artery COPD (chronic obstructive pulmonary disease) J43.9 COPD type: emphysema Emphysema type: unspecified Atrial fibrillation with RVR I48.91 CHF (congestive heart failure) I50.9 Heart failure type: unspecified Heart failure chronicity: acute On home oxygen therapy Z99.81 Recurrent falls R29.6 Prostate cancer C61 SOB (shortness of breath) R06.02 Anemia D50.8 Anemia type: iron deficiency Iron deficiency anemia type: other iron deficiency Time Spent (min) 45
--- NOTE | 2021-06-06 16:46 | PM.PN ---
Subjective Subjective: Interval history: No events overnight. Patient sitting up in chair on examination have improved today. Overnight has remained on 6 L with saturation mostly in high 80s. Today morning when sitting up with physical therapy patient desaturated and was turned up to 9 L heated high flow again. Being titrated down again. Denies any nausea, vomiting, headache. Patient did not have any more episode of jerkiness. Vitals/I&O/Wt Last Vital Signs Temp 97.9 F 06/06/21 15:40 Pulse 69 06/06/21 15:40 Resp 16 06/06/21 15:40 BP 106/47 06/06/21 15:40 Pulse Ox 89 L 06/06/21 15:48 06/06/21 06/06/21 06/06/21 06:59 14:59 22:59 Intake Total 580 / 1580 460 / 460 100 / 560 Output Total 1065 / 1685 125 / 125 150 / 275 Balance -485 / -105 335 / 335 -50 / 285 Physical Exam Narrative: EXAM NARRATIVE: [facility] Const: COMMON NORMALS: no acute distress, patient oriented x3 and alert GENERAL APPEARANCE: cooperative ORIENTATION/CONSCIOUSNESS: Yes awake HENMT: COMMON NORMALS: oropharynx normal Neck/C-Spine: COMMON NORMALS: no JVD Resp: COMMON NORMALS: normal respiratory effort AUSCULTATION: diminished lung sounds (Improving) OTHER: Coarse breathing sounds. Cardio: COMMON NORMALS: no JVD, regular rhythm, S1 normal heart sound present, S2 normal heart sound present and No murmurs present (Cardio) RHYTHM: regular rhythm HEART SOUNDS: S1 normal heart sound present and S2 normal heart sound present GI: COMMON NORMALS: Normal to inspection, nondistended, normoactive bowel sounds present, Soft to palpation and non-tender PALPATION: Yes Soft to palpation Extremity: COMMON NORMALS: no joint enlargement and no pedal edema GENERAL: Yes edema (trace) Neuro: COMMON NORMALS: patient oriented x3 and moves all extremities SENSORIUM/ORIENTATION: Yes alert Skin: COMMON NORMALS: no rashes or lesions noted GENERAL SKIN EXAM: no rashes or lesions noted Urinary Catheter Management^: Skinner: Cath Placed During This Visit: yes, but has since been removed by the nurse Reason for Continuing Indwelling Catheter: Acute Urinary Retention or Obstruction Urinary Catheter Date of Insertion: 05/30/21 Urinary Catheter Time of Insertion: 13:50 Date Urinary Catheter Removed: 12/14/21 Time Urinary Catheter Discontinued: 18:16 Data : 06/06/21 05:44 06/06/21 05:44 A&P Assessment and plan (1) Acute respiratory failure with hypoxia: Most likely a combination of COPD exacerbation and congestive heart failure in setting of right lower lobe pneumonia. Chronically on 4 L oxygen supplementation. Cannot rule out higher baseline oxygen requirement now given new pneumonia. Cannot rule out chronic aspiration. Incentive spirometry, flutter valve, chest PT. Aggressive pulmonary toilet. If not improving will consider consulting pulmonology for possible bronchoscopy. Continue Levaquin and imipenem. Last dose of Levaquin on 06/09. Last dose of imipenem on 06/06. Patient has been on broad-spectrum antibiotic coverage since admission for last 6 days now. Check modified barium swallow. Concerns for aspiration on bedside swallow evaluation. For now continue with mechanical soft diet. Will change diet accordingly. We will consult pulmonology for further recommendations to see if anything else can be done to improve hypoxia. Status: Acute (2) Pneumonia: As above. Pending additional assessment for aspiration. Negative COVID-19 PCR. Requested sputum culture, negative urine bacterial antigens. Status: Acute Qualifiers: Laterality: right Lung location: middle lobe of lung Pneumonia type: due to unspecified organism Qualified Code(s): J18.9 - Pneumonia, unspecified organism (3) CHF (congestive heart failure): Reaching euvolemia. 4.5 L negative overall. Switch to oral Lasix 40 mg twice daily. Monitor I&O. Fluid restriction up to 1500 cc. Echocardiogram results appreciated with global of ventricular hypokinesis, with moderately decreased left ventricular systolic function, EF 45-50%, grade 2 diastolic dysfunction, moderately increased left atrial size, moderately thickened mitral valve, mild-moderate MVR, severe aortic valve calcification, moderate aortic valve stenosis, mean gradient 14.4, RENY 1 cm, mild AVR. Right ventricle normal size and function. No pericardial effusion. Compared to prior study moderate to severe aortic valve stenosis new. Denies chest pain or pressure. Troponins abnormal, but also with episode of A. fib with RVR. Stress test when respiratory condition improves. Has a known history of coronary artery disease with prior CABG and percutaneous intervention as well as known peripheral vascular disease and carotid disease both requiring intervention. Status: Acute Qualifiers: Heart failure type: unspecified Heart failure chronicity: acute Qualified Code(s): I50.9 - Heart failure, unspecified (4) Atrial fibrillation with RVR: New A. fib. A. fib with RVR presentation. So far rates have stayed good. Continue metoprolol. Aspirin, but monitor blood counts due to anemia, iron deficiency. Not yet candidate for anticoagulation due to worsening anemia. In a patient without a known history of atrial fibrillation. Most likely secondary to acute pulmonary issues from CHF and COPD plus or minus acute infection. Also within the differential is acute coronary syndrome, thromboembolic event, metabolic abnormalities among others. Status: Acute (5) COPD (chronic obstructive pulmonary disease): COPD exacerbation: Improving. Decrease IV steroid dose. Slightly better air entry. No wheezing. Weaned off NIV. Antibiotics as above. Breathing treatments. Sputum cultures if possible. Chronically on 5 L of oxygen by nasal cannula as well as on chronic steroid therapy, former smoker, acutely exacerbated secondary to above. Looking at ABG her has chronic hypercapnia and hypoxemia. Status: Chronic Qualifiers: COPD type: emphysema Emphysema type: unspecified Qualified Code(s): J43.9 - Emphysema, unspecified (6) Fall: Event less likely seizures. 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 Check orthostatics. Compression stockings. Physical therapy evaluation. Status: Acute (7) Recurrent falls: Patient reports right-sided weakness with ambulation of approximately 6 months duration. He has had falls intermittently since then that have been more prominent lately. 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 Status: Acute (8) Prostate cancer: Following with Dr. Masood Hines, has been on antiandrogen therapy with initial good response from PSA standpoint on review of records although missed treatment at least once this fall Status: Chronic (9) ASHD (arteriosclerotic heart disease): With prior bypass and percutaneous intervention. Status: Chronic (10) Non-ST elevation [place] (NSTEMI): Suspected demand ischemia secondary atrial fibrillation with RVR, hypoxia, although cannot rule out type I event. He does not have any chest pain or pressure. Possible Q waves in V1, V2. We will benefit from stress test once respiratory status improves. Discussed with him and his . With worsening echo chronic anemia, hemoglobin 7.8, iron deficiency, unclear when last colonoscopy was, reports recurrent anemia without identified source, risk of bleeding with anticoagulation. Continues on aspirin which she is tolerating so far. Continue beta-ghislaine, statin. Appreciate cardiology recommendations regarding additional risk stratification. Cannot entirely rule out type I process, but most likely type II process from demand ischemia related to hypoxemia, anemia and possibly other episodes of tachycardia arrhythmia like we have seen this evening. Has been sometime since he has had cardiac evaluation and he does have risk factors for recurrent disease so unable to presently rule out type I process. Status: Acute (11) Anemia: Iron deficiency anemia. Received 1 unit PBC transfusion given concern for underlying cardiac disease and anemia. states he has had upper and lower endoscopy previously. Recurrent episodes of anemia, without finding of the cause. Discussed consideration of referral for repeat endoscopy once he is more stable, and if no bleeding source identified, consideration of referral for capsule endoscopy, then possibly deep enteroscopy. Hemoccult requested, follow-up. Atrial fibrillation, but for now only aspirin given acute anemia. However, if further declining hemoglobin, may have to hold aspirin as well. Discussed with him would benefit from endoscopic evaluation once his overall condition improves. Also anemia of chronic disease. Status: Acute Qualifiers: Anemia type: iron deficiency Iron deficiency anemia type: other iron deficiency Qualified Code(s): D50.8 - Other iron deficiency anemias Additional A&P Information Plan for day: Continue with imipenem and Levaquin. Wean down oxygen supplementation keeping saturation in high 80s. Continue with Solu-Medrol 20 mg twice daily. Will titrate down tomorrow. Switch from IV to oral Lasix. Pulmonology consultation. Aggressive chest therapy. Continue physical therapy. Full code. Protonix for PUD prophylaxis. Heparin for DVT prophylaxis. Attestations Medical Necessity Statement*: Requires further hospitalization for management of acute on chronic hypoxia secondary to COPD exacerbation, congestive heart failure in setting of aspiration pneumonia Time Spent in Patient Care: Greater than 35 minutes (>than 50% of time spent in counselling and/or direct pt care on unit). 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[facility] Diagnoses Acute respiratory failure with hypoxia J96.01 Pneumonia J18.9 Laterality: right Lung location: middle lobe of lung Pneumonia type: due to unspecified organism CHF (congestive heart failure) I50.9 Heart failure type: unspecified Heart failure chronicity: acute Atrial fibrillation with RVR I48.91 COPD (chronic obstructive pulmonary disease) J43.9 COPD type: emphysema Emphysema type: unspecified Fall W19.XXXA Recurrent falls R29.6 Prostate cancer C61 ASHD (arteriosclerotic heart disease) I25.10 Non-ST elevation [place] (NSTEMI) I21.4 Anemia D50.8 Anemia type: iron deficiency Iron deficiency anemia type: other iron deficiency
[2021-06-06] MEDS: atorvastatin 40 mg Tablet PO (21:46)
[2021-06-07] VITALS (16 sets, daily range): BP systolic 91–144; BP diastolic 48–76; PULSE 52–102; RESP 16–25; TEMP 36.4–36.9; O2SAT 81–97
[2021-06-07] MEDS: ipratropium-albuterol 3 mL Neb INHALATION ×4 (02:28→20:07)
--- NOTE | 2021-06-07 04:52 | PC.NURSE ---
i reported to nurse low o2 85
[2021-06-07 05:51] LABS: Basophils # 0.1 10^3/uL (0.0-0.1); Basophils % 0.5 %; Eosinophils # 0.2 10^3/uL (0.0-0.8); Hematocrit 33.3 % (42.0-52.0); Hemoglobin 10.2 g/dL (11.7-16.6); Lymphocytes # 1.6 10^3/uL (0.8-4.8); Lymphocytes % 7.2 %; Mean Corpuscular HGB Conc 30.6 g/dL (30.0-36.0); Mean Corpuscular Hemoglobin 27.8 pg (28.0-34.0); Mean Corpuscular Volume 90.7 fl (80-94); Mean Platelet Volume 10.2 fL (7.4-10.4); Monocytes # 1.5 10^3/uL (0.2-0.9); Monocytes % 7.1 %; Neutrophils # 17.03 10^3/uL (1.8-7.7); Neutrophils % 78.4 %; Nucleated Red Blood Cells % 0.1 %; Platelet Count 282 10^3/cmm (130-400); Red Blood Count 3.67 10^6/uL (4.1-5.3); Red Cell Distribution Width 17.5 % (12.1-15.1); White Blood Count 21.7 10^3/uL (4.0-10.0)
[2021-06-07] MEDS: heparin 5,000 unit/mL INJ 1 mL 5000 UNIT SUBCUT ×2 (05:57→17:21)
[2021-06-07] MEDS: levoFLOXacin 500 mg Tablet PO (05:58)
[2021-06-07] MEDS: ferrous sulfate EC 325 mg Tablet PO ×3 (06:00→17:22)
[2021-06-07 06:17] LABS: Alanine Aminotransferase 21 U/L (0-41); Albumin Level 3.5 g/dL (3.5-5.2); Alkaline Phosphatase 60 IU/L (40-130); Aspartate Amino Transferase 25 U/L (0-40); Blood Urea Nitrogen 32 mg/dL (8-23); Calcium 8.9 mg/dL (8.5-10.5); Carbon Dioxide 31 mmol/L (22-29); Chloride 90 mmol/L (98-107); Glucose 93 mg/dL (65-115); Osmolality Calculated 295 mOsm/kg (285-295); Sodium 139 mmol/L (136-145); Total Bilirubin 0.4 mg/dL (0.15-1.2); Total Protein 6.5 g/dL (6.6-8.7)
[2021-06-07 06:21] LABS: Anion Gap 21.7 (5-19); Potassium 3.7 mmol/L (3.5-5.1)
--- NOTE | 2021-06-07 07:36 | PC.NURSE ---
I reported the02 to the nurse 87%
[2021-06-07 07:48] LABS: Slide Review Slide Review Perform
[2021-06-07] MEDS: finasteride 5 mg Tablet PO (08:49)
[2021-06-07] MEDS: docusate sodium 100 mg Capsule PO ×2 (08:49→17:21)
[2021-06-07] MEDS: sertraline 50 mg Tablet 150 MG PO (08:49)
[2021-06-07] MEDS: FUROsemide 40 mg Tablet PO ×2 (08:49→17:22)
[2021-06-07] MEDS: aspirin 325 mg EC Tablet PO (08:49)
[2021-06-07] MEDS: nystatin cream 30 gm 1 APPLIC TOPICAL ×2 (08:50→18:13)
[2021-06-07] MEDS: metoprolol tartrate 25 mg Tablet PO (08:50)
[2021-06-07] MEDS: potassium chloride ER 20 mEq Tablet PO ×2 (08:50→14:04)
[2021-06-07] MEDS: tamsulosin 0.4 mg Capsule PO (08:50)
[2021-06-07] MEDS: pantoprazole DR 40 mg Tablet PO (08:55)
[2021-06-07] MEDS: budesonide 0.5 mg/2 mL Neb INHALATION ×2 (09:12→20:07)
[2021-06-07] MEDS: sodium chloride 3.5% neb 4 mL Neb INHALATION (09:16)
--- NOTE | 2021-06-07 16:12 | PM.PN ---
Subjective Subjective: Interval history: Today morning on examination at bedside. Patient working with physical therapy. Did have 1 more episode today morning on changing position when he had jerky movement of his upper limbs with possible slurred speech episode. During that time patient was loaded with Keppra. Discussed in detail with patient's and he is agreeable to continue with for now. Has been turned down to 7 L high flow nasal cannula. Medications: Reviewed: Yes Vitals/I&O/Wt Last Vital Signs Temp 97.8 F 06/07/21 15:34 Pulse 81 06/07/21 15:34 Resp 16 06/07/21 15:34 BP 91/48 06/07/21 15:34 Pulse Ox 81 L 06/07/21 15:34 06/07/21 06/07/21 06/07/21 06:59 14:59 22:59 Intake Total 480 / 1480 110 / 110 Output Total 635 / 2660 350 / 350 Balance -155 / -1180 -240 / -240 Physical Exam Narrative: EXAM NARRATIVE: [facility] Const: COMMON NORMALS: no acute distress, patient oriented x3 and alert GENERAL APPEARANCE: cooperative ORIENTATION/CONSCIOUSNESS: Yes awake HENMT: COMMON NORMALS: oropharynx normal Neck/C-Spine: COMMON NORMALS: no JVD Resp: COMMON NORMALS: normal respiratory effort AUSCULTATION: diminished lung sounds (Improving) OTHER: Coarse breathing sounds. Cardio: COMMON NORMALS: no JVD, regular rhythm, S1 normal heart sound present, S2 normal heart sound present and No murmurs present (Cardio) RHYTHM: regular rhythm HEART SOUNDS: S1 normal heart sound present and S2 normal heart sound present GI: COMMON NORMALS: Normal to inspection, nondistended, normoactive bowel sounds present, Soft to palpation and non-tender PALPATION: Yes Soft to palpation Extremity: COMMON NORMALS: no joint enlargement and no pedal edema GENERAL: Yes edema (trace) Neuro: COMMON NORMALS: patient oriented x3 and moves all extremities SENSORIUM/ORIENTATION: Yes alert Skin: COMMON NORMALS: no rashes or lesions noted GENERAL SKIN EXAM: no rashes or lesions noted Urinary Catheter Management^: Skinner: Cath Placed During This Visit: yes, but has since been removed by the nurse Reason for Continuing Indwelling Catheter: Acute Urinary Retention or Obstruction Urinary Catheter Date of Insertion: 05/30/21 Urinary Catheter Time of Insertion: 13:50 Date Urinary Catheter Removed: 06/05/21 Time Urinary Catheter Discontinued: 18:16 Data : 06/07/21 05:11 06/07/21 05:11 A&P Assessment and plan (1) Acute respiratory failure with hypoxia: Most likely a combination of COPD exacerbation and congestive heart failure in setting of right lower lobe pneumonia. Chronically on 4 L oxygen supplementation. Cannot rule out higher baseline oxygen requirement now given worsening due to pneumonia. Cannot rule out chronic aspiration. Incentive spirometry, flutter valve, chest PT. Aggressive pulmonary toilet. Appreciate pulmonology recommendations. Continue Levaquin last dose on 06/09. Has finished a course of imipenem on 06/06. Patient has been on broad-spectrum antibiotic coverage since admission for last 6 days now. Patient modified barium swallow results. For now continue with mechanical soft diet. Will change diet accordingly. Could be secondary to possible PE given mildly elevated D-dimer. Discussed with patient's . Unfortunately given his anemia, recurrent falls patient is not a good candidate for anticoagulation even though if he has pulmonary embolism. For now plan is to hold off on CTA given no relevance as even if patient has pulmonary embolism it is not safe for him to be on anticoagulation. Status: Acute (2) Pneumonia: As above. Pending additional assessment for aspiration. Negative COVID-19 PCR. Requested sputum culture, negative urine bacterial antigens. Status: Acute Qualifiers: Laterality: right Lung location: middle lobe of lung Pneumonia type: due to unspecified organism Qualified Code(s): J18.9 - Pneumonia, unspecified organism (3) CHF (congestive heart failure): Reaching euvolemia. 4.5 L negative overall. Switch to oral Lasix 40 mg twice daily. Monitor I&O. Fluid restriction up to 1500 cc. Echocardiogram results appreciated with global of ventricular hypokinesis, with moderately decreased left ventricular systolic function, EF 45-50%, grade 2 diastolic dysfunction, moderately increased left atrial size, moderately thickened mitral valve, mild-moderate MVR, severe aortic valve calcification, moderate aortic valve stenosis, mean gradient 14.4, RENY 1 cm, mild AVR. Right ventricle normal size and function. No pericardial effusion. Compared to prior study moderate to severe aortic valve stenosis new. Denies chest pain or pressure. Troponins abnormal, but also with episode of A. fib with RVR. Stress test when respiratory condition improves. Has a known history of coronary artery disease with prior CABG and percutaneous intervention as well as known peripheral vascular disease and carotid disease both requiring intervention. Status: Acute Qualifiers: Heart failure type: unspecified Heart failure chronicity: acute Qualified Code(s): I50.9 - Heart failure, unspecified (4) Atrial fibrillation with RVR: New A. fib. A. fib with RVR presentation. Continue oral metoprolol. Not on anticoagulation because of recurrent falls and severe anemia. Status: Acute (5) COPD (chronic obstructive pulmonary disease): COPD exacerbation: Improving. Decrease IV steroid dose. Slightly better air entry. No wheezing. Weaned off NIV. Antibiotics as above. Breathing treatments. Sputum cultures if possible. Chronically on 5 L of oxygen by nasal cannula as well as on chronic steroid therapy, former smoker, acutely exacerbated secondary to above. Looking at ABG her has chronic hypercapnia and hypoxemia. Status: Chronic Qualifiers: COPD type: emphysema Emphysema type: unspecified Qualified Code(s): J43.9 - Emphysema, unspecified (6) Fall: Event less likely seizures. 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 Check orthostatics. Compression stockings. Physical therapy evaluation. Status: Acute (7) Recurrent falls: Patient reports right-sided weakness with ambulation of approximately 6 months duration. He has had falls intermittently since then that have been more prominent lately. 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 Status: Acute (8) Prostate cancer: Following with Dr. Masood Hines, has been on antiandrogen therapy with initial good response from PSA standpoint on review of records although missed treatment at least once this fall Status: Chronic (9) ASHD (arteriosclerotic heart disease): With prior bypass and percutaneous intervention. Status: Chronic (10) Non-ST elevation [place] (NSTEMI): Suspected demand ischemia secondary atrial fibrillation with RVR, hypoxia, although cannot rule out type I event. He does not have any chest pain or pressure. Possible Q waves in V1, V2. We will benefit from stress test once respiratory status improves. Discussed with him and his . With worsening echo chronic anemia, hemoglobin 7.8, iron deficiency, unclear when last colonoscopy was, reports recurrent anemia without identified source, risk of bleeding with anticoagulation. Continues on aspirin which she is tolerating so far. Continue beta-ghislaine, statin. Appreciate cardiology recommendations regarding additional risk stratification. Cannot entirely rule out type I process, but most likely type II process from demand ischemia related to hypoxemia, anemia and possibly other episodes of tachycardia arrhythmia like we have seen this evening. Has been sometime since he has had cardiac evaluation and he does have risk factors for recurrent disease so unable to presently rule out type I process. Status: Acute (11) Anemia: Iron deficiency anemia. Received 1 unit PBC transfusion given concern for underlying cardiac disease and anemia. states he has had upper and lower endoscopy previously. Recurrent episodes of anemia, without finding of the cause. Discussed consideration of referral for repeat endoscopy once he is more stable, and if no bleeding source identified, consideration of referral for capsule endoscopy, then possibly deep enteroscopy. Hemoccult requested, follow-up. Atrial fibrillation, but for now only aspirin given acute anemia. However, if further declining hemoglobin, may have to hold aspirin as well. Discussed with him would benefit from endoscopic evaluation once his overall condition improves. Also anemia of chronic disease. Status: Acute Qualifiers: Anemia type: iron deficiency Iron deficiency anemia type: other iron deficiency Qualified Code(s): D50.8 - Other iron deficiency anemias (12) Seizure: Status: Acute Additional A&P Information Plan for day: continue with Levaquin. Aggressive pulmonary rehab, physical therapy. Start on Keppra 500 mg twice daily. Full code. Protonix for PUD prophylaxis. Heparin for DVT prophylaxis. Attestations Medical Necessity Statement*: Requires further hospitalization for management of hypoxia in setting of COPD exacerbation, CHF, atrial fibrillation, aspiration pneumonia Time Spent in Patient Care: Greater than 35 minutes (>than 50% of time spent in counselling and/or direct pt care on unit). Coding Level of Care Code Acute Public Health Advisor for [facility] Fwd Diagnoses Acute respiratory failure with hypoxia J96.01 Pneumonia J18.9 Laterality: right Lung location: middle lobe of lung Pneumonia type: due to unspecified organism CHF (congestive heart failure) I50.9 Heart failure type: unspecified Heart failure chronicity: acute Atrial fibrillation with RVR I48.91 COPD (chronic obstructive pulmonary disease) J43.9 COPD type: emphysema Emphysema type: unspecified Fall W19.XXXA Recurrent falls R29.6 Prostate cancer C61 ASHD (arteriosclerotic heart disease) I25.10 Non-ST elevation [place] (NSTEMI) I21.4 Anemia D50.8 Anemia type: iron deficiency Iron deficiency anemia type: other iron deficiency Seizure R56.9
--- NOTE | 2021-06-07 17:07 | P.PN_ITS ---
Subjective Subjective: Interval history: Patient was on oxygen 5 L/min by nasal cannula for a while. Apparently his oxygen saturation dropped into the 70s. He had some mental status changes. Medications: Reviewed: Yes Medication Review Details: Current Medications Acetaminophen (Acetaminophen 325 Mg Tablet) 650 mg PO Q6H PRN PRN Reason: Mild/Mod Pain Or Temp >/= 101 Albuterol/Ipratropium (Ipratropium-Albuterol 3 Ml Neb) 3 ml INHALATION Q6H.RESPIRATORY JO Last Admin: 06/07/21 15:18 Dose: 3 ml Documented by: Albuterol/Ipratropium (Ipratropium-Albuterol 3 Ml Neb) 3 ml INHALATION Q4H PRN PRN Reason: SHORTNESS OF BREATH Last Admin: 06/01/21 19:54 Dose: 3 ml Documented by: Aspirin (Aspirin 325 Mg Ec Tablet) 325 mg PO DAILY JO Last Admin: 06/07/21 08:49 Dose: 325 mg Documented by: Atorvastatin Calcium (Atorvastatin 40 Mg Tablet) 40 mg PO BEDTIME JO Last Admin: 06/06/21 21:46 Dose: 40 mg Documented by: Bisacodyl (Bisacodyl 5 Mg Tablet) 10 mg PO DAILY PRN; Protocol PRN Reason: Constipation (see protocol) Budesonide (Budesonide 0.5 Mg/2 Ml Neb) 0.5 mg INHALATION BID.RESPIRATORY JO Last Admin: 06/07/21 09:12 Dose: 0.5 mg Documented by: Docusate Sodium (Docusate Sodium 100 Mg Capsule) 100 mg PO BID JO Last Admin: 06/07/21 08:49 Dose: 100 mg Documented by: Ferrous Sulfate (Ferrous Sulfate Ec 325 Mg Tablet) 325 mg PO TIDAC JO Last Admin: 06/07/21 10:53 Dose: 325 mg Documented by: Finasteride (Finasteride 5 Mg Tablet) 5 mg PO DAILY JO Last Admin: 06/07/21 08:49 Dose: 5 mg Documented by: Furosemide (Furosemide 40 Mg Tablet) 40 mg PO BID@ JO Last Admin: 06/07/21 08:49 Dose: 40 mg Documented by: Heparin Sodium (Porcine) (Heparin 5,000 Unit/Ml Inj 1 Ml) 5,000 unit SUBCUT Q12H JO Last Admin: 06/07/21 05:57 Dose: 5,000 unit Documented by: Levetiracetam (Levetiracetam 500 Mg Tablet) 500 mg PO BID [facility] Levofloxacin (Levofloxacin 500 Mg Tablet) 500 mg PO DAILY@0600 [facility]; Protocol Stop: 06/09/21 12:09 Last Admin: 06/07/21 05:58 Dose: 500 mg Documented by: Methylprednisolone Sodium Succinate (Methylprednisolone Sod Succ 40 Mg/Ml Inj) 20 mg IVP DAILY [facility] Metoprolol Tartrate (Metoprolol Tartrate 25 Mg Tablet) 25 mg PO BID@0900,2100 [facility] Last Admin: 06/07/21 08:50 Dose: 25 mg Documented by: Nystatin (Nystatin Cream 30 Gm) 1 applic TOPICAL BID [facility] Last Admin: 06/07/21 08:50 Dose: 1 applic Documented by: Ondansetron HCl (Ondansetron 2 Mg/Ml Sdv 2 Ml) 4 mg IVP Q8H PRN PRN Reason: vomiting, or N/V if npo Pantoprazole Sodium (Pantoprazole Dr 40 Mg Tablet) 40 mg PO DAILY [facility] Last Admin: 06/07/21 08:55 Dose: 40 mg Documented by: Potassium Chloride (Potassium Chloride Er 20 Meq Tablet) 20 meq PO BID@08,14 [facility] Last Admin: 06/07/21 14:04 Dose: 20 meq Documented by: Sertraline HCl (Sertraline 50 Mg Tablet) 150 mg PO DAILY [facility] Last Admin: 06/07/21 08:49 Dose: 150 mg Documented by: Sodium Chloride (Sodium Chloride 3.5% Neb 4 Ml Neb) 4 ml INHALATION BID.RESPIRATORY [facility] Last Admin: 06/07/21 09:16 Dose: 4 ml Documented by: Tamsulosin HCl (Tamsulosin 0.4 Mg Capsule) 0.4 mg PO DAILY [facility] Last Admin: 06/07/21 08:50 Dose: 0.4 mg Documented by: Vitals/I&O/Wt Last Vital Signs Temp 97.8 F 06/07/21 15:34 Pulse 81 06/07/21 15:34 Resp 16 06/07/21 15:34 BP 91/48 06/07/21 15:34 Pulse Ox 81 L 06/07/21 15:34 Laboratory Last Values WBC 21.7 10^3/uL (4.0-10.0) H 06/07/21 05:11 RBC 3.67 10^6/uL (4.1-5.3) L 06/07/21 05:11 Hgb 10.2 g/dL (11.7-16.6) L 06/07/21 05:11 Hct 33.3 % (42.0-52.0) L 06/07/21 05:11 MCV 90.7 fl (80-94) 06/07/21 05:11 MCH 27.8 pg (28.0-34.0) L 06/07/21 05:11 MCHC 30.6 g/dL (30.0-36.0) 06/07/21 05:11 RDW 17.5 % (12.1-15.1) H 06/07/21 05:11 Plt Count 282 10^3/cmm (130-400) 06/07/21 05:11 MPV 10.2 fL (7.4-10.4) 06/07/21 05:11 Neut % (Auto) 78.4 % 06/07/21 05:11 Lymph % (Auto) 7.2 % 06/07/21 05:11 [place] % (Auto) 7.1 % 06/07/21 05:11 Eos % (Auto) 1.0 % 06/07/21 05:11 Baso % (Auto) 0.5 % 06/07/21 05:11 Neut # (Auto) 17.03 10^3/uL (1.8-7.7) H 06/07/21 05:11 Lymph # (Auto) 1.6 10^3/uL (0.8-4.8) 06/07/21 05:11 [place] # (Auto) 1.5 10^3/uL (0.2-0.9) H 06/07/21 05:11 Eos # (Auto) 0.2 10^3/uL (0.0-0.8) 06/07/21 05:11 Baso # (Auto) 0.1 10^3/uL (0.0-0.1) 06/07/21 05:11 Nucleated RBC % (auto) 0.1 % 06/07/21 05:11 Total Counted 100 (0-100) 06/06/21 05:44 Atypical Lymphs % 1.0 % (0-5) 06/06/21 05:44 Absolute Neutrophils 14.8 10^3/cmm (1.4-6.5) H 06/06/21 05:44 Segmented Neutrophils 49 % 06/06/21 05:44 Abs Segm Neuts (Man) 9.7 10/cmm (1.6-7.1) H 06/06/21 05:44 Band Neutrophils 26.0 % 06/06/21 05:44 Abs Band Neuts (Man) 5.1 10^3/cmm (0.0-1.2) H 06/06/21 05:44 Absolute Lymphocytes 3.0 10^3/cmm (1.2-3.4) 06/06/21 05:44 Lymphocytes (Manual) 14 % 06/06/21 05:44 Monocytes (Manual) 1.0 % 06/06/21 05:44 Absolute Monocytes 0.2 10^3/cmm (0.1-0.6) 06/06/21 05:44 Eosinophils (Manual) 2 % 06/06/21 05:44 Absolute Eosinophils 0.3 10^3/cmm (0.0-0.7) 06/06/21 05:44 Basophils (Manual) 0.0 % 06/06/21 05:44 Absolute Basophils 0.0 10^3/cmm (0.0-0.2) 06/06/21 05:44 Metamyelocytes 2.0 % 06/06/21 05:44 Myelocytes 5.0 % 06/06/21 05:44 Nucleated RBCs # 0.0 /100WBC 06/07/21 05:11 Platelet Estimate Normal (Normal) 06/06/21 05:44 PT 15.40 SECONDS (12.1-14.9) H 05/30/21 06:48 INR 1.19 (0.8-1.2) 05/30/21 06:48 APTT 42.2 SECONDS (23.9-36.7) H 05/30/21 06:48 D-Dimer 0.91 ug/mIFEU (0-0.59) H 06/01/21 18:00 Specimen Type Arterial 06/04/21 13:35 Sample Site Radial, left 06/04/21 13:35 ABG pH 7.50 (7.35-7.45) H 06/04/21 13:35 ABG pCO2 52.5 mmHg (35-45) H 06/04/21 13:35 ABG pO2 63.6 mmHg (80.0-100.0) L 06/04/21 13:35 ABG HCO3 40.8 mmol/L (22-26) H 06/04/21 13:35 ABG O2 Saturation 94.6 06/04/21 13:35 ABG Base Excess 15.6 mmol/L (-2.0-2.0) H 06/04/21 13:35 Miguel Angel Test Pos 06/04/21 13:35 A-a O2 Gradient 3.0 mmHg (5-10) L 06/04/21 13:35 Hematocrit 29.6 % (42-52) L 06/04/21 13:35 Hgb O2 Saturation 93.3 % (95-100) L 06/04/21 13:35 Carboxyhemoglobin 1.3 %THgb (0.4-20.1) 06/04/21 13:35 Methemoglobin 0.1 % (0.4-1.5) L 06/04/21 13:35 Total Hemoglobin 9.7 g/dL (14-18) L 06/04/21 13:35 Sodium 142.0 mmol/L (131-143) 06/04/21 13:35 Potassium 3.8 mmol/L (3.5-5.0) 06/04/21 13:35 Glucose 120.0 mg/dL (70-115) H 06/04/21 13:35 Ionized Calcium 1.2 mmol/L (1.1-1.4) 06/04/21 13:35 O2 Delivery Device Nc 06/04/21 13:35 O2 Liters/Min 9.0 % 06/04/21 13:35 Production Packager ID Broma 06/04/21 13:35 Sodium 139 mmol/L (136-145) 06/07/21 05:11 Potassium 3.7 mmol/L (3.5-5.1) 06/07/21 05:11 Chloride 90 mmol/L (98-107) L 06/07/21 05:11 Carbon Dioxide 31 mmol/L (22-29) H 06/07/21 05:11 Anion Gap 21.7 (5-19) H 06/07/21 05:11 BUN 32 mg/dL (8-23) H 06/07/21 05:11 Creatinine 0.9 mg/dL (0.7-1.2) 06/07/21 05:11 GFR Calculation Not Reportable 06/07/21 05:11 Glucose 93 mg/dL (65-115) 06/07/21 05:11 Calculated Osmolality 295 mOsm/kg (285-295) 06/07/21 05:11 Calcium 8.9 mg/dL (8.5-10.5) 06/07/21 05:11 Phosphorus 3.1 mg/dL (2.5-4.5) 05/30/21 06:48 Magnesium 2.0 mg/dL (1.7-2.3) 05/30/21 06:48 Iron 36 ug/dL (59-158) L 06/04/21 04:12 TIBC 310 mcg/dl 06/04/21 04:12 % Saturation 11.6 % (20-50) L 06/04/21 04:12 Unsat Iron Binding 274 ug/dL (112-347) 06/04/21 04:12 Total Bilirubin 0.4 mg/dL (0.15-1.2) 06/07/21 05:11 AST 25 U/L (0-40) 06/07/21 05:11 ALT 21 U/L (0-41) 06/07/21 05:11 Alkaline Phosphatase 60 IU/L (40-130) 06/07/21 05:11 Troponin T Baseline 201 ng/L (0-15) H* 05/29/21 18:50 Troponin T 120 Minute 216.6 ng/L (0-15) H 05/29/21 20:46 Delta Troponin T 15.6 ABS# (0-10) H* 05/29/21 20:46 Troponin T Hi Sens 6Hr 272.4 ng/L (0-15) H 05/30/21 00:41 Troponin T Hi Sens 6Hr Delta 71.4 ng/L (0-12) H* 05/30/21 00:41 NT-Pro-B Natriuret Pep 2018 pg/mL (0-450) H 06/04/21 04:12 Total Protein 6.5 g/dL (6.6-8.7) L 06/07/21 05:11 Albumin 3.5 g/dL (3.5-5.2) 06/07/21 05:11 Globulin 3.0 g/dL (1.3-4.6) 06/07/21 05:11 Triglycerides 89 mg/dL (0-150) 05/30/21 06:48 Cholesterol 123 mg/dL (0-200) 05/30/21 06:48 LDL Cholesterol, Calc 59 mg/dL (50-129) 05/30/21 06:48 HDL Cholesterol 46 mg/dL (60-100) L 05/30/21 06:48 LDL/HDL Ratio 1.28 RATIO (0.00-3.22) 05/30/21 06:48 Cholesterol/HDL Ratio 2.67 mg/dL (1.0-5.00) 05/30/21 06:48 Prostate Specific Ag 67.710 ng/mL (0-4) H 05/30/21 00:41 Procalcitonin 0.04 ng/mL (0-0.5) 06/04/21 04:12 TSH 2.25 uIU/mL (0.27-4.20) 05/30/21 06:48 Urine Color Yellow (Yellow) 05/29/21 19:10 Urine Appearance Clear (CLEAR) 05/29/21 19:10 Urine pH 5 (5-7) 05/29/21 19:10 Ur Specific Dickens 1.020 (1.005-1.030) 05/29/21 19:10 Urine Protein Trace (Negative) 05/29/21 19:10 Urine Glucose (UA) Norm (Normal) 05/29/21 19:10 Urine Ketones Negative (Negative) 05/29/21 19:10 Urine Blood Neg (Negative) 05/29/21 19:10 Urine Nitrate Negative (Negative) 05/29/21 19:10 Urine Bilirubin Neg (Negative) 05/29/21 19:10 Urine Urobilinogen 1 mg/dL (Negative) H 05/29/21 19:10 Ur Leukocyte Esterase Negative (Negative) 05/29/21 19:10 Urine RBC 0-4 /hpf (0-2) H 05/29/21 19:10 Urine WBC 0-4 /hpf (0-5) H 05/29/21 19:10 Ur Squamous Epith Cells 0-4 /hpf (0-5) H 05/29/21 19:10 Amorphous Sediment Not Reportable 05/29/21 19:10 Urine Bacteria Trace /hpf (NONE) 05/29/21 19:10 Hyaline Casts 0-4 /lpf H 05/29/21 19:10 Urine Mucus Trace /hpf 05/29/21 19:10 Vancomycin Trough 8.5 ug/mL (10-15) L 06/03/21 04:20 Salicylates 1.2 mg/dL (3-10) L 05/29/21 18:40 Acetaminophen < 5.0 ug/mL (10-30) L 05/29/21 18:40 Nasal/Oral COVID-19 PCR Not detected 05/30/21 00:10 SARS-CoV-2 Ag (Rapid) Negative (Negative) 05/30/21 00:15 Blood Type A Positive 06/01/21 12:39 Rho(D) Type Positive 06/01/21 12:39 Antibody Screen Negative 06/01/21 12:39 Crossmatch See Detail 06/01/21 12:39 06/07/21 06/07/21 06/07/21 06:59 14:59 22:59 Intake Total 480 / 1480 110 / 110 Output Total 635 / 2660 350 / 350 Balance -155 / -1180 -240 / -240 Physical Exam Narrative: EXAM NARRATIVE: GENERAL: The patient is alert and oriented times three. Not in any acute distress. HEENT: Moderate pallor. No icterus or lymphadenopathy.Oral cavity: There are no mucous membrane lesions. NECK: Trachea appears to be central. No masses noted. No JVD or thyromegaly appreciated. Carotid bruit on the right side. RESPIRATORY: Chest is symmetrical. No intercostals muscle retraction or any accessory muscle activation. There is no chest wall tenderness. Breath sounds are heard bilaterally. Scattered coarse crackles the intensity of the breath sounds are somewhat diminished in the bases BREASTS: Deferred. HEART: The heart sounds are normal. No S3 or S4. Short systolic murmur in the left sternal border. No diastolic murmurs. No pericardial rub ABDOMEN: No vessel pulsations or distention. No tenderness. No organomegaly yayo reciated. Bowel sounds are normally heard. : Deferred. RECTAL: Deferred. LYMPHATIC: No lymphadenopathy noted in the neck or groin. EXTREMITIES: Trace edema with no cyanosis. MUSCULOSKELETAL: No acute joint deformities or swelling SKIN: There are no significant rashes or ecchymosis NEUROPSYCHIATRIC: The patient is alert and oriented x3. Appears to be in a good mood. No tremors or rigidity noted. Urinary Catheter Management^: Skinner: Cath Placed During This Visit: yes, but has since been removed by the nurse Reason for Continuing Indwelling Catheter: Acute Urinary Retention or Obstruction Urinary Catheter Date of Insertion: 05/30/21 Urinary Catheter Time of Insertion: 13:50 Date Urinary Catheter Removed: 06/05/21 Time Urinary Catheter Discontinued: 18:16 Data : 06/07/21 05:11 06/07/21 05:11 A&P Assessment and plan (1) Elevated troponin: No discharges during the respiratory status is better stabilized. Te elevated troponin T with a significant delta at the 2 and 6-hour timeframe could be related to type I myocardial infarction. However in view of the atrial fibrillation, severe anemia, heart failure and pneumonia, a type II OK also is a consideration. Hemodynamically seems to be stable. He is currently asymptomatic. For further evaluation of the coronary status, a myocardial perfusion imaging would be appropriate. Because of his oxygenation status, we may hold off on this for a while. Patient is currently on a BiPAP. His overall physical condition is poor. At this time, do not be appropriate to do a stress test. This was discussed with the patient detail which is understood well. We may consider this, if the respiratory status improves Status: Acute (2) Atherosclerosis of coronary artery of [place] heart without angina pectoris: Patient is currently status seems to be stable. He is not complaining of any significant chest pain. Work-up as mentioned above. I will be discussing with the Dr. Otero, about the timing of the stress test Status: Acute Qualifiers: Coronary Disease-Associated Artery/Lesion type: [place] artery Qualified Code(s): I25.10 - Atherosclerotic heart disease of [place] coronary artery with out angina pectoris (3) Atrial fibrillation with RVR: Currently the heart rate is under control. Patient may continue on the current medications. Because of the anemia and the frequent fall, patient is not on any oral anticoagulation. Status: Acute (4) CHF (congestive heart failure): The heart failure seems to be getting compensated. I may switch the IV Lasix to p.o. Lasix 40 mg twice daily Status: Acute Qualifiers: Heart failure chronicity: acute Heart failure type: unspecified Qualified Code(s): I50.9 - Heart failure, unspecified (5) Anemia: The etiology is not clear. Patient has history of GI bleed. Advanced Ca of the prostate could be a contributing factor. Hemoglobin is 9.3 today. Status: Acute Qualifiers: Anemia type: iron deficiency Iron deficiency anemia type: other iron deficiency Qualified Code(s): D50.8 - Other iron deficiency anemias (6) PVD (peripheral vascular disease): The patient currently has no specific symptoms. May continue on the current measures. 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 No significant stenosis in the right side. 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 Correia Status: Acute (9) Acute respiratory failure with hypoxia: The oxygenation is still very poor. This could be multifactorial. The pneumonia, COPD, heart failure, etc. all are contributing factors. Status: Acute Additional A&P Information Other problems are Seizure disorder Dementia Pneumonia May continue on the current treatment management. Hold off on stress testing till his respiratory status and the overall function improves. Discussed this with the patient's , patient understands well. Attestations Medical Necessity Statement*: Patient requires continued hospital stay for close monitoring and further management Coding Level of Care Code Acute Materials And Corrosion Engineer for Chg Fwd History Expanded Problem Focused Exam Detailed Medical Decision Making Moderate Complexity Diagnoses Elevated troponin R77.8 Atherosclerosis of coronary artery of [place] heart without angina pectoris I25.10 Coronary Disease-Associated Artery/Lesion type: [place] artery Atrial fibrillation with RVR I48.91 CHF (congestive heart failure) I50.9 Heart failure chronicity: acute Heart failure type: unspecified Anemia D50.8 Anemia type: iron deficiency Iron deficiency anemia type: other iron deficiency PVD (peripheral vascular disease) I73.9 Carotid artery stenosis I65.21 Laterality: right 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
[2021-06-07] MEDS: levETIRAcetam 500 mg Tablet PO (17:22)
[2021-06-07] MEDS: atorvastatin 40 mg Tablet PO (20:18)
[2021-06-08] VITALS (15 sets, daily range): BP systolic 102–126; BP diastolic 50–73; PULSE 68–94; RESP 17–25; TEMP 36.4–36.9; O2SAT 77–97
[2021-06-08] MEDS: ipratropium-albuterol 3 mL Neb INHALATION ×4 (02:16→20:21)
--- NOTE | 2021-06-08 03:42 | PC.NURSE ---
telephonic nurse case manager notified this RN that patient was on the floor. Stated she walked into room and pt was on the floor and in a puddle of his water. Four assist with gait belt back into bed. Pt assessed. No injuries noted. Denies hitting his head. Stated he was attempting to get his water and fell out of the bed. Dr. Alvarez notified at 0332. No orders noted.
[2021-06-08] MEDS: ferrous sulfate EC 325 mg Tablet PO ×3 (06:05→17:17)
[2021-06-08] MEDS: heparin 5,000 unit/mL INJ 1 mL 5000 UNIT SUBCUT ×2 (06:05→17:18)
[2021-06-08] MEDS: levoFLOXacin 500 mg Tablet PO (06:05)
--- NOTE | 2021-06-08 06:55 | PC.NURSE ---
This RN called pt , Neyda, to update on fall during the night. Appreciative of call. Stating she would be in this morning.
[2021-06-08 07:05] LABS: Alanine Aminotransferase 19 U/L (0-41); Albumin Level 3.6 g/dL (3.5-5.2); Alkaline Phosphatase 59 IU/L (40-130); Aspartate Amino Transferase 18 U/L (0-40); Blood Urea Nitrogen 41 mg/dL (8-23); Calcium 8.8 mg/dL (8.5-10.5); Carbon Dioxide 33 mmol/L (22-29); Chloride 88 mmol/L (98-107); Globulin 2.6 g/dL (1.3-4.6); Glucose 106 mg/dL (65-115); NT Pro B Type Natriuretic Pept 1329 pg/mL (0-450); Osmolality Calculated 297 mOsm/kg (285-295); Sodium 138 mmol/L (136-145); Total Bilirubin 0.4 mg/dL (0.15-1.2); Total Protein 6.2 g/dL (6.6-8.7)
[2021-06-08] MEDS: sertraline 50 mg Tablet 150 MG PO (08:13)
[2021-06-08] MEDS: aspirin 325 mg EC Tablet PO (08:13)
[2021-06-08] MEDS: finasteride 5 mg Tablet PO (08:14)
[2021-06-08] MEDS: pantoprazole DR 40 mg Tablet PO (08:14)
[2021-06-08] MEDS: metoprolol tartrate 25 mg Tablet PO ×2 (08:14→20:14)
[2021-06-08] MEDS: FUROsemide 40 mg Tablet PO ×2 (08:14→17:17)
[2021-06-08] MEDS: nystatin cream 30 gm 1 APPLIC TOPICAL (08:14)
[2021-06-08] MEDS: levETIRAcetam 500 mg Tablet PO ×2 (08:14→17:18)
[2021-06-08] MEDS: docusate sodium 100 mg Capsule PO ×2 (08:14→17:17)
[2021-06-08] MEDS: tamsulosin 0.4 mg Capsule PO (08:14)
[2021-06-08] MEDS: potassium chloride ER 20 mEq Tablet PO (08:14)
[2021-06-08] MEDS: budesonide 0.5 mg/2 mL Neb INHALATION ×2 (08:42→20:21)
--- NOTE | 2021-06-08 11:41 | PC.SOCIAL ---
IMM Updated Updated pt on IMM. No questions voiced. Provided pt a copy. Initialed, dated, & timed copy in chart.
[2021-06-08] MEDS: potassium chloride ER 20 mEq Tablet 40 MEQ PO (13:59)
--- NOTE | 2021-06-08 15:21 | PC.CHAP ---
Pastoral Care Encounter/Spiritual Assessment Type of Contact [] Declined forging machine hand visit [] Patient/Family/Request visit [] Outpatient visit [xx] Follow-up visit [] Physician referral [] Code/Alert [xx] Routine visit [] Staff referral [] Actively dying [] Patient sleeping [] Family support [] [] Out of room [] Palliative care [] [] Receiving care in room [] Pre-surgical visit [] Trauma [xx] Long length of stay [] ICU visit [] Other: Relational/Emotional Strength [] Patient feels connected with others/family/visitors/staff [] Distress [] Loneliness/isolation [] Abandonment Spirituality of Patient [] Person of Salome [] Attends Rastafari of their Salome [] Believes in Prayer [] Reads Bible or Episcopal materials [] There are Spiritual issues to be addressed Data Warehousing Manager Interventions [] Prayer [] Active listening [] Non-anxious presence [] Spiritual/emotional support [] Crisis/trauma care [] Spiritual counseling [] Bereavement support [] Provided bereavement packet [] Provided Bible/devotional materials [] Provided toy/stuffed animal, coloring book to patient or family member [] Provided Communion [] Anointing/[place] [] Salvation [] Completed spiritual assessment [] Other: Impact on Illness or Injury [] Angry [] Fearful [] Anxious [] Often cries [] Exhaustion [] Unable to work [] Unable to attend religious [] Unable to walk/stand [] Unable to read [] Unable to drive [] Unable to eat/drink [] Unable to sleep [] Unable to be with family [] Patient intubated [] Other: Summary was present. Patient was throwing up and was caring for him. Not a good time to visit. Follow up later. Time spent with patient 2 minutes
--- NOTE | 2021-06-08 15:22 | PM.PN ---
Subjective Subjective: Interval history: No events overnight. Patient had remained on 7 L high flow nasal cannula. Today morning was being transitioned over to oxygen pendent for a trial at that time he desaturated to 70s and his saturations could not improve even on high flow nasal cannula so was placed on BiPAP oxygen saturations improved to 87%. Today morning on examination seen on BiPAP with at bedside. Patient is awake alert oriented. Had goals of care discussion both with patient and patient's at bedside. Medications: Reviewed: Yes Vitals/I&O/Wt Last Vital Signs Temp 98.4 F 06/08/21 12:00 Pulse 84 06/08/21 12:00 Resp 17 06/08/21 12:00 BP 124/68 06/08/21 12:00 Pulse Ox 92 06/08/21 12:00 06/08/21 06/08/21 06/08/21 06:59 14:59 22:59 Intake Total 480 / 480 Output Total 525 / 2225 300 / 300 Balance -525 / -1365 180 / 180 Physical Exam Narrative: EXAM NARRATIVE: [facility] Const: COMMON NORMALS: no acute distress, patient oriented x3 and alert GENERAL APPEARANCE: cooperative ORIENTATION/CONSCIOUSNESS: Yes awake HENMT: COMMON NORMALS: oropharynx normal Neck/C-Spine: COMMON NORMALS: no JVD Resp: COMMON NORMALS: normal respiratory effort AUSCULTATION: diminished lung sounds (Improving) OTHER: Coarse breathing sounds. Cardio: COMMON NORMALS: no JVD, regular rhythm, S1 normal heart sound present, S2 normal heart sound present and No murmurs present (Cardio) RHYTHM: regular rhythm HEART SOUNDS: S1 normal heart sound present and S2 normal heart sound present GI: COMMON NORMALS: Normal to inspection, nondistended, normoactive bowel sounds present, Soft to palpation and non-tender PALPATION: Yes Soft to palpation Extremity: COMMON NORMALS: no joint enlargement and no pedal edema GENERAL: Yes edema (trace) Neuro: COMMON NORMALS: patient oriented x3 and moves all extremities SENSORIUM/ORIENTATION: Yes alert Skin: COMMON NORMALS: no rashes or lesions noted GENERAL SKIN EXAM: no rashes or lesions noted Urinary Catheter Management^: Skinner: Cath Placed During This Visit: yes, but has since been removed by the nurse Reason for Continuing Indwelling Catheter: Acute Urinary Retention or Obstruction Urinary Catheter Date of Insertion: 05/30/21 Urinary Catheter Time of Insertion: 13:50 Date Urinary Catheter Removed: 06/05/21 Time Urinary Catheter Discontinued: 18:16 Data : 06/07/21 05:11 06/08/21 05:10 A&P Assessment and plan (1) Acute respiratory failure with hypoxia: Most likely a combination of COPD exacerbation and congestive heart failure in setting of right lower lobe pneumonia. Chronically on 4 L oxygen supplementation. Cannot rule out higher baseline oxygen requirement now given worsening due to pneumonia. Cannot rule out chronic aspiration. Incentive spirometry, flutter valve, chest PT. Aggressive pulmonary toilet. Appreciate pulmonology recommendations. Continue Levaquin last dose on 06/09. Has finished a course of imipenem on 06/06. Patient has been on broad-spectrum antibiotic coverage since admission for last 6 days now. Patient modified barium swallow results. For now continue with mechanical soft diet. Will change diet accordingly. Could be secondary to possible PE given mildly elevated D-dimer. Discussed with patient's . Unfortunately given his anemia, recurrent falls patient is not a good candidate for anticoagulation even though if he has pulmonary embolism. For now plan is to hold off on CTA given no relevance as even if patient has pulmonary embolism it is not safe for him to be on anticoagulation. Status: Acute (2) Pneumonia: As above. Pending additional assessment for aspiration. Negative COVID-19 PCR. Requested sputum culture, negative urine bacterial antigens. Status: Acute Qualifiers: Laterality: right Lung location: middle lobe of lung Pneumonia type: due to unspecified organism Qualified Code(s): J18.9 - Pneumonia, unspecified organism (3) CHF (congestive heart failure): Reaching euvolemia. 4.5 L negative overall. Switch to oral Lasix 40 mg twice daily. Monitor I&O. Fluid restriction up to 1500 cc. Echocardiogram results appreciated with global of ventricular hypokinesis, with moderately decreased left ventricular systolic function, EF 45-50%, grade 2 diastolic dysfunction, moderately increased left atrial size, moderately thickened mitral valve, mild-moderate MVR, severe aortic valve calcification, moderate aortic valve stenosis, mean gradient 14.4, RENY 1 cm, mild AVR. Right ventricle normal size and function. No pericardial effusion. Compared to prior study moderate to severe aortic valve stenosis new. Denies chest pain or pressure. Troponins abnormal, but also with episode of A. fib with RVR. Stress test when respiratory condition improves. Has a known history of coronary artery disease with prior CABG and percutaneous intervention as well as known peripheral vascular disease and carotid disease both requiring intervention. Status: Acute Qualifiers: Heart failure type: unspecified Heart failure chronicity: acute Qualified Code(s): I50.9 - Heart failure, unspecified (4) Atrial fibrillation with RVR: New A. fib. A. fib with RVR presentation. Continue oral metoprolol. Not on anticoagulation because of recurrent falls and severe anemia. Status: Acute (5) COPD (chronic obstructive pulmonary disease): COPD exacerbation: Improving. Decrease IV steroid dose. Slightly better air entry. No wheezing. Weaned off NIV. Antibiotics as above. Breathing treatments. Sputum cultures if possible. Chronically on 5 L of oxygen by nasal cannula as well as on chronic steroid therapy, former smoker, acutely exacerbated secondary to above. Looking at ABG her has chronic hypercapnia and hypoxemia. Status: Chronic Qualifiers: COPD type: emphysema Emphysema type: unspecified Qualified Code(s): J43.9 - Emphysema, unspecified (6) Fall: Event less likely seizures. 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 Check orthostatics. Compression stockings. Physical therapy evaluation. Status: Acute (7) Recurrent falls: Patient reports right-sided weakness with ambulation of approximately 6 months duration. He has had falls intermittently since then that have been more prominent lately. 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 Status: Acute (8) Prostate cancer: Following with Dr. Masood Hines, has been on antiandrogen therapy with initial good response from PSA standpoint on review of records although missed treatment at least once this fall Status: Chronic (9) ASHD (arteriosclerotic heart disease): With prior bypass and percutaneous intervention. Status: Chronic (10) Non-ST elevation CO (NSTEMI): Suspected demand ischemia secondary atrial fibrillation with RVR, hypoxia, although cannot rule out type I event. He does not have any chest pain or pressure. Possible Q waves in V1, V2. We will benefit from stress test once respiratory status improves. Discussed with him and his . With worsening echo chronic anemia, hemoglobin 7.8, iron deficiency, unclear when last colonoscopy was, reports recurrent anemia without identified source, risk of bleeding with anticoagulation. Continues on aspirin which she is tolerating so far. Continue beta-ghislaine, statin. Appreciate cardiology recommendations regarding additional risk stratification. Cannot entirely rule out type I process, but most likely type II process from demand ischemia related to hypoxemia, anemia and possibly other episodes of tachycardia arrhythmia like we have seen this evening. Has been sometime since he has had cardiac evaluation and he does have risk factors for recurrent disease so unable to presently rule out type I process. Status: Acute (11) Anemia: Iron deficiency anemia. Received 1 unit PBC transfusion given concern for underlying cardiac disease and anemia. states he has had upper and lower endoscopy previously. Recurrent episodes of anemia, without finding of the cause. Discussed consideration of referral for repeat endoscopy once he is more stable, and if no bleeding source identified, consideration of referral for capsule endoscopy, then possibly deep enteroscopy. Hemoccult requested, follow-up. Atrial fibrillation, but for now only aspirin given acute anemia. However, if further declining hemoglobin, may have to hold aspirin as well. Discussed with him would benefit from endoscopic evaluation once his overall condition improves. Also anemia of chronic disease. Status: Acute Qualifiers: Anemia type: iron deficiency Iron deficiency anemia type: other iron deficiency Qualified Code(s): D50.8 - Other iron deficiency anemias (12) Seizure: Status: Acute Additional A&P Information Case discussed in detail with aerial planting and cultivation manager. This could be patient's new baseline unfortunately given severe COPD with worsening secondary to pneumonia and possible congestive heart failure. There is a possibility of pulmonary embolism but CT not entertained given high risk factors for contrast-induced nephropathy and the fact that patient is not a good candidate for anticoagulation even if pulmonary embolism is found. agrees and verbalized understanding that patient is at high risk for anticoagulation given his recurrent falls and severe anemia. Case also discussed in detail with shellfish sorter. Patient is euvolemic as per shellfish sorter's and can be continued on oral Lasix. Patient requires a possible stress test or a cardiac angiogram given NSTEMI on admission but given his oxygen requirements he is not a good candidate for either. Goals of care discussion: states patient has a living will which states not to intubate or do chest compressions. CODE STATUS DNR/DNI. Given his advanced COPD requiring up to 5 to 6 L of nasal cannula oxygen supplementation and baseline and congestive heart failure with pneumonia, congestive heart failure exacerbation and possible NSTEMI on admission even after completion of treatment for pneumonia and patient being euvolemic he still requiring high oxygen supplementation going as high as 8 to 9 L high flow nasal cannula with episodes of desaturation on minimal exertion. We discussed if patient is not able to tolerate oxygen pendent which will be tried again later in the day and tomorrow then as per the discretion with aerial planting and cultivation manager and shellfish sorter hospice would be appropriate. We discussed multiple possible treatment modalities. and patient verbalized understanding and state given his goals of care discussion, history of prostate cancer and wishes in the past they would want to go forward with hospice at home with do not hospitalize in future if needed. Case management has been alerted. DNR/DNI. Hospice referral. Protonix for PUD prophylaxis. Heparin for DVT prophylaxis. Attestations Medical Necessity Statement*: Requires further hospitalization for management of severe hypoxia and hypoxic respiratory failure secondary to COPD exacerbation, congestive heart failure in setting of non-STEMI and aspiration pneumonia Time Spent in Patient Care: Greater than 35 minutes (>than 50% of time spent in counselling and/or direct pt care on unit). Coding Level of Care Code Acute Entertainment Usher for [facility] Diagnoses Acute respiratory failure with hypoxia J96.01 Pneumonia J18.9 Laterality: right Lung location: middle lobe of lung Pneumonia type: due to unspecified organism CHF (congestive heart failure) I50.9 Heart failure type: unspecified Heart failure chronicity: acute Atrial fibrillation with RVR I48.91 COPD (chronic obstructive pulmonary disease) J43.9 COPD type: emphysema Emphysema type: unspecified Fall W19.XXXA Recurrent falls R29.6 Prostate cancer C61 ASHD (arteriosclerotic heart disease) I25.10 Non-ST elevation CO (NSTEMI) I21.4 Anemia D50.8 Anemia type: iron deficiency Iron deficiency anemia type: other iron deficiency Seizure R56.9
--- NOTE | 2021-06-08 19:03 | P.PN_ITS ---
Subjective Subjective: Interval history: Patient was switched to BiPAP. When I saw the patient he is on nasal cannula and sitting comfortably, He denies any complaint he was able to talk to me in sentences I am seeing him for the first time for Dr. Muñoz. He appeared to me at the moment that he is stable Medications: Reviewed: Yes Medication Review Details: Current Medications Acetaminophen (Acetaminophen 325 Mg Tablet) 650 mg PO Q6H PRN PRN Reason: Mild/Mod Pain Or Temp >/= 101 Albuterol/Ipratropium (Ipratropium-Albuterol 3 Ml Neb) 3 ml INHALATION Q6H.RESPIRATORY JO Last Admin: 06/07/21 15:18 Dose: 3 ml Documented by: Albuterol/Ipratropium (Ipratropium-Albuterol 3 Ml Neb) 3 ml INHALATION Q4H PRN PRN Reason: SHORTNESS OF BREATH Last Admin: 06/01/21 19:54 Dose: 3 ml Documented by: Aspirin (Aspirin 325 Mg Ec Tablet) 325 mg PO DAILY JO Last Admin: 06/07/21 08:49 Dose: 325 mg Documented by: Atorvastatin Calcium (Atorvastatin 40 Mg Tablet) 40 mg PO BEDTIME JO Last Admin: 06/06/21 21:46 Dose: 40 mg Documented by: Bisacodyl (Bisacodyl 5 Mg Tablet) 10 mg PO DAILY PRN; Protocol PRN Reason: Constipation (see protocol) Budesonide (Budesonide 0.5 Mg/2 Ml Neb) 0.5 mg INHALATION BID.RESPIRATORY JO Last Admin: 06/07/21 09:12 Dose: 0.5 mg Documented by: Docusate Sodium (Docusate Sodium 100 Mg Capsule) 100 mg PO BID JO Last Admin: 06/07/21 08:49 Dose: 100 mg Documented by: Ferrous Sulfate (Ferrous Sulfate Ec 325 Mg Tablet) 325 mg PO TIDAC JO Last Admin: 06/07/21 10:53 Dose: 325 mg Documented by: Finasteride (Finasteride 5 Mg Tablet) 5 mg PO DAILY JO Last Admin: 06/07/21 08:49 Dose: 5 mg Documented by: Furosemide (Furosemide 40 Mg Tablet) 40 mg PO BID@ JO Last Admin: 06/07/21 08:49 Dose: 40 mg Documented by: Heparin Sodium (Porcine) (Heparin 5,000 Unit/Ml Inj 1 Ml) 5,000 unit SUBCUT Q12H [facility] Last Admin: 06/07/21 05:57 Dose: 5,000 unit Documented by: Levetiracetam (Levetiracetam 500 Mg Tablet) 500 mg PO BID [facility] Levofloxacin (Levofloxacin 500 Mg Tablet) 500 mg PO DAILY@0600 [facility]; Protocol Stop: 06/09/21 12:09 Last Admin: 06/07/21 05:58 Dose: 500 mg Documented by: Methylprednisolone Sodium Succinate (Methylprednisolone Sod Succ 40 Mg/Ml Inj) 20 mg IVP DAILY [facility] Metoprolol Tartrate (Metoprolol Tartrate 25 Mg Tablet) 25 mg PO BID@0900,2100 [facility] Last Admin: 06/07/21 08:50 Dose: 25 mg Documented by: Nystatin (Nystatin Cream 30 Gm) 1 applic TOPICAL BID [facility] Last Admin: 06/07/21 08:50 Dose: 1 applic Documented by: Ondansetron HCl (Ondansetron 2 Mg/Ml Sdv 2 Ml) 4 mg IVP Q8H PRN PRN Reason: vomiting, or N/V if npo Pantoprazole Sodium (Pantoprazole Dr 40 Mg Tablet) 40 mg PO DAILY [facility] Last Admin: 06/07/21 08:55 Dose: 40 mg Documented by: Potassium Chloride (Potassium Chloride Er 20 Meq Tablet) 20 meq PO BID@08,14 [facility] Last Admin: 06/07/21 14:04 Dose: 20 meq Documented by: Sertraline HCl (Sertraline 50 Mg Tablet) 150 mg PO DAILY [facility] Last Admin: 06/07/21 08:49 Dose: 150 mg Documented by: Sodium Chloride (Sodium Chloride 3.5% Neb 4 Ml Neb) 4 ml INHALATION BID.RESPI RATORY [facility] Last Admin: 06/07/21 09:16 Dose: 4 ml Documented by: Tamsulosin HCl (Tamsulosin 0.4 Mg Capsule) 0.4 mg PO DAILY [facility] Last Admin: 06/07/21 08:50 Dose: 0.4 mg Documented by: Vitals/I&O/Wt Last Vital Signs Temp 97.9 F 06/08/21 16:00 Pulse 77 06/08/21 16:00 Resp 17 06/08/21 16:00 BP 102/50 06/08/21 16:00 Pulse Ox 89 L 06/08/21 16:00 12/06/08/21 06/08/21 06:59 14:59 22:59 Intake Total 480 / 480 Output Total 525 / 2225 300 / 300 Balance -525 / -1365 180 / 180 Physical Exam Narrative: EXAM NARRATIVE: GENERAL: Patient is alert, awake and oriented x3. NECK: No jugular vein distension. HEENT: No cyanosis. No icterus. No pallor. HEART: Regular S1 and S2. No murmur, rub or gallop. LUNGS: Decreased to auscultate bilaterally. ABDOMEN: Soft, nontender and nondistended. Positive bowel sounds. No guarding, rebound or tenderness. CENTRAL NERVOUS SYSTEM: Grossly nonfocal. EXTREMITIES: Lower extremities without edema bilaterally. Urinary Catheter Management^: Skinner: Cath Placed During This Visit: yes, but has since been removed by the nurse Reason for Continuing Indwelling Catheter: Acute Urinary Retention or Obst ruction Urinary Catheter Date of Insertion: 05/30/21 Urinary Catheter Time of Insertion: 13:50 Date Urinary Catheter Removed: 06/05/21 Time Urinary Catheter Discontinued: 18:16 Data : 06/07/21 05:11 06/08/21 05:10 A&P Assessment and plan (1) Elevated troponin: Continue to treat him medically patient is not a candidate for any invasive therapy. Appear to be stable. Status: Acute (2) Atherosclerosis of coronary artery of [place] heart without angina pectoris: Appear to be stable continue to monitor may be before discharge consider stress test which will be up to discussion Status: Acute Qualifiers: Coronary Disease-Associated Artery/Lesion type: [place] artery Qualified Code(s): I25.10 - Atherosclerotic heart disease of [place] coronary artery without angina pectoris (3) Atrial fibrillation with RVR: Rate controlled continue current medicine Status: Acute (4) CHF (congestive heart failure): Well compensated. Status: Acute Qualifiers: Heart failure type: unspecified Heart failure chronicity: acute Qualified Code(s): I50.9 - Heart failure, unspecified (5) Anemia: Of unknown etiology continue to monitor appear to be Status: Acute Qualifiers: Anemia type: iron deficiency Iron deficiency anemia type: other iron deficiency Qualified Code(s): D50.8 - Other iron deficiency anemias (6) PVD (peripheral vascular disease): Remains asymptomatic continue to monitor. 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 Correia Status: Acute (9) Acute respiratory failure with hypoxia: Continue BiPAP/nasal cannula as per medicine Status: Acute Additional A&P Information Other problems are Seizure disorder Dementia Pneumonia May continue on the current treatment management. Hold off on stress testing till his respiratory status and the overall function improves. Discussed this with the patient's , patient understands well. Attestations Medical Necessity Statement*: Patient require continuation hospitalization for above defined care Coding Level of Care Code Established Pt Acute Occupational Therapy Manager for [facility] Patient Type Established History Detailed Exam Detailed Medical Decision Making Moderate Complexity Diagnoses Elevated troponin R77.8 Atherosclerosis of coronary artery of [place] heart without angina pectoris I25.10 Coronary Disease-Associated Artery/Lesion type: [place] artery Atrial fibrillation with RVR I48.91 CHF (congestive heart failure) I50.9 Heart failure type: unspecified Heart failure chronicity: acute Anemia D50.8 Anemia type: iron deficiency Iron deficiency anemia type: other iron deficiency PVD (peripheral vascular disease) I73.9 Carotid artery stenosis I65.21 Laterality: right 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
[2021-06-08] MEDS: atorvastatin 40 mg Tablet PO (20:14)
[2021-06-09] VITALS (10 sets, daily range): BP systolic 89–104; BP diastolic 52–65; PULSE 60–95; RESP 16–22; TEMP 36.4–37.3; O2SAT 90–98
[2021-06-09] MEDS: ipratropium-albuterol 3 mL Neb INHALATION ×3 (02:19→14:35)
[2021-06-09] MEDS: ferrous sulfate EC 325 mg Tablet PO ×2 (06:07→12:13)
[2021-06-09] MEDS: heparin 5,000 unit/mL INJ 1 mL 5000 UNIT SUBCUT (06:07)
[2021-06-09] MEDS: levoFLOXacin 500 mg Tablet PO (06:07)
[2021-06-09 06:40] LABS: Basophils # 0.1 10^3/uL (0.0-0.1); Basophils % 0.8 %; Eosinophils # 0.3 10^3/uL (0.0-0.8); Eosinophils % 1.6 %; Hematocrit 35.4 % (42.0-52.0); Hemoglobin 10.3 g/dL (11.7-16.6); Lymphocytes # 1.6 10^3/uL (0.8-4.8); Lymphocytes % 8.5 %; Mean Corpuscular HGB Conc 29.1 g/dL (30.0-36.0); Mean Corpuscular Volume 92.9 fl (80-94); Mean Platelet Volume 10.2 fL (7.4-10.4); Monocytes # 1.8 10^3/uL (0.2-0.9); Monocytes % 9.5 %; Neutrophils # 13.54 10^3/uL (1.8-7.7); Neutrophils % 73.7 %; Nucleated Red Blood Cells % 0 %; Platelet Count 249 10^3/cmm (130-400); Red Blood Count 3.81 10^6/uL (4.1-5.3); Red Cell Distribution Width 17.4 % (12.1-15.1); White Blood Count 18.4 10^3/uL (4.0-10.0)
[2021-06-09 06:58] LABS: Alanine Aminotransferase 18 U/L (0-41); Albumin Level 3.3 g/dL (3.5-5.2); Alkaline Phosphatase 60 IU/L (40-130); Blood Urea Nitrogen 39 mg/dL (8-23); Calcium 8.9 mg/dL (8.5-10.5); Carbon Dioxide 33 mmol/L (22-29); Chloride 91 mmol/L (98-107); Glucose 101 mg/dL (65-115); Osmolality Calculated 300 mOsm/kg (285-295); Sodium 140 mmol/L (136-145); Total Bilirubin 0.5 mg/dL (0.15-1.2); Total Protein 6.3 g/dL (6.6-8.7)
[2021-06-09 06:59] LABS: Anion Gap 19.7 (5-19); Aspartate Amino Transferase 39 U/L (0-40); Potassium 3.7 mmol/L (3.5-5.1)
[2021-06-09] MEDS: finasteride 5 mg Tablet PO (07:28)
[2021-06-09] MEDS: FUROsemide 40 mg Tablet PO (07:28)
[2021-06-09] MEDS: tamsulosin 0.4 mg Capsule PO (07:28)
[2021-06-09] MEDS: aspirin 325 mg EC Tablet PO (07:28)
[2021-06-09] MEDS: pantoprazole DR 40 mg Tablet PO (07:29)
[2021-06-09] MEDS: docusate sodium 100 mg Capsule PO (07:29)
[2021-06-09] MEDS: clopidogrel 75 mg Tablet PO ×2 (07:29→07:30)
[2021-06-09] MEDS: potassium chloride ER 20 mEq Tablet 40 MEQ PO ×2 (07:29→12:13)
[2021-06-09] MEDS: sertraline 50 mg Tablet 150 MG PO (07:29)
[2021-06-09] MEDS: levETIRAcetam 500 mg Tablet PO (07:33)
[2021-06-09] MEDS: budesonide 0.5 mg/2 mL Neb INHALATION (08:40)
--- NOTE | 2021-06-09 14:00 | PM.DCS ---
Discharge Providers Date of Admission: 05/30/21 07:06 Date of Discharge: June 09, 2021 Attending Provider at Admission: Bethanie Macias MD Attending Provider at Discharge: Young Dewey MD Consults: Cardiology: Dr. Muñoz Pulmonology: Hospice Primary Care Provider: Chanelle Anthony MD Diagnoses at Discharge Discharge Diagnosis (1) Elevated troponin: Status: Acute (2) Atherosclerosis of coronary artery of [place] heart without angina pectoris: Status: Acute Qualifiers: Coronary Disease-Associated Artery/Lesion type: [place] artery Qualified Code(s): I25.10 - Atherosclerotic heart disease of [place] coronary artery without angina pectoris (3) Atrial fibrillation with RVR: Status: Acute (4) CHF (congestive heart failure): Status: Acute Qualifiers: Heart failure type: unspecified Heart failure chronicity: acute Qualified Code(s): I50.9 - Heart failure, unspecified (5) Anemia: Status: Acute Qualifiers: Anemia type: iron deficiency Iron deficiency anemia type: other iron deficiency Qualified Code(s): D50.8 - Other iron deficiency anemias (6) PVD (peripheral vascular disease): Status: Chronic (7) Carotid artery stenosis: Status: Chronic Qualifiers: Laterality: right Qualified Code(s): I65.21 - Occlusion and stenosis of right carotid artery (8) 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 As per the H&P on admission patient stated he has not been feeling well for about a week although at the same time describes a gradual decline over period of months. He has been having increasing shortness of breath with decreasing amounts of exertion. He describes orthopnea. He has had a little bit of swelling but not too much. Is not sure if he has had any weight gain. He has had cough predominantly nonproductive, occasionally productive of yellowish-brown sputum, no blood has been noted. Patient was admitted to the hospital for further evaluation and management of acute hypoxia secondary to congestive heart failure, aspiration pneumonia leading to COPD exacerbation. Admission patient was also found to be in atrial fibrillation. Patient was found to be anemic on admission. He was started on broad-spectrum antibiotics, IV diuresis and IV Cardizem which was later transitioned over to oral metoprolol. Patient was also found to be having non-ST elevation SC with possible Q waves in V1 and V2. Cardiology was consulted. At first patient was requiring high oxygen supplementation with BiPAP ventilation as well which eventually trended down and patient has been requiring up to 6-8 l of high flow nasal cannula for last few days. Patient does have significant desaturation on minimal ambulation. There is a concern for aspiration pneumonia on admission for which modified barium swallow and recurrent swallow evaluation were done and his diet was changed accordingly to mechanical soft diet. Cardiology and pulmonology were consulted. Patient needs stress test or angiogram for further evaluation of non-ST elevation SC but given high oxygen requirements patient was not stable enough to have either. There was a concern for possibility of pulmonary embolism but CTA was not done as patient was not a good candidate for anticoagulation given recurrent falls and acute anemia. Patient's family and /DPOA verbalized understanding and was in agreements of not giving anticoagulation hence CTA was not done. During hospitalization patient was also found to have recurrent episodes of jerking movements of all his limbs especially on changing position from sitting to standing. Orthostatic was ruled out. Seizure was unlikely because patient post episode would have slurred speech on and off. MRI/MRA head and neck was done given his history of old stroke and seizures in the past. Patient was started on Keppra given his history of seizures in the past. It is believed that patient is requiring high oxygen supplementation going up to 6 to 8 L currently which is most likely his new baseline after conferring with pulmonology given exacerbation of COPD and congestive heart failure. Because of this multiple goals of care discussions were done. Discussions are as below. Given his advanced COPD requiring up to 5 to 6 L of nasal cannula oxygen supplementation and baseline and congestive heart failure with pneumonia, congestive heart failure exacerbation and possible NSTEMI on admission even after completion of treatment for pneumonia and patient being euvolemic he still requiring high oxygen supplementation going as high as 8 to 9 L high flow nasal cannula with episodes of desaturation on minimal exertion. We discussed if patient is not able to tolerate oxygen pendent which will be tried again later in the day and tomorrow then as per the discretion with customer service manager and hoop punch and coiler operator helper hospice would be appropriate. We discussed multiple possible treatment modalities. and patient verbalized understanding and state given his goals of care discussion, history of prostate cancer and wishes in the past they would want to go forward with hospice at home with do not hospitalize in future if needed. Patient patient's after discussion with the family agreed for hospice. Hospice is set up. He is been discharged in hemodynamically stable condition advised to follow-up with Dr. Muñoz in pulmonology within next 2 weeks. New medications include aspirin, Plavix, statin, Lasix 2 times a day, potassium 40 mEq daily, metoprolol 25 mg twice daily, Keppra 500 mg twice daily. Physical Exam Narrative: EXAM NARRATIVE: [facility] Const: COMMON NORMALS: no acute distress, patient oriented x3 and alert GENERAL APPEARANCE: cooperative ORIENTATION/CONSCIOUSNESS: Yes awake HENMT: COMMON NORMALS: oropharynx normal Neck/C-Spine: COMMON NORMALS: no JVD Resp: COMMON NORMALS: normal respiratory effort AUSCULTATION: diminished lung sounds (Improving) OTHER: Coarse breathing sounds. Cardio: COMMON NORMALS: no JVD, regular rhythm, S1 normal heart sound present, S2 normal heart sound present and No murmurs present (Cardio) RHYTHM: regular rhythm HEART SOUNDS: S1 normal heart sound present and S2 normal heart sound present GI: COMMON NORMALS: Normal to inspection, nondistended, normoactive bowel sounds present, Soft to palpation and non-tender PALPATION: Yes Soft to palpation Extremity: COMMON NORMALS: no joint enlargement and no pedal edema GENERAL: Yes edema (trace) Neuro: COMMON NORMALS: patient oriented x3 and moves all extremities SENSORIUM/ORIENTATION: Yes alert Skin: COMMON NORMALS: no rashes or lesions noted GENERAL SKIN EXAM: no rashes or lesions noted Urinary Catheter Management^: Skinner: Cath Placed During This Visit: yes, but has since been removed by the nurse Reason for Continuing Indwelling Catheter: Acute Urinary Retention or Obstruction Urinary Catheter Date of Insertion: 05/30/21 Urinary Catheter Time of Insertion: 13:50 Date Urinary Catheter Removed: 06/05/21 Time Urinary Catheter Discontinued: 18:16 Discharge Data Data Completed and Pending: Completed Studies During Hospitalization Category Date Time Status CT head wo con* 7 0450 Urgent Cat Scan 05/29/21 18:35 Completed Modified barium s wallow [FL barium swallow modifd 742 30 Exams 06/05/21 09:56 Completed ] Routine XR chest 1V eric ble [id number] Routine Exams 06/02/21 06:00 Completed XR chest 1V eric ble [id number] Routine Exams 06/04/21 08:49 Completed XR chest 1V eric ble [id number] Urgent Exams 05/29/21 18:35 Completed XR elbow RT min 3 V* [id number] Urgent Exams 05/29/21 18:35 Completed XR forearm RT 2V [id number] Urgent Exams 05/29/21 18:35 Completed XR hip RT 2-3V wo /w pel* [id number] Urge nt Exams 05/29/21 18:35 Completed MR angio [place] w c on* [id number] Routine MRI 06/04/21 12:56 Completed MR head wo/w con [id number] Routine MRI 06/04/21 12:56 Completed CV. echo complete * [id number] Routine Ultrasound 05/30/21 23:12 Completed Pending at discharge Category Date Time Status Immunochemical Fe angela OCB Routine Lab 05/29/21 23:10 Uncollected Sputum Culture an d Gram Stain Routi ne Lab 05/30/21 12:18 Ordered Sputum Culture an d Gram Stain Stat Lab 06/04/21 12:16 Uncollected Labs from last 24 hours 06/09/21 06/09/21 05:53 05:53 WBC 18.4 H RBC 3.81 L Hgb 10.3 L Hct 35.4 L MCV 92.9 MCH 27.0 L MCHC 29.1 L RDW 17.4 H Plt Count 249 MPV 10.2 Neut % (Auto) 73.7 Lymph % (Auto) 8.5 [place] % (Auto) 9.5 Eos % (Auto) 1.6 Baso % (Auto) 0.8 Neut # (Auto) 13.54 H Lymph # (Auto) 1.6 [place] # (Auto) 1.8 H Eos # (Auto) 0.3 Baso # (Auto) 0.1 Nucleated RBC % (a uto) 0 Nucleated RBCs # 0.0 Sodium 140 Potassium 3.7 Chloride 91 L Carbon Dioxide 33 H Anion Gap 19.7 H BUN 39 H Creatinine 1.0 GFR Calculation Not Reportable Glucose 101 Calculated Osmolal ity 300 H Calcium 8.9 Total Bilirubin 0.5 AST 39 ALT 18 Alkaline Phosphata se 60 Total Protein 6.3 L Albumin 3.3 L Globulin 3.0 Addt'l Data from Hospital Stay: Laboratory Results WBC 18.4 10^3/uL (4.0 -10.0) H 06/09/21 05:53 RBC 3.81 10^6/uL (4.1 -5.3) L 06/09/21 05:53 Hgb 10.3 g/dL (11.7-1 6.6) L 06/09/21 05:53 Hct 35.4 % (42.0-52.0 ) L 06/09/21 05:53 MCV 92.9 fl (80-94) 06/09/21 05:53 MCH 27.0 pg (28.0-34. 0) L 06/09/21 05:53 MCHC 29.1 g/dL (30.0-3 6.0) L 06/09/21 05:53 RDW 17.4 % (12.1-15.1 ) H 06/09/21 05:53 Plt Count 249 10^3/cmm (130 -400) 06/09/21 05:53 MPV 10.2 fL (7.4-10.4 ) 06/09/21 05:53 Neut % (Auto) 73.7 % 06/09/21 05:53 Lymph % (Auto) 8.5 % 06/09/21 05:53 [place] % (Auto) 9.5 % 06/09/21 05:53 Eos % (Auto) 1.6 % 06/09/21 05:53 Baso % (Auto) 0.8 % 06/09/21 05:53 Neut # (Auto) 13.54 10^3/uL (1. 8-7.7) H 06/09/21 05:53 Lymph # (Auto) 1.6 10^3/uL (0.8- 4.8) 06/09/21 05:53 [place] # (Auto) 1.8 10^3/uL (0.2- 0.9) H 06/09/21 05:53 Eos # (Auto) 0.3 10^3/uL (0.0- 0.8) 06/09/21 05:53 Baso # (Auto) 0.1 10^3/uL (0.0- 0.1) 06/09/21 05:53 Nucleated RBC % (a uto) 0 % 06/09/21 05:53 Total Counted 100 (0-100) 06/06/21 05:44 Atypical Lymphs % 1.0 % (0-5) 06/06/21 05:44 Absolute Neutrophi ls 14.8 10^3/cmm (1. 4-6.5) H 06/06/21 05:44 Segmented Neutroph ils 49 % 06/06/21 05:44 Abs Segm Neuts (Ma n) 9.7 10/cmm (1.6-7 .1) H 06/06/21 05:44 Band Neutrophils 26.0 % 06/06/21 05:44 Abs Band Neuts (Ma n) 5.1 10^3/cmm (0.0 -1.2) H 06/06/21 05:44 Absolute Lymphocyt es 3.0 10^3/cmm (1.2 -3.4) 06/06/21 05:44 Lymphocytes (Man[place]) 14 % 06/06/21 05:44 Monocytes (Manual) 1.0 % 06/06/21 05:44 Absolute Monocytes 0.2 10^3/cmm (0.1 -0.6) 06/06/21 05:44 Eosinophils (Man[place]) 2 % 06/06/21 05:44 Absolute Eosinophi ls 0.3 10^3/cmm (0.0 -0.7) 06/06/21 05:44 Basophils (Manual) 0.0 % 06/06/21 05:44 Absolute Basophils 0.0 10^3/cmm (0.0 -0.2) 06/06/21 05:44 Metamyelocytes 2.0 % 06/06/21 05:44 Myelocytes 5.0 % 06/06/21 05:44 Nucleated RBCs # 0.0 /100WBC 06/09/21 05:53 Platelet Estimate Normal (Normal) 06/06/21 05:44 PT 15.40 SECONDS (12 .1-14.9) H 05/30/21 06:48 INR 1.19 (0.8-1.2) 05/30/21 06:48 APTT 42.2 SECONDS (23. 9-36.7) H 05/30/21 06:48 D-Dimer 0.91 ug/mIFEU (0- 0.59) H 06/01/21 18:00 Specimen Type Arterial 06/04/21 13:35 Sample Site Radial, left 06/04/21 13:35 ABG pH 7.50 (7.35-7.45) H 06/04/21 13:35 ABG pCO2 52.5 mmHg (35-45) H 06/04/21 13:35 ABG pO2 63.6 mmHg (80.0-1 00.0) L 06/04/21 13:35 ABG HCO3 40.8 mmol/L (22-2 6) H 06/04/21 13:35 ABG O2 Saturation 94.6 06/04/21 13:35 ABG Base Excess 15.6 mmol/L (-2.0 -2.0) H 06/04/21 13:35 Miguel Angel Test Pos 06/04/21 13:35 A-a O2 Gradient 3.0 mmHg (5-10) L 06/04/21 13:35 Hematocrit 29.6 % (42-52) L 06/04/21 13:35 Hgb O2 Saturation 93.3 % (95-100) L 06/04/21 13:35 Carboxyhemoglobin 1.3 %THgb (0.4-20 .1) 06/04/21 13:35 Methemoglobin 0.1 % (0.4-1.5) L 06/04/21 13:35 Total Hemoglobin 9.7 g/dL (14-18) L 06/04/21 13:35 Sodium 142.0 mmol/L (131 -143) 06/04/21 13:35 Potassium 3.8 mmol/L (3.5-5 .0) 06/04/21 13:35 Glucose 120.0 mg/dL (70-1 15) H 06/04/21 13:35 Ionized Calcium 1.2 mmol/L (1.1-1 .4) 06/04/21 13:35 O2 Delivery Device Nc 06/04/21 13:35 O2 Liters/Min 9.0 % 06/04/21 13:35 Cash Posting Specialist ID Broma 06/04/21 13:35 Sodium 140 mmol/L (136-1 45) 06/09/21 05:53 Potassium 3.7 mmol/L (3.5-5 .1) 06/09/21 05:53 Chloride 91 mmol/L (98-107 ) L 06/09/21 05:53 Carbon Dioxide 33 mmol/L (22-29) H 06/09/21 05:53 Anion Gap 19.7 (5-19) H 06/09/21 05:53 BUN 39 mg/dL (8-23) H 06/09/21 05:53 Creatinine 1.0 mg/dL (0.7-1. 2) 06/09/21 05:53 GFR Calculation Not Reportable 06/09/21 05:53 Glucose 101 mg/dL (65-115 ) 06/09/21 05:53 Calculated Osmolal ity 300 mOsm/kg (285- 295) H 06/09/21 05:53 Calcium 8.9 mg/dL (8.5-10 .5) 06/09/21 05:53 Phosphorus 3.1 mg/dL (2.5-4. 5) 05/30/21 06:48 Magnesium 2.0 mg/dL (1.7-2. 3) 05/30/21 06:48 Iron 36 ug/dL (59-158) L 06/04/21 04:12 TIBC 310 mcg/dl 06/04/21 04:12 % Saturation 11.6 % (20-50) L 06/04/21 04:12 Unsat Iron Binding 274 ug/dL (112-34 7) 06/04/21 04:12 Total Bilirubin 0.5 mg/dL (0.15-1 .2) 06/09/21 05:53 AST 39 U/L (0-40) 06/09/21 05:53 ALT 18 U/L (0-41) 06/09/21 05:53 Alkaline Phosphata se 60 IU/L (40-130) 06/09/21 05:53 Troponin T Baselin e 201 ng/L (0-15) H* 05/29/21 18:50 Troponin T 120 Min [facility] 216.6 ng/L (0-15) H 05/29/21 20:46 Delta Troponin T 15.6 ABS# (0-10) H* 05/29/21 20:46 Troponin T Hi Sens 6Hr 272.4 ng/L (0-15) H 05/30/21 00:41 Troponin T Hi Sens 6Hr Delta 71.4 ng/L (0-12) H* 05/30/21 00:41 NT-Pro-B Natriuret Pep 1329 pg/mL (0-450 ) H 06/08/21 05:10 Total Protein 6.3 g/dL (6.6-8.7 ) L 06/09/21 05:53 Albumin 3.3 g/dL (3.5-5.2 ) L 06/09/21 05:53 Globulin 3.0 g/dL (1.3-4.6 ) 06/09/21 05:53 Triglycerides 89 mg/dL (0-150) 05/30/21 06:48 Cholesterol 123 mg/dL (0-200) 05/30/21 06:48 LDL Cholesterol, C alc 59 mg/dL (50-129) 05/30/21 06:48 HDL Cholesterol 46 mg/dL (60-100) L 05/30/21 06:48 LDL/HDL Ratio 1.28 RATIO (0.00- 3.22) 05/30/21 06:48 Cholesterol/HDL Ra jeuss 2.67 mg/dL (1.0-5 .00) 05/30/21 06:48 Prostate Specific Ag 67.710 ng/mL (0-4 ) H 05/30/21 00:41 Procalcitonin 0.04 ng/mL (0-0.5 ) 06/04/21 04:12 TSH 2.25 uIU/mL (0.27 -4.20) 05/30/21 06:48 Urine Color Yellow (Yellow) 05/29/21 19:10 Urine Appearance Clear (CLEAR) 05/29/21 19:10 Urine pH 5 (5-7) 05/29/21 19:10 Ur Specific Gravit y 1.020 (1.005-1.0 30) 05/29/21 19:10 Urine Protein Trace (Negative) 05/29/21 19:10 Urine Glucose (UA) Norm (Normal) 05/29/21 19:10 Urine Ketones Negative (Negati ve) 05/29/21 19:10 Urine Blood Neg (Negative) 05/29/21 19:10 Urine Nitrate Negative (Negati ve) 05/29/21 19:10 Urine Bilirubin Neg (Negative) 05/29/21 19:10 Urine Urobilinogen 1 mg/dL (Negative ) H 05/29/21 19:10 Ur Leukocyte Catherine ase Negative (Negati ve) 05/29/21 19:10 Urine RBC 0-4 /hpf (0-2) H 05/29/21 19:10 Urine WBC 0-4 /hpf (0-5) H 05/29/21 19:10 Ur Squamous Epith Cells 0-4 /hpf (0-5) H 05/29/21 19:10 Amorphous Sediment Not Reportable 05/29/21 19:10 Urine Bacteria Trace /hpf (NONE) 05/29/21 19:10 Hyaline Casts 0-4 /lpf H 05/29/21 19:10 Urine Mucus Trace /hpf 05/29/21 19:10 Vancomycin Trough 8.5 ug/mL (10-15) L 06/03/21 04:20 Salicylates 1.2 mg/dL (3-10) L 05/29/21 18:40 Acetaminophen < 5.0 ug/mL (10-3 0) L 05/29/21 18:40 Nasal/Oral COVID-1 9 PCR Not detected 05/30/21 00:10 SARS-CoV-2 Ag (Rap id) Negative (Negati ve) 05/30/21 00:15 Blood Type A Positive 06/01/21 12:39 Rho(D) Type Positive 06/01/21 12:39 Antibody Screen Negative 06/01/21 12:39 Crossmatch See Detail 06/01/21 12:39 Impressions Elbow X-Ray 05/29/21 18:35 IMPRESSION: No acute findings. Forearm X-Ray 05/29/21 18:35 IMPRESSION: No acute findings. Head CT 05/29/21 18:35 IMPRESSION: 1. No acute intracranial abnormality. 2. Moderate diffuse cerebral atrophy and sequela of chronic small vessel ischemic disease. Encephalomalacic change in the left frontal lobe. Hip/Pelvis X-Ray 05/29/21 18:35 IMPRESSION: No acute findings. Chest X-Ray 06/04/21 08:49 IMPRESSION: Improved atelectasis in the left lower lung. Increasing bowel distention in the right upper abdomen. Head MRI 06/04/21 12:56 IMPRESSION: 1. No evidence of restricted diffusion to suggest acute ischemia. 2. Poor left ICA flow void at the skull base with history of left ICA occlusion 3. Moderate to advanced small vessel changes with moderate parenchymal volume loss. 4. Chronic infarct with encephalomalacia and gliosis in the left frontal and parietal lobes MCA territory. 5. Incidental venous angioma in the right periventricular frontal white matter. 6. Evidence of prior left frontoparietal craniotomy. Neck MRA 06/04/21 12:56 IMPRESSION: 1. Chronic occlusion of the left ICA unchanged since the prior CTA 12/11. 2. Mild right ICA stenosis measuring approximately 40-45%. Right ICA is patent to the skull base. 3. Codominant and patent vertebral arteries bilaterally. Modified Barium Swallow 06/05/21 09:56 IMPRESSION: Small amount of penetration and aspiration with thin liquids with cup drinking. Echocardiogram: CONCLUSIONS 1-Moderately increased left ventricular cavity size. Mild to modeately decreased left ventricular systolic function. Global left ventricular hypokinesis. Left ventricular ejection fraction is estimated at 45 to50 %. Grade II/IV diastolic dysfunction, moderately elevated filling pressures. 2-Moderately increased left atrial size. 3-Moderately thickened mitral valve. Moderate mitral annular calcification. No mitral valve stenosis. Mild-moderate mitral valve regurgitation. 4-Severe aortic valve calcification. Moderate aortic valve stenosis, mean gradient 14.4 mmHg, RENY 1 cm squared.mild aortic valve regurgitation. 5-The right ventricle is normal in size and function. RVSP could not be calculated due to incomplete tricuspid regurgitation velocity profile. 6-There is no pericardial effusion. 7-When compared to the prior echocardiogram dated July 05, 2016 there appeared to be moderate to severe aortic valve stenosis now Ting Ruff MD (Electronically Signed) Final Date: 30 May 2021 22:34 S Vitals: Last Vital Signs Temp 98.8 F 06/09/21 11:31 Pulse 73 06/09/21 11:31 Resp 20 H 06/09/21 11:31 BP 99/52 06/09/21 11:31 Pulse Ox 95 06/09/21 11:31 Discharge Plan Discharge Patient Disposition: Hospice - Home Condition: Stable Prescriptions: New furosemide 40 mg Tablet 40 mg PO BID@08,16 30 Days Qty: 60 RF: 0 atorvastatin 40 mg Tablet 40 mg PO BEDTIME 30 Days Qty: 30 RF: 0 levetiracetam 500 mg Tablet 500 mg PO BID 30 Days Qty: 60 RF: 0 clopidogrel 75 mg Tablet 75 mg PO DAILY 30 Days Qty: 30 RF: 0 Klor-Con M20 20 mEq Tablet,Er Particles/Crystals 40 meq PO DAILY 30 Days Qty: 30 RF: 0 aspirin 325 mg Tablet,Delayed Release (Dr/Ec) 325 mg PO DAILY 30 Days Qty: 30 RF: 0 pantoprazole 40 mg Tablet,Delayed Release (Dr/Ec) 40 mg PO DAILY 30 Days Qty: 30 RF: 0 metoprolol tartrate 25 mg Tablet 25 mg PO BID@0900,2100 30 Days Qty: 60 RF: 0 prednisone 10 mg tablet See Taper mg PO DAILY Qty: 42 RF: 0 Continued finasteride 5 mg tablet 5 mg PO DAILY RF: 0 albuterol sulfate 90 mcg/actuation HFA aerosol inhaler 2 puff INHALATION Q6H PRN (Reason: Shortness Of Breath) RF: 0 polyethylene glycol 3350 [Miralax] 17 gram/dose powder 17 gm PO DAILY RF: 0 Calcium 600 with Vitamin D3 600 mg(1,500mg) -400 unit tablet,chewable 1 tab PO DAILY RF: 0 omega-3 fatty acids [Fish Oil Concentrate] 1,000 mg capsule 1,000 mg PO DAILY RF: 0 vitamin B complex [B Complex-Vitamin B12] Tablet 1 tab PO DAILY RF: 0 vitamin E (dl, acetate) 400 unit capsule 400 unit PO DAILY RF: 0 ferrous sulfate 325 mg (65 mg iron) tablet 325 mg PO DAILY RF: 0 magnesium 200 mg tablet 400 mg PO DAILY RF: 0 tamsulosin 0.4 mg capsule 0.4 mg PO DAILY RF: 0 vit C,E,Zn,Zh-roydq8-eal-zeax 250-2.5-0.5 mg capsule 1 cap PO DAILY RF: 0 cholecalciferol (vitamin D3) 25 MCG 1 tab PO DAILY RF: 0 docusate sodium 100 MG 100 mg PO BID RF: 0 fluticasone propion-salmeterol 100 units 1 puff inhalation BID RF: 0 fluticasone propionate 50 mcg 1 dose NOSTRIL-B DAILY RF: 0 sertraline 100 mg 150 mg PO DAILY RF: 0 tiotropium bromide 2.5 MCG aerosol 2 puff inhalation DAILY RF: 0 pyridoxine (vitamin B6) 100 MG 1 tab PO DAILY RF: 0 prednisone 10 mg tablet PRN (Reason: lung issues) RF: 0 Discontinued prednisone 10 mg tablet 10 mg PO DAILY RF: 0 potassium citrate 10 mEq (1,080 mg) tablet extended release 2,160 mg PO BID RF: 0 Discharge Orders: Discharge Order (Routine); Ordered 06/09/21 Ordered By: Young Dewey Referrals: [facility] [Outside] Jalen Anna MD [Physician] - 2 weeks Hal Muñoz MD [Physician] - 2 weeks Chanelle Anthony MD [Primary Care Provider] - 4-7 days Discharge Diet: Cardiac and Soft Mechanical Discharge Activity: Resume usual activity and Increase activity as tolerated Patient Instructions: Opioid Safety Activity Restrictions/Additional Instructions: Please take steroids as tapering. Please follow-up with Dr. Muñoz from cardiology and Dr. Anna from pulmonology within 2 weeks. Discharge Attestations Time Spent in Discharge Care*: greater than 30 min Specific Discharge Activities: educating patient, educating and/or supporting family/caregiver, discussing with pcp/other providers, discussing with leather case finisher/social workers/dc planners, documenting/other paperwork and evaluating patient/reviewing data Status at Discharge: Cognitive status at discharge: cognitively intact, Behavioral status at discharge: cooperative, Functional status at discharge: other assisted ambulation Overall status at discharge: patient has a new baseline Quality Metrics Clinical Quality Measures During this hospital stay, did patient experience: None Coding Level of Care Code Acute Chg FW DC note Diagnoses Elevated troponin R77.8 Atherosclerosis of coronary artery of [place] heart without angina pectoris I25.10 Coronary Disease-Associated Artery/Lesion type: [place] artery Atrial fibrillation with RVR I48.91 CHF (congestive heart failure) I50.9 Heart failure type: unspecified Heart failure chronicity: acute Anemia D50.8 Anemia type: iron deficiency Iron deficiency anemia type: other iron deficiency PVD (peripheral vascular disease) I73.9 Carotid artery stenosis I65.21 Laterality: right 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
--- NOTE | 2021-06-09 16:25 | PM.PN ---
Subjective Subjective: Interval history: Denies any complaint feeling already better denies chest pain shortness of breath he has walk around with PT. He would like to go home. Medications: Reviewed: Yes Medication Review Details: Current Medications Acetaminophen (Acetaminophen 325 Mg Tablet) 650 mg PO Q6H PRN PRN Reason: Mild/Mod Pain Or Temp >/= 101 Albuterol/Ipratropium (Ipratropium-Albuterol 3 Ml Neb) 3 ml INHALATION Q6H.RESPIRATORY JO Last Admin: 06/07/21 15:18 Dose: 3 ml Documented by: Albuterol/Ipratropium (Ipratropium-Albuterol 3 Ml Neb) 3 ml INHALATION Q4H PRN PRN Reason: SHORTNESS OF BREATH Last Admin: 06/01/21 19:54 Dose: 3 ml Documented by: Aspirin (Aspirin 325 Mg Ec Tablet) 325 mg PO DAILY JO Last Admin: 06/07/21 08:49 Dose: 325 mg Documented by: Atorvastatin Calcium (Atorvastatin 40 Mg Tablet) 40 mg PO BEDTIME JO Last Admin: 06/06/21 21:46 Dose: 40 mg Documented by: Bisacodyl (Bisacodyl 5 Mg Tablet) 10 mg PO DAILY PRN; Protocol PRN Reason: Constipation (see protocol) Budesonide (Budesonide 0.5 Mg/2 Ml Neb) 0.5 mg INHALATION BID.RESPIRATORY JO Last Admin: 06/07/21 09:12 Dose: 0.5 mg Documented by: Docusate Sodium (Docusate Sodium 100 Mg Capsule) 100 mg PO BID JO Last Admin: 06/07/21 08:49 Dose: 100 mg Documented by: Ferrous Sulfate (Ferrous Sulfate Ec 325 Mg Tablet) 325 mg PO TIDAC JO Last Admin: 06/07/21 10:53 Dose: 325 mg Documented by: Finasteride (Finasteride 5 Mg Tablet) 5 mg PO DAILY JO Last Admin: 06/07/21 08:49 Dose: 5 mg Documented by: Furosemide (Furosemide 40 Mg Tablet) 40 mg PO BID@ JO Last Admin: 06/07/21 08:49 Dose: 40 mg Documented by: Heparin Sodium (Porcine) (Heparin 5,000 Unit/Ml Inj 1 Ml) 5,000 unit SUBCUT Q12H JO Last Admin: 06/07/21 05:57 Dose: 5,000 unit Documented by: Levetiracetam (Levetiracetam 500 Mg Tablet) 500 mg PO BID [facility] Levofloxacin (Levofloxacin 500 Mg Tablet) 500 mg PO DAILY@0600 [facility]; Protocol Stop: 06/09/21 12:09 Last Admin: 06/07/21 05:58 Dose: 500 mg Documented by: Methylprednisolone Sodium Succinate (Methylprednisolone Sod Succ 40 Mg/Ml Inj) 20 mg IVP DAILY [facility] Metoprolol Tartrate (Metoprolol Tartrate 25 Mg Tablet) 25 mg PO BID@0900,2100 [facility] Last Admin: 06/07/21 08:50 Dose: 25 mg Documented by: Nystatin (Nystatin Cream 30 Gm) 1 applic TOPICAL BID [facility] Last Admin: 06/07/21 08:50 Dose: 1 applic Documented by: Ondansetron HCl (Ondansetron 2 Mg/Ml Sdv 2 Ml) 4 mg IVP Q8H PRN PRN Reason: vomiting, or N/V if npo Pantoprazole Sodium (Pantoprazole Dr 40 Mg Tablet) 40 mg PO DAILY [facility] Last Admin: 06/07/21 08:55 Dose: 40 mg Documented by: Potassium Chloride (Potassium Chloride Er 20 Meq Tablet) 20 meq PO BID@08,14 [facility] Last Admin: 06/07/21 14:04 Dose: 20 meq Documented by: Sertraline HCl (Sertraline 50 Mg Tablet) 150 mg PO DAILY [facility] Last Admin: 06/07/21 08:49 Dose: 150 mg Documented by: Sodium Chloride (Sodium Chloride 3.5% Neb 4 Ml Neb) 4 ml INHALATION BID.RESPIRATORY [facility] Last Admin: 06/07/21 09:16 Dose: 4 ml Documented by: Tamsulosin HCl (Tamsulosin 0.4 Mg Capsule) 0.4 mg PO DAILY [facility] Last Admin: 06/07/21 08:50 Dose: 0.4 mg Documented by: Vitals/I&O/Wt Last Vital Signs Temp 98.8 F 06/09/21 11:31 Pulse 71 06/09/21 14:37 Resp 16 06/09/21 14:37 BP 99/52 06/09/21 11:31 Pulse Ox 93 06/09/21 14:37 06/09/21 06/09/21 06/09/21 06:59 14:59 22:59 Intake Total 150 / 150 Output Total 700 / 1300 100 / 100 Balance -700 / -120 50 / 50 Physical Exam Narrative: EXAM NARRATIVE: GENERAL: Patient is alert, awake and oriented x3. Sitting in the chair without any difficulty NECK: No jugular vein distension. HEENT: No cyanosis. No icterus. No pallor. HEART: Regular S1 and S2. No murmur, rub or gallop. LUNGS: Decreased to auscultate bilaterally. ABDOMEN: Soft, nontender and nondistended. Positive bowel sounds. No guarding, rebound or tenderness. CENTRAL NERVOUS SYSTEM: Grossly nonfocal. EXTREMITIES: Lower extremities without edema bilaterally. Urinary Catheter Management^: Skinner: Cath Placed During This Visit: yes, but has since been removed by the nurse Reason for Continuing Indwelling Catheter: Acute Urinary Retention or Obstruction Urinary Catheter Date of Insertion: 05/30/21 Urinary Catheter Time of Insertion: 13:50 Date Urinary Catheter Removed: 06/05/21 Time Urinary Catheter Discontinued: 18:16 Data : 06/09/21 05:53 06/09/21 05:53 A&P Assessment and plan (1) Elevated troponin: Stable doing fine from a cardiac perspective continue current regimen continue medical treatment Status: Acute (2) Atherosclerosis of coronary artery of [place] heart without angina pectoris: Stable from a coronary disease perspective, continue current regimen Status: Acute Qualifiers: Coronary Disease-Associated Artery/Lesion type: [place] artery Qualified Code(s): I25.10 - Atherosclerotic heart disease of [place] coronary artery without angina pectoris (3) Atrial fibrillation with RVR: Rate controlled continue current medicine Status: Acute (4) CHF (congestive heart failure): Well compensated. Status: Acute Qualifiers: Heart failure type: unspecified Heart failure chronicity: acute Qualified Code(s): I50.9 - Heart failure, unspecified (5) Anemia: Of unknown etiology continue to monitor appear to be Status: Acute Qualifiers: Anemia type: iron deficiency Iron deficiency anemia type: other iron deficiency Qualified Code(s): D50.8 - Other iron deficiency anemias (6) PVD (peripheral vascular disease): Remains asymptomatic continue to monitor. 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 Masood Status: Acute (9) Acute respiratory failure with hypoxia: Continue BiPAP/nasal cannula as per medicine Status: Acute Additional A&P Information Other problems are Seizure disorder Dementia Pneumonia May continue on the current treatment management. Hold off on stress testing till his respiratory status and the overall function improves. Discussed this with the patient's , patient understands well. Attestations Medical Necessity Statement*: As per medicine Coding Level of Care Code Acute Brick Picker for Chg Fwd Diagnoses Elevated troponin R77.8 Atherosclerosis of coronary artery of [place] heart without angina pectoris I25.10 Coronary Disease-Associated Artery/Lesion type: [place] artery Atrial fibrillation with RVR I48.91 CHF (congestive heart failure) I50.9 Heart failure type: unspecified Heart failure chronicity: acute Anemia D50.8 Anemia type: iron deficiency Iron deficiency anemia type: other iron deficiency PVD (peripheral vascular disease) I73.9 Carotid artery stenosis I65.21 Laterality: right 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
== END 2021-06-09 15:40 | disposition hospice, home (50) | DRG 280 ==
LOC: ER 05-30 03:18 → ER IP 05-30 08:00 → MEDSURG 05-30 11:51
PROVIDERS: Emergency Medicine; Internal Medicine; Internal Medicine Cardiovascular Disease; Admitting Provider Hospitalist; Emergency Provider Emergency Medicine; PCP Family Medicine; Visit Provider Student in an Organized Health Care Education/Training Program
DX: I11.0 Hypertensive heart disease with heart failure (principal); I50.43 Acute on chronic combined systolic (congestive) and diastolic (congestive) heart failure; I21.A1 Myocardial infarction type 2; J69.0 Pneumonitis due to inhalation of food and vomit; J96.21 Acute and chronic respiratory failure with hypoxia; I69.951 Hemiplegia and hemiparesis following unspecified cerebrovascular disease affecting right dominant side; C79.82 Secondary malignant neoplasm of genital organs; Z95.5 Presence of coronary angioplasty implant and graft; I25.10 Atherosclerotic heart disease of native coronary artery without angina pectoris; Z95.1 Presence of aortocoronary bypass graft; J43.9 Emphysema, unspecified; R29.6 Repeated falls; N40.1 Benign prostatic hyperplasia with lower urinary tract symptoms; N39.498 Other specified urinary incontinence; R35.1 Nocturia; E78.5 Hyperlipidemia, unspecified; I73.9 Peripheral vascular disease, unspecified; Z98.890 Other specified postprocedural states; Z87.891 Personal history of nicotine dependence; Z99.81 Dependence on supplemental oxygen; G47.30 Sleep apnea, unspecified; Z91.19 Patient's noncompliance with other medical treatment and regimen; K59.09 Other constipation; I48.91 Unspecified atrial fibrillation; I95.9 Hypotension, unspecified; Z85.828 Personal history of other malignant neoplasm of skin; D50.0 Iron deficiency anemia secondary to blood loss (chronic); Z79.899 Other long term (current) drug therapy; I08.0 Rheumatic disorders of both mitral and aortic valves; R56.9 Unspecified convulsions; W18.30XA Fall on same level, unspecified, initial encounter; Y92.230 Patient room in hospital as the place of occurrence of the external cause; Z66 Do not resuscitate; Z79.51 Long term (current) use of inhaled steroids
CPT/HCPCS: 36415; 36600; 51702; 70450; 70548; 70553; 71045; 73070; 73080; 73090; 73502; 74230; 80048; 80051; 80053; 80061; 80202; 80307; 81001; 82330; 82803; 82805; 83540; 83550; 83735; 83880; 84100; 84145; 84153; 84443; 84484; 85007; 85014; 85018; 85025; 85378; 85610; 85730; 86403; 86850; 86900; 86920; 87040; 87426; 87449; 87635; 87641; 92526; 92610; 92611; 93005; 93306; 94640; 94660; 94669; 96365; 96366; 96367; 96372; 96375; 97110; 97116; 97161; 97530; 99291; A9577; J0456; J0696; J0743; J1644; J1650; J1756; J1940; J1953; J2543; J2920; J3370; J7050; J7512; J7626; Q0144

== ENCOUNTER 2021-07-17 11:54 | Outpatient (CLI) | payer MEDICARE, OTHER, SELFPAY ==
[2021-07-17 12:39] LABS: Basophils # 0.1 10^3/uL (0.0-0.1); Eosinophils # 0.2 10^3/uL (0.0-0.8); Eosinophils % 1.3 %; Hematocrit 32.5 % (42.0-52.0); Hemoglobin 9.4 g/dL (11.7-16.6); Lymphocytes # 1.2 10^3/uL (0.8-4.8); Lymphocytes % 10.5 %; Mean Corpuscular HGB Conc 28.9 g/dL (30.0-36.0); Mean Corpuscular Hemoglobin 26.2 pg (28.0-34.0); Mean Corpuscular Volume 90.5 fl (80-94); Mean Platelet Volume 9.7 fL (7.4-10.4); Monocytes # 1.1 10^3/uL (0.2-0.9); Monocytes % 9.1 %; Neutrophils # 8.88 10^3/uL (1.8-7.7); Nucleated Red Blood Cells % 0 %; Platelet Count 265 10^3/cmm (130-400); Red Blood Count 3.59 10^6/uL (4.1-5.3); Red Cell Distribution Width 16.5 % (12.1-15.1); White Blood Count 11.5 10^3/uL (4.0-10.0)
[2021-07-17 13:06] LABS: Alanine Aminotransferase 11 U/L (0-41); Albumin Level 3.7 g/dL (3.5-5.2); Alkaline Phosphatase 83 IU/L (40-130); Anion Gap 14.1 (5-19); Aspartate Amino Transferase 16 U/L (0-40); Blood Urea Nitrogen 16 mg/dL (8-23); Calcium 8.7 mg/dL (8.5-10.5); Carbon Dioxide 30 mmol/L (22-29); Chloride 97 mmol/L (98-107); Globulin 2.8 g/dL (1.3-4.6); Glucose 104 mg/dL (65-115); Osmolality Calculated 285 mOsm/kg (285-295); Potassium 4.1 mmol/L (3.5-5.1); Sodium 137 mmol/L (136-145); Total Bilirubin 0.3 mg/dL (0.15-1.2); Total Protein 6.5 g/dL (6.6-8.7)
[2021-07-17 13:08] LABS: Testosterone Total < 2.5 ng/dL (193-740)
== END 2021-07-17 11:55 | disposition home or self-care (01) ==
LOC: ONCMED 11:59
PROVIDERS: PCP Family Medicine; Visit Provider Nurse Practitioner Family
DX: C61 Malignant neoplasm of prostate (principal); N32.0 Bladder-neck obstruction; I10 Essential (primary) hypertension; E78.5 Hyperlipidemia, unspecified; I25.10 Atherosclerotic heart disease of native coronary artery without angina pectoris; I65.23 Occlusion and stenosis of bilateral carotid arteries; I73.9 Peripheral vascular disease, unspecified; J44.9 Chronic obstructive pulmonary disease, unspecified; G47.33 Obstructive sleep apnea (adult) (pediatric); Z86.2 Personal history of diseases of the blood and blood-forming organs and certain disorders involving the immune mechanism; Z79.899 Other long term (current) drug therapy; Z79.818 Long term (current) use of other agents affecting estrogen receptors and estrogen levels
CPT/HCPCS: 36415; 80053; 84153; 84403; 85025; 99214

== ENCOUNTER 2021-07-31 08:50 | Outpatient (CLI) | payer MEDICARE, OTHER, SELFPAY ==
[2021-07-31 09:10] VITALS: BMI 28.8
--- NOTE | 2021-07-31 09:10 | ECG_ITS ---
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 Interpretive Statements NAME OF STUDY: LEXISCAN SESTAMIBI STRESS TEST INDICATION: Shortness of Breath on exertion PROCEDURE: At the baseline, the blood pressure was 148/50 mmHg with a heart rate of 71 bpm. The electrocardiogram showed sinus rhythm right axis deviation. Poor anterior R wave progression. The Lexiscan was infused over a period of 20 seconds. A total of 0.4 milligrams of Lexiscan was infused. The stress phase was continued for a total of 5 minutes. Heart rate at the end of the stress phase was 81 bpm with a blood pressure of 108/37 mmHg. The EKG at the peak infusion revealed no significant ST-T wave changes. Isolated PVCs noted during peak infusion. Sestamibi was injected 20 seconds after the Lexiscan infusion. Blood pressure at the end of the recovery phase was 102/39 mmHg with a heart rate of 85 beats per minute. CONCLUSION: 1. No significant EKG changes with the LexiScan infusion. 2. No LexiScan induced chest pain or cardiac arrhythmia. 3. Normal blood pressure and heart rate response. 4. Sestamibi/sestamibi perfusion scan pending; see separate report. RESULTS TO DR. RUSSELL Electronically Signed On 08-06-2021 16:41:42 FUR TRIMMER by Manuela Russell M.D. [id number]
--- NOTE | 2021-07-31 09:11 | NMCV_ITS ---
NM genevieve perf SPECT r/s* [id number] Tremaine Harding Age: 85 Gender: M : 1935 Exam Date: 07/31/2021 10:13 Ordering Phys: Azar Cardozo MD Technologist: POPPY Hui Exam Location: [facility] Indications: SHORTNESS OF BREATH ON EXERTION STRESS TEST Please see separate stress test report in [facility] for full findings IMAGE PROTOCOL Rest/Stress 1 Lexiscan Day Radiopharmaceutical Dose (mCi) Administration Site Administered by Rest: Tc-99m 10.8 IV POPPY Hui Sestamibi Stress:Tc-99m 32.6 IV POPPY Saucedo Sestamibi Rest: 60 Discovery 630 Stress: 30 Discovery 630 0.4mg Lexiscan. Supine position only as patient was unable to lay prone. SPECT RESULTS Technical Quality: Excellent Raw Data Analysis: Subdiaphragmatic activity Image Corrections: No attenuation or motion correction applied Summed Stress Score: 17 Summed Rest Score: 6 Summed Difference Score: 11 PERFUSION FINDINGS Medium sized perfusion abnormality of mild severity of mid inferolateral, apical lateral and apical wall on rest images with reversibility in basal to mid inferolateral apical lateral, basal to mid inferior, apical septal and apical beebe on stress images. FUNCTIONAL RESULTS (calculated via Gated SPECT) Stress Image LV EF (%): 58 Stress EDV (mL):134 TID: 0.98 Stress ESV (mL):56 FUNCTIONAL FINDINGS: The left ventricle is normal in size. Transient Ischemia Dilatation of 0.98. There is normal left ventricular systolic function. The left ventricular ejection fraction is normal with a value of 58%. Abnormal septal motion. IMPRESSIONS 1. Medium sized partially reversible perfusion abnormality of mild severity of mid inferolateral, apical lateral, basal to mid inferior, apical septal and apical beebe. 2. 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 Attenuation artifact cannot be ruled out in absence of prone imaging. 3. Overall left ventricular systolic function is normal without regional wall motion abnormalities, LVEF=58%. 4. No significant EKG changes with Lexiscan infusion. Manuela Jones MD (Electronically Signed) Final Date: 06 August 2021 16:46 S
[2021-07-31] MEDS: regadenoson 0.4 Mg/5 ml Syringe IVP (10:41)
[2021-07-31 10:52] VITALS: BP 102/39; PULSE 86
== END 2021-07-31 08:51 | disposition home or self-care (01) ==
LOC: RAD 08:53 → CDL 09:09
PROVIDERS: PCP Family Medicine; Visit Provider Internal Medicine Cardiovascular Disease
DX: R06.02 Shortness of breath (principal); I25.10 Atherosclerotic heart disease of native coronary artery without angina pectoris
CPT/HCPCS: 78452; 93017; A9500; J2785

== ENCOUNTER 2021-08-08 12:51 | Emergency (ER) | payer MEDICARE, OTHER, SELFPAY ==
[2021-08-08 13:08] VITALS: BP 127/71; PULSE 65; RESP 16; TEMP 37.1; O2SAT 99; BMI 28.8
[2021-08-08 13:16] VITALS: BP 127/71; PULSE 66; RESP 16; TEMP 37.1; O2SAT 99
--- NOTE | 2021-08-08 13:21 | XR_ITS ---
WS: [id number] Portable AP upright chest, 08/08/2021 Clinical Data: sob Comparison: Portable chest, 06/04/2021. Findings: Bilateral lower lobe opacities which probably represent atelectasis and/or pneumonia are pr esent. There may be small bilateral effusions. The heart is slightly enlarged. No nodules or masses a re seen. The aortic arch and descending thoracic aorta show mild calcification and tortuosity. Midlin e sternotomy sutures are present. There is an orthopedic anchor in the right humeral head. XR/XR chest 1V portable [id number] Impression: 1. Bilateral lower lobe opacities probably representing atelectasis and/or pneu monia. 2. Cardiomegaly and atherosclerosis.
--- NOTE | 2021-08-08 13:21 | ECG_ITS ---
[facility] Test Date: 2021-08-08 Pat Name: Tremaine Harding Department: Room: Gender: Male Receiver Stocker: : 1935 Requested By: Tremaine Espinoza Order Number: [id number] Cutler MD: Manuela Jones M.D. Measurements Intervals [place] Rate: 65 P: 80 GA: 136 QRS: 96 QRSD: 101 T: 74 QT: 407 QTc: 426 Interpretive Statements SINUS RHYTHM BORDERLINE RIGHT AXIS DEVIATION [QRS AXIS > 90] Compared to ECG 05/30/2021 11:00:41 Sinus arrhythmia no longer present Myocardial infarct finding no longer present Electronically Signed On 08-08-2021 14:39:24 NETWORK CONTROL SUPERVISOR by Manuela Jones M.D. [id number]
--- NOTE | 2021-08-08 13:45 | W.ED.SOB ---
Documented by User: DAVID Aguirre 08/09/21 19:07 HPI - SOB/Dyspnea General: Chief Complaint: Shortness of Breath/Dyspnea Stated Complaint: LOW O2 SATS Time Seen by Provider: 08/08/21 13:31 History of Present Illness: HPI Narrative: Patient is a an 85-year-old male comes to the ED with shortness of breath. Past medical history of COPD, A. fib, CHF. Patient is on 2 L of oxygen continuously at home. [facility]. Approximately 3 days ago patient started having increased shortness of breath. He has had to turn his oxygen up to 4 L when at [place] today. He endorses having a dry cough. Shortness of breath is worse if he lays flat. denies any fever, chest pain, nausea/vomiting, bladder or bowel symptoms. was present also told me that patient fell in shower yesterday. He was sitting in a shower chair and it fell backwards in the back of his head hit the tile wall. says patient has been acting a little out of it since fall. He has had some baseline mental status changes for the past month. He was started on pyridostigmine approximately 2 weeks ago and noticed he was having worse mental decline while on it. Patient stopped taking medication due to mental status change approximately a couple days ago in patient's mental status has improved some. Associated symptoms: Deny abdominal pain, chest pain, fever(s), nausea, orthopnea, palpitations or vomiting Review of Systems Const: Denies: fever(s), chills or fatigue Eyes: Denies: change in vision or eye discomfort ENMT: Denies: throat pain, odynophagia, nasal discharge or nasal congestion Card: Denies: chest pain, palpitations, edema, swelling of feet/ankles, dyspnea on exertion or orthopnea Resp: Reports: dyspnea and non-productive cough; Denies: productive cough GI: Denies: abdominal pain, nausea, vomiting, diarrhea, constipation or hematochezia : Denies: flank pain, difficulty urinating, dysuria or hematuria Musc: Denies: neck pain, back pain or extremity swelling Skin/Breast: Denies: rash or new lesions Neuro: Reports: confusion; Denies: headache(s), numbness in extremities or weakness in extremities PFS ED PFSH: Medical History Abnormal PSA ASHD (arteriosclerotic heart disease) 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 Hines and Masood PVD (peripheral vascular disease) Recurrent falls Seizure Sleep apnea Not chronically using CPAP anymore SOB (shortness of breath) Urgency incontinence Surgical History H/O wrist surgery right History of cataract surgery History of endarterectomy History of femoropopliteal bypass History of PTCA Hx of coronary artery bypass graft (~2011) Hx of removal of cyst Hx of rotator cuff surgery Family History Father , at age 60 Cirrhosis of liver Mother , at age 106 No problems noted. Family/Other Diabetes Hypertension Brother Dementia two brothers CAD (coronary artery disease) stent at 78 Cancer Brother Cancer Denies family history of Clotting disorder Chronic kidney disease (CKD) Suicide Anesthesia complication Bleeding disorder Lung disease Stroke Social History Smoking and tobacco status: former smoker Alcohol intake: current Alcohol intake frequency: holidays/special occasions only Adopted: No Lives independently: No Household members: spouse Marital status: Current occupational status: retired Current gender identity: Male Physical Exam Const: COMMON NORMALS: patient oriented x3 and alert GENERAL APPEARANCE: cooperative HENMT: COMMON NORMALS: normocephalic HEAD & SCALP: normocephalic MOUTH: Normal oral and palatal mucosa present THROAT: posterior oropharynx normal and uvula midline Eye: COMMON NORMALS: Equal, round and reactive pupils present PUPIL: Yes Equal, round and reactive pupils present Neck/C-Spine: COMMON NORMALS: supple GENERAL: Yes normal visual inspection Resp: COMMON NORMALS: normal respiratory effort, No retractions and No use of accessory muscles AUSCULTATION: diminished lung sounds bilateral in the lower lung valentin OTHER: Patient is on 2 L here in the ED and he is around 93 to 94% O2 saturation. Cardio: COMMON NORMALS: regular rate, regular rhythm, S1 normal heart sound present, S2 normal heart sound present, No gallops present (Cardio), No clicks present (Cardio), No murmurs present (Cardio) and Peripheral pulses 2+ throughout RATE: regular rate RHYTHM: regular rhythm HEART SOUNDS: S1 normal heart sound present and S2 normal heart sound present PERIPHERAL PULSES: Peripheral pulses 2+ throughout GI: COMMON NORMALS: Normal to inspection, nondistended, normoactive bowel sounds present, Soft to palpation, non-tender and no masses PALPATION: Yes Soft to palpation : COMMON NORMALS: Yes no CVA tenderness BLADDER/KIDNEY EXAM: Yes no CVA tenderness Back/Pelvis: COMMON NORMALS: no CVA tenderness Extremity: COMMON NORMALS: normal to inspection and no pedal edema Neuro: COMMON NORMALS: patient oriented x3 and moves all extremities SENSORIUM/ORIENTATION: Yes alert Skin: GENERAL SKIN EXAM: dry skin Course Vital Signs: Vital signs: Vital Signs Temperature 98.8 F 08/08/21 13:16 Pulse Rate 66 08/08/21 13:16 Respiratory Rate 16 08/08/21 13:16 Blood Pressure 127/71 08/08/21 13:16 Pulse Oximetry 99 08/08/21 13:16 Patient was on 2 L of oxygen at while here in the ED and his pulse ox was reading around 93 to 94%. He was initially brought here to the ED on 4 L but we were able to turn it down to 2 L and his O2 sat stayed above 90%. MDM - SOB/Dyspnea Medical Decision Making Patient is an 85-year-old male comes to the ED with shortness of breath. Patient has a history of CHF and COPD. He is on 2 L of oxygen at home continuously. Shortness of breath started 3 days ago and he denies any chest pain. He says shortness of breath worsens if he lays flat. is present also reported the patient had a fall in the shower where he did hit his head yesterday but did not have any loss of consciousness. Vitals are stable. Patient appears comfortable and in no acute distress or pain. He has some decreased lung sounds at the bases bilaterally. White blood cell count 14.2 and a BNP of 3064 which is up from about 1300 a month ago. Troponins were negative. EKG showed no acute findings. Chest x-ray showed some possible bilateral lower lobe pneumonia. CT of head showed no acute findings. I talked with Dr. Moseley about patient case and he went in and performed an exam as well. He agreed that patient is stable for discharge home and put him on an antibiotic and told to take his furosemide daily for the next 3 days. Patient was discharged with a prescription for doxycycline and 20 mg of Lasix. He was told to follow-up with his PCP in the next 2 days. Return to ED precautions given. Patient understood and agreed with plan Lab Data I reviewed the patient's lab results. : 08/08/21 14:00 08/08/21 14:00 Labs/Radiology: Radiology Impressions Chest X-Ray 08/08/21 13:21 Impression: 1. Bilateral lower lobe opacities probably representing atelectasis and/or pneumonia. 2. Cardiomegaly and atherosclerosis. Head CT 08/08/21 14:26 IMPRESSION: 1. No evidence of intracranial hemorrhage or mass effect. 2. Moderate small vessel changes with moderate parenchymal volume loss. 3. LEFT frontoparietal craniotomy with encephalomalacia in the underlying LEFT frontal lobe is unchanged. 4. No acute intracranial findings. Laboratory Results WBC 14.2 10^3/uL (4.0-10.0) H 08/08/21 14:00 RBC 3.67 10^6/uL (4.1-5.3) L 08/08/21 14:00 Hgb 9.7 g/dL (11.7-16.6) L 08/08/21 14:00 Hct 33.2 % (42.0-52.0) L 08/08/21 14:00 MCV 90.5 fl (80-94) 08/08/21 14:00 MCH 26.4 pg (28.0-34.0) L 08/08/21 14:00 MCHC 29.2 g/dL (30.0-36.0) L 08/08/21 14:00 RDW 17.2 % (12.1-15.1) H 08/08/21 14:00 Plt Count 254 10^3/cmm (130-400) 08/08/21 14:00 MPV 10.0 fL (7.4-10.4) 08/08/21 14:00 Neut % (Auto) 80.0 % 08/08/21 14:00 Lymph % (Auto) 9.1 % 08/08/21 14:00 Gila % (Auto) 8.6 % 08/08/21 14:00 Eos % (Auto) 0.4 % 08/08/21 14:00 Baso % (Auto) 0.8 % 08/08/21 14:00 Neut # (Auto) 11.32 10^3/uL (1.8-7.7) H 08/08/21 14:00 Lymph # (Auto) 1.3 10^3/uL (0.8-4.8) 08/08/21 14:00 Gila # (Auto) 1.2 10^3/uL (0.2-0.9) H 08/08/21 14:00 Eos # (Auto) 0.1 10^3/uL (0.0-0.8) 08/08/21 14:00 Baso # (Auto) 0.1 10^3/uL (0.0-0.1) 08/08/21 14:00 Nucleated RBC % (auto) 0 % 08/08/21 14:00 Nucleated RBCs # 0.0 /100WBC 08/08/21 14:00 Sodium 138 mmol/L (136-145) 08/08/21 14:00 Potassium 4.7 mmol/L (3.5-5.1) 08/08/21 14:00 Chloride 97 mmol/L (98-107) L 08/08/21 14:00 Carbon Dioxide 33 mmol/L (22-29) H 08/08/21 14:00 Anion Gap 12.7 (5-19) 08/08/21 14:00 BUN 19 mg/dL (8-23) 08/08/21 14:00 Creatinine 0.7 mg/dL (0.7-1.2) 08/08/21 14:00 GFR Calculation Not Reportable 08/08/21 14:00 Glucose 119 mg/dL (65-115) H 08/08/21 14:00 Calculated Osmolality 289 mOsm/kg (285-295) 08/08/21 14:00 Calcium 9.7 mg/dL (8.5-10.5) 08/08/21 14:00 Total Bilirubin 0.4 mg/dL (0.15-1.2) 08/08/21 14:00 AST 20 U/L (0-40) 08/08/21 14:00 ALT 19 U/L (0-41) 08/08/21 14:00 Alkaline Phosphatase 80 IU/L (40-130) 08/08/21 14:00 Troponin T Baseline 29 ng/L (0-15) H 08/08/21 14:00 Troponin T 120 Minute 25.66 ng/L (0-15) H 08/08/21 15:58 Delta Troponin T -3.34 ABS# (0-10) L 08/08/21 15:58 NT-Pro-B Natriuret Pep 3064 pg/mL (0-450) H 08/08/21 14:00 Total Protein 7.5 g/dL (6.6-8.7) 08/08/21 14:00 Albumin 4.0 g/dL (3.5-5.2) 08/08/21 14:00 Globulin 3.5 g/dL (1.3-4.6) 08/08/21 14:00 EKG Data EKG 1: EKG Interpretation Date: 08/08/21 EKG interpretation time: 13:32 Interpretation: Normal sinus rhythm, 65 bpm, no ST segment elevation or depression seen. EKG 2: EKG Interpretation Date: 08/08/21 EKG interpretation time: 16:21 Interpretation: Normal sinus rhythm, 67 bpm, no ST segment elevation or depression seen. Discharge Plan Discharge Patient Disposition: Home Clinical Impression: Acute exacerbation of CHF (congestive heart failure) Qualifiers: Heart failure type: unspecified Qualified Code(s): I50.9 - Heart failure, unspecified Pneumonia Qualifiers: Pneumonia type: due to unspecified organism Laterality: bilateral Lung location: lower lobe of lung Qualified Code(s): J18.9 - Pneumonia, unspecified organism Condition: Stable Prescriptions: New doxycycline hyclate 100 mg capsule 100 mg PO BID 10 Days Qty: 20 0RF Lasix 20 mg tablet 20 mg PO DAILY Qty: 20 0RF Rx Instructions: Take daily for the next 3 days, then take as needed for any fluid retention. No Action finasteride 5 mg tablet 5 mg PO DAILY 0RF albuterol sulfate 90 mcg/actuation HFA aerosol inhaler 2 puff INHALATION Q6H PRN (Reason: Shortness Of Breath) 0RF polyethylene glycol 3350 [Miralax] 17 gram/dose powder 17 gm PO DAILY 0RF Calcium 600 with Vitamin D3 600 mg(1,500mg) -400 unit tablet,chewable 1 tab PO DAILY 0RF omega-3 fatty acids [Fish Oil Concentrate] 1,000 mg capsule 1,000 mg PO DAILY 0RF vitamin B complex [B Complex-Vitamin B12] Tablet 1 tab PO DAILY 0RF vitamin E (dl, acetate) 400 unit capsule 400 unit PO DAILY 0RF ferrous sulfate 325 mg (65 mg iron) tablet 325 mg PO DAILY 0RF magnesium 200 mg tablet 400 mg PO DAILY 0RF vit C,E,Zn,Vn-efdtp2-bpy-zeax 250-2.5-0.5 mg capsule 1 cap PO DAILY 0RF pyridostigmine bromide 60 mg tablet 60 mg PO BID 32 Days Qty: 64 2RF cholecalciferol (vitamin D3) 25 MCG 1 tab PO DAILY 0RF docusate sodium 100 MG 100 mg PO BID 0RF fluticasone propion-salmeterol 100 units 1 puff inhalation BID 0RF fluticasone propionate 50 mcg 1 dose NOSTRIL-B DAILY 0RF sertraline 100 mg 150 mg PO DAILY 0RF tiotropium bromide 2.5 MCG aerosol 2 puff inhalation DAILY 0RF pyridoxine (vitamin B6) 100 MG 1 tab PO DAILY 0RF prednisone 10 mg tablet PRN (Reason: lung issues) 0RF prednisone 10 mg tablet See Taper mg PO DAILY Qty: 42 0RF Taper: predniSONE 60-10 60 mg Daily for 2 Days and 0 Hour 50 mg Daily for 2 Days and 0 Hour 40 mg Daily for 2 Days and 0 Hour 30 mg Daily for 2 Days and 0 Hour 20 mg Daily for 2 Days and 0 Hour 10 mg Daily for 2 Days and 0 Hour Discharge Orders: Discharge ED (Routine); Ordered 08/08/21 Ordered By: Tremaine Espinoza Referrals: Chanelle Anthony MD [Primary Care Provider] - Discharge Diet: Regular Discharge Activity: Increase activity as tolerated Patient Instructions: Congestive Heart Failure, Pneumonia (ED) Activity Restrictions/Additional Instructions: Follow-up with primary care provider in the next 2 days for reevaluation. Take medications as prescribed. Take the Lasix daily for the next 3 days then take as needed for any fluid retention. Return to the ER or your medical provider if condition worsens. Please read and understand discharge instructions. Thank you for choosing [facility] for your healthcare needs today. Please realize this is an emergency room and that we are providing you with a medical screening exam and this may not be complete and all inclusive of all the testing and or work up that you may need to determine your ailment or severity of your illness. It is very important that you follow up as instructed or that you return to the Emergency Department should you have concerns or if your condition changes or worsens in any way. 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 Hines and Masood PVD (peripheral vascular disease) Recurrent falls Seizure Sleep apnea Not chronically using CPAP anymore SOB (shortness of breath) Urgency incontinence Surgical History H/O wrist surgery right History of cataract surgery History of endarterectomy History of femoropopliteal bypass History of PTCA Hx of coronary artery bypass graft (~2011) Hx of removal of cyst Hx of rotator cuff surgery Family History Father , at age 60 Cirrhosis of liver Mother , at age 106 No problems noted. Family/Other Diabetes Hypertension Brother Dementia two brothers CAD (coronary artery disease) stent at 78 Cancer Brother Cancer Denies family history of Clotting disorder Chronic kidney disease (CKD) Suicide Anesthesia complication Bleeding disorder Lung disease Stroke Social History Smoking and tobacco status: former smoker Alcohol intake: current Alcohol intake frequency: holidays/special occasions only Adopted: No Lives independently: No Household members: spouse Marital status: Current occupational status: retired Current gender identity: Male Course Vital Signs: Vital signs: Vital Signs Temperature 98.8 F 08/08/21 13:16 Pulse Rate 66 08/08/21 13:16 Respiratory Rate 16 08/08/21 13:16 Blood Pressure 127/71 08/08/21 13:16 Pulse Oximetry 99 08/08/21 13:16 MDM - SOB/Dyspnea Medical Decision Making Patient is an 85-year-old male comes to the ED with shortness of breath. Patient has a history of CHF and COPD. He is on 2 L of oxygen at home continuously. Shortness of breath started 3 days ago and he denies any chest pain. He says shortness of breath worsens if he lays flat. is present also reported the patient had a fall in the shower where he did hit his head yesterday but did not have any loss of consciousness. Vitals are stable. Patient appears comfortable and in no acute distress or pain. He has some decreased lung sounds at the bases bilaterally. White blood cell count 14.2 and a BNP of 3064 which is up from about 1300 a month ago. Troponins were negative. EKG showed no acute findings. Chest x-ray showed some possible bilateral lower lobe pneumonia. CT of head showed no acute findings. I talked with Dr. Moseley about patient case and he went in and performed an exam as well. He agreed that patient is stable for discharge home and put him on an antibiotic and told to take his furosemide daily for the next 3 days. Patient was discharged with a prescription for doxycycline and 20 mg of Lasix. He was told to follow-up with his PCP in the next 2 days. Return to ED precautions given. Patient understood and agreed with plan Chart reviewed and patient discussed with midlevel. Agree with assessment and plan. Examined patient few crackles at the bases heart regular. His oxygen sats are good. We will go and discharge him home with outpatient therapy as of outlined above recheck with his primary care doc tomorrow. Lab Data : 08/08/21 14:00 08/08/21 14:00 Labs/Radiology: Radiology Impressions Chest X-Ray 08/08/21 13:21 Impression: 1. Bilateral lower lobe opacities probably representing atelectasis and/or pneumonia. 2. Cardiomegaly and atherosclerosis. Head CT 08/08/21 14:26 IMPRESSION: 1. No evidence of intracranial hemorrhage or mass effect. 2. Moderate small vessel changes with moderate parenchymal volume loss. 3. LEFT frontoparietal craniotomy with encephalomalacia in the underlying LEFT frontal lobe is unchanged. 4. No acute intracranial findings. Laboratory Results WBC 14.2 10^3/uL (4.0-10.0) H 08/08/21 14:00 RBC 3.67 10^6/uL (4.1-5.3) L 08/08/21 14:00 Hgb 9.7 g/dL (11.7-16.6) L 08/08/21 14:00 Hct 33.2 % (42.0-52.0) L 08/08/21 14:00 MCV 90.5 fl (80-94) 08/08/21 14:00 MCH 26.4 pg (28.0-34.0) L 08/08/21 14:00 MCHC 29.2 g/dL (30.0-36.0) L 08/08/21 14:00 RDW 17.2 % (12.1-15.1) H 08/08/21 14:00 Plt Count 254 10^3/cmm (130-400) 08/08/21 14:00 MPV 10.0 fL (7.4-10.4) 08/08/21 14:00 Neut % (Auto) 80.0 % 08/08/21 14:00 Lymph % (Auto) 9.1 % 08/08/21 14:00 Gila % (Auto) 8.6 % 08/08/21 14:00 Eos % (Auto) 0.4 % 08/08/21 14:00 Baso % (Auto) 0.8 % 08/08/21 14:00 Neut # (Auto) 11.32 10^3/uL (1.8-7.7) H 08/08/21 14:00 Lymph # (Auto) 1.3 10^3/uL (0.8-4.8) 08/08/21 14:00 Gila # (Auto) 1.2 10^3/uL (0.2-0.9) H 08/08/21 14:00 Eos # (Auto) 0.1 10^3/uL (0.0-0.8) 08/08/21 14:00 Baso # (Auto) 0.1 10^3/uL (0.0-0.1) 08/08/21 14:00 Nucleated RBC % (auto) 0 % 08/08/21 14:00 Nucleated RBCs # 0.0 /100WBC 08/08/21 14:00 Sodium 138 mmol/L (136-145) 08/08/21 14:00 Potassium 4.7 mmol/L (3.5-5.1) 08/08/21 14:00 Chloride 97 mmol/L (98-107) L 08/08/21 14:00 Carbon Dioxide 33 mmol/L (22-29) H 08/08/21 14:00 Anion Gap 12.7 (5-19) 08/08/21 14:00 BUN 19 mg/dL (8-23) 08/08/21 14:00 Creatinine 0.7 mg/dL (0.7-1.2) 08/08/21 14:00 GFR Calculation Not Reportable 08/08/21 14:00 Glucose 119 mg/dL (65-115) H 08/08/21 14:00 Calculated Osmolality 289 mOsm/kg (285-295) 08/08/21 14:00 Calcium 9.7 mg/dL (8.5-10.5) 08/08/21 14:00 Total Bilirubin 0.4 mg/dL (0.15-1.2) 08/08/21 14:00 AST 20 U/L (0-40) 08/08/21 14:00 ALT 19 U/L (0-41) 08/08/21 14:00 Alkaline Phosphatase 80 IU/L (40-130) 08/08/21 14:00 Troponin T Baseline 29 ng/L (0-15) H 08/08/21 14:00 Troponin T 120 Minute 25.66 ng/L (0-15) H 08/08/21 15:58 Delta Troponin T -3.34 ABS# (0-10) L 08/08/21 15:58 NT-Pro-B Natriuret Pep 3064 pg/mL (0-450) H 08/08/21 14:00 Total Protein 7.5 g/dL (6.6-8.7) 08/08/21 14:00 Albumin 4.0 g/dL (3.5-5.2) 08/08/21 14:00 Globulin 3.5 g/dL (1.3-4.6) 08/08/21 14:00 Discharge Plan Discharge Patient Disposition: Home Clinical Impression: Acute exacerbation of CHF (congestive heart failure) Qualifiers: Heart failure type: unspecified Qualified Code(s): I50.9 - Heart failure, unspecified Pneumonia Qualifiers: Pneumonia type: due to unspecified organism Laterality: bilateral Lung location: lower lobe of lung Qualified Code(s): J18.9 - Pneumonia, unspecified organism Condition: Stable Prescriptions: New doxycycline hyclate 100 mg capsule 100 mg PO BID 10 Days Qty: 20 0RF Lasix 20 mg tablet 20 mg PO DAILY Qty: 20 0RF Rx Instructions: Take daily for the next 3 days, then take as needed for any fluid retention. No Action finasteride 5 mg tablet 5 mg PO DAILY 0RF albuterol sulfate 90 mcg/actuation HFA aerosol inhaler 2 puff INHALATION Q6H PRN (Reason: Shortness Of Breath) 0RF polyethylene glycol 3350 [Miralax] 17 gram/dose powder 17 gm PO DAILY 0RF Calcium 600 with Vitamin D3 600 mg(1,500mg) -400 unit tablet,chewable 1 tab PO DAILY 0RF omega-3 fatty acids [Fish Oil Concentrate] 1,000 mg capsule 1,000 mg PO DAILY 0RF vitamin B complex [B Complex-Vitamin B12] Tablet 1 tab PO DAILY 0RF vitamin E (dl, acetate) 400 unit capsule 400 unit PO DAILY 0RF ferrous sulfate 325 mg (65 mg iron) tablet 325 mg PO DAILY 0RF magnesium 200 mg tablet 400 mg PO DAILY 0RF vit C,E,Zn,Zl-pzovr2-sdj-zeax 250-2.5-0.5 mg capsule 1 cap PO DAILY 0RF pyridostigmine bromide 60 mg tablet 60 mg PO BID 32 Days Qty: 64 2RF cholecalciferol (vitamin D3) 25 MCG 1 tab PO DAILY 0RF docusate sodium 100 MG 100 mg PO BID 0RF fluticasone propion-salmeterol 100 units 1 puff inhalation BID 0RF fluticasone propionate 50 mcg 1 dose NOSTRIL-B DAILY 0RF sertraline 100 mg 150 mg PO DAILY 0RF tiotropium bromide 2.5 MCG aerosol 2 puff inhalation DAILY 0RF pyridoxine (vitamin B6) 100 MG 1 tab PO DAILY 0RF prednisone 10 mg tablet PRN (Reason: lung issues) 0RF prednisone 10 mg tablet See Taper mg PO DAILY Qty: 42 0RF Taper: predniSONE 60-10 60 mg Daily for 2 Days and 0 Hour 50 mg Daily for 2 Days and 0 Hour 40 mg Daily for 2 Days and 0 Hour 30 mg Daily for 2 Days and 0 Hour 20 mg Daily for 2 Days and 0 Hour 10 mg Daily for 2 Days and 0 Hour Discharge Orders: Discharge ED (Routine); Ordered 08/08/21 Ordered By: Tremaine Espinoza Referrals: Chanelle Anthony MD [Primary Care Provider] - Discharge Diet: Regular Discharge Activity: Increase activity as tolerated Patient Instructions: Congestive Heart Failure, Pneumonia (ED) Activity Restrictions/Additional Instructions: Follow-up with primary care provider in the next 2 days for reevaluation. Take medications as prescribed. Take the Lasix daily for the next 3 days then take as needed for any fluid retention. Return to the ER or your medical provider if condition worsens. Please read and understand discharge instructions. Thank you for choosing [facility] for your healthcare needs today. Please realize this is an emergency room and that we are providing you with a medical screening exam and this may not be complete and all inclusive of all the testing and or work up that you may need to determine your ailment or severity of your illness. It is very important that you follow up as instructed or that you return to the Emergency Department should you have concerns or if your condition changes or worsens in any way. 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 Manager for Sunita Fwирина Exam Comprehensive
[2021-08-08 14:09] LABS: Basophils # 0.1 10^3/uL (0.0-0.1); Basophils % 0.8 %; Eosinophils # 0.1 10^3/uL (0.0-0.8); Eosinophils % 0.4 %; Hematocrit 33.2 % (42.0-52.0); Hemoglobin 9.7 g/dL (11.7-16.6); Lymphocytes # 1.3 10^3/uL (0.8-4.8); Lymphocytes % 9.1 %; Mean Corpuscular HGB Conc 29.2 g/dL (30.0-36.0); Mean Corpuscular Hemoglobin 26.4 pg (28.0-34.0); Mean Corpuscular Volume 90.5 fl (80-94); Monocytes # 1.2 10^3/uL (0.2-0.9); Monocytes % 8.6 %; Neutrophils # 11.32 10^3/uL (1.8-7.7); Nucleated Red Blood Cells % 0 %; Platelet Count 254 10^3/cmm (130-400); Red Blood Count 3.67 10^6/uL (4.1-5.3); Red Cell Distribution Width 17.2 % (12.1-15.1); White Blood Count 14.2 10^3/uL (4.0-10.0)
--- NOTE | 2021-08-08 14:26 | CT_ITS ---
WS: [id number] CT HEAD TECHNIQUE: Noncontrast CT of the head obtained from the skullbase to the vertex. CLINICAL INFORMATION: fall in shower yesterday. hit head. no loc COMPARISON: CT May 29, 2021 and MRI June 04, 2021 DLP: 843.[address] scans at [facility] use at least one of these dose optimization techniques: automated e xposure control; mA and/or kV adjustment per patient size (includes targeted exams where dose is matc hed to clinical indication); or iterative reconstruction. FINDINGS: No evidence of intracranial hemorrhage or mass effect. Prior postoperative changes LEFT frontoparieta l craniotomy with encephalomalacia in the underlying LEFT frontal lobe. This is unchanged from previo us. Mild ex vacuo dilatation LEFT lateral ventricle. Ventricular system and basal cisterns are patent . Moderate small vessel changes with moderate parenchymal volume loss. Intracranial vascular calcific ation. Mild mucosal thickening in the paranasal sinuses. Mastoid air cells are well aerated. CT/CT head wo con* [id number] IMPRESSION: 1. No evidence of intracranial hemorrhage or mass effect. 2. Moderate small vessel changes with moderate parenchymal volume loss. 3. LEFT frontoparietal craniotomy with encephalomalacia in the underlying LEFT frontal lobe is unchanged. 4. No acute intracranial findings.
[2021-08-08 14:32] LABS: Troponin(5th) Baseline 29 ng/L (0-15)
[2021-08-08 14:42] LABS: Alanine Aminotransferase 19 U/L (0-41); Alkaline Phosphatase 80 IU/L (40-130); Anion Gap 12.7 (5-19); Aspartate Amino Transferase 20 U/L (0-40); Blood Urea Nitrogen 19 mg/dL (8-23); Calcium 9.7 mg/dL (8.5-10.5); Carbon Dioxide 33 mmol/L (22-29); Chloride 97 mmol/L (98-107); Globulin 3.5 g/dL (1.3-4.6); Glucose 119 mg/dL (65-115); NT Pro B Type Natriuretic Pept 3064 pg/mL (0-450); Osmolality Calculated 289 mOsm/kg (285-295); Potassium 4.7 mmol/L (3.5-5.1); Sodium 138 mmol/L (136-145); Total Bilirubin 0.4 mg/dL (0.15-1.2); Total Protein 7.5 g/dL (6.6-8.7)
--- NOTE | 2021-08-08 15:21 | ECG_ITS ---
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 Measurements Intervals [place] Rate: 67 P: 61 OK: 151 QRS: 98 QRSD: 91 T: 73 QT: 389 QTc: 413 Interpretive Statements SINUS RHYTHM BORDERLINE RIGHT AXIS DEVIATION [QRS AXIS > 90] Compared to ECG 08/08/2021 13:32:15 No significant changes Electronically Signed On 08-08-2021 21:26:19 [employer] by Manuela Jones M.D. [id number]
[2021-08-08 16:27] LABS: Troponin 5 2HR 25.66 ng/L (0-15)
[2021-08-08 16:29] LABS: Troponin 5 2HR Delta -3.34 ABS# (0-10)
[2021-08-08] MEDS: FUROsemide 10 mg/mL SDV 2mL 20 MG IVP (16:56)
== END 2021-08-08 17:30 | disposition home or self-care (01) ==
PROVIDERS: Emergency Provider Physician Assistant; PCP Family Medicine
DX: J44.9 Chronic obstructive pulmonary disease, unspecified (principal); I10 Essential (primary) hypertension; E78.5 Hyperlipidemia, unspecified; Z99.81 Dependence on supplemental oxygen; Z85.46 Personal history of malignant neoplasm of prostate; Z87.891 Personal history of nicotine dependence
CPT/HCPCS: 70450; 71045; 80053; 83880; 84484; 85025; 87040; 93005; 96374; 96375; 99283; J1940

== ENCOUNTER 2021-09-17 15:17 | Emergency (ER) | payer MEDICARE, OTHER, SELFPAY ==
[2021-09-17 15:29] VITALS: BP 124/69; PULSE 79; RESP 18; TEMP 36.6; O2SAT 81; BMI 25.8
--- NOTE | 2021-09-17 15:46 | XR_ITS ---
WS: [id number] Exam: XR chest 1V portable [id number] Date/Time of Exam: 09/17/2021 4:12 PM Reason For Exam: dyspnea/cough Comparison 08/08/2021. Right lower lobe atelectasis and infiltrate noted. Right basal pleural effusion noted. Small left bas al pleural effusion also noted. Remaining lung valentin are clear. No pneumothorax. Signs of previous C ABG surgery and median sternotomy. Heart size is top limits normal. Mediastinal silhouette is normal in contour. Regional bony elements are intact. Anchoring screws in the right humeral head. XR/XR chest 1V portable [id number] IMPRESSION: 1. Right lower lobe atelectasis with associated infiltrate and right basal pleu ral effusion. 2. Small left basal pleural effusion.
--- NOTE | 2021-09-17 16:06 | PC.NURSE ---
Pt's oxygen low at PCP sent to . Pt O2 low at [facility] sent to ED. This RN charted pt O2 81% on 3L. Pt roomed after triage and placed on 6L stating 97% dropped to 3L and stating 95%. Checked pt's home O2 and noticed it is empty. Pt oxygen low all weekend possibly.
[2021-09-17 16:16] LABS: Basophils # 0.1 10^3/uL (0.0-0.1); Basophils % 0.2 %; Hematocrit 28.6 % (42.0-52.0); Hemoglobin 8.3 g/dL (11.7-16.6); Lymphocytes # 0.8 10^3/uL (0.8-4.8); Lymphocytes % 3.9 %; Mean Corpuscular Hemoglobin 25.1 pg (28.0-34.0); Mean Corpuscular Volume 86.4 fl (80-94); Mean Platelet Volume 9.6 fL (7.4-10.4); Monocytes # 1.6 10^3/uL (0.2-0.9); Monocytes % 7.5 %; Neutrophils % 86.8 %; Nucleated Red Blood Cells % 0 %; Platelet Count 419 10^3/cmm (130-400); Red Blood Count 3.31 10^6/uL (4.1-5.3); Red Cell Distribution Width 16.2 % (12.1-15.1); White Blood Count 21.3 10^3/uL (4.0-10.0)
--- NOTE | 2021-09-17 16:26 | W.ED.SOB ---
Documented by User: León Moseley DO 09/18/21 09:21 HPI - SOB/Dyspnea General: Chief Complaint: Shortness of Breath/Dyspnea Stated Complaint: low ox Time Seen by Provider: 09/17/21 15:45 Source: patient Mode of arrival: ambulatory History of Present Illness: HPI Narrative: 85-year-old male presents emergency room complaining of shortness of breath minimally productive cough. Is not had any vomiting not had any fever sweats chills no myalgias. He is normally on oxygen at 2 L/min this weekend he had perceived shortness of breath end up turning his oxygen up did seem to help and then did not when he went to get evaluated today his oxygen sat at the [place] [facility] was evidently reported to be low in the 80s he then went to the urgent care clinic it was low there as well he was referred to the ER on arrival here was noted that his oxygen tank was empty. No chest pain no abdominal pain, he has had a slight cough. MD elicited complaint: shortness of breath and cough Pertinent past history: COPD Onset (ago): day(s) Timing: constant Severity: moderate Exacerbating factors: nothing Relieving factors: nothing Known history of: COPD Associated symptoms: Reports chest congestion; Deny abdominal pain, chest pain, cough, diaphoresis, dizziness, extremity pain, fever(s), hemoptysis, lightheadedness, myalgias, nausea, orthopnea, palpitations, paresthesias, polydipsia, polyuria, rash, sense of impending doom, syncope or vomiting Treatment prior to arrival: oxygen Review of Systems Const: Denies: fever(s) or diaphoresis Card: Denies: chest pain, palpitations, lightheadedness, syncope or orthopnea Resp: Reports: dyspnea, non-productive cough, wheezing and chest congestion; Denies: hemoptysis GI: Denies: abdominal pain, nausea, vomiting, hematemesis, coffee ground emesis, diarrhea, constipation or GI cramping : Denies: difficulty urinating, dysuria, urinary frequency or urinary urgency Musc: Denies: extremity pain Neuro: Denies: dizziness Endo: Denies: polyuria or polydipsia PFSH ED PFSH: Medical History Abnormal PSA ASHD (arteriosclerotic heart disease) 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 Hines and Masood PVD (peripheral vascular disease) Recurrent falls Seizure Sleep apnea Not chronically using CPAP anymore SOB (shortness of breath) Urgency incontinence Surgical History H/O wrist surgery right History of cataract surgery History of endarterectomy History of femoropopliteal bypass History of PTCA Hx of coronary artery bypass graft (~2011) Hx of removal of cyst Hx of rotator cuff surgery Family History Father , at age 60 Cirrhosis of liver Mother , at age 106 No problems noted. Family/Other Diabetes Hypertension Brother Dementia two brothers CAD (coronary artery disease) stent at 78 Cancer Brother Cancer Denies family history of Clotting disorder Chronic kidney disease (CKD) Suicide Anesthesia complication Bleeding disorder Lung disease Stroke Social History Smoking and tobacco status: former smoker Alcohol intake: current Alcohol intake frequency: holidays/special occasions only Adopted: No Lives independently: No Household members: spouse Marital status: Current occupational status: retired Current gender identity: Male Physical Exam Const: GENERAL APPEARANCE: cooperative and comfortable ORIENTATION/CONSCIOUSNESS: Yes awake, Yes oriented to person, Yes oriented to place and Yes oriented to time HENMT: COMMON NORMALS: normocephalic, atraumatic and hearing grossly normal bilaterally HEAD & SCALP: normocephalic and atraumatic Neck/C-Spine: COMMON NORMALS: no JVD Resp: COMMON NORMALS: normal respiratory effort, No retractions, No use of accessory muscles and clear to auscultation bilaterally AUSCULTATION: clear to auscultation bilaterally Cardio: COMMON NORMALS: no JVD, regular rate, regular rhythm and No murmurs present (Cardio) RATE: regular rate RHYTHM: regular rhythm GI: COMMON NORMALS: Soft to palpation and No hepatosplenomegaly present AUSCULTATION: Yes normoactive bowel sounds PALPATION: Yes Soft to palpation, No Tenderness to palpation present (GI), No Guarding due to palpation present (GI) and Yes No hepatosplenomegaly present Extremity: COMMON NORMALS: normal to inspection, capillary refill normal, no clubbing, cyanosis or edema, no calf tenderness and no pedal edema Neuro: SENSORIUM/ORIENTATION: Yes oriented to person, Yes oriented to place and Yes oriented to time Skin: COMMON NORMALS: no rashes or lesions noted GENERAL SKIN EXAM: no rashes or lesions noted Course Vital Signs: Vital signs: Vital Signs Temperature 97.9 F 09/17/21 15:29 Pulse Rate 89 09/17/21 17:50 Respiratory Rate 18 09/17/21 18:39 Blood Pressure 123/75 09/17/21 18:39 Pulse Oximetry 93 09/17/21 18:39 MDM - SOB/Dyspnea Medical Decision Making Care signed out to Dr. Echevarria at change of shift. See final notes for diagnosis and disposition. Patient over from Dr. Rogers COPD exacerbation with a slight small pneumonia his oxygen level here has been in the mid 90s on his 2 to 3 L he is well-appearing here he is stable for discharge we will start him on Levaquin at home he is to follow-up his PCP and return if worsening he understands agrees to plan. Lab Data : 09/17/21 16:05 09/17/21 16:05 Labs/Radiology: Radiology Impressions Chest X-Ray 09/17/21 15:46 IMPRESSION: 1. Right lower lobe atelectasis with associated infiltrate and right basal pleural effusion. 2. Small left basal pleural effusion. Laboratory Results WBC 21.3 10^3/uL (4.0-10.0) H 09/17/21 16:05 RBC 3.31 10^6/uL (4.1-5.3) L 09/17/21 16:05 Hgb 8.3 g/dL (11.7-16.6) L 09/17/21 16:05 Hct 28.6 % (42.0-52.0) L 09/17/21 16:05 MCV 86.4 fl (80-94) 09/17/21 16:05 MCH 25.1 pg (28.0-34.0) L 09/17/21 16:05 MCHC 29.0 g/dL (30.0-36.0) L 09/17/21 16:05 RDW 16.2 % (12.1-15.1) H 09/17/21 16:05 Plt Count 419 10^3/cmm (130-400) H 09/17/21 16:05 MPV 9.6 fL (7.4-10.4) 09/17/21 16:05 Neut % (Auto) 86.8 % 09/17/21 16:05 Lymph % (Auto) 3.9 % 09/17/21 16:05 Bartholomew % (Auto) 7.5 % 09/17/21 16:05 Eos % (Auto) 0.0 % 09/17/21 16:05 Baso % (Auto) 0.2 % 09/17/21 16:05 Neut # (Auto) 18.50 10^3/uL (1.8-7.7) H 09/17/21 16:05 Lymph # (Auto) 0.8 10^3/uL (0.8-4.8) 09/17/21 16:05 Bartholomew # (Auto) 1.6 10^3/uL (0.2-0.9) H 09/17/21 16:05 Eos # (Auto) 0.0 10^3/uL (0.0-0.8) 09/17/21 16:05 Baso # (Auto) 0.1 10^3/uL (0.0-0.1) 09/17/21 16:05 Nucleated RBC % (auto) 0 % 09/17/21 16:05 Nucleated RBCs # 0.0 /100WBC 09/17/21 16:05 Sodium 137 mmol/L (136-145) 09/17/21 16:05 Potassium 4.4 mmol/L (3.5-5.1) 09/17/21 16:05 Chloride 96 mmol/L (98-107) L 09/17/21 16:05 Carbon Dioxide 33 mmol/L (22-29) H 09/17/21 16:05 Anion Gap 12.4 (5-19) 09/17/21 16:05 BUN 22 mg/dL (8-23) 09/17/21 16:05 Creatinine 0.7 mg/dL (0.7-1.2) 09/17/21 16:05 GFR Calculation Not Reportable 09/17/21 16:05 Glucose 149 mg/dL (65-115) H 09/17/21 16:05 Calculated Osmolality 290 mOsm/kg (285-295) 09/17/21 16:05 Calcium 9.8 mg/dL (8.5-10.5) 09/17/21 16:05 Total Bilirubin 0.2 mg/dL (0.15-1.2) 09/17/21 16:05 AST 38 U/L (0-40) 09/17/21 16:05 ALT 29 U/L (0-41) 09/17/21 16:05 Alkaline Phosphatase 87 IU/L (40-130) 09/17/21 16:05 Total Protein 6.7 g/dL (6.6-8.7) 09/17/21 16:05 Albumin 3.3 g/dL (3.5-5.2) L 09/17/21 16:05 Globulin 3.4 g/dL (1.3-4.6) 09/17/21 16:05 Urine Color Yellow (Yellow) 09/17/21 17:41 Urine Appearance Clear (CLEAR) 09/17/21 17:41 Urine pH 5 (5-7) 09/17/21 17:41 Ur Specific [place] 1.015 (1.005-1.030) 09/17/21 17:41 Urine Protein Neg (Negative) 09/17/21 17:41 Urine Glucose (UA) Norm (Normal) 09/17/21 17:41 Urine Ketones Negative (Negative) 09/17/21 17:41 Urine Blood Neg (Negative) 09/17/21 17:41 Urine Nitrate Negative (Negative) 09/17/21 17:41 Urine Bilirubin Neg (Negative) 09/17/21 17:41 Urine Urobilinogen Norm mg/dL (Negative) 09/17/21 17:41 Ur Leukocyte Esterase Negative (Negative) 09/17/21 17:41 Discharge Plan Discharge Patient Disposition: Home Clinical Impression: COPD (chronic obstructive pulmonary disease) Qualifiers: COPD type: unspecified COPD Qualified Code(s): J44.9 - Chronic obstructive pulmonary disease, unspecified Pneumonia Qualifiers: Pneumonia type: due to unspecified organism Laterality: right Lung location: unspecified part of lung Qualified Code(s): J18.9 - Pneumonia, unspecified organism Condition: Stable Prescriptions: New levofloxacin 750 mg tablet 750 mg PO DAILY 7 Days 0RF No Action finasteride 5 mg tablet 5 mg PO DAILY 0RF albuterol sulfate 90 mcg/actuation HFA aerosol inhaler 2 puff INHALATION Q6H PRN (Reason: Shortness Of Breath) 0RF polyethylene glycol 3350 [Miralax] 17 gram/dose powder 17 gm PO DAILY PRN (Reason: Constipation) 0RF Calcium 600 with Vitamin D3 600 mg(1,500mg) -400 unit tablet,chewable 1 tab PO DAILY 0RF omega-3 fatty acids [Fish Oil Concentrate] 1,000 mg capsule 1,000 mg PO DAILY 0RF vitamin B complex [B Complex-Vitamin B12] Tablet 1 tab PO DAILY 0RF vitamin E (dl, acetate) 400 unit capsule 400 unit PO DAILY 0RF ferrous sulfate 325 mg (65 mg iron) tablet 325 mg PO DAILY 0RF magnesium 200 mg tablet 400 mg PO DAILY 0RF pyridostigmine bromide 60 mg tablet 60 mg PO BID 32 Days Qty: 64 2RF prednisone 10 mg tablet 20 mg PO DAILY PRN (Reason: lung issues) 0RF furosemide [Lasix] 20 mg tablet 20 mg PO DAILY Qty: 20 0RF Rx Instructions: Take daily for the next 3 days, then take as needed for any fluid retention. sertraline 100 mg tablet 50 mg PO DAILY 0RF Rx Instructions: HALF TABLET MORNING omeprazole 40 mg capsule,delayed release(DR/EC) 40 mg PO DAILY 0RF potassium chloride 20 mEq tablet,ER particles/crystals 10 meq PO DAILY 0RF tamsulosin 0.4 mg capsule 0.4 mg PO DAILY 0RF fluticasone propionate 100 mcg/actuation Blister With Device 1 inh INHALATION BID 0RF docusate sodium 100 mg Capsule 100 mg PO BID 0RF pyridoxine (vitamin B6) 100 mg Tablet 100 mg PO DAILY 0RF fluticasone propionate 50 mcg/actuation spray,suspension 1 spray INTRANASAL DAILY 0RF Rx Instructions: 1 SPRAY IN EACH NOSTRIL Multi M Vitamin Tablet 1 tab PO DAILY 0RF cholecalciferol (vitamin D3) 25 mcg (1,000 unit) Tablet 25 mcg PO DAILY 0RF tiotropium bromide 2.5 mcg/actuation Mist 2 inh INHALATION QAM 0RF aspirin 325 mg Tablet 325 mg PO DAILY 0RF PreserVision AREDS 7,160 unit- 113 mg-100 unit Tablet 2 tab PO BID 0RF Rx Instructions: administer with AM and PM meals Discharge Orders: Discharge ED (Routine); Ordered 09/17/21 Ordered By: Adrian Echevarria Referrals: Chanelle Anthony MD [Primary Care Provider] - Discharge Diet: Advance as tolerated Discharge Activity: Resume usual activity Patient Instructions: Pneumonia (ED) Coding Level of Care Code ED Institution Librarian for Chg Fwd Exam Comprehensive Documented by User: Adrian Echevarria MD 09/17/21 18:46 HPI - SOB/Dyspnea General: Chief Complaint: Shortness of Breath/Dyspnea Stated Complaint: low ox Time Seen by Provider: 09/17/21 15:45 PFSH ED PFSH: Medical History Abnormal PSA ASHD (arteriosclerotic heart disease) 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 Hines and Masood PVD (peripheral vascular disease) Recurrent falls Seizure Sleep apnea Not chronically using CPAP anymore SOB (shortness of breath) Urgency incontinence Surgical History H/O wrist surgery right History of cataract surgery History of endarterectomy History of femoropopliteal bypass History of PTCA Hx of coronary artery bypass graft (~2011) Hx of removal of cyst Hx of rotator cuff surgery Family History Father , at age 60 Cirrhosis of liver Mother , at age 106 No problems noted. Family/Other Diabetes Hypertension Brother Dementia two brothers CAD (coronary artery disease) stent at 78 Cancer Brother Cancer Denies family history of Clotting disorder Chronic kidney disease (CKD) Suicide Anesthesia complication Bleeding disorder Lung disease Stroke Social History Smoking and tobacco status: former smoker Alcohol intake: current Alcohol intake frequency: holidays/special occasions only Adopted: No Lives independently: No Household members: spouse Marital status: Current occupational status: retired Current gender identity: Male Course Vital Signs: Vital signs: Vital Signs Temperature 97.9 F 09/17/21 15:29 Pulse Rate 89 09/17/21 17:50 Respiratory Rate 18 09/17/21 18:39 Blood Pressure 123/75 09/17/21 18:39 Pulse Oximetry 93 09/17/21 18:39 MDM - SOB/Dyspnea Medical Decision Making Patient over from Dr. Rogers COPD exacerbation with a slight small pneumonia his oxygen level here has been in the mid 90s on his 2 to 3 L he is well-appearing here he is stable for discharge we will start him on Levaquin at home he is to follow-up his PCP and return if worsening he understands agrees to plan. Lab Data : 09/17/21 16:05 09/17/21 16:05 Labs/Radiology: Radiology Impressions Chest X-Ray 09/17/21 15:46
[2021-09-17 16:35] LABS: Alanine Aminotransferase 29 U/L (0-41); Albumin Level 3.3 g/dL (3.5-5.2); Alkaline Phosphatase 87 IU/L (40-130); Anion Gap 12.4 (5-19); Aspartate Amino Transferase 38 U/L (0-40); Blood Urea Nitrogen 22 mg/dL (8-23); Calcium 9.8 mg/dL (8.5-10.5); Carbon Dioxide 33 mmol/L (22-29); Chloride 96 mmol/L (98-107); Globulin 3.4 g/dL (1.3-4.6); Glucose 149 mg/dL (65-115); Osmolality Calculated 290 mOsm/kg (285-295); Potassium 4.4 mmol/L (3.5-5.1); Sodium 137 mmol/L (136-145); Total Bilirubin 0.2 mg/dL (0.15-1.2); Total Protein 6.7 g/dL (6.6-8.7)
[2021-09-17] MEDS: ipratropium-albuterol 3 mL Neb INHALATION (16:45)
[2021-09-17 16:47] VITALS: PULSE 72; RESP 16; O2SAT 93
[2021-09-17 16:48] VITALS: PULSE 73
[2021-09-17 17:50] VITALS: BP 162/104; PULSE 89; RESP 19; O2SAT 92
[2021-09-17 17:50] LABS: Add Urine Microscopic? NO; Charge for UA Resulting for Rev
[2021-09-17 17:57] LABS: Bilirubin Urine Neg (Negative); Blood Urine Neg (Negative); Glucose Urine UA Norm (Normal); Ketones Urine Negative (Negative); Leukocyte Esterase Urine Negative (Negative); Nitrate Urine Negative (Negative); Protein Urine Neg (Negative); Specific Gravity, Urine 1.015 (1.005-1.030); Urine Appearance Clear (CLEAR); Urine Color Yellow (Yellow); Urobilinogen Urine Norm (Negative); pH Urine 5 (5-7)
[2021-09-17] MEDS: levoFLOXacin 750 mg Tablet PO (18:26)
[2021-09-17 18:39] VITALS: BP 123/75; RESP 18; O2SAT 93
== END 2021-09-17 18:40 | disposition home or self-care (01) ==
PROVIDERS: Family Medicine; Emergency Provider Emergency Medicine; PCP Family Medicine
DX: J44.0 Chronic obstructive pulmonary disease with (acute) lower respiratory infection (principal); J18.9 Pneumonia, unspecified organism; Z79.82 Long term (current) use of aspirin; Z99.81 Dependence on supplemental oxygen; Z87.891 Personal history of nicotine dependence
CPT/HCPCS: 71045; 80053; 81003; 85025; 94640; 99283

== ENCOUNTER → 2021-10-01 11:50 | Outpatient (BNVA) | payer MEDICARE, OTHER, SELFPAY | PROVIDERS: PCP Family Medicine; Visit Provider Internal Medicine Cardiovascular Disease | DX: I25.10 Atherosclerotic heart disease of native coronary artery without angina pectoris (principal); J44.9 Chronic obstructive pulmonary disease, unspecified; J18.9 Pneumonia, unspecified organism; I48.20 Chronic atrial fibrillation, unspecified; I50.9 Heart failure, unspecified; D64.9 Anemia, unspecified; Z87.891 Personal history of nicotine dependence; Z95.1 Presence of aortocoronary bypass graft | CPT/HCPCS: 83880; 84443; 85025; 99214 ==

== ENCOUNTER 2021-10-04 07:01 | Inpatient (IN) | payer OTHER, MEDICARE, SELFPAY ==
[2021-10-04] VITALS (63 sets, daily range): BP systolic 80–143; BP diastolic 41–86; PULSE 85–165; RESP 14–31; TEMP 36.5–38.7; O2SAT 85–99; BMI 25.8
--- NOTE | 2021-10-04 07:16 | W.ED.SOB ---
HPI - SOB/Dyspnea General: Chief Complaint: Shortness of Breath/Dyspnea Stated Complaint: COUGHING UP BLOOD/SOB Time Seen by Provider: 10/04/21 07:15 Source: patient Mode of arrival: EMS Limitations: no limitations History of Present Illness: HPI Narrative: 86-year-old male presents to the emergency room with hemoptysis. Patient denies any chest pain does endorse significant shortness of breath states he previously had an episode where he had hemoptysis but cannot really tell me anything about it. I asked him if he had ever had blood diagnosed with cancer in the past he was uncertain. MD elicited complaint: shortness of breath and cough Pertinent past history: COPD and other (Coronary artery disease) Onset (ago): unknown Timing: intermittent Severity: moderate Exacerbating factors: nothing Relieving factors: nothing Known history of: COPD Associated symptoms: Reports hemoptysis; Deny abdominal pain, chest congestion, chest pain, cough, diaphoresis, dizziness, extremity pain, fever(s), lightheadedness, myalgias, nausea, palpitations, paresthesias, rash, sense of impending doom, syncope or vomiting Treatment prior to arrival: oxygen and bronchodilator Review of Systems General: Reports: ROS unobtainable due to medical condition (Limited due to respiratory distress) Const: Reports: chills; Denies: fever(s) or diaphoresis Card: Denies: chest pain, palpitations, lightheadedness or syncope Resp: Reports: dyspnea, productive cough and hemoptysis; Denies: chest congestion GI: Denies: abdominal pain, nausea or vomiting Musc: Denies: extremity pain Neuro: Denies: dizziness PFS ED PFSH: Medical History Abnormal PSA ASHD (arteriosclerotic heart disease) 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 Hines and Masood PVD (peripheral vascular disease) Recurrent falls Seizure Sleep apnea Not chronically using CPAP anymore SOB (shortness of breath) Urgency incontinence Surgical History H/O wrist surgery right History of cataract surgery History of endarterectomy History of femoropopliteal bypass History of PTCA Hx of coronary artery bypass graft (~2011) Hx of removal of cyst Hx of rotator cuff surgery Family History Father , at age 60 Cirrhosis of liver Mother , at age 106 No problems noted. Family/Other Diabetes Hypertension Brother Dementia two brothers CAD (coronary artery disease) stent at 78 Cancer Brother Cancer Denies family history of Clotting disorder Chronic kidney disease (CKD) Suicide Anesthesia complication Bleeding disorder Lung disease Stroke Social History Smoking and tobacco status: former smoker Alcohol intake: current Alcohol intake frequency: holidays/special occasions only Adopted: No Lives independently: No Household members: spouse Marital status: Current occupational status: retired Current gender identity: Male Physical Exam Const: GENERAL APPEARANCE: cooperative ORIENTATION/CONSCIOUSNESS: Yes awake, Yes oriented to person, Yes oriented to place and Yes oriented to time HENMT: COMMON NORMALS: normocephalic and atraumatic HEAD & SCALP: normocephalic and atraumatic Neck/C-Spine: COMMON NORMALS: no JVD Resp: EFFORT & INSPECTION: Yes tachypneic AUSCULTATION: wheezes Cardio: COMMON NORMALS: no JVD, regular rhythm and No murmurs present (Cardio) RATE: tachycardic RHYTHM: regular rhythm GI: COMMON NORMALS: Soft to palpation and No hepatosplenomegaly present AUSCULTATION: Yes normoactive bowel sounds PALPATION: Yes Soft to palpation, No Tenderness to palpation present (GI), No Guarding due to palpation present (GI) and Yes No hepatosplenomegaly present Extremity: COMMON NORMALS: normal to inspection, capillary refill normal, no clubbing, cyanosis or edema, no calf tenderness and no pedal edema Neuro: SENSORIUM/ORIENTATION: Yes oriented to person, Yes oriented to place and Yes oriented to time Skin: COMMON NORMALS: no rashes or lesions noted GENERAL SKIN EXAM: no rashes or lesions noted Course Vital Signs: Vital signs: Vital Signs Temperature 97.9 F 10/08/21 04:00 Pulse Rate 68 10/08/21 06:47 Respiratory Rate 18 10/08/21 04:02 Blood Pressure 137/55 10/08/21 04:00 Pulse Oximetry 92 10/08/21 04:02 MDM - SOB/Dyspnea Medical Decision Making Patient presented with hemoptysis and respiratory distress he is improved with BiPAP. Chest x-ray shows pneumonia and some aspects of heart failure CTA of the chest showed bilateral pulmonary emboli. No evidence of right heart strain. He also has fairly significant anemia however this is chronic. In addition to that his troponin is elevated although this may have to do with his lung disease and his pulmonary emboli have discussed with the hospitalist orders written at this time would not start any anticoagulation because of his anemia and hypothesis. Dr. Mejia will follow. Medical Records I reviewed the patient's medical records. Lab Data I reviewed the patient's lab results. : 10/08/21 04:10 10/08/21 04:10 Labs/Radiology: Radiology Impressions Chest CTA 10/04/21 07:36 IMPRESSION: 1. Suboptimal opacification of the pulmonary arteries due to breathing motion artifact and artifact from the patient's upper extremities. 2. Highly suspicious for small emboli in the LEFT upper and LEFT lower lobes. 3. Dense area of consolidation in the RIGHT lower lobe and partial RIGHT middle lobe. No enhancement therefore this is probably pneumonia or mass. Recommend bronchoscopy for further evaluation. There is significant central bronchovascular thickening. 4. Very small RIGHT pleural effusion. 5. Cholelithiasis without acute cholecystitis. Venous Duplex 10/04/21 14:07 IMPRESSION: 1. No evidence of deep vein thrombosis. 2. Lo's cyst measuring 6.4 cm in length in the left popliteal fossa. Chest X-Ray 10/06/21 07:00 IMPRESSION: Probable right lower lobe atelectasis versus pneumonia. Laboratory Results WBC 16.3 10^3/uL (4.0-10.0) H 10/04/21 07:53 RBC 3.33 10^6/uL (4.1-5.3) L 10/04/21 07:53 Hgb 8.0 g/dL (11.7-16.6) L 10/04/21 07:53 Hct 28.7 % (42.0-52.0) L 10/04/21 07:53 MCV 86.2 fl (80-94) 10/04/21 07:53 MCH 24.0 pg (28.0-34.0) L 10/04/21 07:53 MCHC 27.9 g/dL (30.0-36.0) L 10/04/21 07:53 RDW 17.3 % (12.1-15.1) H 10/04/21 07:53 Plt Count 242 10^3/cmm (130-400) 10/04/21 07:53 MPV 12.1 fL (7.4-10.4) H 10/04/21 07:53 Neut % (Auto) 87.8 % 10/04/21 07:53 Lymph % (Auto) 5.0 % 10/04/21 07:53 [place] % (Auto) 5.5 % 10/04/21 07:53 Eos % (Auto) 0.1 % 10/04/21 07:53 Baso % (Auto) 0.6 % 10/04/21 07:53 Neut # (Auto) 14.30 10^3/uL (1.8-7.7) H 10/04/21 07:53 Lymph # (Auto) 0.8 10^3/uL (0.8-4.8) 10/04/21 07:53 [place] # (Auto) 0.9 10^3/uL (0.2-0.9) 10/04/21 07:53 Eos # (Auto) 0.0 10^3/uL (0.0-0.8) 10/04/21 07:53 Baso # (Auto) 0.1 10^3/uL (0.0-0.1) 10/04/21 07:53 Nucleated RBC % (auto) 0 % 10/04/21 07:53 Nucleated RBCs # 0.0 /100WBC 10/04/21 07:53 PT 15.40 SECONDS (12.1-14.9) H 10/04/21 09:24 INR 1.18 (0.8-1.2) 10/04/21 09:24 APTT 37.7 SECONDS (23.9-36.7) H 10/04/21 09:24 Specimen Type arterial 10/04/21 07:35 Sample Site brachial,right 10/04/21 07:35 ABG pH 7.44 (7.35-7.45) 10/04/21 07:35 ABG pCO2 53.2 mmHg (35-45) H 10/04/21 07:35 ABG pO2 53.2 mmHg (80.0-100.0) L 10/04/21 07:35 ABG HCO3 36.0 mmol/L (22-26) H 10/04/21 07:35 ABG O2 Saturation 86.8 10/04/21 07:35 ABG Base Excess 10.6 mmol/L (-2.0-2.0) H 10/04/21 07:35 Miguel Angel Test n/a 10/04/21 07:35 A-a O2 Gradient 4.2 mmHg (5-10) L 10/04/21 07:35 Hematocrit 23.1 % (42-52) L 10/04/21 07:35 Hgb O2 Saturation 84.4 % (95-100) L 10/04/21 07:35 Carboxyhemoglobin 1.5 %THgb (0.4-20.1) 10/04/21 07:35 Methemoglobin 1.3 % (0.4-1.5) 10/04/21 07:35 Total Hemoglobin 7.5 g/dL (14-18) L 10/04/21 07:35 Sodium 144.0 mmol/L (131-143) H 10/04/21 07:35 Potassium 4.4 mmol/L (3.5-5.0) 10/04/21 07:35 Glucose 139.0 mg/dL (70-115) H 10/04/21 07:35 Ionized Calcium 1.3 mmol/L (1.1-1.4) 10/04/21 07:35 O2 Delivery Device nc 10/04/21 07:35 O2 Liters/Min 6.0 % 10/04/21 07:35 Laser Printing Operator ID [email or web address] 10/04/21 07:35 Sodium 138 mmol/L (136-145) 10/04/21 07:53 Potassium 4.9 mmol/L (3.5-5.1) 10/04/21 07:53 Chloride 97 mmol/L (98-107) L 10/04/21 07:53 Carbon Dioxide 30 mmol/L (22-29) H 10/04/21 07:53 Anion Gap 15.9 (5-19) 10/04/21 07:53 BUN 22 mg/dL (8-23) 10/04/21 07:53 Creatinine 0.7 mg/dL (0.7-1.2) 10/04/21 07:53 GFR Calculation Not Reportable 10/04/21 07:53 Glucose 142 mg/dL (65-115) H 10/04/21 07:53 Calculated Osmolality 292 mOsm/kg (285-295) 10/04/21 07:53 Lactic Acid 2.5 mmol/L (0.5-2.2) H 10/04/21 09:24 Calcium 9.8 mg/dL (8.5-10.5) 10/04/21 07:53 Magnesium 2.3 mg/dL (1.7-2.3) 10/04/21 07:53 Iron 21 ug/dL (59-158) L 10/04/21 07:53 TIBC 244 mcg/dl 10/04/21 07:53 % Saturation 8.6 % (20-50) L 10/04/21 07:53 Unsat Iron Binding 223 ug/dL (112-347) 10/04/21 07:53 Ferritin 162 ng/mL (30-400) 10/04/21 07:53 Total Bilirubin 0.2 mg/dL (0.15-1.2) 10/04/21 07:53 AST 41 U/L (0-40) H 10/04/21 07:53 ALT 17 U/L (0-41) 10/04/21 07:53 Alkaline Phosphatase 76 IU/L (40-130) 10/04/21 07:53 Troponin T Baseline 45 ng/L (0-15) H 10/04/21 07:53 Troponin T 120 Minute 58.45 ng/L (0-15) H 10/04/21 09:24 Delta Troponin T 13.45 ABS# (0-10) H* 10/04/21 09:24 NT-Pro-B Natriuret Pep 3265 pg/mL (0-450) H 10/04/21 07:53 Total Protein 6.3 g/dL (6.6-8.7) L 10/04/21 07:53 Albumin 2.8 g/dL (3.5-5.2) L 10/04/21 07:53 Globulin 3.5 g/dL (1.3-4.6) 10/04/21 07:53 Coronavirus 229E (PCR) Not detected (NOT DETECT) 10/04/21 09:24 SARS-CoV-2 (PCR) Not detected (NOT DETECT) 10/04/21 09:24 Blood Type A Positive 10/04/21 07:53 Rho(D) Type Positive 10/04/21 07:53 Antibody Screen Negative 10/04/21 07:53 Crossmatch See Detail 10/04/21 07:53 Discharge Plan Discharge Patient Disposition: Admitted As Inpatient Admit Provider: Jerson Chance Clinical Impression: Acute respiratory failure with hypoxia, Non-ST elevation OR (NSTEMI), Pneumonia, Anemia, Hemoptysis, Pulmonary embolism Condition: Stable Coding Level of Care Code ED Humanities Coordinator for Sunita Fwd Exam Comprehensive
--- NOTE | 2021-10-04 07:36 | XR_ITS ---
WS: [id number] PORTABLE CHEST HISTORY: dyspnea/cough COMPARISON: 09/17/2021 Progressive atelectasis in the RIGHT lower lung. Probably involving the RIGHT middle and RIGHT lower lobes. There is also increasing opacification in the aerated lung at the base which is probably the R IGHT upper lobe. Mild volume loss and shift of the mediastinal structures to the RIGHT. LEFT lung is hyperexpanded. No pleural effusion or pneumothorax. Cardiac size: Mildly enlarged cardiac silhouette. Mediastinum/Aorta: Mediastinal wires. No mediastinal widening. Gates in the RIGHT humeral head from prior rotator cuff repair. Degenerative changes at the glenohum eral joints. Resection distal RIGHT clavicle. XR/XR chest 1V portable [id number] IMPRESSION: 1. Progressive atelectasis involving the RIGHT middle and RIGHT lower lobes. 2. Progressive pneumonia in the aerated lung at the bases. This is probably in the RIGHT upper lobe. 3. Consider chest CT evaluation to evaluate source of atelectasis which is pro gressive since 09/17/2021. Proximal bronchial obstructing lesion should be consi dered.
--- NOTE | 2021-10-04 07:36 | CT_ITS ---
WS: [id number] CT CHEST ANGIOGRAPHY WITH REFORMATS HISTORY: dyspnea/hypoxia TECHNIQUE: Contiguous axial images are obtained through the chest during arterial injection of intrav enous contrast. Images are reconstructed to evaluate the pulmonary arteries. MIP imaging also reviewe d. All CT scans at [facility] use at least one of these dose optimization techniques: automat ed exposure control; mA and/or kV adjustment per patient size (includes targeted exams where dose is matched to clinical indication); or iterative reconstruction. CONTRAST: Omnipaque 350; 95 mL IV. DLP: 566.76 mGy.cm COMPARISON: 10/04/2021 radiograph. Adequate but suboptimal opacification of the pulmonary arteries. No central large pulmonary embolism. Although the opacification becomes limited and suboptimal distally there are very small filling defe cts in the subsegmental branches of the LEFT upper and lower lobe suspicious for emboli. Pulmonary ar rosa is mildly dilated. Normal-sized thoracic aorta with atherosclerotic changes. Heart is enlarged. No pericardial effusion. Large area of dense consolidation in the RIGHT lower lobe with air bronchograms. Complete consolidati on RIGHT lower lobe and partial consolidation of the RIGHT middle lobe. There is no enhancement there fore this is probably pneumonia and/or mass. There is increase soft tissue in the RIGHT hilum surroun ding the central bronchovascular structures. Increased soft tissue about the LEFT atrium. There is significant motion artifact. Patient arms are at the sides causing significant artifact thro ugh the lungs. Tree-in-bud airspace disease is mild and portions of the RIGHT upper lobe and RIGHT mi ddle lobe. Mild pleural thickening at the LEFT lung base. There is a small layering RIGHT pleural eff usion. Atherosclerotic changes in the suprarenal aorta. Cholelithiasis. There is significant artifact throug h the upper abdominal structures. Prior CABG. Single anchor in the RIGHT humeral head. Single sclerotic lesion in one of the upper thoracic vertebr al bodies. This probably T4 or T5. CT/CT angio chest PE protcl [id number] IMPRESSION: 1. Suboptimal opacification of the pulmonary arteries due to breathing motion artifact and artifact from the patient's upper extremities. 2. Highly suspicious for small emboli in the LEFT upper and LEFT lower lobes. 3. Dense area of consolidation in the RIGHT lower lobe and partial RIGHT middl e lobe. No enhancement therefore this is probably pneumonia or mass. Recommend bronchoscopy for further evaluation. There is significant central bronchovascul ar thickening. 4. Very small RIGHT pleural effusion. 5. Cholelithiasis without acute cholecystitis.
--- NOTE | 2021-10-04 07:36 | ECG_ITS ---
[facility] Test Date: 2021-10-04 Pat Name: Tremaine Harding Department: Room: Gender: Male Zigzagger: : 1935 Requested By: León Aguirre Order Number: [id number] Omayra MD: Eliezer De Los Santos M.D. Measurements Intervals [place] Rate: 98 P: 85 TN: 144 QRS: 98 QRSD: 95 T: 72 QT: 308 QTc: 394 Interpretive Statements SINUS RHYTHM BORDERLINE RIGHT AXIS DEVIATION [QRS AXIS > 90] Compared to ECG 10/04/2021 07:39:44 Sinus tachycardia no longer present Electronically Signed On 10-04-2021 18:08:05 CDT by Eliezer De Los Santos M.D. [id number]
[2021-10-04 07:42] LABS: Alveolar-Arterial Oxygen Gradi 4.2 mmHg (5-10)
[2021-10-04 07:56] LABS: ABG PCO2 53.2 mmHg (35-45); ABG PH Result 7.44 (7.35-7.45); Arterial Blood Gas Hematocrit 23.1 % (42-52); Base Excess ABG 10.6 mmol/L (-2.0-2.0); Oxygen Device nc; Oxygen Saturation ABG 86.8; PO2 ABG 53.2 mmHg (80.0-100.0); Potassium Level - ABG 4.4 mmol/L (3.5-5.0)
[2021-10-04 07:57] LABS: Carboxyhemoglobin 1.5 %THgb (0.4-20.1); HGB O2 Sat 84.4 % (95-100); Ionized Calcium Level - ABG 1.3 mmol/L (1.1-1.4); Methemoglobin 1.3 % (0.4-1.5); Total Hemoglobin 7.5 g/dL (14-18)
--- NOTE | 2021-10-04 07:58 | PC.NURSE ---
pt placed on continuous spo2, nibp, and cm.
[2021-10-04 08:08] LABS: Basophils # 0.1 10^3/uL (0.0-0.1); Basophils % 0.6 %; Eosinophils % 0.1 %; Hematocrit 28.7 % (42.0-52.0); Lymphocytes # 0.8 10^3/uL (0.8-4.8); Mean Corpuscular HGB Conc 27.9 g/dL (30.0-36.0); Mean Corpuscular Volume 86.2 fl (80-94); Mean Platelet Volume 12.1 fL (7.4-10.4); Monocytes # 0.9 10^3/uL (0.2-0.9); Monocytes % 5.5 %; Neutrophils % 87.8 %; Nucleated Red Blood Cells % 0 %; Platelet Count 242 10^3/cmm (130-400); Red Blood Count 3.33 10^6/uL (4.1-5.3); Red Cell Distribution Width 17.3 % (12.1-15.1); White Blood Count 16.3 10^3/uL (4.0-10.0)
--- NOTE | 2021-10-04 08:21 | XR_ITS ---
WS: [id number] Thoracic spine, 3 views standing, 10/04/2021 Clinical Data: DYSPNEA/COUGH Comparison: Thoracic spine, 05/19/2017. Findings: The thoracic kyphosis remains the same. There is anterior wedging of the T8-T12 vertebral bodies. Ost eoarthritic change with spurring of the anterior aspect of these vertebral bodies is also seen. No si gnificant scoliosis is present. The disc heights are maintained. The paravertebral regions are normal . XR/XR chest 1V portable [id number] Impression: 1. No change in thoracic kyphosis with anterior wedging of the T8-T12 vertebral bodies. 2. 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
[2021-10-04 08:26] LABS: Troponin(5th) Baseline 45 ng/L (0-15)
[2021-10-04 08:29] LABS: Alanine Aminotransferase 17 U/L (0-41); Albumin Level 2.8 g/dL (3.5-5.2); Alkaline Phosphatase 76 IU/L (40-130); Blood Urea Nitrogen 22 mg/dL (8-23); Calcium 9.8 mg/dL (8.5-10.5); Carbon Dioxide 30 mmol/L (22-29); Chloride 97 mmol/L (98-107); Globulin 3.5 g/dL (1.3-4.6); Glucose 142 mg/dL (65-115); Magnesium 2.3 mg/dL (1.7-2.3); Osmolality Calculated 292 mOsm/kg (285-295); Sodium 138 mmol/L (136-145); Total Bilirubin 0.2 mg/dL (0.15-1.2); Total Protein 6.3 g/dL (6.6-8.7)
[2021-10-04 08:37] LABS: Anion Gap 15.9 (5-19); Aspartate Amino Transferase 41 U/L (0-40); Potassium 4.9 mmol/L (3.5-5.1)
[2021-10-04 08:39] LABS: Slide Review Slide Review Perform
--- NOTE | 2021-10-04 08:45 | PC.NURSE ---
REPORT GIVEN TO REHANA AGUIRRE ASSUMED CARE.
--- NOTE | 2021-10-04 09:36 | ECG_ITS ---
[facility] Test Date: 2021-10-04 Pat Name: Tremaine Harding Department: Room: Gender: Male Board Machine Set Up Operator: : [id number] Requested By: León Aguirre Order Number: [id number] Omayra MD: Eliezer De Los Santos M.D. Measurements Intervals [place] Rate: 105 P: 46 AK: 199 QRS: 98 QRSD: 98 T: 51 QT: 310 QTc: 410 Interpretive Statements SINUS TACHYCARDIA BORDERLINE RIGHT AXIS DEVIATION [QRS AXIS > 90] Compared to ECG 08/08/2021 16:21:43 Sinus rhythm no longer present Electronically Signed On 10-04-2021 18:14:05 CDT by Eliezer De Los Santos M.D. [id number]
[2021-10-04] MEDS: piperacillin-tazobactam 3.375 GM in sodium chloride 0.9% (plus) 50 ML IV ×2 (09:42→21:31)
[2021-10-04 10:20] LABS: Troponin 5 2HR 58.45 ng/L (0-15)
[2021-10-04 10:21] LABS: INR 1.18 (0.8-1.2); Partial Thromboplastin Time 37.7 SECONDS (23.9-36.7)
[2021-10-04] MEDS: LORazepam 2 mg/mL INJ 1 mL 1 MG IVP (10:32)
[2021-10-04] MEDS: levofloxacin-dextrose 5 % 750 MG/150 ML PREMIX 100 MG IV (10:32)
[2021-10-04 10:34] LABS: Lactic Sepsis W/Reflex 2.5 mmol/L (0.5-2.2)
[2021-10-04 10:51] LABS: Troponin 5 2HR Delta 13.45 ABS# (0-10)
[2021-10-04] MEDS: iohexol 350 mg/mL 100 mL Btl IV (11:05)
--- NOTE | 2021-10-04 11:07 | PC.PHAR ---
pt states she gives pt ferrous sulfate bid-script written for 1 tab a day. pt also states Dr. Muñoz's nurse called and told her to up potassium to 40 meq instead of 20 meq on 10/02/21. pt had 40 meq on 10/03/21 pm- script filled and written for 20 meq daily on 09/25/21.
[2021-10-04 11:42] LABS: Reflex Lactate Order REFLEX LACTIC ORDERD
[2021-10-04 12:06] LABS: Adenovirus Not Detected (NOT DETECT); Chlamydia Pneumoniae Not Detected (NOT DETECT); Coronavirus 229E,HKU1,NL63,OC4 Not Detected (NOT DETECT); Human Metapneumovirus Not Detected (NOT DETECT); Human Rhinovirus/Enterovirus Not Detected (NOT DETECT); Influenza A Not Detected (NOT DETECT); Influenza A H1 Not Detected (NOT DETECT); Influenza A H1-2009 Not Detected (NOT DETECT); Influenza A H3 Not Detected (NOT DETECT); Influenza B Not Detected (NOT DETECT); Mycoplasma Pneumoniae Not Detected (NOT DETECT); Parainfluenza Virus Type 1 Not Detected (NOT DETECT); Parainfluenza Virus Type 2 Not Detected (NOT DETECT); Parainfluenza Virus Type 3 Not Detected (NOT DETECT); Parainfluenza Virus Type 4 Not Detected (NOT DETECT); Respiratory Syncytial Virus A Not Detected (NOT DETECT); Respiratory Syncytial Virus B Not Detected (NOT DETECT); SARS-COV-2 Not Detected (NOT DETECT)
[2021-10-04 13:13] LABS: Lactic Acid level (Lactate) 1.5 mmol/L (0.5-2.2)
--- NOTE | 2021-10-04 13:22 | P.HP_ITS ---
Providers/Chief Complaint Admitting Physician: Jerson Lovell Primary Care Provider: Chanelle Anthony MD Chief Complaint: COUGHING UP BLOOD/SOB History of Present Illness Tremaine Harding is a 86 year old male with underlying dementia who presented to the emergency department with his with concerns of shortness of breath as well as blood in spit. He had recently seen Dr. Muñoz in the office on October 01, where he had complained of some chest discomfort as well. Last emergency de partment visit was September 17, complaining of shortness of breath where he was diagnosed with pneumonia and given Levaquin. I was able to interview the as well. She was most concerned as he spit u p/vomited a significant amount of blood this morning. She does not really believe that he coughed up, thinking it may have come from his stomach. She is not completely sure. Review of Systems General: Reports: ROS unobtainable due to mental status (Patient with significant dementia, unable to obtain) Medications/Allergies Home Medications Medication Instructions Recorded Confirmed Last Taken Type albuterol sulfate 90 mcg/actuation 2 puff INHALATION Q6H PRN 10/18/19 10/04/21 10/03/21 History aerosol inhaler calcium carbonate 600 mg-vitamin 1 tab PO DAILY 10/18/19 10/04/21 10/03/21 History D3 10 mcg (400 unit) chewable tablet (Calcium 600 with Vitamin D3) ferrous sulfate 325 mg (65 mg 325 mg PO BID 10/18/19 10/04/21 10/03/21 History iron) tablet finasteride 5 mg tablet 5 mg PO DAILY 10/18/19 10/04/21 10/03/21 History magnesium 200 mg tablet 400 mg PO DAILY 10/18/19 10/04/21 10/03/21 History omega-3 fatty acids 1,000 mg 1,000 mg PO DAILY 10/18/19 10/04/21 10/03/21 History capsule (Fish Oil Concentrate) polyethylene glycol 3350 17 17 gm PO DAILY PRN 10/18/19 10/04/21 05/29/21 History gram/dose oral powder (Miralax) vitamin B complex (B 1 tab PO DAILY 10/18/19 10/04/21 10/03/21 History Complex-Vitamin B12) vitamin E (dl, acetate) 180 mg 400 unit PO DAILY 10/18/19 10/04/21 10/03/21 History (400 unit) capsule prednisone 10 mg tablet 20 mg PO DAILY PRN 06/05/21 10/04/21 10/03/21 History aspirin 325 mg tablet 325 mg PO DAILY 09/17/21 10/04/21 10/03/21 History cholecalciferol (vitamin D3) 25 25 mcg PO DAILY 09/17/21 10/04/21 10/03/21 History mcg (1,000 unit) tablet docusate sodium 100 mg capsule 100 mg PO BID 09/17/21 10/04/21 10/03/21 History fluticasone propionate 100 1 inh INHALATION BID 09/17/21 10/04/21 10/03/21 History mcg/actuation blister powder for inhalation fluticasone propionate 50 1 spray INTRANASAL DAILY 09/17/21 10/04/21 10/03/21 History mcg/actuation nasal spray,suspension multivitamin with iron-mineral 1 tab PO DAILY 09/17/21 10/04/21 10/03/21 History omeprazole 40 mg capsule,delayed 40 mg PO DAILY 09/17/21 10/04/21 10/03/21 History release pyridoxine (vitamin B6) 100 mg 100 mg PO DAILY 09/17/21 10/04/21 10/03/21 History tablet sertraline 100 mg tablet 50 mg PO DAILY 09/17/21 10/04/21 10/03/21 History tamsulosin 0.4 mg capsule 0.4 mg PO DAILY 09/17/21 10/04/21 10/03/21 History tiotropium bromide 2.5 2 inh INHALATION QAM 09/17/21 10/04/21 10/03/21 History mcg/actuation mist for inhalation vitamins A,C,P-mapu-talhnr 7,160 2 tab PO BID 09/17/21 10/04/21 10/03/21 History unit-113 mg-100 unit tablet (PreserVision AREDS) furosemide 40 mg tablet 40 mg PO DAILY #90 tab 10/01/21 10/04/21 10/03/21 Rx potassium chloride 20 mEq 20 meq PO DAILY #90 tab 10/01/21 10/04/21 10/03/21 Rx tablet,extended release(part/cryst) atorvastatin 80 mg tablet 40 mg PO DAILY 04/10/04/21 10/03/21 History Allergies Allergy/AdvReac Type Severity Reaction Status Date / Time blood pressure medication AdvReac seizures Uncoded 10/01/21 08:30 blood thinners AdvReac seizures Uncoded 10/01/21 08:30 cholesterol medications AdvReac seizures Uncoded 10/01/21 08:30 PFSH Acute PFSH: Medical History Abnormal PSA ASHD (arteriosclerotic heart disease) Benign non-nodular prostatic hyperplasia with lower urinary tract symptoms Cancer 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 Hines and Masood PVD (peripheral vascular disease) Recurrent falls Seizure Sleep apnea Not chronically using CPAP anymore SOB (shortness of breath) Urgency incontinence Surgical History H/O wrist surgery right History of cataract surgery History of endarterectomy History of femoropopliteal bypass History of PTCA Hx of coronary artery bypass graft (~2011) Hx of removal of cyst Hx of rotator cuff surgery Family History Father , at age 60 Cirrhosis of liver Mother , at age 106 No problems noted. Family/Other Diabetes Hypertension Brother Dementia two brothers CAD (coronary artery disease) stent at 78 Cancer Brother Cancer Denies family history of Clotting disorder Chronic kidney disease (CKD) Suicide Anesthesia complication Bleeding disorder Lung disease Stroke Social History Smoking and tobacco status: former smoker Alcohol intake: current Alcohol intake frequency: holidays/special occasions only Adopted: No Lives independently: No Household members: spouse Marital status: Current occupational status: retired Current gender identity: Male Vitals/I&O/Wt Last Vital Signs Temp 98.5 F 10/04/21 07:15 Pulse 90 10/04/21 12:18 Resp 22 H 10/04/21 12:18 BP 116/55 10/04/21 12:18 Pulse Ox 93 10/04/21 12:18 Weight last 48 hrs Weight 77.111 kg Physical Exam Narrative: General exam is a white male, who is difficult to understand, confused, on BiPAP and mild to moderate respiratory distress with accessory muscle use. HEENT: Pupils equally round. Oropharynx covered by BiPAP Neck is supple no lymphadenopathy or thyromegaly Cardiovascular regular rate and rhythm without murmur Lungs diminished breath sounds bilaterally right greater than left. No wheezes or crackles Abdomen is soft with positive bowel sounds. No obvious organomegaly exam is deferred Extremities trace edema. No cyanosis or clubbing Skin no rash Neuro: Occasional tremor. Moves all of his extremities, although may move the right upper extremity slightly less. Exam is difficult with his confusion. Data : 10/04/21 07:53 10/04/21 07:53 Other Labs: ABG demonstrated pH 7.44, PCO2 53, PO2 53 on 6 L Lactic acid elevated 2.5 with repeat of 1.5 Calcium normal at 9.8 LFTs normal with exception of AST slightly elevated at 41 Troponin 45 with repeat of 58 Albumin 2.8 PCR coronavirus not detected Last echocardiogram May 2021 demonstrated an EF of 45 to 50%, 2/4 diastolic dysfunction, mild to moderate mitral regurgitation, moderate aortic stenosis CTA October 04 demonstrated suboptimal opacification of the pulmonary arteries, high suspicion for small pulmonary emboli left upper and left lower lobes, dense consolidation right lower lobe right middle lobe, small right pleural effusion, cholelithiasis without cholecystitis EKG demonstrated sinus tachycardia, right axis deviation, nonspecific ST-T wave changes. A&P Assessment and plan (1) Acute respiratory failure with hypoxia: Currently requiring BiPAP. Normally on 2 L of oxygen. Etiology is multifactorial. Pneumonia, acute diastolic heart failure are contributing. Plan on continuing BiPAP, weaning as tolerated Lasix 40 mg IV x1 Status: Acute (2) Hemoptysis: It is unclear from the 's description whether he had hemoptysis, or hematemesis. CTA suggestive of small pulmonary emboli, left lung but study poor Has some significant contraindications to treatment such as severe anemia, possible concern of hematemesis, prior history of GI bleed. At this point we will check a bilateral venous duplex. If positive, could consider IVC filter although I am not for sure if would want to incur this risk. As this could represent hematemesis, Protonix 40 mg IV every 12 hours is initiated. If this represents hemoptysis, could be secondary to significant pneumonia. Status: Acute (3) Anemia: Severe anemia Protonix 40 mg IV every 12 hours Repeat hemoglobin in approximately 4 hours. If worsening anemia consider transfusion after diuresis was initiated for heart failure. Check iron studies, stool Hemoccult Status: Acute (4) Non-ST elevation PA (NSTEMI): Continue aspirin, changed to low-dose Continue statin Currently anticoagulation contraindicated secondary to severe anemia Status: Acute (5) Pneumonia: Significant pneumonia seen on CT He has failed outpatient Levaquin Initiate vancomycin and Zosyn Check MRSA PCR, sputum culture, blood culture Has known history of aspiration, even documented on barium swallow. This may be playing a role with his recurrent pneumonia. N.p.o. for now. Status: Acute Qualifiers: Laterality: right Lung location: middle lobe of lung Pneumonia type: due to unspecified organism Qualified Code(s): J18.9 - Pneumonia, unspecified organism (6) COPD (chronic obstructive pulmonary disease): Pulmonary toilet with budesonide, DuoNeb Solu-Medrol every 12 hours BiPAP currently, weaning off as tolerated Status: Chronic Qualifiers: COPD type: unspecified COPD Qualified Code(s): J44.9 - Chronic obstructive pulmonary disease, unspecified (7) Dementia: Significant dementia, which increases mortality risk significantly. reports history of behaviors with hallucinations in the past. May require Haldol. Status: Acute Plan Multiple other medical problems as outlined in past medical history Allow natural , although patient's wants to be aggressive in all care with the exception of intubation or CPR SCDs for DVT prophylaxis. If hemoglobin seems to stabilize consider initiation of heparin subcutaneous for DVT prophylaxis Attestations Medical Necessity Statement*: Will need greater than 2 midnight stay secondary to severe pneumonia, respiratory failure, hemoptysis or hematemesis. Critical Care Time: The high probability of a clinically significant, sudden or life threatening deterioration of the patient's [hematologic, pulmonary, cardiac system(s) required my full and direct attention, intervention and personal management. The critical care time is as shown. This time is in addition to time spent performing any reported procedures but includes the following: [x] Data and vital sign review and interpretation [x] Patient assessment, examination and intervention [x] Documentation [x] Medication orders and management Critical Care Time (min): 55 Coding Level of Care Code Acute Immigration Law Specialist for Chg Fwd Diagnoses Acute respiratory failure with hypoxia J96.01 Hemoptysis R04.2 Anemia D64.9 Non-ST elevation PA (NSTEMI) I21.4 Pneumonia J18.9 Laterality: right Lung location: middle lobe of lung Pneumonia type: due to unspecified organism COPD (chronic obstructive pulmonary disease) J44.9 COPD type: unspecified COPD Dementia F03.90
--- NOTE | 2021-10-04 13:36 | ECG_ITS ---
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 Measurements Intervals [place] Rate: 90 P: 87 CA: 140 QRS: 99 QRSD: 87 T: 78 QT: 331 QTc: 406 Interpretive Statements SINUS RHYTHM BORDERLINE RIGHT AXIS DEVIATION [QRS AXIS > 90] Compared to ECG 10/04/2021 11:08:26 No significant changes Electronically Signed On 10-04-2021 18:11:59 CDT by Eliezer De Los Santos M.D. [id number]
[2021-10-04 13:53] LABS: Ferritin 162 ng/mL (30-400); Iron 21 ug/dL (59-158); NT Pro B Type Natriuretic Pept 3265 pg/mL (0-450); Percent Saturation 8.6 % (20-50); Total Iron Binding Capacity 244 mcg/dl; Unsaturated Iron Binding 223 ug/dL (112-347)
[2021-10-04] MEDS: ipratropium-albuterol 3 mL Neb INHALATION ×2 (14:00→20:02)
--- NOTE | 2021-10-04 14:07 | USR_ITS ---
PROCEDURE INFORMATION: Exam: US Duplex Lower Extremity Veins, Bilateral Exam date and time: 10/04/2021 4:00 PM Age: 86 years old Clinical indication: Condition or disease; Other: Possible pe; Additional info: Possible pe, hypoxia, PT being moved to room @1530-md TECHNIQUE: Imaging protocol: Real-time Duplex ultrasound of the bilateral extremities with 2-D morales scale, color Doppler flow and spectral waveform analysis with image documentation. Complete exam focused on the bilateral lower extremity veins. COMPARISON: CT abdomen pelvis wo/w [id number] 09/22/2020 9:54 AM FINDINGS: Right deep veins: Unremarkable. The common femoral, femoral, proximal profunda femoral and popliteal veins are patent without thrombus. Normal Doppler waveforms. Normal compressibility and/or augmentation response. Right superficial veins: Saphenofemoral junction is patent without thrombus. Left deep veins: Unremarkable. The common femoral, femoral, proximal profunda femoral and popliteal veins are patent without thrombus. Normal Doppler waveforms. Normal compressibility and/or augmentation response. Left superficial veins: Saphenofemoral junction is patent without thrombus. Soft tissues: Lo's cyst noted in the left popliteal fossa measuring up to 6.4 cm in length. US/[place] [id number] IMPRESSION: 1. No evidence of deep vein thrombosis. 2. Lo's cyst measuring 6.4 cm in length in the left popliteal fossa.
--- NOTE | 2021-10-04 15:10 | PC.NURSE ---
Report given to ICU nurse CARLA Frances at this time who will assume care on pt.
[2021-10-04] MEDS: acetaminophen 325 mg Tablet 650 MG PO (16:42)
[2021-10-04] MEDS: pantoprazole 40 mg SDV IVP (16:42)
[2021-10-04] MEDS: FUROsemide 10 mg/mL SDV 4mL 40 MG IVP (16:42)
[2021-10-04] MEDS: vancomycin 1,000 MG in sodium chloride 0.9% 250 ML 250 MG IV (16:43)
[2021-10-04 16:47] LABS: Hematocrit 23.3 % (42.0-52.0); Hemoglobin 6.6 g/dL (11.7-16.6)
--- NOTE | 2021-10-04 17:18 | PM.CONSULT ---
Providers/Reason For Consult Consulting Physician/Specialty*: Pulmonary critical care medicine Reason for Consult*: Hemoptysis, chronic right lower lobe atelectasis Attending Physician: Jerson Chance MD Primary Care Provider: Chanelle Anthony MD History of Present Illness History of Present Illness Tremaine Harding is a 86 year old male with an extensive past medical history. He carries a diagnosis of COPD on 5 L oxygen at home, prostate cancer, carotid artery endarterectomies, peripheral vascular disease, CVA. The patient was hospitalized in May 2021 and also had an ED visit in July 2021. The patient also has CHF, A. fib, and most importantly dementia. He has very limited functional status. The patient was brought in today with concerns for hemoptysis. According to the , the patient had a tennis ball sized clot that he had either coughed up or vomited. The was not sure. The patient had a CT angiogram in the emergency department. The pulmonary arteries were suboptimally imaged. However there was high suspicion for small emboli in the left upper lobe and left lower lobes. 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 There is infiltrate in the right middle lobe as well. Small amount of right-sided pleural effusion. Lower extremity DVT studies are negative for any blood clot. His blood work revealed anemia with hemoglobin of 6.6. The patient has previous history of GI bleed. Earlier today his hemoglobin was 8.1. The patient was seen and examined in the ICU. He appears to be tired. Was not able to provide much history. Most of the history was obtained from his . Review of Systems Narrative: Unable to obtain due to clinical condition Medications/Allergies Home Medications Medication Instructions Recorded Confirmed Last Taken Type albuterol sulfate 90 mcg/actuation 2 puff INHALATION Q6H PRN 10/18/19 10/04/21 10/03/21 History aerosol inhaler calcium carbonate 600 mg-vitamin 1 tab PO DAILY 10/18/19 10/04/21 10/03/21 History D3 10 mcg (400 unit) chewable tablet (Calcium 600 with Vitamin D3) ferrous sulfate 325 mg (65 mg 325 mg PO BID 10/18/19 10/04/21 10/03/21 History iron) tablet finasteride 5 mg tablet 5 mg PO DAILY 10/18/19 10/04/21 10/03/21 History magnesium 200 mg tablet 400 mg PO DAILY 10/18/19 10/04/21 10/03/21 History omega-3 fatty acids 1,000 mg 1,000 mg PO DAILY 10/18/19 10/04/21 10/03/21 History capsule (Fish Oil Concentrate) polyethylene glycol 3350 17 17 gm PO DAILY PRN 10/18/19 10/04/21 05/29/21 History gram/dose oral powder (Miralax) vitamin B complex (B 1 tab PO DAILY 10/18/19 10/04/21 10/03/21 History Complex-Vitamin B12) vitamin E (dl, acetate) 180 mg 400 unit PO DAILY 10/18/19 10/04/21 10/03/21 History (400 unit) capsule prednisone 10 mg tablet 20 mg PO DAILY PRN 06/05/21 10/04/21 10/03/21 History aspirin 325 mg tablet 325 mg PO DAILY 09/17/21 10/04/21 10/03/21 History cholecalciferol (vitamin D3) 25 25 mcg PO DAILY 09/17/21 10/04/21 10/03/21 History mcg (1,000 unit) tablet docusate sodium 100 mg capsule 100 mg PO BID 09/17/21 10/04/21 10/03/21 History fluticasone propionate 100 1 inh INHALATION BID 09/17/21 10/04/21 10/03/21 History mcg/actuation blister powder for inhalation fluticasone propionate 50 1 spray INTRANASAL DAILY 09/17/21 10/04/21 10/03/21 History mcg/actuation nasal spray,suspension multivitamin with iron-mineral 1 tab PO DAILY 09/17/21 10/04/21 10/03/21 History omeprazole 40 mg capsule,delayed 40 mg PO DAILY 09/17/21 10/04/21 10/03/21 History release pyridoxine (vitamin B6) 100 mg 100 mg PO DAILY 09/17/21 10/04/21 10/03/21 History tablet sertraline 100 mg tablet 50 mg PO DAILY 09/17/21 10/04/21 10/03/21 History tamsulosin 0.4 mg capsule 0.4 mg PO DAILY 09/17/21 10/04/21 10/03/21 History tiotropium bromide 2.5 2 inh INHALATION QAM 09/17/21 10/04/21 10/03/21 History mcg/actuation mist for inhalation vitamins A,C,N-wcwi-ahrrvl 7,160 2 tab PO BID 09/17/21 10/04/21 10/03/21 History unit-113 mg-100 unit tablet (PreserVision AREDS) furosemide 40 mg tablet 40 mg PO DAILY #90 tab 10/01/21 10/04/21 10/03/21 Rx potassium chloride 20 mEq 20 meq PO DAILY #90 tab 10/01/21 10/04/21 10/03/21 Rx tablet,extended release(part/cryst) atorvastatin 80 mg tablet 40 mg PO DAILY 10/04/21 10/04/21 10/03/21 History Allergies Allergy/AdvReac Type Severity Reaction Status Date / Time blood pressure medication AdvReac seizures Uncoded 10/01/21 08:30 blood thinners AdvReac seizures Uncoded 10/01/21 08:30 cholesterol medications AdvReac seizures Uncoded 10/01/21 08:30 Current Medications Generic Name Dose Route Start Last Admin Trade Name Freq PRN Reason Stop Dose Admin Acetaminophen 650 mg 10/04/21 15:46 10/04/21 16:42 Acetaminophen 325 Mg Tablet PO 650 mg Q6H PRN Administration MILD PAIN Vancomycin HCl 1,000 mg/ 250 mls @ 250 mls/hr 10/04/21 16:00 10/04/21 16:43 Sodium Chloride IV 250 mls/hr Q12H JO Administration Protocol Methylprednisolone Sodium Succinate 40 mg 10/04/21 16:00 10/04/21 16:42 Methylprednisolone Sod Succ 40 Mg/Ml Inj IVP 40 mg Q12H JO Administration Pantoprazole Sodium 40 mg 10/04/21 16:00 10/04/21 16:42 Pantoprazole 40 Mg Sdv IVP 40 mg Q12H JO Administration PFSH Acute PFSH: Medical History Abnormal PSA ASHD (arteriosclerotic heart disease) 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 Hines and Masood PVD (peripheral vascular disease) Recurrent falls Seizure Sleep apnea Not chronically using CPAP anymore SOB (shortness of breath) Urgency incontinence Surgical History H/O wrist surgery right History of cataract surgery History of endarterectomy History of femoropopliteal bypass History of PTCA Hx of coronary artery bypass graft (~2011) Hx of removal of cyst Hx of rotator cuff surgery Family History Father , at age 60 Cirrhosis of liver Mother , at age 106 No problems noted. Family/Other Diabetes Hypertension Brother Dementia two brothers CAD (coronary artery disease) stent at 78 Cancer Brother Cancer Denies family history of Clotting disorder Chronic kidney disease (CKD) Suicide Anesthesia complication Bleeding disorder Lung disease Stroke Social History Smoking and tobacco status: former smoker Alcohol intake: current Alcohol intake frequency: holidays/special occasions only Adopted: No Lives independently: No Household members: spouse Marital status: Current occupational status: retired Current gender identity: Male Vitals/I&O/Wt Last Vital Signs Temp 101.7 F H 10/04/21 16:11 Pulse 91 10/04/21 16:00 Resp 24 H 10/04/21 16:00 BP 116/61 10/04/21 16:00 Pulse Ox 93 10/04/21 16:00 10/04/21 10/04/21 10/04/21 06:59 14:59 22:59 Output Total 0 / 0 Balance 0 / 0 Weight last 48 hrs Weight 170 lb Physical Exam Narrative: General: The patient appears tired, arousable, unable to give meaningful answers. Neck: No JVD Respiratory: Auscultation: Reduced breath sound bilaterally, crackles at the right lung base laterally and posteriorly Cardiovascular: Regular rate and rhythm, S1-S2 present, no murmur, distant heart sound, no peripheral edema. Abdomen: Soft, nontender, nondistended, positive bowel sound Musculoskeletal: No obvious joint deformity Skin: No rash Neuro: Moves all extremities spontaneously, unable to do a proper neurological examination. Urinary Catheter Management: Skinner: Cath Placed During This Visit: yes Urinary Catheter Date of Insertion: 10/04/21 Urinary Catheter Time of Insertion: 14:39 Data : 10/04/21 16:35 10/04/21 07:53 Micro: Microbiology 10/04/21 09:24 Blood Culture - Preliminary Blood SPECIMEN COLLECTED 10/04/21 09:25 Blood Culture - Preliminary Blood SPECIMEN COLLECTED Other data: I have reviewed the patient's laboratory, microbiologic and rheologic data. The patient has mild leukocytosis, worsening anemia, evidence of chronic hypercapnic respiratory failure A&P Assessment and plan (1) Hemoptysis: This is an 86-year-old gentleman with advanced dementia. I was asked to evaluate the patient for the possibility of hemoptysis. However it is unclear whether the patient is actually having hemoptysis or hematemesis. Given his rapid decline in hemoglobin and previous history of GI bleed I believe the patient is actually having hematemesis. The CT scan of the chest did not reveal any significant evidence of pulmonary hemorrhage which would explain reduced hemoglobin down to 6.6. If the patient does actually have hemoptysis in the future, he may need emergent bronchoscopy. Other than that, I would like to evaluate him for chronic right lower lobe atelectasis with an outpatient bronchoscopy. Chances are, the patient has chronic aspiration leading to the right lower lobe atelectasis in the setting of dementia. There are concerns for pulmonary embolism on the CT angiogram of the chest. His lower extremity Dopplers are negative. Given the drop in hemoglobin the patient is not on any anticoagulation currently. Status: Acute (2) Acute and chronic respiratory failure with hypoxia: The patient has chronic hypoxic respiratory failure. At baseline he uses 5 L of oxygen. The patient now has acute on chronic hypoxic respiratory failure. He will be treated for right middle and lower lobe pneumonia. Status: Acute (3) Pneumonia: Patient is on broad-spectrum antibiotics. Overall my plan is to proceed with outpatient bronchoscopy unless there is acute emergency requiring emergent bronchoscopy at this time. I discussed this plan with his . Status: Acute Coding Level of Care Code Acute Interpretive Program Coordinator [facility] Diagnoses Hemoptysis R04.2 Acute and chronic respiratory failure with hypoxia J96.21 Pneumonia J18.9
[2021-10-04] MEDS: sodium chloride 0.9% 500 ML 999 ML IV (18:01)
--- NOTE | 2021-10-04 18:26 | PC.NURSE ---
1 unit PRBCs given. Telephone consent from and update on low BP and increased HR.
[2021-10-04] MEDS: sodium chloride 0.9% (100 ml) 100 ML 50 ML (18:28)
[2021-10-04] MEDS: budesonide 0.5 mg/2 mL Neb INHALATION (19:56)
[2021-10-04 23:12] LABS: Hemoglobin 7.7 g/dL (11.7-16.6)
[2021-10-05] VITALS (70 sets, daily range): BP systolic 91–149; BP diastolic 41–85; PULSE 64–117; RESP 13–28; TEMP 36.4–36.9; O2SAT 85–100
[2021-10-05] MEDS: piperacillin-tazobactam 3.375 GM in sodium chloride 0.9% (plus) 50 ML IV ×3 (02:31→17:22)
[2021-10-05] MEDS: ipratropium-albuterol 3 mL Neb INHALATION ×4 (02:54→20:22)
[2021-10-05 03:57] LABS: Basophils % 0.2 %; Hematocrit 26.3 % (42.0-52.0); Hemoglobin 7.5 g/dL (11.7-16.6); Lymphocytes # 0.9 10^3/uL (0.8-4.8); Lymphocytes % 5.1 %; Mean Corpuscular HGB Conc 28.5 g/dL (30.0-36.0); Mean Corpuscular Hemoglobin 24.3 pg (28.0-34.0); Mean Corpuscular Volume 85.1 fl (80-94); Mean Platelet Volume 10.2 fL (7.4-10.4); Monocytes # 0.8 10^3/uL (0.2-0.9); Monocytes % 4.5 %; Neutrophils # 15.52 10^3/uL (1.8-7.7); Neutrophils % 89.5 %; Nucleated Red Blood Cells % 0 %; Platelet Count 232 10^3/cmm (130-400); Red Blood Count 3.09 10^6/uL (4.1-5.3); Red Cell Distribution Width 16.9 % (12.1-15.1); White Blood Count 17.3 10^3/uL (4.0-10.0)
[2021-10-05] MEDS: vancomycin 1,000 MG in sodium chloride 0.9% 250 ML 250 MG IV (04:09)
[2021-10-05] MEDS: pantoprazole 40 mg SDV IVP ×2 (04:09→17:22)
[2021-10-05 04:21] LABS: Alanine Aminotransferase 15 U/L (0-41); Albumin Level 2.5 g/dL (3.5-5.2); Alkaline Phosphatase 61 IU/L (40-130); Anion Gap 14.6 (5-19); Aspartate Amino Transferase 31 U/L (0-40); Blood Urea Nitrogen 25 mg/dL (8-23); Calcium 8.7 mg/dL (8.5-10.5); Carbon Dioxide 31 mmol/L (22-29); Chloride 103 mmol/L (98-107); Globulin 3.7 g/dL (1.3-4.6); Glucose 153 mg/dL (65-115); Magnesium 2.3 mg/dL (1.7-2.3); Osmolality Calculated 307 mOsm/kg (285-295); Potassium 3.6 mmol/L (3.5-5.1); Sodium 145 mmol/L (136-145); Total Bilirubin 0.6 mg/dL (0.15-1.2); Total Protein 6.2 g/dL (6.6-8.7)
[2021-10-05] MEDS: budesonide 0.5 mg/2 mL Neb INHALATION ×2 (08:27→20:22)
--- NOTE | 2021-10-05 10:11 | P.PN_ITS ---
Subjective Subjective: Tremaine is more conversant this morning. He denies any chest pain. He is on BiPAP, but denies any shortness of breath on BiPAP. Reports no abdominal pain. Medications: Reviewed: Yes Vitals/I&O/Wt Last Vital Signs Temp 97.5 F L 10/05/21 08:00 Pulse 78 10/05/21 08:34 Resp 16 10/05/21 08:27 BP 123/57 10/05/21 08:00 Pulse Ox 92 10/05/21 08:27 10/04/21 10/05/21 10/05/21 22:59 06:59 14:59 Intake Total 1400 / 1400 50 / 1450 300 / 300 Output Total 1400 / 1400 400 / 1800 Balance 0 / 0 -350 / -350 300 / 300 Weight last 48 hrs Weight 75.206 kg Weight 77.111 kg Physical Exam Narrative: General exam is a white male, conversant but with some confusion. Much improved from yesterday. Neck is supple no lymphadenopathy or thyromegaly Cardiovascular regular rate and rhythm without murmur Lungs diminished breath sounds bilaterally right greater than left. No wheezes or crackles Abdomen is soft with positive bowel sounds. No obvious organomegaly Extremities trace edema. No cyanosis or clubbing Skin no rash Neurologic: No focal deficits Urinary Catheter Management: Skinner: Cath Placed During This Visit: yes Reason for Continuing Indwelling Catheter: Accurate Measurement of Urinary Output in Critically Ill Patients Urinary Catheter Date of Insertion: 10/04/21 Urinary Catheter Time of Insertion: 14:39 Data : 10/05/21 03:37 10/05/21 03:37 Micro: Microbiology 10/05/21 00:05 MRSA Culture - Final Nose 10/05/21 00:05 Occult Blood (FIT) - Final Stool - Stool Aspirate 10/04/21 09:24 Blood Culture - Preliminary Blood SPECIMEN COLLECTED 10/04/21 09:25 Blood Culture - Preliminary Blood SPECIMEN COLLECTED A&P Assessment and plan (1) Acute respiratory failure with hypoxia: Currently requiring BiPAP. Normally on 2 L of oxygen. Etiology is multifactorial. Pneumonia, acute diastolic heart failure are contributing. Plan on continuing BiPAP, weaning as tolerated Another Lasix 40 mg IV today. Status: Acute (2) Hemoptysis: It is unclear from the 's description whether he had hemoptysis, or hematemesis. CTA suggestive of small pulmonary emboli, left lung but study poor Has some significant contraindications to treatment such as severe anemia, possible concern of hematemesis, prior history of GI bleed. Venous duplex was negative As this could represent hematemesis, Protonix 40 mg IV every 12 hours will continue If this represents hemoptysis, could be secondary to significant pneumonia. For stool is Hemoccult negative but will need to repeat. He has had no further episodes of hemoptysis, his respiratory condition is improving. Hemoglobin has decreased. Status: Acute (3) Anemia: Severe anemia. Hemoglobin dropped to below 7 yesterday and 1 unit of blood was transfused Hemoglobin today less than 8, will transfuse another unit with 40 mg of Lasix IV Continue Protonix 40 mg IV every 12 hours Repeat stool Hemoccult Iron studies were checked and saturation was low. Status: Acute (4) Non-ST elevation [place] (NSTEMI): Continue aspirin, changed to low-dose Continue statin Currently anticoagulation contraindicated secondary to severe anemia Status: Acute (5) Pneumonia: Significant pneumonia seen on CT He has failed outpatient Levaquin Continue Zosyn Await sputum culture, blood culture MRSA PCR negative. Discontinue vancomycin Has known history of aspiration, even documented on barium swallow. This may be playing a role with his recurrent pneumonia. N.p.o. for now. Status: Acute Qualifiers: Laterality: right Lung location: middle lobe of lung Pneumonia type: due to unspecified organism Qualified Code(s): J18.9 - Pneumonia, unspecified organism (6) COPD (chronic obstructive pulmonary disease): Pulmonary toilet with budesonide, DuoNeb Discontinue Solu-Medrol, changed to prednisone BiPAP currently, weaning off as tolerated Status: Chronic Qualifiers: COPD type: unspecified COPD Qualified Code(s): J44.9 - Chronic obstructive pulmonary disease, unspecified (7) Dementia: Significant dementia, which increases mortality risk significantly. reports history of behaviors with hallucinations in the past. May require Thomas ldol. Status: Acute Plan Multiple other medical problems as outlined in past medical history Allow natural , although patient's wants to be aggressive in all care with the exception of intubation or CPR SCDs for DVT prophylaxis. If hemoglobin seems to stabilize consider initiation of heparin subcutaneous for DVT prophylaxis Attestations Medical Necessity Statement*: Needs continued hospital stay for treatment of severe anemia with blood transfusion, treatment of significant pneumonia with BiPAP as well as IV antibiotics. Coding Level of Care Code Acute Sustainability Officer for g Fwd Diagnoses Acute respiratory failure with hypoxia J96.01 Hemoptysis R04.2 Anemia D64.9 Non-ST elevation [place] (NSTEMI) I21.4 Pneumonia J18.9 Laterality: right Lung location: middle lobe of lung Pneumonia type: due to unspecified organism COPD (chronic obstructive pulmonary disease) J44.9 COPD type: unspecified COPD Dementia F03.90
[2021-10-05] MEDS: aspirin 81 mg EC Tablet PO (10:27)
[2021-10-05] MEDS: finasteride 5 mg Tablet PO (10:28)
[2021-10-05] MEDS: atorvastatin 40 mg Tablet PO (10:28)
[2021-10-05] MEDS: tamsulosin 0.4 mg Capsule PO (10:28)
[2021-10-05] MEDS: sertraline 50 mg Tablet PO (10:28)
[2021-10-05] MEDS: FUROsemide 10 mg/mL SDV 4mL 40 MG IVP (10:29)
--- NOTE | 2021-10-05 10:46 | PC.CHAP ---
Pastoral Care Encounter/Spiritual Assessment Type of Contact [] Declined corporate receptionist visit [] Patient/Family/Request visit [] Outpatient visit [] Follow-up visit [] Physician referral [] Code/Alert [x] Routine visit [] Staff referral [] Actively dying [x] Patient sleeping [x] Family support [] [] Out of room [] Palliative care [] [] Receiving care in room [] Pre-surgical visit [] Trauma [] Long length of stay [x] ICU visit [] Other: Relational/Emotional Strength [] Patient feels connected with others/family/visitors/staff [] Distress [] Loneliness/isolation [] Abandonment Spirituality of Patient [] Person of Salome [] Attends Mormonism of their Salome [] Believes in Prayer [] Reads Bible or Caodaism materials [] There are Spiritual issues to be addressed Peanut Sorter Interventions [x] Prayer [] Active listening [] Non-anxious presence [] Spiritual/emotional support [] Crisis/trauma care [] Spiritual counseling [] Bereavement support [] Provided bereavement packet [] Provided Bible/devotional materials [] Provided toy/stuffed animal, coloring book to patient or family member [] Provided Communion [] Anointing/[place] [] Salvation [x] Completed spiritual assessment [] Other: Impact on Illness or Injury [] Angry [] Fearful [] Anxious [] Often cries [] Exhaustion [] Unable to work [] Unable to attend orthodox [] Unable to walk/stand [] Unable to read [] Unable to drive [] Unable to eat/drink [] Unable to sleep [] Unable to be with family [] Patient intubated [] Other: Summary Time spent with patient
[2021-10-05] MEDS: sodium chloride 0.9% (100 ml) 100 ML 50 ML (12:48)
--- NOTE | 2021-10-05 13:43 | PC.NURSE ---
increased confusion, possible hallucinations. Patient reports seeing wires in the air (in the doorway) and picked up a napkin and asked what is this. Patient also has slight change in voice. reports this happens occasionally. PT has equal addiction professional, no drift in upper or lower extremities.
[2021-10-05 15:58] LABS: Hematocrit 30.9 % (42.0-52.0)
[2021-10-06] VITALS (64 sets, daily range): BP systolic 93–140; BP diastolic 35–85; PULSE 36–181; RESP 14–29; TEMP 36.6–36.8; O2SAT 86–98
[2021-10-06] MEDS: piperacillin-tazobactam 3.375 GM in sodium chloride 0.9% (plus) 50 ML IV ×3 (02:09→18:16)
[2021-10-06] MEDS: ipratropium-albuterol 3 mL Neb INHALATION ×4 (02:12→20:21)
[2021-10-06] MEDS: pantoprazole 40 mg SDV IVP ×2 (04:32→15:18)
[2021-10-06 04:41] LABS: Basophils % 0.1 %; Eosinophils % 0.1 %; Hematocrit 26.4 % (42.0-52.0); Hemoglobin 7.9 g/dL (11.7-16.6); Lymphocytes # 1.3 10^3/uL (0.8-4.8); Mean Corpuscular HGB Conc 29.9 g/dL (30.0-36.0); Mean Corpuscular Hemoglobin 24.7 pg (28.0-34.0); Mean Corpuscular Volume 82.5 fl (80-94); Mean Platelet Volume 9.9 fL (7.4-10.4); Monocytes # 1.1 10^3/uL (0.2-0.9); Neutrophils # 19.36 10^3/uL (1.8-7.7); Nucleated Red Blood Cells % 0 %; Platelet Count 271 10^3/cmm (130-400); Red Cell Distribution Width 16.3 % (12.1-15.1)
[2021-10-06 05:07] LABS: Alanine Aminotransferase 19 U/L (0-41); Albumin Level 2.6 g/dL (3.5-5.2); Alkaline Phosphatase 73 IU/L (40-130); Anion Gap 11.2 (5-19); Aspartate Amino Transferase 36 U/L (0-40); Blood Urea Nitrogen 29 mg/dL (8-23); Calcium 8.5 mg/dL (8.5-10.5); Carbon Dioxide 33 mmol/L (22-29); Chloride 99 mmol/L (98-107); Globulin 3.6 g/dL (1.3-4.6); Glucose 116 mg/dL (65-115); Osmolality Calculated 297 mOsm/kg (285-295); Potassium 3.2 mmol/L (3.5-5.1); Sodium 140 mmol/L (136-145); Total Bilirubin 0.4 mg/dL (0.15-1.2); Total Protein 6.2 g/dL (6.6-8.7)
--- NOTE | 2021-10-06 07:00 | XRR_ITS ---
PROCEDURE INFORMATION: Exam: XR Chest Exam date and time: 10/06/2021 5:11 AM Age: 86 years old Clinical indication: Shortness of breath; Prior surgery; Surgery type: Cabg; Patient HX: F/u fro resp failure TECHNIQUE: Imaging protocol: XR of the chest. Views: 1 view. COMPARISON: CR XR chest 1V portable [id number] 10/04/2021 8:13 AM FINDINGS: Lungs: There are hazy opacities present in the right middle lower hemithorax compatible with a right lower lobe atelectasis versus pneumonia. Pleural spaces: Unremarkable. No pleural effusion. No pneumothorax. Heart/Mediastinum: Unremarkable. No cardiomegaly. Bones/joints: Unremarkable. XR/XR chest 1V portable [id number] IMPRESSION: Probable right lower lobe atelectasis versus pneumonia.
[2021-10-06] MEDS: finasteride 5 mg Tablet PO (08:38)
[2021-10-06] MEDS: predniSONE 20 mg Tablet 40 MG PO (08:39)
[2021-10-06] MEDS: sertraline 50 mg Tablet PO (08:40)
[2021-10-06] MEDS: atorvastatin 40 mg Tablet PO (08:40)
[2021-10-06] MEDS: aspirin 81 mg EC Tablet PO (08:40)
[2021-10-06] MEDS: tamsulosin 0.4 mg Capsule PO (08:41)
[2021-10-06] MEDS: budesonide 0.5 mg/2 mL Neb INHALATION ×2 (09:07→20:21)
[2021-10-06] MEDS: lidocaine 1% 5 ML in potassium chloride premix 100 ML 50 ML IV (09:15)
[2021-10-06] MEDS: FUROsemide 10 mg/mL SDV 2mL 20 MG IVP (15:18)
--- NOTE | 2021-10-06 16:45 | PC.NURSE ---
Patient HR noted to be sustaining in the 150's, see vital signs as documented. notified. This nurse suggested getting an EKG. Dr. Hu stated, No, give him time to come down on his own. Patient denies chest pain at this time and BP noted to be WNL. and daughter noted to be at bedside.
--- NOTE | 2021-10-06 16:51 | ECG_ITS ---
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 Measurements Intervals [place] Rate: 112 P: IN: QRS: 94 QRSD: 108 T: 31 QT: 346 QTc: 474 Interpretive Statements ATRIAL FIBRILLATION WITH RAPID VENTRICULAR RESPONSE BORDERLINE RIGHT AXIS DEVIATION [QRS AXIS > 90] ABNORMAL RHYTHM ECG Compared to ECG 10/04/2021 13:26:32 Sinus rhythm no longer present Electronically Signed On 10-09-2021 7:51:09 CDT by Manuela Jones M.D. [id number]
[2021-10-06] MEDS: metoprolol tartrate 1 mg/1 mL SDV 5 mL 5 MG IVP ×2 (17:06→20:04)
--- NOTE | 2021-10-06 17:06 | PC.NURSE ---
This nurse began to give patient 5mg IVP metoprolol as per Dr. Hu's orders. Before administering medications this nurse took a baseline BP. Patient's MAP noted to be 59, see vital signs as documented. This nurse with assistance of RT staff assisted patient back to bed. Once patient was back in bed, this nurse again retook BP. MAP noted to be in the 80's at this time. This nurse began to administer the IVP of metoprolol per protocol. A minute after first 1ml was pushed BP noted to be 88/68. This nurse waited an additional amount of time before giving patient another 1ml of metoprolol. came to bedside and stated, Push all of the medication at once because the BP was low due to the HR being so high. This nurse stated, The BP has been running low and that is protocol to push metoprolol over 5minutes. Dr. Hu then stated, the patient is going to crash if you don't push this medication quickly. then Dr. Hu proceeded to take the syringe out of this nurses hand and push the rest of the metoprolol. Then requested and EKG and ordered a Cardizem drip.
--- NOTE | 2021-10-06 17:15 | PM.PN ---
Subjective Subjective: Patient was seen and examined this morning, was seen in the chair resting comfortably, Currently saturating well on HFNC, around 5 PM patient went into A. fib with RVR, Did not responded to 5 mg metoprolol IV push, was placed on Cardizem drip. During the entire event patient was completely asymptomatic, denied any chest pain shortness of breath, palpitation, diaphoresis. H/h dropped to 7.9/26 from 03/22 yesterday, plan was to transfuse 1 unit PRBC. He also received Lasix 20 mg IV one-time dose. Medications: Reviewed: Yes Vitals/I&O/Wt Last Vital Signs Temp 97.9 F 10/06/21 08:30 Pulse 90 10/06/21 16:00 Resp 23 H 10/06/21 16:00 BP 113/69 10/06/21 16:00 Pulse Ox 90 10/06/21 16:00 10/06/21 10/06/21 10/06/21 06:59 14:59 22:59 Intake Total 50 / 900 410 / 410 350 / 760 Output Total 180 / 1705 Balance -130 / -805 410 / 410 350 / 760 Weight last 48 hrs Weight 77.111 kg Weight 75.206 kg Physical Exam Const: COMMON NORMALS: patient oriented x3 HENMT: COMMON NORMALS: normocephalic and atraumatic HEAD & SCALP: normocephalic and atraumatic Chest: CHEST: Yes Symmetrical chest wall rise Resp: COMMON NORMALS: normal respiratory effort, No retractions and No use of accessory muscles EFFORT & INSPECTION: Yes symmetric chest movement OTHER: Diminished air entry B/L Cardio: COMMON NORMALS: S1 normal heart sound present, S2 normal heart sound present, No gallops present (Cardio), No murmurs present (Cardio), No rub (Cardio) and Peripheral pulses 2+ throughout HEART SOUNDS: S1 normal heart sound present and S2 normal heart sound present PERIPHERAL PULSES: Peripheral pulses 2+ throughout OTHER: Irregularly Irregular rhthym S1S2 Is of variable intensity GI: COMMON NORMALS: Normal to inspection, nondistended, normoactive bowel sounds present, Soft to palpation, non-tender, No hepatosplenomegaly present and no masses AUSCULTATION: Yes normoactive bowel sounds PALPATION: Yes Soft to palpation and Yes No hepatosplenomegaly present RECTAL EXAM: Yes deferred Extremity: COMMON NORMALS: no clubbing, cyanosis or edema and no pedal edema Neuro: COMMON NORMALS: patient oriented x3 Urinary Catheter Management: Skinner: Cath Placed During This Visit: yes Reason for Continuing Indwelling Catheter: Accurate Measurement of Urinary Output in Critically Ill Patients Urinary Catheter Date of Insertion: 10/04/21 Urinary Catheter Time of Insertion: 14:39 Data : 10/06/21 02:55 10/06/21 02:55 Micro: Microbiology 10/05/21 15:00 Occult Blood (FIT) - Final Stool - Stool Aspirate 10/04/21 09:24 Blood Culture - Preliminary Blood NEGATIVE TO DATE 10/04/21 09:25 Blood Culture - Preliminary Blood NEGATIVE TO DATE A&P Assessment and plan (1) Acute respiratory failure with hypoxia: Currently requiring BiPAP. Normally on 2 L of oxygen. Etiology is multifactorial. Pneumonia, acute diastolic heart failure are contributing. Plan on continuing BiPAP, weaning as tolerated Another Lasix 40 mg IV today. Status: Acute (2) Hemoptysis: It is unclear from the 's description whether he had hemoptysis, or hematemesis. CTA suggestive of small pulmonary emboli, left lung but study poor Has some significant contraindications to treatment such as severe anemia, possible concern of hematemesis, prior history of GI bleed. Venous duplex was negative As this could represent hematemesis, Protonix 40 mg IV every 12 hours will continue If this represents hemoptysis, could be secondary to significant pneumonia. For stool is Hemoccult negative but will need to repeat. He has had no further episodes of hemoptysis, his respiratory condition is improving. Hemoglobin has decreased. Status: Acute (3) Anemia: Severe anemia. Hemoglobin dropped to below 7 yesterday and 1 unit of blood was transfused Hemoglobin today less than 8, will transfuse another unit with 40 mg of Lasix IV Continue Protonix 40 mg IV every 12 hours Repeat stool Hemoccult Iron studies were checked and saturation was low. Status: Acute (4) Non-ST elevation [place] (NSTEMI): Continue aspirin, changed to low-dose Continue statin Currently anticoagulation contraindicated secondary to severe anemia Status: Acute (5) Pneumonia: Significant pneumonia seen on CT He has failed outpatient Levaquin Continue Zosyn Await sputum culture, blood culture MRSA PCR negative. Discontinue vancomycin Has known history of aspiration, even documented on barium swallow. This may be playing a role with his recurrent pneumonia. N.p.o. for now. Status: Acute Qualifiers: Laterality: right Lung location: middle lobe of lung Pneumonia type: due to unspecified organism Qualified Code(s): J18.9 - Pneumonia, unspecified organism (6) COPD (chronic obstructive pulmonary disease): Pulmonary toilet with budesonide, DuoNeb Discontinue Solu-Medrol, changed to prednisone BiPAP currently, weaning off as tolerated Status: Chronic Qualifiers: COPD type: unspecified COPD Qualified Code(s): J44.9 - Chronic obstructive pulmonary disease, unspecified (7) Dementia: Significant dementia, which increases mortality risk significantly. reports history of behaviors with hallucinations in the past. May require Haldol. Status: Acute (8) Atrial fibrillation with RVR: Status: Acute Plan Multiple other medical problems as outlined in past medical history Allow natural , although patient's wants to be aggressive in all care with the exception of intubation or CPR SCDs for DVT prophylaxis. If hemoglobin seems to stabilize consider initiation of heparin subcutaneous for DVT prophylaxis Attestations Medical Necessity Statement*: Patient is to be in hospital for management of, anemia A. fib with RVR, pneumonia Time Spent in Patient Care: Greater than 35 minutes (>than 50% of time spent in counselling and/or direct pt care on unit). Critical Care Time: The high probability of a clinically significant, sudden or life threatening deterioration of the patient's [] system(s) required my full and direct attention, intervention and personal management. The critical care time is as shown. This time is in addition to time spent performing any reported procedures but includes the following: [x] Data and vital sign review and interpretation [x] Patient assessment, examination and intervention [x] Documentation [x] Medication orders and management Critical Care Time (min): 40 Coding Level of Care Code Acute Canceling And Cutting Control Clerk for Chg Fwd Exam Detailed Diagnoses Acute respiratory failure with hypoxia J96.01 Hemoptysis R04.2 Anemia D64.9 Non-ST elevation [place] (NSTEMI) I21.4 Pneumonia J18.9 Laterality: right Lung location: middle lobe of lung Pneumonia type: due to unspecified organism COPD (chronic obstructive pulmonary disease) J44.9 COPD type: unspecified COPD Dementia F03.90 Atrial fibrillation with RVR I48.91
--- NOTE | 2021-10-06 18:42 | PC.NURSE ---
Addendum entered by JOSEPHINE Hopkins 10/06/21 19:04: Occurred at 1655 on 10/06/21 Original Note: Patient's walked to nurse's station verbalized that the HR of her was to sustaining in the 160's and she requested the doctor. Dr. Hu notified and reported to bedside. Dr. Hu ordered 5mg IVP of metoprolol.
[2021-10-07] VITALS (41 sets, daily range): BP systolic 93–162; BP diastolic 39–102; PULSE 66–121; RESP 13–28; TEMP 36.4–36.9; O2SAT 85–100
[2021-10-07] MEDS: piperacillin-tazobactam 3.375 GM in sodium chloride 0.9% (plus) 50 ML IV ×3 (02:13→17:25)
[2021-10-07] MEDS: ipratropium-albuterol 3 mL Neb INHALATION ×4 (03:19→20:13)
[2021-10-07] MEDS: pantoprazole 40 mg SDV IVP ×2 (04:53→16:29)
[2021-10-07] MEDS: metoprolol tartrate 1 mg/1 mL SDV 5 mL 5 MG IVP (05:51)
--- NOTE | 2021-10-07 06:35 | PM.PN ---
Subjective Subjective: Patient was seen and examined this morning, denies any worsening shortness of breath, H&H is stable at 8.7 and 29.6, WBC count is trending down, good urine output overnight. No other acute events. Medications: Reviewed: Yes Medication Review Details: Generic Name Dose Route Start Last Admin Trade Name Freq PRN Reason Stop Dose Admin Acetaminophen 650 mg 10/04/21 15:46 10/04/21 16:42 Acetaminophen 32 5 Mg Tablet PO 650 mg Q6H PRN Administration MILD PAIN Albuterol/Ipratrop ium 3 ml 10/04/21 21:00 10/07/21 03:19 Ipratropium-Albu terol 3 Ml Neb INHALATION 3 ml Q6H.RESPIRATORY S CH Administration Aspirin 81 mg 10/05/21 09:00 10/06/21 08:40 Aspirin 81 Mg Ec Tablet PO 81 mg DAILY JO Administration Atorvastatin Calci um 40 mg 10/05/21 09:00 10/06/21 08:40 Atorvastatin 40 Mg Tablet PO 40 mg DAILY JO Administration Budesonide 0.5 mg 10/05/21 20:00 10/06/21 20:21 Budesonide 0.5 M g/2 Ml Neb INHALATION 0.5 mg BID.RESPIRATORY S CH Administration Finasteride 5 mg 10/05/21 09:00 10/06/21 08:38 Finasteride 5 Mg Tablet PO 5 mg DAILY JO Administration Piperacillin Sod/T azobactam 50 mls @ 12.5 mls /hr 10/04/21 18:00 10/07/21 02:13 Sod 3.375 gm/ So dium Chloride IV 12.5 mls/hr Q8H JO Administration Protocol Diltiazem HCl 125 mg/ Sodium 125 mls @ 0 mls/h r 10/06/21 17:15 10/07/21 04:30 Chloride IV 0 mg/hr .Q0M OJ 0 mls/hr Titration Protocol Per Protocol Metoprolol Tartrat e 5 mg 10/06/21 16:49 10/07/21 05:51 Metoprolol Tartr ate 1 Mg/1 Ml Sdv 5 Ml IVP 5 mg Q4H PRN Administration Tachycardia Pantoprazole Sodiu m 40 mg 10/04/21 16:00 10/07/21 04:53 Pantoprazole 40 Mg Sdv IVP 40 mg Q12H JO Administration Prednisone 40 mg 10/06/21 09:00 10/06/21 08:39 Prednisone 20 Mg Tablet PO 40 mg DAILY JO Administration Sertraline HCl 50 mg 10/05/21 09:00 10/06/21 08:40 Sertraline 50 Mg Tablet PO 50 mg DAILY JO Administration Tamsulosin HCl 0.4 mg 10/05/21 09:00 10/06/21 08:41 Tamsulosin 0.4 M g Capsule PO 0.4 mg DAILY JO Administration Vitals/I&O/Wt Last Vital Signs Temp 98.2 F 10/07/21 04:00 Pulse 68 10/07/21 06:00 Resp 20 H 10/07/21 06:00 BP 124/66 10/07/21 06:00 Pulse Ox 100 10/07/21 06:00 10/06/21 10/06/21 10/07/21 14:59 22:59 06:59 Intake Total 410 / 410 522.167 / 932.167 225.625 / 1157.792 Output Total 900 / 900 450 / 1350 Balance 410 / 410 -377.833 / 32.167 -224.375 / -192.208 Weight last 48 hrs Weight 77.111 kg Physical Exam Const: COMMON NORMALS: patient oriented x3 HENMT: COMMON NORMALS: normocephalic and atraumatic HEAD & SCALP: normocephalic and atraumatic Resp: OTHER: Diminished air entry B/L Cardio: COMMON NORMALS: S1 normal heart sound present, S2 normal heart sound present, No gallops present (Cardio), No murmurs present (Cardio), No rub (Cardio) and Peripheral pulses 2+ throughout HEART SOUNDS: S1 normal heart sound present and S2 normal heart sound present PERIPHERAL PULSES: Peripheral pulses 2+ throughout OTHER: Irregularly Irregular rhthym S1S2 Is of variable intensity GI: COMMON NORMALS: Normal to inspection, nondistended, normoactive bowel sounds present, Soft to palpation, non-tender, No hepatosplenomegaly present and no masses AUSCULTATION: Yes normoactive bowel sounds PALPATION: Yes Soft to palpation and Yes No hepatosplenomegaly present RECTAL EXAM: Yes deferred Extremity: COMMON NORMALS: no clubbing, cyanosis or edema and no pedal edema Neuro: COMMON NORMALS: patient oriented x3 Urinary Catheter Management: Skinner: Cath Placed During This Visit: yes Reason for Continuing Indwelling Catheter: Accurate Measurement of Urinary Output in Critically Ill Patients Urinary Catheter Date of Insertion: 10/04/21 Urinary Catheter Time of Insertion: 14:39 Data : 10/07/21 08:00 10/07/21 08:00 A&P Assessment and plan (1) Acute respiratory failure with hypoxia: Currently requiring BiPAP. Normally on 2 L of oxygen. Etiology is multifactorial. Pneumonia, acute diastolic heart failure are contributing. Plan on continuing BiPAP, weaning as tolerated Another Lasix 40 mg IV today. Status: Acute (2) Hemoptysis: It is unclear from the 's description whether he had hemoptysis, or hematemesis. CTA suggestive of small pulmonary emboli, left lung but study poor Has some significant contraindications to treatment such as severe anemia, possible concern of hematemesis, prior history of GI bleed. Venous duplex was negative As this could represent hematemesis, Protonix 40 mg IV every 12 hours will continue If this represents hemoptysis, could be secondary to significant pneumonia. For stool is Hemoccult negative but will need to repeat. He has had no further episodes of hemoptysis, his respiratory condition is improving. Hemoglobin has decreased. Status: Acute (3) Anemia: Severe anemia. Hemoglobin dropped to below 7 yesterday and 1 unit of blood was transfused Hemoglobin today less than 8, will transfuse another unit with 40 mg of Lasix IV Continue Protonix 40 mg IV every 12 hours Repeat stool Hemoccult Iron studies were checked and saturation was low. Status: Acute (4) Non-ST elevation [place] (NSTEMI): Continue aspirin, changed to low-dose Continue statin Currently anticoagulation contraindicated secondary to severe anemia Status: Acute (5) Pneumonia: Significant pneumonia seen on CT He has failed outpatient Levaquin Continue Zosyn Await sputum culture, blood culture MRSA PCR negative. Discontinue vancomycin Has known history of aspiration, even documented on barium swallow. This may be playing a role with his recurrent pneumonia. N.p.o. for now. Status: Acute Qualifiers: Laterality: right Lung location: middle lobe of lung Pneumonia type: due to unspecified organism Qualified Code(s): J18.9 - Pneumonia, unspecified organism (6) COPD (chronic obstructive pulmonary disease): Pulmonary toilet with budesonide, DuoNeb Discontinue Solu-Medrol, changed to prednisone BiPAP currently, weaning off as tolerated Status: Chronic Qualifiers: COPD type: unspecified COPD Qualified Code(s): J44.9 - Chronic obstructive pulmonary disease, unspecified (7) Dementia: Significant dementia, which increases mortality risk significantly. reports history of behaviors with hallucinations in the past. May require Haldol. Status: Acute (8) Atrial fibrillation with RVR: Currently on Cardizem drip P.o. Cardizem 30 every 6h Not a candidate for anticoagulation Status: Acute Plan Multiple other medical problems as outlined in past medical history Allow natural , although patient's wants to be aggressive in all care with the exception of intubation or CPR SCDs for DVT prophylaxis. If hemoglobin seems to stabilize consider initiation of heparin subcutaneous for DVT prophylaxis Attestations Medical Necessity Statement*: Patient needs to be in hospital for management of pneumonia , A. fib with RVR, anemia, need for IV antibiotics, need for monitoring hemoglobin. Time Spent in Patient Care: Greater than 35 minutes (>than 50% of time spent in counselling and/or direct pt care on unit). Critical Care Time: The high probability of a clinically significant, sudden or life threatening deterioration of the patient's [] system(s) required my full and direct attention, intervention and personal management. The critical care time is as shown. This time is in addition to time spent performing any reported procedures but includes the following: [x] Data and vital sign review and interpretation [x] Patient assessment, examination and intervention [x] Documentation [x] Medication orders and management Critical Care Time (min): 30 Coding Level of Care Code Acute Rn Lvn for [facility] Fwd Exam Detailed Diagnoses Acute respiratory failure with hypoxia J96.01 Hemoptysis R04.2 Anemia D64.9 Non-ST elevation [place] (NSTEMI) I21.4 Pneumonia J18.9 Laterality: right Lung location: middle lobe of lung Pneumonia type: due to unspecified organism COPD (chronic obstructive pulmonary disease) J44.9 COPD type: unspecified COPD Dementia F03.90 Atrial fibrillation with RVR I48.91
[2021-10-07 08:48] LABS: Basophils % 0.2 %; Eosinophils % 0.2 %; Hematocrit 29.6 % (42.0-52.0); Hemoglobin 8.7 g/dL (11.7-16.6); Lymphocytes # 1.2 10^3/uL (0.8-4.8); Lymphocytes % 7.1 %; Mean Corpuscular HGB Conc 29.4 g/dL (30.0-36.0); Mean Corpuscular Hemoglobin 25.6 pg (28.0-34.0); Mean Corpuscular Volume 87.1 fl (80-94); Mean Platelet Volume 9.6 fL (7.4-10.4); Monocytes % 6.2 %; Neutrophils # 14.08 10^3/uL (1.8-7.7); Neutrophils % 84.9 %; Nucleated Red Blood Cells % 0.1 %; Platelet Count 260 10^3/cmm (130-400); Red Cell Distribution Width 16.7 % (12.1-15.1); White Blood Count 16.6 10^3/uL (4.0-10.0)
[2021-10-07] MEDS: aspirin 81 mg EC Tablet PO (08:53)
[2021-10-07] MEDS: tamsulosin 0.4 mg Capsule PO (08:53)
[2021-10-07 08:54] LABS: Alanine Aminotransferase 23 U/L (0-41); Albumin Level 2.6 g/dL (3.5-5.2); Alkaline Phosphatase 66 IU/L (40-130); Anion Gap 12.2 (5-19); Aspartate Amino Transferase 25 U/L (0-40); Blood Urea Nitrogen 19 mg/dL (8-23); Calcium 7.9 mg/dL (8.5-10.5); Carbon Dioxide 30 mmol/L (22-29); Chloride 101 mmol/L (98-107); Globulin 3.1 g/dL (1.3-4.6); Glucose 93 mg/dL (65-115); Osmolality Calculated 292 mOsm/kg (285-295); Potassium 3.2 mmol/L (3.5-5.1); Sodium 140 mmol/L (136-145); Total Bilirubin 0.4 mg/dL (0.15-1.2); Total Protein 5.7 g/dL (6.6-8.7)
[2021-10-07] MEDS: atorvastatin 40 mg Tablet PO (08:54)
[2021-10-07] MEDS: predniSONE 20 mg Tablet 40 MG PO (08:55)
[2021-10-07] MEDS: sertraline 50 mg Tablet PO (08:55)
[2021-10-07] MEDS: finasteride 5 mg Tablet PO (08:55)
[2021-10-07] MEDS: budesonide 0.5 mg/2 mL Neb INHALATION ×2 (08:56→20:13)
[2021-10-07] MEDS: lidocaine 1% 5 ML in potassium chloride premix 100 ML 25 ML IV (12:09)
[2021-10-07] MEDS: dilTIAZem 30 mg Tablet PO ×2 (12:09→17:25)
[2021-10-07 13:09] LABS: Add Urine Culture? Yes; Add Urine Microscopic? YES; Bacteria Urine TRACE /hpf; Bilirubin Urine Neg (Negative); Blood Urine 3+ (Negative); Glucose Urine UA Norm (Normal); Ketones Urine Negative (Negative); Leukocyte Esterase Urine 1+ (Negative); Nitrate Urine Negative (Negative); Protein Urine Trace (Negative); RBC Urine 80-100 /hpf (0-2); Specific Gravity, Urine 1.015 (1.005-1.030); Squamous Epithelial Cell Urine 0-4 /hpf (0-5); Urine Appearance Hazy (CLEAR); Urine Color Yellow (Yellow); Urobilinogen Urine Norm (Negative); WBC Urine 25-40 /hpf (0-5); pH Urine 5 (5-7)
--- NOTE | 2021-10-07 13:57 | PC.SOCIAL ---
Pg 2 IMM Explained to pt Pg 2 IMM. No questions voiced. Provided pt a copy. Initialed, dated, & timed a copy & placed in chart.
--- NOTE | 2021-10-07 16:29 | PC.NURSE ---
Patient transferred to [facility] room 275 via wheelchair with SBA. Patient accompanied by this nurse and . Patient belongings sent with patient on transfer. This nurse with help of transferred patient from wheelchair to recliner. Patient tolerated well. JOSE May noted to be at bedside during transfer process, patient A&Ox4 at time of transfer.
[2021-10-08] VITALS (16 sets, daily range): BP systolic 115–159; BP diastolic 50–68; PULSE 62–121; RESP 15–18; TEMP 36.3–36.8; O2SAT 87–98
[2021-10-08] MEDS: dilTIAZem 30 mg Tablet PO ×4 (00:59→18:28)
[2021-10-08] MEDS: piperacillin-tazobactam 3.375 GM in sodium chloride 0.9% (plus) 50 ML IV (00:59)
[2021-10-08] MEDS: ipratropium-albuterol 3 mL Neb INHALATION ×4 (04:04→20:47)
[2021-10-08] MEDS: pantoprazole 40 mg SDV IVP ×2 (04:40→18:41)
[2021-10-08 04:57] LABS: Basophils % 0.2 %; Eosinophils # 0.1 10^3/uL (0.0-0.8); Eosinophils % 0.4 %; Hematocrit 28.9 % (42.0-52.0); Hemoglobin 8.5 g/dL (11.7-16.6); Lymphocytes # 1.1 10^3/uL (0.8-4.8); Lymphocytes % 6.6 %; Mean Corpuscular HGB Conc 29.4 g/dL (30.0-36.0); Mean Corpuscular Hemoglobin 24.9 pg (28.0-34.0); Mean Corpuscular Volume 84.8 fl (80-94); Mean Platelet Volume 9.3 fL (7.4-10.4); Monocytes # 1.1 10^3/uL (0.2-0.9); Monocytes % 6.4 %; Neutrophils # 13.69 10^3/uL (1.8-7.7); Neutrophils % 83.6 %; Nucleated Red Blood Cells % 0 %; Platelet Count 288 10^3/cmm (130-400); Red Blood Count 3.41 10^6/uL (4.1-5.3); White Blood Count 16.4 10^3/uL (4.0-10.0)
[2021-10-08 05:13] LABS: Anion Gap 11.8 (5-19); Blood Urea Nitrogen 18 mg/dL (8-23); Calcium 8.1 mg/dL (8.5-10.5); Carbon Dioxide 31 mmol/L (22-29); Chloride 104 mmol/L (98-107); Glucose 94 mg/dL (65-115); Osmolality Calculated 298 mOsm/kg (285-295); Potassium 3.8 mmol/L (3.5-5.1); Sodium 143 mmol/L (136-145)
--- NOTE | 2021-10-08 07:25 | PC.NURSE ---
Report received from Yadira AGUIRRE at this time.
[2021-10-08] MEDS: tamsulosin 0.4 mg Capsule PO (08:08)
[2021-10-08] MEDS: finasteride 5 mg Tablet PO (08:08)
[2021-10-08] MEDS: aspirin 81 mg EC Tablet PO (08:08)
[2021-10-08] MEDS: predniSONE 20 mg Tablet 40 MG PO (08:08)
[2021-10-08] MEDS: atorvastatin 40 mg Tablet PO (08:08)
[2021-10-08] MEDS: sertraline 50 mg Tablet PO (08:08)
[2021-10-08] MEDS: budesonide 0.5 mg/2 mL Neb INHALATION ×2 (09:01→20:47)
[2021-10-08] MEDS: piperacillin-tazobactam 3.375 GM in sodium chloride 0.9% (plus) 100 ML IV ×2 (10:56→18:28)
--- NOTE | 2021-10-08 18:21 | P.PN_ITS ---
Subjective Subjective: Hospital course, labs appreciated. Seen sitting up in chair. On high flow nasal cannula 5 L / 92%. at bedside. Denies any new complaints. Vitals/I&O/Wt Last Vital Signs Temp 97.4 F L 10/08/21 16:06 Pulse 67 10/08/21 16:06 Resp 17 10/08/21 16:06 BP 115/65 10/08/21 16:06 Pulse Ox 91 10/08/21 16:06 10/08/21 10/08/21 10/08/21 06:59 14:59 22:59 Intake Total 50 / 865.334 820 / 820 240 / 1060 Output Total 400 / 400 350 / 350 Balance -350 / 465.334 820 / 820 -110 / 710 Weight last 48 hrs Weight 80.331 kg Physical Exam Narrative: General exam is a white male, conversant but with some confusion. Neck is supple no lymphadenopathy or thyromegaly Cardiovascular regular rate and rhythm without murmur Lungs diminished breath sounds bilaterally right greater than left. No wheezes or crackles Abdomen is soft with positive bowel sounds. No obvious organomegaly Extremities trace edema. No cyanosis or clubbing Skin no rash Neurologic: No focal deficits Urinary Catheter Management: Skinner: Cath Placed During This Visit: yes Reason for Continuing Indwelling Catheter: Perioperative Use in Selected Carla geries Urinary Catheter Date of Insertion: 10/04/21 Urinary Catheter Time of Insertion: 14:39 Data : 10/08/21 04:10 10/08/21 04:10 Micro: Microbiology 10/07/21 12:45 Urine Culture - Preliminary Urine,Clean Catch A&P Assessment and plan (1) Acute respiratory failure with hypoxia: Multifactorial. Most likely secondary to diastolic heart failure, PE in setting of severe COPD. Normally on 2 L. Currently requiring 6 L high flow nasal cannula. DuoNebs every 6 hour, budesonide twice daily. Prednisone 40 mg oral daily for now. Echocardiogram done in June 12 shows an EF of 45 to 50%, grade 2 diastolic dysfunction, increased LA size, moderate mitral valve calcification with mild to moderate MR, severe aortic valve calcification, moderate aortic valve stenosis. Continue with home dose of Lasix 40 mg oral daily for now. Second blood pressure, diabetes. Status: Acute (2) Hemoptysis: It is unclear from the 's description whether he had hemoptysis, or hematemesis. CTA suggestive of small pulmonary emboli, left lung but study poor Has some significant contraindications to treatment such as severe anemia, possible concern of hematemesis, prior history of GI bleed. Venous duplex was negative Chronic 40 mg IV every 12 hourly for now. Status: Acute (3) Anemia: Severe anemia. Post multiple transfusion. Keep hemoglobin over 8. Continue Protonix 40 mg IV every 12 hours Repeat stool Hemoccult Iron studies were checked and saturation was low. Status: Acute (4) Non-ST elevation [place] (NSTEMI): Continue aspirin, changed to low-dose Continue statin Currently anticoagulation contraindicated secondary to severe anemia Status: Acute (5) Pneumonia: Significant pneumonia seen on CT He has failed outpatient Levaquin Continue Zosyn Await sputum culture, blood culture MRSA PCR negative. Discontinue vancomycin Has known history of aspiration, even documented on barium swallow. This may be playing a role with his recurrent pneumonia. Diet advanced as per swallow evaluation. Will need outpatient bronchoscopy with pulmonology for further evaluation of recurrent pneumonias. Status: Acute Qualifiers: Laterality: right Lung location: middle lobe of lung Pneumonia type: due to unspecified organism Qualified Code(s): J18.9 - Pneumonia, unspecified organism (6) COPD (chronic obstructive pulmonary disease): Pulmonary toilet with budesonide, DuoNeb Discontinue Solu-Medrol, changed to prednisone BiPAP currently, weaning off as tolerated Status: Chronic Qualifiers: COPD type: unspecified COPD Qualified Code(s): J44.9 - Chronic obstructive pulmonary disease, unspecified (7) Dementia: Significant dementia, which increases mortality risk significantly. reports history of behaviors with hallucinations in the past. May require Haldol. Status: Acute (8) Atrial fibrillation with RVR: Rate controlled. Continue Cardizem 30 mg every 6 hourly. Not a candidate for anticoagulation Status: Acute Plan Multiple other medical problems as outlined in past medical history Allow natural , although patient's wants to be aggressive in all care with the exception of intubation or CPR SCDs for DVT prophylaxis. 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
[2021-10-08] MEDS: FUROsemide 10 mg/mL SDV 4mL 40 MG IVP (18:55)
--- NOTE | 2021-10-08 19:00 | PC.NURSE ---
[facility]
[2021-10-09] VITALS (15 sets, daily range): BP systolic 120–152; BP diastolic 58–78; PULSE 61–106; RESP 16–18; TEMP 36.5–36.9; O2SAT 88–96
[2021-10-09] MEDS: dilTIAZem 30 mg Tablet PO ×5 (00:02→23:35)
[2021-10-09] MEDS: piperacillin-tazobactam 3.375 GM in sodium chloride 0.9% (plus) 100 ML IV ×3 (02:48→18:12)
[2021-10-09] MEDS: pantoprazole 40 mg SDV IVP ×2 (04:06→17:29)
[2021-10-09] MEDS: ipratropium-albuterol 3 mL Neb INHALATION ×4 (04:53→21:31)
[2021-10-09 06:15] LABS: Basophils # 0.1 10^3/uL (0.0-0.1); Basophils % 0.6 %; Eosinophils # 0.1 10^3/uL (0.0-0.8); Eosinophils % 0.5 %; Hematocrit 33.2 % (42.0-52.0); Hemoglobin 9.3 g/dL (11.7-16.6); Lymphocytes # 1.4 10^3/uL (0.8-4.8); Mean Corpuscular Hemoglobin 25.3 pg (28.0-34.0); Mean Corpuscular Volume 90.2 fl (80-94); Mean Platelet Volume 10.2 fL (7.4-10.4); Monocytes # 1.1 10^3/uL (0.2-0.9); Monocytes % 6.3 %; Neutrophils # 14.28 10^3/uL (1.8-7.7); Neutrophils % 80.6 %; Nucleated Red Blood Cells % 0 %; Platelet Count 291 10^3/cmm (130-400); Red Blood Count 3.68 10^6/uL (4.1-5.3); Red Cell Distribution Width 17.8 % (12.1-15.1); White Blood Count 17.7 10^3/uL (4.0-10.0)
[2021-10-09 06:39] LABS: Alanine Aminotransferase 25 U/L (0-41); Albumin Level 2.7 g/dL (3.5-5.2); Alkaline Phosphatase 67 IU/L (40-130); Anion Gap 9.5 (5-19); Aspartate Amino Transferase 17 U/L (0-40); Blood Urea Nitrogen 20 mg/dL (8-23); Calcium 9.1 mg/dL (8.5-10.5); Carbon Dioxide 34 mmol/L (22-29); Chloride 102 mmol/L (98-107); Globulin 3.5 g/dL (1.3-4.6); Glucose 90 mg/dL (65-115); Osmolality Calculated 296 mOsm/kg (285-295); Potassium 3.5 mmol/L (3.5-5.1); Sodium 142 mmol/L (136-145); Total Bilirubin 0.4 mg/dL (0.15-1.2); Total Protein 6.2 g/dL (6.6-8.7)
[2021-10-09] MEDS: budesonide 0.5 mg/2 mL Neb INHALATION ×2 (08:04→21:31)
[2021-10-09] MEDS: sertraline 50 mg Tablet PO (08:43)
[2021-10-09] MEDS: finasteride 5 mg Tablet PO (08:43)
[2021-10-09] MEDS: predniSONE 20 mg Tablet 40 MG PO (08:43)
[2021-10-09] MEDS: FUROsemide 40 mg Tablet PO (08:43)
[2021-10-09] MEDS: atorvastatin 40 mg Tablet PO (08:43)
[2021-10-09] MEDS: aspirin 81 mg EC Tablet PO (08:44)
[2021-10-09] MEDS: tamsulosin 0.4 mg Capsule PO (08:44)
--- NOTE | 2021-10-09 13:12 | PC.SOCIAL ---
IMM update IMM updated with patient and . Copy Pg 2 provided. Verbalized an understanding. Initialled, dated, timed, and placed in chart.
--- NOTE | 2021-10-09 14:43 | PM.PN ---
Subjective Subjective: No documented events overnight. Sitting comfortably in chair. Today morning switched over from high flow nasal cannula to oxygen pendant. Saturating well over 91% on 5 L. Tolerating well. Denies any nausea, vomiting, headache. Asking when can he go home. Denies any new complaints. Vitals/I&O/Wt Last Vital Signs Temp 97.8 F 10/09/21 11:21 Pulse 95 10/09/21 14:39 Resp 18 10/09/21 14:26 BP 125/66 10/09/21 11:21 Pulse Ox 90 10/09/21 14:26 10/08/21 10/09/21 10/09/21 22:59 06:59 14:59 Intake Total 490 / 1310 120 / 1430 305 / 305 Output Total 2049 / 2049 600 / 2650 200 / 200 Balance -1560 / -740 -480 / -1220 105 / 105 Weight last 48 hrs Weight 78.471 kg Weight 80.331 kg Physical Exam Narrative: General exam is a white male, no acute distress, AOx3 Neck is supple no lymphadenopathy or thyromegaly Cardiovascular regular rate and rhythm without murmur Lungs diminished breath sounds bilaterally right greater than left. No wheezes or crackles Abdomen is soft with positive bowel sounds. No obvious organomegaly Extremities trace edema. No cyanosis or clubbing Skin no rash Neurologic: No focal deficits Urinary Catheter Management: Skinner: Cath Placed During This Visit: yes Reason for Continuing Indwelling Catheter: Acute Urinary Retention or Obstruction Urinary Catheter Date of Insertion: 10/04/21 Urinary Catheter Time of Insertion: 14:39 Data : 10/09/21 05:29 10/09/21 05:29 Micro: Microbiology 10/04/21 09:24 Blood Culture - Final Blood NO GROWTH AFTER 5 DAYS 10/04/21 09:25 Blood Culture - Final Blood NO GROWTH AFTER 5 DAYS 10/07/21 12:45 Urine Culture - Final Urine,Clean Catch A&P Assessment and plan (1) Acute respiratory failure with hypoxia: Multifactorial. Most likely secondary to diastolic heart failure, PE in setting of severe COPD. Normally on 2 L. Switched over to oxygen pendant today. every 6 hour, budesonide twice daily. Prednisone 40 mg oral daily for now. We will do a slow taper as an outpatient. Echocardiogram done in June 12 shows an EF of 45 to 50%, grade 2 diastolic dysfunction, increased LA size, moderate mitral valve calcification with mild to moderate MR, severe aortic valve calcification, moderate aortic valve stenosis. Continue with home dose of Lasix 40 mg oral daily for now. Strict input output charting, daily weights Status: Acute (2) Hemoptysis: It is unclear from the 's description whether he had hemoptysis, or hematemesis. CTA suggestive of small pulmonary emboli, left lung but study poor Has some significant contraindications to treatment such as severe anemia, possible concern of hematemesis, prior history of GI bleed. Venous duplex was negative Continue to monitor for now. If has any hemoptysis would need bronchoscopy. Status: Acute (3) Anemia: Severe anemia. Post multiple transfusion. Keep hemoglobin over 8. Currently stable. Continue Protonix 40 mg IV every 12 hours Iron studies were checked and saturation was low. Status: Acute (4) Non-ST elevation [place] (NSTEMI): Continue aspirin, changed to low-dose Continue statin Currently anticoagulation contraindicated secondary to severe anemia Status: Acute (5) Pneumonia: Significant pneumonia seen on CT He has failed outpatient Levaquin Continue Zosyn. Day 6/7 today. Sputum culture so far negative. Blood cultures so far negative. MRSA PCR negative. Discontinue vancomycin Has known history of aspiration, even documented on barium swallow. This may be playing a role with his recurrent pneumonia. Diet advanced as per swallow evaluation. Will need outpatient bronchoscopy with pulmonology for further evaluation of recurrent pneumonias. Status: Acute Qualifiers: Laterality: right Lung location: middle lobe of lung Pneumonia type: due to unspecified organism Qualified Code(s): J18.9 - Pneumonia, unspecified organism (6) COPD (chronic obstructive pulmonary disease): Pulmonary toilet with budesonide, DuoNeb Continue with prednisone as above. BiPAP currently, weaning off as tolerated Status: Chronic Qualifiers: COPD type: unspecified COPD Qualified Code(s): J44.9 - Chronic obstructive pulmonary disease, unspecified (7) Dementia: Significant dementia, which increases mortality risk significantly. reports history of behaviors with hallucinations in the past. May require Haldol. Status: Acute (8) Atrial fibrillation with RVR: Rate controlled. Continue Cardizem 30 mg every 6 hourly. Not a candidate for anticoagulation Status: Acute Plan Multiple other medical problems as outlined in past medical history Allow natural , although patient's wants to be aggressive in all care with the exception of intubation or CPR SCDs for DVT prophylaxis. If hemoglobin seems to stabilize consider initiation of heparin subcutaneous for DVT prophylaxis Discharge planning: Plan to discharge home with home health in the next 24 hours if patient tolerates oxygen reservoir well to maintain saturation over 88%. Plan for day: Switch from oxygen high flow nasal cannula to oxygen pendant. Monitor for desaturation. Lasix 40 mg daily. Continue with Zosyn for 1 more day. Monitor CBC in a.m. 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
[2021-10-10] VITALS (9 sets, daily range): BP systolic 107–149; BP diastolic 58–65; PULSE 62–75; RESP 16–24; TEMP 36.5–36.7; O2SAT 78–93
[2021-10-10] MEDS: piperacillin-tazobactam 3.375 GM in sodium chloride 0.9% (plus) 100 ML IV ×2 (03:04→10:31)
[2021-10-10] MEDS: ipratropium-albuterol 3 mL Neb INHALATION ×2 (03:52→08:58)
[2021-10-10] MEDS: pantoprazole 40 mg SDV IVP (04:35)
[2021-10-10] MEDS: dilTIAZem 30 mg Tablet PO ×2 (06:10→12:11)
[2021-10-10 06:24] LABS: Basophils % 0.2 %; Eosinophils # 0.2 10^3/uL (0.0-0.8); Hematocrit 30.4 % (42.0-52.0); Hemoglobin 8.8 g/dL (11.7-16.6); Lymphocytes # 1.5 10^3/uL (0.8-4.8); Lymphocytes % 8.1 %; Mean Corpuscular HGB Conc 28.9 g/dL (30.0-36.0); Mean Corpuscular Hemoglobin 25.3 pg (28.0-34.0); Mean Corpuscular Volume 87.4 fl (80-94); Mean Platelet Volume 9.6 fL (7.4-10.4); Monocytes # 1.2 10^3/uL (0.2-0.9); Monocytes % 6.2 %; Neutrophils # 14.79 10^3/uL (1.8-7.7); Neutrophils % 80.1 %; Nucleated Red Blood Cells % 0 %; Platelet Count 325 10^3/cmm (130-400); Red Blood Count 3.48 10^6/uL (4.1-5.3); Red Cell Distribution Width 18.1 % (12.1-15.1); White Blood Count 18.5 10^3/uL (4.0-10.0)
[2021-10-10] MEDS: tamsulosin 0.4 mg Capsule PO (08:10)
[2021-10-10] MEDS: finasteride 5 mg Tablet PO (08:10)
[2021-10-10] MEDS: FUROsemide 40 mg Tablet PO (08:10)
[2021-10-10] MEDS: atorvastatin 40 mg Tablet PO (08:10)
[2021-10-10] MEDS: aspirin 81 mg EC Tablet PO (08:10)
[2021-10-10] MEDS: sertraline 50 mg Tablet PO (08:11)
[2021-10-10] MEDS: predniSONE 20 mg Tablet 40 MG PO (08:11)
[2021-10-10] MEDS: budesonide 0.5 mg/2 mL Neb INHALATION (08:58)
--- NOTE | 2021-10-10 12:27 | P.DS_ITS ---
Discharge Providers Date of Admission: 10/04/21 11:55 Date of Discharge: October 10, 2021 Attending Provider at Admission: Jerson Chance MD Attending Provider at Discharge: Young Dewey MD Primary Care Provider: Chanelle Anthony MD Diagnoses at Discharge Discharge Diagnosis (1) Acute respiratory failure with hypoxia: Status: Acute (2) Hemoptysis: Status: Acute (3) Anemia: Status: Acute (4) Non-ST elevation SC (NSTEMI): Status: Acute (5) Pneumonia: Status: Acute Qualifiers: Laterality: right Lung location: middle lobe of lung Pneumonia type: due to unspecified organism Qualified Code(s): J18.9 - Pneumonia, unspecified organism (6) COPD (chronic obstructive pulmonary disease): Status: Chronic Qualifiers: COPD type: unspecified COPD Qualified Code(s): J44.9 - Chronic obstructive pulmonary disease, unspecified (7) Dementia: Status: Acute (8) Atrial fibrillation with RVR: Status: Acute Reason for Visit Reason for Visit: COUGHING UP BLOOD/SOB Brief History: History as per HPI: Tremaine Harding is a 85 year old male with past medical history of prostate cancer, CAD, COPD on chronic 5 L oxygen supplementation, recurrent strokes, cognitive impairment with memory loss, hyperlipidemia, peripheral vascular disease, seizure disorder post strokes. He presented to the emergency department with his with concerns of shortness of breath as well as blood in spit.? He had recently seen Dr. Muñoz in the office on October 01, where he had complained of some chest discomfort as well.? Last emergency department visit was September 17, complaining of shortness of breath where he was diagnosed with pneumonia and given Levaquin. I was able to interview the as well.? She was most concerned as he spit up/vomited a significant amount of blood this morning.? She does not really believe that he coughed up, thinking it may have come from his stomach.? She is not completely sure. Hospital Course Hospital Course Patient was admitted to the hospital further evaluation of acute hypoxic respiratory failure along with possible hemoptysis and anemia. He was started on IV diuresis along with PPI treatment. He underwent CT on admission which showed possibility of small pulmonary emboli in the left lung. Given concerns for severe anemia because of history of GI bleed and possible hemoptysis versus hematemesis decision were made after speaking with the family in detail about not to anticoagulate. Patient received multiple blood transfusion(at least 5) during hospitalization. His hemoglobin has been stable for last 48-72 hours. He was also found to have significant pneumonia on CT scan for which she was started on broad-spectrum antibiotics. His blood cultures remain negative. Patient has finished course of antibiotics for 5 days. His hospitalization was complicated by him developing atrial fibrillation for which she was started on Cardizem drip and later transitioned over to oral Cardizem. His heart rate has been well controlled. Because of above reason of severe anemia patient is a poor candidate for anticoagulation. He gradually improved with IV antibiotics and diuresis and has been improving oxygenation gradually. Currently he is saturating more than 91% on oxygen reservoir. He has been discharged in hemodynamically stable condition on oral Augmentin and Levaquin for 3 more days. He is advised to continue taking his diuretic as before. He is advised to follow-up with Dr. Aguilar from pulmonology as an outpatient within next 1 week for possible bronchoscopy to evaluate for recurrent pneumonias. Physical Exam Narrative: General exam is a white male, no acute distress, AOx3 Neck is supple no lymphadenopathy or thyromegaly Cardiovascular regular rate and rhythm without murmur Lungs diminished breath sounds bilaterally right greater than left. No wheezes or crackles Abdomen is soft with positive bowel sounds. No obvious organomegaly Extremities trace edema. No cyanosis or clubbing Skin no rash Neurologic: No focal deficits Urinary Catheter Management: Skinner: Cath Placed During This Visit: yes Reason for Continuing Indwelling Catheter: Acute Urinary Retention or Obstruction Urinary Catheter Date of Insertion: 10/04/21 Urinary Catheter Time of Insertion: 14:39 Discharge Data Studies Completed and Pending Completed Studies During Hospitalization Category Date Time Status CT angio chest PE protcl [id number] Stat Cat Scan 10/04/21 07:36 Completed XR chest 1V portable [id number] Routine Exams 10/06/21 07:00 Completed XR chest 1V portable [id number] Stat Exams 10/04/21 07:36 Completed XR chest 1V portable [id number] Urgent Exams 10/04/21 08:21 [place] [id number] Routine Ultrasound 10/04/21 14:07 Completed Pending at discharge Category Date Time Status CDIFF [Clostridioides Difficile PCR] Routine Lab 10/07/21 08:30 Uncollected Sputum Culture and Gram Stain Routine Lab 10/09/21 18:05 Results Radiology Impressions Chest CTA 10/04/21 07:36 IMPRESSION: 1. Suboptimal opacification of the pulmonary arteries due to breathing motion artifact and artifact from the patient's upper extremities. 2. Highly suspicious for small emboli in the LEFT upper and LEFT lower lobes. 3. Dense area of consolidation in the RIGHT lower lobe and partial RIGHT middle lobe. No enhancement therefore this is probably pneumonia or mass. Recommend bronchoscopy for further evaluation. There is significant central bronchovascular thickening. 4. Very small RIGHT pleural effusion. 5. Cholelithiasis without acute cholecystitis. Venous Duplex 10/04/21 14:07 IMPRESSION: 1. No evidence of deep vein thrombosis. 2. Lo's cyst measuring 6.4 cm in length in the left popliteal fossa. Chest X-Ray 10/06/21 07:00 IMPRESSION: Probable right lower lobe atelectasis versus pneumonia. Microbiology 10/09/21 18:05 Sputum - Expectorated Sputum Gram Stain - Final 10/04/21 09:24 Blood Blood Culture - Final NO GROWTH AFTER 5 DAYS 10/04/21 09:25 Blood Blood Culture - Final NO GROWTH AFTER 5 DAYS 10/07/21 12:45 Urine,Clean Catch Urine Culture - Final 10/05/21 15:00 Stool - Stool Aspirate Occult Blood (FIT) - Final 10/05/21 00:05 Nose MRSA Culture - Final 10/05/21 00:05 Stool - Stool Aspirate Occult Blood (FIT) - Final Laboratory Results WBC 18.5 10^3/uL (4.0-10.0) H 10/10/21 05:26 RBC 3.48 10^6/uL (4.1-5.3) L 10/10/21 05:26 Hgb 8.8 g/dL (11.7-16.6) L 10/10/21 05:26 Hct 30.4 % (42.0-52.0) L 10/10/21 05:26 MCV 87.4 fl (80-94) 10/10/21 05:26 MCH 25.3 pg (28.0-34.0) L 10/10/21 05:26 MCHC 28.9 g/dL (30.0-36.0) L 10/10/21 05:26 RDW 18.1 % (12.1-15.1) H 10/10/21 05:26 Plt Count 325 10^3/cmm (130-400) 10/10/21 05:26 MPV 9.6 fL (7.4-10.4) 10/10/21 05:26 Neut % (Auto) 80.1 % 10/10/21 05:26 Lymph % (Auto) 8.1 % 10/10/21 05:26 [place] % (Auto) 6.2 % 10/10/21 05:26 Eos % (Auto) 1.0 % 10/10/21 05:26 Baso % (Auto) 0.2 % 10/10/21 05:26 Neut # (Auto) 14.79 10^3/uL (1.8-7.7) H 10/10/21 05:26 Lymph # (Auto) 1.5 10^3/uL (0.8-4.8) 10/10/21 05:26 [place] # (Auto) 1.2 10^3/uL (0.2-0.9) H 10/10/21 05:26 Eos # (Auto) 0.2 10^3/uL (0.0-0.8) 10/10/21 05:26 Baso # (Auto) 0.0 10^3/uL (0.0-0.1) 10/10/21 05:26 Nucleated RBC % (auto) 0 % 10/10/21 05:26 Nucleated RBCs # 0.0 /100WBC 10/10/21 05:26 PT 15.40 SECONDS (12.1-14.9) H 10/04/21 09:24 INR 1.18 (0.8-1.2) 10/04/21 09:24 APTT 37.7 SECONDS (23.9-36.7) H 10/04/21 09:24 Specimen Type arterial 10/04/21 07:35 Sample Site brachial,right 10/04/21 07:35 ABG pH 7.44 (7.35-7.45) 10/04/21 07:35 ABG pCO2 53.2 mmHg (35-45) H 10/04/21 07:35 ABG pO2 53.2 mmHg (80.0-100.0) L 10/04/21 07:35 ABG HCO3 36.0 mmol/L (22-26) H 10/04/21 07:35 ABG O2 Saturation 86.8 10/04/21 07:35 ABG Base Excess 10.6 mmol/L (-2.0-2.0) H 10/04/21 07:35 Miguel Angel Test n/a 10/04/21 07:35 A-a O2 Gradient 4.2 mmHg (5-10) L 10/04/21 07:35 Hematocrit 23.1 % (42-52) L 10/04/21 07:35 Hgb O2 Saturation 84.4 % (95-100) L 10/04/21 07:35 Carboxyhemoglobin 1.5 %THgb (0.4-20.1) 10/04/21 07:35 Methemoglobin 1.3 % (0.4-1.5) 10/04/21 07:35 Total Hemoglobin 7.5 g/dL (14-18) L 10/04/21 07:35 Sodium 144.0 mmol/L (131-143) H 10/04/21 07:35 Potassium 4.4 mmol/L (3.5-5.0) 10/04/21 07:35 Glucose 139.0 mg/dL (70-115) H 10/04/21 07:35 Ionized Calcium 1.3 mmol/L (1.1-1.4) 10/04/21 07:35 O2 Delivery Device nc 10/04/21 07:35 O2 Liters/Min 6.0 % 10/04/21 07:35 Manager Critical Care ID [email or web address] 10/04/21 07:35 Sodium 142 mmol/L (136-145) 10/09/21 05:29 Potassium 3.5 mmol/L (3.5-5.1) 10/09/21 05:29 Chloride 102 mmol/L (98-107) 10/09/21 05:29 Carbon Dioxide 34 mmol/L (22-29) H 10/09/21 05:29 Anion Gap 9.5 (5-19) 10/09/21 05:29 BUN 20 mg/dL (8-23) 10/09/21 05:29 Creatinine 0.7 mg/dL (0.7-1.2) 10/09/21 05:29 GFR Calculation Not Reportable 10/09/21 05:29 Glucose 90 mg/dL (65-115) 10/09/21 05:29 Calculated Osmolality 296 mOsm/kg (285-295) H 10/09/21 05:29 Lactic Acid 2.5 mmol/L (0.5-2.2) H 10/04/21 09:24 Lactic Acid (Sepsis) 1.5 mmol/L (0.5-2.2) 10/04/21 12:48 Calcium 9.1 mg/dL (8.5-10.5) 10/09/21 05:29 Magnesium 2.3 mg/dL (1.7-2.3) 10/05/21 03:37 Iron 21 ug/dL (59-158) L 10/04/21 07:53 TIBC 244 mcg/dl 10/04/21 07:53 % Saturation 8.6 % (20-50) L 10/04/21 07:53 Unsat Iron Binding 223 ug/dL (112-347) 10/04/21 07:53 Ferritin 162 ng/mL (30-400) 10/04/21 07:53 Total Bilirubin 0.4 mg/dL (0.15-1.2) 10/09/21 05:29 AST 17 U/L (0-40) 10/09/21 05:29 ALT 25 U/L (0-41) 10/09/21 05:29 Alkaline Phosphatase 67 IU/L (40-130) 10/09/21 05:29 Troponin T Baseline 45 ng/L (0-15) H 10/04/21 07:53 Troponin T 120 Minute 58.45 ng/L (0-15) H 10/04/21 09:24 Delta Troponin T 13.45 ABS# (0-10) H* 10/04/21 09:24 Troponin T Hi Sens 6Hr 59.60 ng/L (0-15) H 10/04/21 14:20 Troponin T Hi Sens 6Hr Delta 14.60 ng/L (0-12) H* 10/04/21 14:20 NT-Pro-B Natriuret Pep 3265 pg/mL (0-450) H 10/04/21 07:53 Total Protein 6.2 g/dL (6.6-8.7) L 10/09/21 05:29 Albumin 2.7 g/dL (3.5-5.2) L 10/09/21 05:29 Globulin 3.5 g/dL (1.3-4.6) 10/09/21 05:29 Urine Color Yellow (Yellow) 10/04/21 12:45 Urine Appearance Hazy (CLEAR) A 10/04/21 12:45 Urine pH 5 (5-7) 10/04/21 12:45 Ur Specific [place] 1.015 (1.005-1.030) 10/04/21 12:45 Urine Protein Trace (Negative) 10/04/21 12:45 Urine Glucose (UA) Norm (Normal) 10/04/21 12:45 Urine Ketones Negative (Negative) 10/04/21 12:45 Urine Blood 3+ (Negative) H 10/04/21 12:45 Urine Nitrate Negative (Negative) 10/04/21 12:45 Urine Bilirubin Neg (Negative) 10/04/21 12:45 Urine Urobilinogen Norm mg/dL (Negative) 10/04/21 12:45 Ur Leukocyte Esterase 1+ (Negative) H 10/04/21 12:45 Urine RBC 80-100 /hpf (0-2) H 10/04/21 12:45 Urine WBC 25-40 /hpf (0-5) H 10/04/21 12:45 Ur Squamous Epith Cells 0-4 /hpf (0-5) H 10/04/21 12:45 Amorphous Sediment Not Reportable 10/04/21 12:45 Urine Bacteria Trace /hpf (NONE) 10/04/21 12:45 Coronavirus 229E (PCR) Not detected (NOT DETECT) 10/04/21 09:24 SARS-CoV-2 (PCR) Not detected (NOT DETECT) 10/04/21 09:24 Blood Type A Positive 10/04/21 07:53 Rho(D) Type Positive 10/04/21 07:53 Antibody Screen Negative 10/04/21 07:53 Crossmatch See Detail 10/04/21 07:53 Vitals Last Vital Signs Temp 98.1 F 10/10/21 08:00 Pulse 64 10/10/21 09:08 Resp 17 10/10/21 08:58 BP 135/61 10/10/21 08:00 Pulse Ox 92 10/10/21 08:58 Discharge Plan Discharge Patient Disposition: Home Condition: Stable Prescriptions: New prednisone 20 mg Tablet 40 mg PO DAILY Qty: 10 0RF aspirin 81 mg Tablet,Delayed Release (Dr/Ec) 81 mg PO DAILY Qty: 30 0RF Augmentin 500-125 mg tablet 1 tab PO BID Qty: 6 0RF levofloxacin 500 mg tablet 500 mg PO Q24H 3 Days Qty: 3 0RF Continued finasteride 5 mg tablet 5 mg PO DAILY 0RF albuterol sulfate 90 mcg/actuation HFA aerosol inhaler 2 puff INHALATION Q6H PRN (Reason: Shortness Of Breath) 0RF polyethylene glycol 3350 [Miralax] 17 gram/dose powder 17 gm PO DAILY PRN (Reason: Constipation) 0RF Calcium 600 with Vitamin D3 600 mg(1,500mg) -400 unit tablet,chewable 1 tab PO DAILY 0RF omega-3 fatty acids [Fish Oil Concentrate] 1,000 mg capsule 1,000 mg PO DAILY 0RF vitamin B complex [B Complex-Vitamin B12] Tablet 1 tab PO DAILY 0RF vitamin E (dl, acetate) 400 unit capsule 400 unit PO DAILY 0RF ferrous sulfate 325 mg (65 mg iron) tablet 325 mg PO BID 0RF magnesium 200 mg tablet 400 mg PO DAILY 0RF potassium chloride 20 mEq tablet,ER particles/crystals 20 meq PO DAILY Qty: 90 3RF prednisone 10 mg tablet 20 mg PO DAILY PRN (Reason: lung issues) 0RF atorvastatin 80 mg tablet 40 mg PO DAILY 0RF sertraline 100 mg tablet 50 mg PO DAILY 0RF Rx Instructions: HALF TABLET MORNING tamsulosin 0.4 mg capsule 0.4 mg PO DAILY 0RF fluticasone propionate 100 mcg/actuation Blister With Device 1 inh INHALATION BID 0RF docusate sodium 100 mg Capsule 100 mg PO BID 0RF pyridoxine (vitamin B6) 100 mg Tablet 100 mg PO DAILY 0RF fluticasone propionate 50 mcg/actuation spray,suspension 1 spray INTRANASAL DAILY 0RF Rx Instructions: 1 SPRAY IN EACH NOSTRIL Multi M Vitamin Tablet 1 tab PO DAILY 0RF cholecalciferol (vitamin D3) 25 mcg (1,000 unit) Tablet 25 mcg PO DAILY 0RF tiotropium bromide 2.5 mcg/actuation Mist 2 inh INHALATION QAM 0RF PreserVision AREDS 7,160 unit- 113 mg-100 unit Tablet 2 tab PO BID 0RF Rx Instructions: administer with AM and PM meals Changed furosemide 40 mg tablet 60 mg PO DAILY Qty: 90 3RF omeprazole 40 mg capsule,delayed release(DR/EC) 40 mg PO BID Qty: 0 0RF Discontinued aspirin 325 mg Tablet 325 mg PO DAILY 0RF Discharge Orders: Discharge Order (Routine); Ordered 10/10/21 Ordered By: Young Dewey [place] [facility] [place] [Outside] Chanelle Anthony MD [Primary Care Provider] - 7-10 days Javon Aguilar MD [Physician] - 4-7 days Discharge Activity: Resume usual activity and Increase activity as tolerated Patient Instructions: Opioid Safety Activity Restrictions/Additional Instructions: Dysphagia level 2 diet. Please take Augmentin Levaquin which are the antibiotics for next 3 days. Dose of Lasix has been increased to 60 mg daily. Please follow-up with Dr. Aguilar as an outpatient for possible bronchoscopy. Please follow-up with your primary care provider within next 1 week for repeat CBC. Dose of methenamine changed from 325 mg to 81 mg daily. Discharge Attestations Time Spent in Discharge Care*: greater than 30 min Specific Discharge Activities: educating patient, educating and/or supporting family/caregiver, discussing with pcp/other providers, discussing with continuous pillowcase cutter/social workers/dc planners, documenting/other paperwork and evaluating patient/reviewing data Status at Discharge: Cognitive status at discharge: cognitively intact , Behavioral status at discharge: cooperative , Functional status at discharge: other assisted ambulation , Overall status at discharge: patient is back to baseline Quality Metrics Clinical Quality Measures [ Venous Thromboembolism { Contraindication to Overlap Therapy: Medical contraindication; VTE Discharge Education: Education about anticoagulant therapy/Care Notes given; Deep Vein Thrombosis/Pulmonary Embolism Present on Admission: No;}] Coding Level of Care Code Acute g [facility] note Diagnoses Acute respiratory failure with hypoxia J96.01 Hemoptysis R04.2 Anemia D64.9 Non-ST elevation SC (NSTEMI) I21.4 Pneumonia J18.9 Laterality: right Lung location: middle lobe of lung Pneumonia type: due to unspecified organism COPD (chronic obstructive pulmonary disease) J44.9 COPD type: unspecified COPD Dementia F03.90 Atrial fibrillation with RVR I48.91
--- NOTE | 2021-10-10 14:59 | PC.NURSE ---
Discharge teaching and education given to patient and , all questions were answered at this time. Vitals stable. Home O2 eval done. Medications sent to patients preferred pharmacy. Belongings accounted for.
== END 2021-10-10 15:02 | disposition home health service (06) | DRG 189 ==
LOC: ER 07:39 → ICU 13:35 → MEDSURG 10-07 16:15
PROVIDERS: Internal Medicine; Admitting Provider Internal Medicine; Emergency Provider Family Medicine; PCP Family Medicine; Visit Provider Student in an Organized Health Care Education/Training Program
DX: J96.01 Acute respiratory failure with hypoxia (principal); J18.9 Pneumonia, unspecified organism; I26.99 Other pulmonary embolism without acute cor pulmonale; I50.31 Acute diastolic (congestive) heart failure; R04.2 Hemoptysis; J44.9 Chronic obstructive pulmonary disease, unspecified; I48.91 Unspecified atrial fibrillation; D64.9 Anemia, unspecified; F03.90 Unspecified dementia, unspecified severity, without behavioral disturbance, psychotic disturbance, mood disturbance, and anxiety; Z87.891 Personal history of nicotine dependence; K80.20 Calculus of gallbladder without cholecystitis without obstruction; Z85.46 Personal history of malignant neoplasm of prostate; E78.5 Hyperlipidemia, unspecified
CPT/HCPCS: 36415; 36430; 36600; 51702; 71045; 71275; 80048; 80051; 80053; 81001; 82274; 82330; 82728; 82805; 83540; 83550; 83605; 83735; 83880; 84443; 84484; 85014; 85018; 85025; 85610; 85730; 86850; 86900; 86920; 87040; 87070; 87086; 87205; 87635; 87641; 92507; 92526; 92610; 93005; 93970; 94640; 94660; 96365; 96367; 96375; 97110; 97116; 97161; 97530; 99214; 99291; C9113; J1940; J1956; J2060; J2543; J2920; J3370; J3480; J3490; J7040; J7050; J7512; J7626; P9016; Q9967

== ENCOUNTER → 2021-10-22 14:50 | Outpatient (BNVA) | payer OTHER, MEDICARE, SELFPAY | PROVIDERS: PCP Family Medicine; Visit Provider Internal Medicine Critical Care Medicine | DX: Z09 Encounter for follow-up examination after completed treatment for conditions other than malignant neoplasm (principal); R04.2 Hemoptysis; J96.11 Chronic respiratory failure with hypoxia; J43.9 Emphysema, unspecified; I26.99 Other pulmonary embolism without acute cor pulmonale; Z87.891 Personal history of nicotine dependence; I10 Essential (primary) hypertension; E78.5 Hyperlipidemia, unspecified | CPT/HCPCS: 99214 ==

== ENCOUNTER 2021-10-23 15:20 | Inpatient (IN) | payer OTHER, MEDICARE, SELFPAY ==
[2021-10-23] VITALS (13 sets, daily range): BP systolic 101–161; BP diastolic 34–105; PULSE 77–99; RESP 15–23; TEMP 36.6–37; O2SAT 80–99; BMI 27.9
--- NOTE | 2021-10-23 16:31 | W.ED.AMS ---
HPI - Altered Mental Status General: Chief Complaint: Altered Mental Status Stated Complaint: Confusion, Low BP Time Seen by Provider: 10/23/21 16:31 Limitations: altered mental status History of Present Illness: Mr. Harding is an 86-year-old gentleman with complex past medical history including recurrent pneumonia, chest pain, atrial fibrillation, pulmonary embolism presenting to the emergency department due to altered mental status. History is entirely provided by as the patient does not provide any meaningful history. Onset of symptoms was acute approximately 6 days ago involving confusion, increased falls, and apparently increased chest pain that the patient has not verbalize such. Course started definitely noticeable however has not significantly worsened. Intensity is severe. No history of similar. No other specific changes in health, exacerbating, or alleviating factors identified. 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 Hines and Masood PVD (peripheral vascular disease) Recurrent falls Seizure Sleep apnea Not chronically using CPAP anymore SOB (shortness of breath) Urgency incontinence Surgical History H/O wrist surgery right History of cataract surgery History of endarterectomy History of femoropopliteal bypass History of PTCA Hx of coronary artery bypass graft (~2011) Hx of removal of cyst Hx of rotator cuff surgery Family History Father , at age 60 Cirrhosis of liver Mother , at age 106 No problems noted. Family/Other Diabetes Hypertension Brother Dementia two brothers CAD (coronary artery disease) stent at 78 Cancer Brother Cancer Denies family history of Clotting disorder Chronic kidney disease (CKD) Suicide Anesthesia complication Bleeding disorder Lung disease Stroke Social History Smoking and tobacco status: former smoker Quit status (tobacco): has quit using tobacco Year quit tobacco: 1998 Former quit date comment: 1 ppd X 45 years Alcohol intake: current Alcohol intake frequency: holidays/special occasions only Adopted: No Lives independently: No Household members: spouse Marital status: Current occupational status: retired Current gender identity: Male Physical Exam Const: COMMON NORMALS: alert GENERAL APPEARANCE: disheveled and ill appearing HENMT: COMMON NORMALS: normocephalic and atraumatic HEAD & SCALP: normocephalic and atraumatic Eye: COMMON NORMALS: conjunctivae normal CONJUNCTIVA: Yes conjunctivae normal SCLERA: sclerae normal Neck/C-Spine: COMMON NORMALS: supple GENERAL: Yes trachea midline Resp: EFFORT & INSPECTION: Yes tachypneic AUSCULTATION: rhonchi and diminished lung sounds Cardio: COMMON NORMALS: regular rate and regular rhythm RATE: regular rate RHYTHM: regular rhythm GI: COMMON NORMALS: Soft to palpation PALPATION: Yes Soft to palpation, Yes Tenderness to palpation present (GI), No Guarding due to palpation present (GI) and No Rigid due to palpation Extremity: GENERAL: Yes normal exam except as noted and No edema Neuro: COMMON NORMALS: moves all extremities SENSORIUM/ORIENTATION: Yes alert and Yes Orientation impaired Psych: MEMORY/COGNITION: Yes memory grossly impaired and Yes cognition grossly impaired Procedures Lumbar Puncture Time Out Performed: Yes Patient Position: left lateral decubitus Skin Prep: Povidone-Iodine 1% Local Anesthetic: lidocaine 1% Amount of anesthesia used (mL): 5 Spinal Needle Gauge: 20G Interspace Used: L4-L5 Complications: unable to obtain CSF Course ED course: - Patient was seen and evaluated by me at bedside - Patient placed on cardiac monitors, IV access obtained - Initial evaluation notable for exam as above, significantly altered mental status - Labs and xrays personally interpreted by me. EKGs reviewed showing sinus rhythm, no STEMI -Fluids and empiric antibiotics given - Labs notable for leukocytosis though it appears chronic leukocytosis 6 years. Near baseline normocytic anemia. Metabolic panel with mild dehydration though no clear cause of patient's symptoms. 2-hour delta troponin is 8, CRP elevated. Mild hypercapnia on ABG though nowhere near high enough to explain patient's mental status changes. - Given severity of symptoms including initial exam imaging is warranted. Imaging notable for no acute abnormality identified on CT scan to explain symptoms, only possible consideration would be right lower lobe infiltrate though I am not convinced given symptoms that this is the cause - Upon serial reexamination after treatment the patient was similar - Given symptoms without obvious cause I obtained informed consent from for lumbar puncture. Attempted LP however was unsuccessful. We will plan to add empiric coverage for meningitis - Based on patient history, evaluation, and testing as interpreted the most likely cause of the patient's condition is altered mental status - The results of ED evaluation were discussed with the patient including plan for admission due to requirement for level of care not available if discharged to prevent significant worsening/deterioration. - Admitting service was contacted and Dr Gutierres with the hospitalist service agreed to admit the patient - Patient was admitted without further deterioration or significant events. Note: Click bubbles or prepopulated valentin in note writing are used for assistance with data collection and billing and are inherently more limited than narrative and other text portions of this note. Please use narrative for additional clinical history and defer to narrative/free test for any case of contradictory information. If information appears in only free text or click bubble it should be considered present or absent as reported. Please contact note loan underwriter for clarifications of clinical information or contradictory information. MDM is a brief summary, contradictory or erroneous seeming information should be clarified and full note should be reviewed. Vital Signs: Vital signs: Vital Signs Temperature 97.7 F 10/25/21 15:53 Pulse Rate 68 10/25/21 15:53 Respiratory Rate 18 10/25/21 15:53 Blood Pressure 118/55 10/25/21 15:53 Pulse Oximetry 97 10/25/21 15:53 MDM - Altered Mental Status Medical Decision Making 86-year-old gentleman with complex past medical history presenting with progressive altered mental status. No clear cause identified on ED evaluation, possible pneumonia though the severity of symptoms do not seem consistent with this as an obvious cause. Attempted LP without success. Empirically covered for broad-spectrum antibiotics as well as meningitis. Admitted for further evaluation and management. Medical Records I reviewed the patient's medical records. Lab Data I reviewed the patient's lab results. : 10/24/21 00:37 10/24/21 02:52 Radiology Impressions Cervical Spine CT 10/23/21 17:35 IMPRESSION: No acute cervical spine injury. Head CT 10/23/21 17:35 IMPRESSION: Negative for acute intracranial abnormality. Chest/Abdomen/Pelvis CT 10/23/21 18:16 IMPRESSION: 1. Right pleural effusion. 2. Right lower lobe atelectasis or alternatively difficult to exclude bronchopneumonia. IMPRESSION: 1. Negative for acute abdominopelvic pathology. 2. Age indeterminate L3 vertebral compression fracture which is new since 09/22/2020. COMMENTS: Consistent with the [employer]'s Incidental Findings Committee white paper (J Am Vivi Radiol 2018): Any incidental renal lesion less than 1 cm or classified as too small to characterize, or any incidental cystic renal lesion characterized as simple-appearing, is likely benign. No follow-up imaging is recommended for these lesions per consensus recommendations based on imaging criteria. Laboratory Results WBC 22.8 10^3/uL (4.0-10.0) H 10/23/21 17:20 RBC 3.49 10^6/uL (4.1-5.3) L 10/23/21 17:20 Hgb 8.8 g/dL (11.7-16.6) L 10/23/21 17:20 Hct 30.2 % (42.0-52.0) L 10/23/21 17:20 MCV 86.5 fl (80-94) 10/23/21 17:20 MCH 25.2 pg (28.0-34.0) L 10/23/21 17:20 MCHC 29.1 g/dL (30.0-36.0) L 10/23/21 17:20 RDW 18.7 % (12.1-15.1) H 10/23/21 17:20 Plt Count 243 10^3/cmm (130-400) 10/23/21 17:20 MPV 10.3 fL (7.4-10.4) 10/23/21 17:20 Neut % (Auto) 82.4 % 10/23/21 17:20 Lymph % (Auto) 6.9 % 10/23/21 17:20 [place] % (Auto) 7.8 % 10/23/21 17:20 Eos % (Auto) 0.1 % 10/23/21 17:20 Baso % (Auto) 0.3 % 10/23/21 17:20 Neut # (Auto) 18.79 10^3/uL (1.8-7.7) H 10/23/21 17:20 Lymph # (Auto) 1.6 10^3/uL (0.8-4.8) 10/23/21 17:20 [place] # (Auto) 1.8 10^3/uL (0.2-0.9) H 10/23/21 17:20 Eos # (Auto) 0.0 10^3/uL (0.0-0.8) 10/23/21 17:20 Baso # (Auto) 0.1 10^3/uL (0.0-0.1) 10/23/21 17:20 Nucleated RBC % (auto) 0 % 10/23/21 17:20 Nucleated RBCs # 0.0 /100WBC 10/23/21 17:20 PT 14.70 SECONDS (12.1-14.9) 10/23/21 20:43 INR 1.12 (0.8-1.2) 10/23/21 20:43 APTT 36.9 SECONDS (23.9-36.7) H 10/23/21 20:43 Specimen Type Arterial 10/23/21 16:46 ABG pH 7.52 (7.35-7.45) H 10/23/21 16:46 ABG pCO2 48.6 mmHg (35-45) H 10/23/21 16:46 ABG pO2 57.6 mmHg (80.0-100.0) L 10/23/21 16:46 ABG HCO3 39.2 mmol/L (22-26) H 10/23/21 16:46 ABG Base Excess 14.6 mmol/L (-2.0-2.0) H 10/23/21 16:46 Miguel Angel Test N/a 10/23/21 16:46 Hematocrit 28.4 % (42-52) L 10/23/21 16:46 O2 Delivery Device Nc 10/23/21 16:46 O2 Liters/Min 2.0 % 10/23/21 16:46 Customer Supply Coordinator ID Marcelo 10/23/21 16:46 Sodium 135 mmol/L (136-145) L 10/23/21 17:20 Potassium 4.3 mmol/L (3.5-5.1) 10/23/21 17:20 Chloride 90 mmol/L (98-107) L 10/23/21 17:20 Carbon Dioxide 29 mmol/L (22-29) 10/23/21 17:20 Anion Gap 20.3 (5-19) H 10/23/21 17:20 BUN 20 mg/dL (8-23) 10/23/21 17:20 Creatinine 0.8 mg/dL (0.7-1.2) 10/23/21 17:20 GFR Calculation Not Reportable 10/23/21 17:20 Glucose 108 mg/dL (65-115) 10/23/21 17:20 POC Glucose 128 mg/dL (70-110) H 10/23/21 17:05 Calculated Osmolality 283 mOsm/kg (285-295) L 10/23/21 17:20 Lactic Acid 1.2 mmol/L (0.5-2.2) 10/23/21 20:10 Calcium 8.3 mg/dL (8.5-10.5) L 10/23/21 17:20 Magnesium 2.2 mg/dL (1.7-2.3) 10/23/21 17:20 Total Bilirubin 0.4 mg/dL (0.15-1.2) 10/23/21 17:20 AST 41 U/L (0-40) H 10/23/21 17:20 ALT 21 U/L (0-41) 10/23/21 17:20 Alkaline Phosphatase 79 IU/L (40-130) 10/23/21 17:20 Ammonia 44 umol/L (16-60) 10/23/21 17:20 Creatine Kinase 43 U/L (39-308) 10/23/21 17:20 Troponin T Baseline 35 ng/L (0-15) H 10/23/21 17:20 Troponin T 120 Minute 43.00 ng/L (0-15) H 10/23/21 20:10 Delta Troponin T 8.00 ABS# (0-10) 10/23/21 20:10 C-Reactive Protein 65.5 mg/L (0.0-4.9) H 10/23/21 17:20 NT-Pro-B Natriuret Pep 3871 pg/mL (0-450) H 10/23/21 17:20 Total Protein 6.7 g/dL (6.6-8.7) 10/23/21 17:20 Albumin 3.2 g/dL (3.5-5.2) L 10/23/21 17:20 Globulin 3.5 g/dL (1.3-4.6) 10/23/21 17:20 Vitamin B12 > 2000 pg/mL (232-1245) H 10/23/21 20:10 Procalcitonin 0.13 ng/mL (0-0.5) 10/23/21 17:20 TSH 2.30 uIU/mL (0.27-4.20) 10/23/21 17:20 Prolactin 13.25 ng/mL (4.0-15.2) 10/23/21 02:52 Urine Color Straw (Yellow) 10/23/21 17:45 Urine Appearance Clear (CLEAR) 10/23/21 17:45 Urine pH 7 (5-7) 10/23/21 17:45 Ur Specific [place] 1.005 (1.005-1.030) 10/23/21 17:45 Urine Protein Neg (Negative) 10/23/21 17:45 Urine Glucose (UA) Norm (Normal) 10/23/21 17:45 Urine Ketones Negative (Negative) 10/23/21 17:45 Urine Blood Neg (Negative) 10/23/21 17:45 Urine Nitrate Negative (Negative) 10/23/21 17:45 Urine Bilirubin Neg (Negative) 10/23/21 17:45 Urine Urobilinogen Norm mg/dL (Negative) 10/23/21 17:45 Ur Leukocyte Esterase Negative (Negative) 10/23/21 17:45 Influenza Type A Ag Negative (Negative) 10/23/21 18:40 Influenza Type B Ag Negative (Negative) 10/23/21 18:40 Critical Care Time Critical Care Time: Critical Care Time: Yes Total Critical Care Time: 60 Attestation: Due to a high probability of clinically significant, possibly life threatening deterioration, the patient required my highest level of attention and preparedness to intervene emergently and I personally spent this critical care time directly and personally managing the patient. This critical care time included obtaining a history; examining the patient; pulse oximetry; ordering and review of laboratory and imaging studies; arranging urgent treatment with development of a management plan; evaluation of patient's response to treatment; frequent reassessment; and, discussions with other providers as applicable. It was exclusive of separately billable procedures. Primary system involved is neuro Discharge Plan Discharge Patient Disposition: Admitted As Inpatient Admit Provider: Ting Gutierres Clinical Impression: Altered mental status, Pneumonia, Suspected infectious meningitis Condition: Stable Coding Level of Care Code ED Wool Sorter for Chg Fwd Exam Comprehensive
--- NOTE | 2021-10-23 16:40 | ECG_ITS ---
[facility] Test Date: 2021-10-23 Pat Name: Tremaine Harding Department: Room: Gender: Male Cleater: : 1935 Requested By: Biju Paz Order Number: [id number] Omayra MD: Eliezer De Los Santos M.D. Measurements Intervals [place] Rate: 90 P: 64 MS: 157 QRS: 94 QRSD: 90 T: 76 QT: 343 QTc: 422 Interpretive Statements SINUS RHYTHM BORDERLINE RIGHT AXIS DEVIATION [QRS AXIS > 90] Compared to ECG 10/06/2021 17:07:27 Atrial fibrillation no longer present Electronically Signed On 10-23-2021 20:46:54 CDT by Eliezer De Los Santos M.D. [id number]
[2021-10-23 16:56] LABS: ABG PCO2 48.6 mmHg (35-45); ABG PH Result 7.52 (7.35-7.45); Arterial Blood Gas Hematocrit 28.4 % (42-52); Base Excess ABG 14.6 mmol/L (-2.0-2.0); Blood Gas Sample Type Arterial; HCO3 ABG 39.2 mmol/L (22-26); Oxygen Device NC; PO2 ABG 57.6 mmHg (80.0-100.0)
--- NOTE | 2021-10-23 17:35 | CTR_ITS ---
PROCEDURE INFORMATION: Exam: CT Cervical Spine Without Contrast Exam date and time: 10/23/2021 6:03 PM Age: 86 years old Clinical indication: Injury or trauma; Fall; Blunt trauma; Additional info: AMS, falls TECHNIQUE: Imaging protocol: Computed tomography images of the cervical spine without contrast. Radiation optimization: All CT scans at this facility use at least one of these dose optimization techniques: automated exposure control; mA and/or kV adjustment per patient size (includes targeted exams where dose is matched to clinical indication); or iterative reconstruction. COMPARISON: AK bone scan whole body* [id number] 09/22/2020 8:30 AM RADIATION DOSE METRICS: Total DLP (mGy-cm): 652.5 FINDINGS: Vertebrae: No acute fracture. Normal alignment. The cervical spine demonstrates marked degenerative changes at multiple levels. Soft tissues: Unremarkable. Mastoid air cells: Minimal right inferior mastoid air cell effusions. Left mastoid air cells are clear. Vasculature: Carotid artery calcified atherosclerotic plaques. Lungs: Severe emphysematous lung changes. Other findings: There is moderate cerebral atrophy. CT/CT cervical spin wo con* [id number] IMPRESSION: No acute cervical spine injury.
--- NOTE | 2021-10-23 17:35 | CTR_ITS ---
PROCEDURE INFORMATION: Exam: CT Head Without Contrast Exam date and time: 10/23/2021 5:58 PM Age: 86 years old Clinical indication: Injury or trauma; Fall; Blunt trauma (contusions or hematomas); Prior surgery; Surgery date: 6+ months; Additional info: AMS, falls TECHNIQUE: Imaging protocol: Computed tomography of the head without contrast. Radiation optimization: All CT scans at this facility use at least one of these dose optimization techniques: automated exposure control; mA and/or kV adjustment per patient size (includes targeted exams where dose is matched to clinical indication); or iterative reconstruction. COMPARISON: CT head wo con* [id number] 08/08/2021 3:09 PM RADIATION DOSE METRICS: Total DLP (mGy-cm): 936.9 FINDINGS: Brain: There is moderate cerebral atrophy. There is moderate diffuse heterogeneity of the white matter attenuation, consistent with chronic white matter ischemic changes. Negative for intracranial hemorrhage. Left frontal lobe encephalomalacia and gliosis. No mass effect on the brain. No midline shift of the brain. No acute cerebral sulcal effacement. Cerebral ventricles: No ventriculomegaly. Paranasal sinuses: Visualized sinuses are unremarkable. No fluid levels. Mastoid air cells: Visualized mastoid air cells are well aerated. Orbital cavities: Symmetric orbits. Lens replacements. Vasculature: Scattered intracranial atherosclerotic plaques. Bones/joints: Left temporal craniotomy with stable appearance. Soft tissues: Unremarkable. CT/CT head wo con* [id number] IMPRESSION: Negative for acute intracranial abnormality.
[2021-10-23 17:37] LABS: Glucose Point of Care 128 mg/dL (70-110)
--- NOTE | 2021-10-23 17:39 | PC.PHAR ---
PT FAMILY STATES HE IS NO LONGER TAKING ATORVASTATIN BECAUSE IT LOWERS HIS BLOOD PRESSURE PT FAMILY STATES HE CANNOT TAKE ANYTHING THAT WILL LOWER HIS BLOOD PRESSURE BUT STATES HE IS TAKING LASIX 60 MG ONCE DAILY.
[2021-10-23 17:43] LABS: Basophils # 0.1 10^3/uL (0.0-0.1); Basophils % 0.3 %; Eosinophils % 0.1 %; Hematocrit 30.2 % (42.0-52.0); Hemoglobin 8.8 g/dL (11.7-16.6); Lymphocytes # 1.6 10^3/uL (0.8-4.8); Lymphocytes % 6.9 %; Mean Corpuscular HGB Conc 29.1 g/dL (30.0-36.0); Mean Corpuscular Hemoglobin 25.2 pg (28.0-34.0); Mean Corpuscular Volume 86.5 fl (80-94); Mean Platelet Volume 10.3 fL (7.4-10.4); Monocytes # 1.8 10^3/uL (0.2-0.9); Monocytes % 7.8 %; Neutrophils # 18.79 10^3/uL (1.8-7.7); Neutrophils % 82.4 %; Nucleated Red Blood Cells % 0 %; Platelet Count 243 10^3/cmm (130-400); Red Blood Count 3.49 10^6/uL (4.1-5.3); Red Cell Distribution Width 18.7 % (12.1-15.1); White Blood Count 22.8 10^3/uL (4.0-10.0)
[2021-10-23 17:52] LABS: Add Urine Microscopic? NO; Charge for UA Resulting for Rev
[2021-10-23] MEDS: piperacillin-tazobactam 4.5 GM in sodium chloride 0.9% (plus) 50 ML IV (18:12)
[2021-10-23 18:15] LABS: NT Pro B Type Natriuretic Pept 3871 pg/mL (0-450); Procalcitonin 0.13 ng/mL (0-0.5)
--- NOTE | 2021-10-23 18:16 | CTR_ITS ---
PROCEDURE INFORMATION: Exam: CT Chest With Contrast; Diagnostic Exam date and time: 10/23/2021 8:59 PM Age: 86 years old Clinical indication: Abdominal tenderness; Angina; Additional info: Sepsis, AMS, falls TECHNIQUE: Imaging protocol: Diagnostic computed tomography of the chest with contrast. Radiation optimization: All CT scans at this facility use at least one of these dose optimization techniques: automated exposure control; mA and/or kV adjustment per patient size (includes targeted exams where dose is matched to clinical indication); or iterative reconstruction. Contrast material: OMNI 350; Contrast volume: 95 ml; Contrast route: INTRAVENOUS (IV); COMPARISON: 1. CT angio chest PE protcl [id number] 10/04/2021 10:[address] abdomen pelvis wo/w [id number] 09/22/2020 9:54 AM RADIATION DOSE METRICS: Total DLP (mGy-cm): 1212.58 FINDINGS: Thyroid: Symmetric thyroid lobes. Lungs: Severe emphysematous lung changes. Right lower lobe airspace opacification with mild volume loss. No obstructing central airway lesion. Pleural spaces: Small right pleural effusion. Heart: Previous CABG. Multichamber cardiac dilation. Negative for pericardial effusion. Mediastinal space: Unremarkable thoracic esophagus. Lymph nodes: Unremarkable. No enlarged lymph nodes. Vasculature: Scattered thoracic aortic calcified plaques. No aneurysm. No dissection. Bones/joints: The thoracic spine demonstrates moderate degenerative changes at multiple levels. Left lateral rib fractures with bone callus. Soft tissues: Unremarkable chest wall soft tissues. PROCEDURE INFORMATION: Exam: CT Abdomen And Pelvis With Contrast Exam date and time: 10/23/2021 8:59 PM Age: 86 years old Clinical indication: Abdominal tenderness; Angina; Additional info: Sepsis, AMS, falls TECHNIQUE: Imaging protocol: Computed tomography of the abdomen and pelvis with contrast. Radiation optimization: All CT scans at this facility use at least one of these dose optimization techniques: automated exposure control; mA and/or kV adjustment per patient size (includes targeted exams where dose is matched to clinical indication); or iterative reconstruction. Contrast material: OMNI 350; Contrast volume: 95 ml; Contrast route: INTRAVENOUS (IV); COMPARISON: 1. CT angio chest PE protcl [id number] 10/04/2021 10:[address] abdomen pelvis wo/w [id number] 09/22/2020 9:54 AM RADIATION DOSE METRICS: Total DLP (mGy-cm): 1212.58 FINDINGS: Liver: Normal. No mass. Gallbladder and bile ducts: Cholelithiasis. No inflammatory gallbladder wall thickening. Negative for biliary system dilation. Pancreas: Normal. No ductal dilation. Spleen: Normal. No splenomegaly. Adrenal glands: Normal. No mass. Kidneys and ureters: Nonobstructing kidney upper pole stone. Several small simple left renal sinus cysts. Negative for hydronephrosis. Stomach and bowel: Unremarkable. No obstruction. No mucosal thickening. Appendix: No evidence of appendicitis. Intraperitoneal space: Unremarkable. No free air. No significant fluid collection. Vasculature: Diffuse abdominal aorta atherosclerosis without aneurysm. Lymph nodes: Unremarkable. No enlarged lymph nodes. Urinary bladder: Unremarkable as visualized. Reproductive: Unremarkable as visualized. Bones/joints: Severe age indeterminate vertebral compression fracture of L3. Greater than 50% height loss centrally. No retropulsion of bone fragments. Unremarkable osseous alignment.The lumbar spine demonstrates moderate discogenic and apophyseal joint degenerative changes at multiple levels. Soft tissues: Unremarkable lumbar paraspinal soft tissues. CT/CT chest abd pel w con* IMPRESSION: 1. Right pleural effusion. 2. Right lower lobe atelectasis or alternatively difficult to exclude bronchopneumonia. IMPRESSION: 1. Negative for acute abdominopelvic pathology. 2. Age indeterminate L3 vertebral compression fracture which is new since 09/22/2020. COMMENTS: Consistent with the [employer] [employer]'s Incidental Findings Committee white paper (J Am Vivi Radiol 2018): Any incidental renal lesion less than 1 cm or classified as too small to characterize, or any incidental cystic renal lesion characterized as simple-appearing, is likely benign. No follow-up imaging is recommended for these lesions per consensus recommendations based on imaging criteria.
[2021-10-23 18:17] LABS: Bilirubin Urine Neg (Negative); Blood Urine Neg (Negative); Glucose Urine UA Norm (Normal); Ketones Urine Negative (Negative); Leukocyte Esterase Urine Negative (Negative); Nitrate Urine Negative (Negative); Protein Urine Neg (Negative); Specific Gravity, Urine 1.005 (1.005-1.030); Urine Appearance Clear (CLEAR); Urine Color Straw (Yellow); Urobilinogen Urine Norm (Negative); pH Urine 7 (5-7)
[2021-10-23 18:27] LABS: Albumin Level 3.2 g/dL (3.5-5.2); Alkaline Phosphatase 79 IU/L (40-130); Blood Urea Nitrogen 20 mg/dL (8-23); C Reactive Protein 65.5 mg/L (0.0-4.9); Calcium 8.3 mg/dL (8.5-10.5); Carbon Dioxide 29 mmol/L (22-29); Chloride 90 mmol/L (98-107); Globulin 3.5 g/dL (1.3-4.6); Glucose 108 mg/dL (65-115); Magnesium 2.2 mg/dL (1.7-2.3); Osmolality Calculated 283 mOsm/kg (285-295); Sodium 135 mmol/L (136-145); Total Bilirubin 0.4 mg/dL (0.15-1.2); Total Protein 6.7 g/dL (6.6-8.7)
[2021-10-23 18:29] LABS: Alanine Aminotransferase 21 U/L (0-41); Anion Gap 20.3 (5-19); Aspartate Amino Transferase 41 U/L (0-40); Creatine Phosphokinase 43 U/L (39-308); Potassium 4.3 mmol/L (3.5-5.1)
[2021-10-23 18:30] LABS: Troponin(5th) Baseline 35 ng/L (0-15)
[2021-10-23 18:35] LABS: Ammonia 44 umol/L (16-60)
--- NOTE | 2021-10-23 18:40 | ECG_ITS ---
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 Measurements Intervals [place] Rate: 81 P: 55 NE: 138 QRS: 91 QRSD: 102 T: 69 QT: 370 QTc: 432 Interpretive Statements SINUS RHYTHM BORDERLINE RIGHT AXIS DEVIATION [QRS AXIS > 90] Compared to ECG 10/23/2021 17:40:51 No significant changes Electronically Signed On 10-23-2021 20:53:29 CDT by Eliezer De Los Santos M.D. [id number]
[2021-10-23] MEDS: vancomycin 1,500 MG/300 ML PIGGYBACK 200 MG IV (18:54)
[2021-10-23 19:49] LABS: Influenza A by IFA Negative (Negative); Influenza B by IFA Negative (Negative)
[2021-10-23 20:50] LABS: Lactic Sepsis W/Reflex 1.2 mmol/L (0.5-2.2)
[2021-10-23 21:00] LABS: INR 1.12 (0.8-1.2)
[2021-10-23 21:01] LABS: Partial Thromboplastin Time 36.9 SECONDS (23.9-36.7)
[2021-10-23] MEDS: iohexol 350 mg/mL 100 mL Btl IV (21:04)
[2021-10-23] MEDS: ampicillin 2,000 MG in sodium chloride 0.9% (plus) 50 ML 100 MG IV (22:23)
--- NOTE | 2021-10-23 22:40 | ECG_ITS ---
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 Measurements Intervals [place] Rate: 81 P: 82 MA: 145 QRS: 89 QRSD: 108 T: 69 QT: 387 QTc: 451 Interpretive Statements SINUS RHYTHM WITH OCCASIONAL VENTRICULAR PREMATURE COMPLEXES WITH OCCASIONAL SUPRAVENTRICULAR PREMATURE COMPLEXES Compared to ECG 10/23/2021 19:44:16 Ventricular premature complex(es) now present Electronically Signed On 10-24-2021 20:23:24 CDT by Manuela Jones M.D. [id number]
--- NOTE | 2021-10-23 22:42 | PM.HP ---
Providers/Chief Complaint Primary Care Provider: Chanelle Anthony MD Chief Complaint: Confusion, Low BP, Chest Pains History of Present Illness Tremaine Harding is a 86 year old male who carries history of significant dementia, prostate cancer, status post androgen deprivation therapy, bilateral centrilobular emphysema, was recently discharged from the hospital in September after evaluation of hypoxia, hemoptysis and anemia, he was diagnosed with A. fib as well, not an ideal candidate for anticoagulating agent, he was referred to Dr. Aguilar for bronchoscopic evaluation for hemoptysis and recurrent obstructive pneumonia, he is currently being managed conservatively, he has been having confusion spells quite often, dependent on his , uses 2-2.5 L of oxygen at baseline, presented for worsening of confusion. On my evaluation patient is stating that he came to the hospital for evaluation of recurrent falls. He is denying chest pain, fever, nausea, vomiting dysuria. He was able to follow commands, he he was able to tell me his name, date of and name of his . He is not experiencing any chest pain or shortness of breath. He is forgetful, stating that he is not sure what discussion took place with Dr. Aguilar. Had a long discussion with his , is stating that she is concerned about his waxing and waning confusion. Some days he would be perfectly fine but other days he would experience visual hallucination, extremely forgetful. Currently he is on pur?ed diet, he has dysphagia, requires modified diet. He also has home health services. sent him to the hospital for worsening of confusion. is stating that she did not notice fever at home. He is aware that his white count stays high and hemoglobin drops. She has not noticed dark stools or active rectal bleed Diagnosis in the ER revealed leukocytosis, he is afebrile, hemodynamically stable, he seems to have persistent leukocytosis, ABG revealed hypoxia Barry CT scan of his body did not show any acute pathological findings other than compression fracture L3 Patient is on 3 L of oxygen, able to answer my questions appropriately He is not confused he is awake and alert he was able to me his name his 's name, date of , able to follow commands, moving all of his extremities, limited range of motion right leg because of back pain Review of Systems Const: Reports: body aches, fatigue and change in sleep pattern; Denies: fever(s) Eyes: Denies: change in vision ENMT: Denies: throat pain Card: Denies: chest pain Resp: Denies: dyspnea GI: Denies: abdominal pain : Denies: flank pain Musc: Denies: neck pain Skin/Breast: Denies: rash Neuro: Denies: headache(s) Psych: Reports: memory loss and visual hallucinations Riccardo/Lymph: Denies: easy bruising All/Imm: Denies: urticaria Medications/Allergies Home Medications Medication Instructions Recorded Confirmed Last Taken Type albuterol sulfate 90 mcg/actuation 2 puff INHALATION Q6H PRN 10/18/19 10/23/21 10/03/21 History aerosol inhaler calcium carbonate 600 mg-vitamin 1 tab PO DAILY 10/18/19 10/23/21 10/23/21 History D3 10 mcg (400 unit) chewable tablet (Calcium 600 with Vitamin D3) ferrous sulfate 325 mg (65 mg 325 mg PO BID 10/18/19 10/23/21 10/23/21 History iron) tablet finasteride 5 mg tablet 5 mg PO DAILY 10/18/19 10/23/21 10/22/21 History magnesium 200 mg tablet 400 mg PO DAILY 10/18/19 10/23/21 10/23/21 History omega-3 fatty acids 1,000 mg 1,000 mg PO DAILY 10/18/19 10/23/21 10/23/21 History capsule (Fish Oil Concentrate) polyethylene glycol 3350 17 17 gm PO DAILY PRN 10/18/19 10/23/21 05/29/21 History gram/dose oral powder (Miralax) vitamin B complex (B 1 tab PO DAILY 10/18/19 10/23/21 10/23/21 History Complex-Vitamin B12) vitamin E (dl, acetate) 180 mg 400 unit PO DAILY 10/18/19 10/23/21 10/23/21 History (400 unit) capsule cholecalciferol (vitamin D3) 25 25 mcg PO DAILY 09/17/21 10/23/21 10/23/21 History mcg (1,000 unit) tablet docusate sodium 100 mg capsule 100 mg PO BID 09/17/21 10/23/21 10/23/21 History fluticasone propionate 100 1 inh INHALATION BID 09/17/21 10/23/21 10/23/21 History mcg/actuation blister powder for inhalation fluticasone propionate 50 1 spray INTRANASAL DAILY PRN 09/17/21 10/23/21 10/03/21 History mcg/actuation nasal spray,suspension multivitamin with iron-mineral 1 tab PO DAILY 09/17/21 10/23/21 10/23/21 History pyridoxine (vitamin B6) 100 mg 100 mg PO DAILY 09/17/21 10/23/21 10/23/21 History tablet sertraline 100 mg tablet 150 mg PO DAILY 09/17/21 10/23/21 10/23/21 History tamsulosin 0.4 mg capsule 0.4 mg PO DAILY 09/17/21 10/23/21 10/23/21 History vitamins A,C,Q-ojno-asdvkm 7,160 2 tab PO BID 09/17/21 10/23/21 10/23/21 History unit-113 mg-100 unit tablet (PreserVision AREDS) aspirin 81 mg tablet,delayed 81 mg PO DAILY #30 tab 10/10/21 10/23/21 10/23/21 Rx release furosemide 40 mg tablet 60 mg PO DAILY #90 tab 10/10/21 10/23/21 10/23/21 Rx omeprazole 40 mg capsule,delayed 40 mg PO BID #0 cap 10/10/21 10/23/21 10/23/21 Rx release prednisone 20 mg tablet 40 mg PO DAILY #10 tab 10/10/21 10/23/21 10/23/21 Rx budesonide 0.25 mg/2 mL suspension 0.25 mg (2 mL) INHALATION BID 30 10/22/21 10/23/21 Unknown Rx for nebulization (Pulmicort) Days #120 ml ipratropium 0.5 mg-albuterol 3 mg 3 ml INHALATION Q6H PRN 30 Days 10/22/21 10/23/21 Unknown Rx (2.5 mg base)/3 mL nebulization #360 ml soln potassium chloride 20 mEq 40 meq PO DAILY 10/23/21 10/23/21 10/23/21 History tablet,extended release(part/cryst) Allergies Allergy/AdvReac Type Severity Reaction Status Date / Time blood pressure medication AdvReac seizures Uncoded 10/01/21 08:30 blood thinners AdvReac seizures Uncoded 10/01/21 08:30 cholesterol medications AdvReac seizures Uncoded 10/01/21 08:30 PFSH Acute PFSH: Medical History Abnormal PSA Acute respiratory failure with hypoxia ASHD (arteriosclerotic heart disease) Benign non-nodular prostatic hyperplasia with lower urinary tract symptoms Cancer involving prostate by direct extension from urinary bladder Carotid artery stenosis COPD (chronic obstructive pulmonary disease) Dementia Former smoker History of hypertension History of iron deficiency anemia from GI losses History of ischemic left MCA stroke Apparent on imaging studies History of skin cancer Hx of hyperlipidemia Mild cognitive impairment with memory loss Non-ST elevation AR (NSTEMI) On home oxygen therapy On 5 L by nasal cannula chronically Pneumonia Prostate cancer has been treated with androgen deprivation therapy with Zolodex and bicalutamide, follows with Drs. Hines and Masood PVD (peripheral vascular disease) Recurrent falls Seizure Sleep apnea Not chronically using CPAP anymore SOB (shortness of breath) Urgency incontinence Surgical History H/O wrist surgery right History of cataract surgery History of endarterectomy History of femoropopliteal bypass History of PTCA Hx of coronary artery bypass graft (~2011) Hx of removal of cyst Hx of rotator cuff surgery Family History Father , at age 60 Cirrhosis of liver Mother , at age 106 No problems noted. Family/Other Diabetes Hypertension Brother Dementia two brothers CAD (coronary artery disease) stent at 78 Cancer Brother Cancer Denies family history of Clotting disorder Chronic kidney disease (CKD) Suicide Anesthesia complication Bleeding disorder Lung disease Stroke Social History Smoking and tobacco status: former smoker Quit status (tobacco): has quit using tobacco Year quit tobacco: 1998 Former quit date comment: 1 ppd X 45 years Alcohol intake: current Alcohol intake frequency: holidays/special occasions only Adopted: No Lives independently: No Household members: spouse Marital status: Current occupational status: retired Current gender identity: Male Vitals/I&O/Wt Last Vital Signs Temp 97.9 F 10/23/21 17:54 Pulse 87 10/23/21 19:35 Resp 18 10/23/21 19:35 BP 154/59 10/23/21 19:35 Pulse Ox 99 10/23/21 19:35 Weight last 48 hrs Weight 76.204 kg Physical Exam Narrative: Pleasant cooperative male Awake and alert NIH 0 Positive leg raise test Right leg limited range of motion because of back pain No signs of cauda equina Sensations intact Abdomen soft S1, S2 sinus rhythm, I do not appreciate A. fib Currently on 3 L oxygen mask, no acute respite distress Mild expiratory wheezing noted bilaterally Nonfocal neuro exam No edema of legs EOMI, Pupils symmetrical Data : 10/23/21 17:20 10/23/21 17:20 Micro: Microbiology 10/23/21 20:10 Blood Culture - Preliminary Blood SPECIMEN COLLECTED 10/23/21 17:20 Blood Culture - Preliminary Blood SPECIMEN COLLECTED A&P Assessment and plan (1) Delirium: Status: Acute (2) Dementia: Status: Acute (3) Leukocytosis, unspecified: Status: Acute (4) Anemia: Status: Acute Plan Delirium with underlying dementia Patient seems to have severe dementia Visual hallucination 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 No active signs of stroke NIH 0 He does have a new L3 compression fracture No signs of cauda equina He is on modified pur?ed diet for recurrent aspiration Current delirium could be related to aspiration pneumonia Previous MRSA PCR negative I will keep him on Zosyn for now Chronic leukocytosis No previous bone marrow biopsies Right lower lobe chronic infiltration noted which could be related to recurrent aspiration No fever No signs of sepsis No signs of meningitis I do believe this patient would benefit from bone marrow biopsy He also has anemia without thrombocytopenia Check B12 level, TSH is normal Recurrent aspiration pneumonia Currently on Zosyn Pur?ed diet Dr. Aguilar recommended conservative management, decided against bronchoscopy due to severe dementia COPD without acute exacerbation Patient at home uses 2 to 2.5 L Currently no acute resp distress I had a lengthy discussion with his , patient is DNR/DNI We did discuss the possibility of worsening of underlying dementia which gets aggravated recurrent aspiration No fever at home Patient already has home health services Might need outpatient hematology consult at the time of discharge DVT prophylaxis: SCDs avoid anticoagulating agent because of anemia Attestations Medical Necessity Statement*: Patient might stay more than 2 midnights for delirium related to aspiration pneumonia, Chronic leukocytosis, Time Spent in Patient Care: 40mins Coding Level of Care Code Acute Medical Office Technology Instructor for Chg Mauricio Diagnoses Delirium R41.0 Dementia F03.90 Leukocytosis, unspecified D72.829 Anemia D64.9
[2021-10-23] MEDS: cefTRIAXone 2,000 MG in sodium chloride 0.9% (plus) 50 ML 100 MG IV (22:57)
--- NOTE | 2021-10-23 23:02 | PC.NURSE ---
Late note, 2149,assisted with LP attempt with doctor Paz. started 2149, unsuccessful, pt to lay supine x 1 hr.
[2021-10-23] MEDS: piperacillin-tazobactam 3.375 GM in sodium chloride 0.9% (plus) 50 ML IV (23:40)
--- NOTE | 2021-10-24 00:01 | PC.NURSE ---
Unable to answer all questions of admission assessment. is not at bedside. Patient is oriented x2. Patient is able to answer some of the admission questions, but not all of them. Bed alarm is set.
[2021-10-24 00:50] LABS: Basophils # 0.1 10^3/uL (0.0-0.1); Basophils % 0.3 %; Eosinophils % 0.1 %; Hematocrit 25.3 % (42.0-52.0); Hemoglobin 7.7 g/dL (11.7-16.6); Lymphocytes # 1.5 10^3/uL (0.8-4.8); Lymphocytes % 7.8 %; Mean Corpuscular HGB Conc 30.4 g/dL (30.0-36.0); Mean Corpuscular Hemoglobin 25.6 pg (28.0-34.0); Mean Corpuscular Volume 84.1 fl (80-94); Mean Platelet Volume 10.6 fL (7.4-10.4); Monocytes # 1.6 10^3/uL (0.2-0.9); Monocytes % 8.7 %; Neutrophils # 15.28 10^3/uL (1.8-7.7); Neutrophils % 80.7 %; Nucleated Red Blood Cells % 0 %; Platelet Count 220 10^3/cmm (130-400); Red Blood Count 3.01 10^6/uL (4.1-5.3); Red Cell Distribution Width 18.7 % (12.1-15.1); White Blood Count 18.9 10^3/uL (4.0-10.0)
[2021-10-24 03:13] LABS: Vitamin B12 > 2000 pg/mL (232-1245)
[2021-10-24 03:33] LABS: Anion Gap 13.1 (5-19); Blood Urea Nitrogen 18 mg/dL (8-23); C Reactive Protein 74.7 mg/L (0.0-4.9); Calcium 8.6 mg/dL (8.5-10.5); Carbon Dioxide 35 mmol/L (22-29); Chloride 94 mmol/L (98-107); Glucose 111 mg/dL (65-115); Osmolality Calculated 291 mOsm/kg (285-295); Potassium 3.1 mmol/L (3.5-5.1); Sodium 139 mmol/L (136-145)
[2021-10-24 03:35] LABS: Troponin T (5th) Once 49 ng/L (0-15)
[2021-10-24 04:08] VITALS: BP 106/58; PULSE 80; RESP 20; TEMP 36.5; O2SAT 97
--- NOTE | 2021-10-24 05:54 | PC.NURSE ---
Addendum entered by Thao Cr RN 10/24/21 05:55: Patient's linens and chucks currently clean and dry. Bed alarm is on. Original Note: Patient is currently on 5 liter oxymask with oxygen saturation of 94 percent. Patient has continuous pulse ox monitoring on.
[2021-10-24 06:13] LABS: Prolactin 13.25 ng/mL (4.0-15.2)
[2021-10-24 08:00] VITALS: BP 118/62; PULSE 81; PULSE 88; RESP 17; RESP 18; TEMP 37; O2SAT 95
--- NOTE | 2021-10-24 10:08 | PC.CHAP ---
Pastoral Care Encounter/Spiritual Assessment Type of Contact [] Declined production service manager visit [] Patient/Family/Request visit [] Outpatient visit [] Follow-up visit [] Physician referral [] Code/Alert [x] Routine visit [] Staff referral [] Actively dying [] Patient sleeping [] Family support [] [] Out of room [] Palliative care [] [] Receiving care in room [] Pre-surgical visit [] Trauma [] Long length of stay [] ICU visit [] Other: Relational/Emotional Strength [] Patient feels connected with others/family/visitors/staff [] Distress [] Loneliness/isolation [] Abandonment Spirituality of Patient [] Person of Salome [] Attends Mormon of their Salome [] Believes in Prayer [] Reads Bible or Bahai materials [] There are Spiritual issues to be addressed Side Stitcher Interventions [] Prayer [] Active listening [] Non-anxious presence [] Spiritual/emotional support [] Crisis/trauma care [] Spiritual counseling [] Bereavement support [] Provided bereavement packet [] Provided Bible/devotional materials [] Provided toy/stuffed animal, coloring book to patient or family member [] Provided Communion [] Anointing/[place] [] Salvation [] Completed spiritual assessment [] Other: Impact on Illness or Injury [] Angry [] Fearful [] Anxious [] Often cries [] Exhaustion [] Unable to work [] Unable to attend judaism [] Unable to walk/stand [] Unable to read [] Unable to drive [] Unable to eat/drink [] Unable to sleep [] Unable to be with family [] Patient intubated [] Other: Summary Time spent with patient
[2021-10-24] MEDS: piperacillin-tazobactam 3.375 GM in sodium chloride 0.9% (plus) 50 ML IV ×3 (10:20→23:38)
[2021-10-24] MEDS: finasteride 5 mg Tablet PO (10:20)
[2021-10-24] MEDS: tamsulosin 0.4 mg Capsule PO (10:20)
[2021-10-24] MEDS: pantoprazole DR 40 mg Tablet PO ×2 (10:20→16:45)
--- NOTE | 2021-10-24 10:28 | PM.PN ---
Subjective Subjective: On entering the room, the patient is fast asleep after eventful night. His is at the bedside and she is very reasonable and lucid. We had a long discussion she and I, and discussed his decided decrescendo over the past fairly brief period of time. She has experience in healthcare as a nurse I believe, and has a fair amount of understanding of end-of-life issues already. We discussed that his waxing and waning lucidity would probably only get worse, and he would continue to have bouts of aspiration pneumonia. She voiced that she is tired of seeing him suffer, and wants to take him home with hospice. I support her decision and appreciate her practical attitude when making such a terribly difficult decision. Vitals/I&O/Wt Last Vital Signs Temp 98.6 F 10/24/21 08:00 Pulse 88 10/24/21 08:00 Resp 17 10/24/21 08:00 BP 118/62 10/24/21 08:00 Pulse Ox 95 10/24/21 08:00 10/23/21 10/24/21 10/24/21 22:59 06:59 14:59 Intake Total 200 / 200 Balance 200 / 200 Weight last 48 hrs Weight 169 lb 8 oz Weight 168 lb Physical Exam Narrative: Mr. Harding arouses, but is pretty sleepy. He is in no distress and does not appear to be in any pain. Data : 10/24/21 00:37 10/24/21 02:52 Micro: Microbiology 10/23/21 20:10 Blood Culture - Preliminary Blood SPECIMEN COLLECTED 10/23/21 17:20 Blood Culture - Preliminary Blood SPECIMEN COLLECTED A&P Assessment and plan (1) Delirium: This waxes and wanes. Most likely related to off-and-on infections in his lung. He also looks like he has some sort of bone marrow issue. His is not interested in pursuing anything aggressively, and I support her decision. Status: Acute (2) Chronic respiratory failure with hypoxia: This is secondary to continued aspiration, related to his declining mental status. This is an end-stage problem, and his voiced understanding. Status: Acute (3) Pneumonia: Status: Acute Attestations Medical Necessity Statement*: Mr. Harding will only have to be here as long as it takes to get his hospice all set up. Coding Level of Care Code Acute Flattening Press Operator for g Fwd Diagnoses Delirium R41.0 Chronic respiratory failure with hypoxia J96.11 Pneumonia J18.9
[2021-10-24 11:40] VITALS: O2SAT 86
[2021-10-24 12:00] VITALS: BP 125/51; PULSE 78; RESP 18; TEMP 36.9; O2SAT 91
[2021-10-24 16:00] VITALS: BP 125/59; PULSE 63; RESP 17; TEMP 36.8; O2SAT 96
[2021-10-24 20:00] VITALS: BP 129/72; PULSE 66; PULSE 69; RESP 16; RESP 19; TEMP 37; O2SAT 97; O2SAT 99
[2021-10-25] VITALS (8 sets, daily range): BP systolic 115–132; BP diastolic 49–57; PULSE 58–85; RESP 16–18; TEMP 36.4–37; O2SAT 91–99
[2021-10-25] MEDS: pantoprazole DR 40 mg Tablet PO (09:02)
[2021-10-25] MEDS: tamsulosin 0.4 mg Capsule PO (09:02)
[2021-10-25] MEDS: piperacillin-tazobactam 3.375 GM in sodium chloride 0.9% (plus) 50 ML IV (09:02)
[2021-10-25] MEDS: finasteride 5 mg Tablet PO (09:02)
--- NOTE | 2021-10-25 10:23 | P.DS_ITS ---
Discharge Providers Date of Admission: 10/23/21 22:39 Date of Discharge: October 25, 2021 Attending Provider at Admission: Ting Gutierres MD Attending Provider at Discharge: Yo Beckwith MD Primary Care Provider: Chanelle Anthony MD Diagnoses at Discharge Discharge Diagnosis (1) Delirium: Details from hospital stay: He was admitted with increasing confusion and was felt to have some aspiration pneumonia. He is pretty much at his baseline mental status, which is fairly demented Status: Acute (2) Chronic respiratory failure with hypoxia: Details from hospital stay: Without like this was a related to aspiration pneumonia. This is 1 of many episodes he has had of aspiration pneumonia. His is keen to take him home with hospice and not do any more heroic things for him including bone marrow biopsies and the like. He was noted to be fairly anemic and his white count is up, so I am suspicious that he may have some sort of bone marrow issue, however this is a moot consideration given his end-stage diseases and recent decrescendo. So were going to let him go on hospice per his 's wishes. I have signed the comfort pack medicine and the hospice physician will take over when he gets home. Status: Acute (3) Pneumonia: Status: Acute Reason for Visit Reason for Visit: Confusion, Low BP, Chest Pains Hospital Course Hospital Course As above Discharge Data Studies Completed and Pending Completed Studies During Hospitalization Category Date Time Status CT cervical spin wo con* [id number] Stat Cat Scan 10/23/21 17:[address] chest abd pel w con* Urgent Cat Scan 10/23/21 18:[address] head wo con* [id number] Stat Cat Scan 10/23/21 17:35 Completed Pending at discharge Category Date Time Status Arterial Blood Gas W/O Coox Stat Lab 10/23/21 16:46 Results Blood Culture Stat Lab 10/23/21 20:10 Results Radiology Impressions Cervical Spine CT 10/23/21 17:35 IMPRESSION: No acute cervical spine injury. Head CT 10/23/21 17:35 IMPRESSION: Negative for acute intracranial abnormality. Chest/Abdomen/Pelvis CT 10/23/21 18:16 IMPRESSION: 1. Right pleural effusion. 2. Right lower lobe atelectasis or alternatively difficult to exclude bronchopneumonia. IMPRESSION: 1. Negative for acute abdominopelvic pathology. 2. Age indeterminate L3 vertebral compression fracture which is new since 09/22/2020. COMMENTS: Consistent with the [employer]'s Incidental Findings Committee white paper (J Am Vivi Radiol 2018): Any incidental renal lesion less than 1 cm or classified as too small to characterize, or any incidental cystic renal lesion characterized as simple-appearing, is likely benign. No follow-up imaging is recommended for these lesions per consensus recommendations based on imaging criteria. Laboratory Results WBC 18.9 10^3/uL (4.0-10.0) H 10/24/21 00:37 RBC 3.01 10^6/uL (4.1-5.3) L 10/24/21 00:37 Hgb 7.7 g/dL (11.7-16.6) L 10/24/21 00:37 Hct 25.3 % (42.0-52.0) L 10/24/21 00:37 MCV 84.1 fl (80-94) 10/24/21 00:37 MCH 25.6 pg (28.0-34.0) L 10/24/21 00:37 MCHC 30.4 g/dL (30.0-36.0) 10/24/21 00:37 RDW 18.7 % (12.1-15.1) H 10/24/21 00:37 Plt Count 220 10^3/cmm (130-400) 10/24/21 00:37 MPV 10.6 fL (7.4-10.4) H 10/24/21 00:37 Neut % (Auto) 80.7 % 10/24/21 00:37 Lymph % (Auto) 7.8 % 10/24/21 00:37 [place] % (Auto) 8.7 % 10/24/21 00:37 Eos % (Auto) 0.1 % 10/24/21 00:37 Baso % (Auto) 0.3 % 10/24/21 00:37 Neut # (Auto) 15.28 10^3/uL (1.8-7.7) H 10/24/21 00:37 Lymph # (Auto) 1.5 10^3/uL (0.8-4.8) 10/24/21 00:37 [place] # (Auto) 1.6 10^3/uL (0.2-0.9) H 10/24/21 00:37 Eos # (Auto) 0.0 10^3/uL (0.0-0.8) 10/24/21 00:37 Baso # (Auto) 0.1 10^3/uL (0.0-0.1) 10/24/21 00:37 Nucleated RBC % (auto) 0 % 10/24/21 00:37 Nucleated RBCs # 0.0 /100WBC 10/24/21 00:37 PT 14.70 SECONDS (12.1-14.9) 10/23/21 20:43 INR 1.12 (0.8-1.2) 10/23/21 20:43 APTT 36.9 SECONDS (23.9-36.7) H 10/23/21 20:43 Specimen Type Arterial 10/23/21 16:46 ABG pH 7.52 (7.35-7.45) H 10/23/21 16:46 ABG pCO2 48.6 mmHg (35-45) H 10/23/21 16:46 ABG pO2 57.6 mmHg (80.0-100.0) L 10/23/21 16:46 ABG HCO3 39.2 mmol/L (22-26) H 10/23/21 16:46 ABG Base Excess 14.6 mmol/L (-2.0-2.0) H 10/23/21 16:46 Miguel Angel Test N/a 10/23/21 16:46 Hematocrit 28.4 % (42-52) L 10/23/21 16:46 O2 Delivery Device Nc 10/23/21 16:46 O2 Liters/Min 2.0 % 10/23/21 16:46 [place] ID Marcelo 10/23/21 16:46 Sodium 139 mmol/L (136-145) 10/24/21 02:52 Potassium 3.1 mmol/L (3.5-5.1) L 10/24/21 02:52 Chloride 94 mmol/L (98-107) L 10/24/21 02:52 Carbon Dioxide 35 mmol/L (22-29) H 10/24/21 02:52 Anion Gap 13.1 (5-19) 10/24/21 02:52 BUN 18 mg/dL (8-23) 10/24/21 02:52 Creatinine 0.8 mg/dL (0.7-1.2) 10/24/21 02:52 GFR Calculation Not Reportable 10/24/21 02:52 Glucose 111 mg/dL (65-115) 10/24/21 02:52 POC Glucose 128 mg/dL (70-110) H 10/23/21 17:05 Calculated Osmolality 291 mOsm/kg (285-295) 10/24/21 02:52 Lactic Acid 1.2 mmol/L (0.5-2.2) 10/23/21 20:10 Calcium 8.6 mg/dL (8.5-10.5) 10/24/21 02:52 Magnesium 2.2 mg/dL (1.7-2.3) 10/23/21 17:20 Total Bilirubin 0.4 mg/dL (0.15-1.2) 10/23/21 17:20 AST 41 U/L (0-40) H 10/23/21 17:20 ALT 21 U/L (0-41) 10/23/21 17:20 Alkaline Phosphatase 79 IU/L (40-130) 10/23/21 17:20 Ammonia 44 umol/L (16-60) 10/23/21 17:20 Creatine Kinase 43 U/L (39-308) 10/23/21 17:20 Troponin T Gen 5 ng/L 49 ng/L (0-15) H 10/24/21 02:52 Troponin T Baseline 35 ng/L (0-15) H 10/23/21 17:20 Troponin T 120 Minute 43.00 ng/L (0-15) H 10/23/21 20:10 Delta Troponin T 8.00 ABS# (0-10) 10/23/21 20:10 C-Reactive Protein 74.7 mg/L (0.0-4.9) H 10/24/21 02:52 NT-Pro-B Natriuret Pep 3871 pg/mL (0-450) H 10/23/21 17:20 Total Protein 6.7 g/dL (6.6-8.7) 10/23/21 17:20 Albumin 3.2 g/dL (3.5-5.2) L 10/23/21 17:20 Globulin 3.5 g/dL (1.3-4.6) 10/23/21 17:20 Vitamin B12 > 2000 pg/mL (232-1245) H 10/23/21 20:10 Procalcitonin 0.13 ng/mL (0-0.5) 10/23/21 17:20 TSH 2.30 uIU/mL (0.27-4.20) 10/23/21 17:20 Prolactin 13.25 ng/mL (4.0-15.2) 10/23/21 02:52 Urine Color Straw (Yellow) 10/23/21 17:45 Urine Appearance Clear (CLEAR) 10/23/21 17:45 Urine pH 7 (5-7) 10/23/21 17:45 Ur Specific [place] 1.005 (1.005-1.030) 10/23/21 17:45 Urine Protein Neg (Negative) 10/23/21 17:45 Urine Glucose (UA) Norm (Normal) 10/23/21 17:45 Urine Ketones Negative (Negative) 10/23/21 17:45 Urine Blood Neg (Negative) 10/23/21 17:45 Urine Nitrate Negative (Negative) 10/23/21 17:45 Urine Bilirubin Neg (Negative) 10/23/21 17:45 Urine Urobilinogen Norm mg/dL (Negative) 10/23/21 17:45 Ur Leukocyte Esterase Negative (Negative) 10/23/21 17:45 Influenza Type A Ag Negative (Negative) 10/23/21 18:40 Influenza Type B Ag Negative (Negative) 10/23/21 18:40 Vitals Last Vital Signs Temp 97.6 F 10/25/21 07:28 Pulse 69 10/25/21 07:40 Resp 16 10/25/21 07:40 BP 132/57 10/25/21 07:28 Pulse Ox 99 10/25/21 07:40 Discharge Plan Discharge Patient Disposition: Home Condition: Stable Prescriptions: New amoxicillin-pot clavulanate 875-125 mg tablet 1 tab PO BID Qty: 20 0RF Continued finasteride 5 mg tablet 5 mg PO DAILY 0RF albuterol sulfate 90 mcg/actuation HFA aerosol inhaler 2 puff INHALATION Q6H PRN (Reason: Shortness Of Breath) 0RF polyethylene glycol 3350 [Miralax] 17 gram/dose powder 17 gm PO DAILY PRN (Reason: Constipation) 0RF Calcium 600 with Vitamin D3 600 mg(1,500mg) -400 unit tablet,chewable 1 tab PO DAILY 0RF omega-3 fatty acids [Fish Oil Concentrate] 1,000 mg capsule 1,000 mg PO DAILY 0RF vitamin B complex [B Complex-Vitamin B12] Tablet 1 tab PO DAILY 0RF vitamin E (dl, acetate) 400 unit capsule 400 unit PO DAILY 0RF ferrous sulfate 325 mg (65 mg iron) tablet 325 mg PO BID 0RF magnesium 200 mg tablet 400 mg PO DAILY 0RF ipratropium-albuterol 0.5 mg-3 mg(2.5 mg base)/3 mL solution for nebulization 3 ml inhalation Q6H PRN (Reason: wheezing) 30 Days Qty: 360 3RF budesonide [Pulmicort] 0.25 mg/2 mL suspension for nebulization 0.25 mg inhalation BID 30 Days Qty: 120 4RF prednisone 20 mg Tablet 40 mg PO DAILY Qty: 10 0RF aspirin 81 mg Tablet,Delayed Release (Dr/Ec) 81 mg PO DAILY Qty: 30 0RF omeprazole 40 mg capsule,delayed release(DR/EC) 40 mg PO BID Qty: 0 0RF furosemide 40 mg tablet 60 mg PO DAILY Qty: 90 3RF sertraline 100 mg tablet 150 mg PO DAILY 0RF Rx Instructions: TAKE 1.5 TABLETS ONCE DAILY tamsulosin 0.4 mg capsule 0.4 mg PO DAILY 0RF fluticasone propionate 100 mcg/actuation Blister With Device 1 inh INHALATION BID 0RF docusate sodium 100 mg Capsule 100 mg PO BID 0RF pyridoxine (vitamin B6) 100 mg Tablet 100 mg PO DAILY 0RF fluticasone propionate 50 mcg/actuation spray,suspension 1 spray INTRANASAL DAILY PRN (Reason: Nasal Congestion) 0RF Rx Instructions: 1 SPRAY IN EACH NOSTRIL multivitamin with iron-mineral Tablet 1 tab PO DAILY 0RF cholecalciferol (vitamin D3) 25 mcg (1,000 unit) Tablet 25 mcg PO DAILY 0RF PreserVision AREDS 7,160 unit- 113 mg-100 unit Tablet 2 tab PO BID 0RF Rx Instructions: administer with AM and PM meals potassium chloride 20 mEq tablet,ER particles/crystals 40 meq PO DAILY 0RF Discharge Orders: Discharge Order (Routine); Ordered 10/25/21 Ordered By: Yo Tinsley: [facility] ([facility]) [Outside] Chanelle Anthony MD [Primary Care Provider] - Patient Instructions: Opioid Safety Discharge Attestations Time Spent in Discharge Care*: less than 30 min Status at Discharge: Cognitive status at discharge: cognitively intact , Behavioral status at discharge: cooperative , Quality Metrics Clinical Quality Measures [ No reported AMI, CVA or VTE this stay] Coding Level of Care Code Acute Chg FW DC note Diagnoses Delirium R41.0 Chronic respiratory failure with hypoxia J96.11 Pneumonia J18.9
== END 2021-10-25 16:05 | disposition hospice, home (50) | DRG 179 ==
LOC: ER 22:38 → MEDSURG 22:50
PROVIDERS: Admitting Provider Internal Medicine; Emergency Provider Emergency Medicine; PCP Family Medicine; Visit Provider Internal Medicine
DX: J69.0 Pneumonitis due to inhalation of food and vomit (principal); Z87.01 Personal history of pneumonia (recurrent); I48.91 Unspecified atrial fibrillation; Z86.711 Personal history of pulmonary embolism; I25.10 Atherosclerotic heart disease of native coronary artery without angina pectoris; Z95.1 Presence of aortocoronary bypass graft; C61 Malignant neoplasm of prostate; N40.0 Benign prostatic hyperplasia without lower urinary tract symptoms; J43.2 Centrilobular emphysema; F03.90 Unspecified dementia, unspecified severity, without behavioral disturbance, psychotic disturbance, mood disturbance, and anxiety; Z86.73 Personal history of transient ischemic attack (TIA), and cerebral infarction without residual deficits; Z85.828 Personal history of other malignant neoplasm of skin; I73.9 Peripheral vascular disease, unspecified; Z87.891 Personal history of nicotine dependence; D64.9 Anemia, unspecified
CPT/HCPCS: 36416; 36600; 62270; 70450; 71260; 72125; 74177; 80048; 80053; 81003; 82140; 82550; 82607; 82803; 82962; 83605; 83735; 83880; 84145; 84146; 84443; 84484; 85025; 85610; 85730; 86140; 87040; 87804; 93005; 96365; 96367; 99285; J0290; J0696; J2543; J3370; J7030; Q9967